=== PATIENT | male | born 1950 | race Two or more races ===

== ENCOUNTER 2024-08-04 09:33 | Inpatient (IN) | payer OTHER, MEDICAID ==
[~2024-08-04] VITALS: Ht 182.9 cm; Wt 120.2 kg
[2024-08-04] VITALS (8 sets, daily range): BP systolic 120–137; BP diastolic 80–89; PULSE 78–121; RESP 16–23; TEMP 97.1–98; O2SAT 96–99
[2024-08-04 10:22] LABS: Basophils # (auto) 0.1 10 ^3/uL (0-0.2); Basophils % (auto) 1.6 % (0.0-2.0); Eosinophils # (auto) 0.4 10 ^3/uL (0-0.8); Eosinophils % (auto) 4.9 % (0.0-7.0); Hematocrit 42.7 % (41.0-53.0); Hemoglobin 14.6 g/dL (13.5-17.5); Lymphocytes # (auto) 1.7 10 ^3/uL (0.4-5.4); Lymphocytes % (auto) 20.9 % (10.0-50.0); Mean Corpuscular Hgb Conc. 34.1 g/dL (32.0-36.0); Mean Corpuscular Volume 90.8 fL (80.0-100.0); Monocytes # (auto) 0.8 10 ^3/uL (0-1.3); Monocytes % (auto) 9.5 % (0.0-12.0); Neutrophils # (auto) 5.1 10 ^3/uL (1.6-8.6); Neutrophils % (auto) 63.1 % (37.0-80.0); Platelet Count (auto) 207 10^3/uL (140-450); Red Cell Distribution Width 14.7 % (11.8-14.3); White Blood Cell 8.1 10^3/uL (4.4-10.8)
--- NOTE | 2024-08-04 10:27 | ED.PDOC ---
HPI Comments 73-year-old male with a history of AFib, CHF, COPD on home O2 brought in by EMS from home complaining of chest pain. Patient states he woke up around 3:00 a.m. today with a rapid heart rate and knew he was in AFib. About an hour and a half prior to arrival in the ED, he developed achy retrosternal chest pain, associated with shortness of breath despite oxygen. He also notes worsening bilateral lower extremity swelling and pain. He denies fever, cough or other symptoms. Chief Complaint: Chest Pain Time Seen by MD: 10:00 Primary Care Provider: IVORY Allergies: Coded Allergies: Fentanyl (Verified Allergy, Severe, 08/04/24) Tetracycline (Verified Allergy, Severe, 08/04/24) Patient states anaphalatic shock reaction from tetracycline and was hospitalized for 2 weeks. Povidone Iodine (Verified Allergy, Intermediate, RASH, 08/04/24) Home Meds Reported Medications Morphine Sulfate (Morphine Sulfate Er) 60 Mg Tab, 1 TAB PO Q4HPRN, #60 TAB 08/04/24 Atorvastatin Calcium (ATORVASTATIN CALCIUM) 40 Mg Tab, 1 TAB PO DAILY, #30 TAB 5 Refills 08/04/24 Furosemide (Furosemide) 20 Mg Tab, 1 TAB PO DAILYP, #90 TAB 1 Refill 08/04/24 Gabapentin (Gabapentin) 600 Mg Tab, 1 TAB PO TID, #90 TAB 3 Refills 08/04/24 Sotalol Hcl (Sotalol Hcl) 80 Mg Tab, 1 TAB PO BID, #180 TAB 3 Refills 08/04/24 Apixaban Base (ELIQUIS) 5 Mg Tab, 5 MG PO BID, TAB 08/04/24 Amlodipine Besylate (NORVASC TABLET) 5 Mg Tb, 1 TAB PO DAILY, #30 TAB 5 Refills 08/04/24 Metoprolol Succinate (Metoprolol Succinate Er) 50 Mg Tab, 1 TAB PO DAILY, #30 TAB 5 Refills 08/04/24 Losartan Potassium (Losartan Potassium) 50 Mg Tab, 1 TAB PO DAILY, #30 TAB 5 Refills 08/04/24 Budesonide-Formoterol Fumarate (Budesonide/Formoterol Fum 160-4.5 Mcg/Act) 1 Aer Aer, 1 AER IN Q4HPRN, AER 08/04/24 Mode of Arrival: EMS Past Medical History PAST MEDICAL HISTORY: Asthma, CHF, COPD, High Lipids, HTN Past Medical History (Other): Neuropathy, history of leukemia in remission Surgical History: Appendectomy Surgical History (Other): Right chest port Family History Family History: Reviewed,noncontributory to illness Social History Smoker: Non-Smoker Alcohol: Denies ETOH Use Drugs: Denies Drug Use Lives In: Home Physical Exam General Appearance: No Apparent Distress HEENT: PERRL/EOMI, Pharynx Normal Neck: Full Range of Motion, Normal Inspection, Supple Respiratory: Decreased Breath Sounds, No Accessory Muscle Use, No Respiratory Distress Cardiovascular: Irregular, No JVD Breast Exam: Deferred Gastrointestinal: Non Tender, Soft Genitalia: Deferred Pelvic: Deferred Rectal: Deferred Extremities: Leg edema, Normal range of motion, Pedal edema, Tender Neurologic: Alert (Oriented x4), Normal Affect, Normal Mood, Other (No gross focal deficit) Cerebellar Function: NOT DONE Reflexes: NOT DONE Skin: Dry, Normal Color, Warm Lymphatic: NOT DONE EKG EKG : Comments AFib, rate 83, normal QRS interval, QTC 490, left axis deviation, possible old inferior or anteroseptal infarct, nonspecific T change. Was a procedure done? Was a procedure done?: No CP Differential Dx Differential Diagnosis: A-fib, Angina, [place], Pulmonary Embolus Differential Diagnosis: CHF Differential Diagnosis: Chest Wall Pain, Esophageal reflux/spasm, Gastritis, Pericarditis, Pneumonia X-Ray, Labs, Meds, VS Vital Signs Date Time Temp Pulse Resp B/P (MAP) Pulse Ox O2 Delivery O2 Flow Rate FiO2 08/04/24 14:45 84 19 126/88 (101) 100 08/04/24 13:34 18 97 Nasal Cannula* 3 32 08/04/24 11:46 95 137/89 (105) 100 08/04/24 11:46 137/89 08/04/24 10:39 154/96 08/04/24 10:38 154/96 08/04/24 09:55 78 16 99 Nasal Cannula* 3 32 08/04/24 09:55 97.1 78 16 154/96 (115) 99 97.1 08/04/24 09:35 83 08/04/24 09:33 98.0 85 12 143/98 (113) 98 Lab Test 08/04/24 13:40 08/04/24 13:35 08/04/24 13:05 08/04/24 10:43 Range/Units Influenza Type A Antigen Negative Negative Influenza Type B Antigen Negative Negative SARS-CoV-2 Antigen (Rapid) Negative NEGATIVE Lactic Acid Level 1.3 0.4-2.0 mmol/L Troponin I High Sensitivity 11 11 </=54 ng/L Test 08/04/24 09:51 Range/Units White Blood Count 8.1 4.4-10.8 10^3/uL Red Blood Count 4.70 4.5-5.90 10^6/uL Hemoglobin 14.6 13.5-17.5 g/dL Hematocrit 42.7 41.0-53.0 % Mean Corpuscular Volume 90.8 80.0-100.0 fL Mean Corpuscular Hemoglobin 31.0 28.0-32.0 pg Mean Corpuscular Hemoglobin Concent 34.1 32.0-36.0 g/dL Red Cell Distribution Width 14.7 H 11.8-14.3 % Platelet Count 207 140-450 10^3/uL Mean Platelet Volume 8.1 6.9-10.8 fL Neutrophils (%) (Auto) 63.1 37.0-80.0 % Lymphocytes (%) (Auto) 20.9 10.0-50.0 % Monocytes (%) (Auto) 9.5 0.0-12.0 % Eosinophils (%) (Auto) 4.9 0.0-7.0 % Basophils (%) (Auto) 1.6 0.0-2.0 % Neutrophils # (Auto) 5.1 1.6-8.6 10 ^3/uL Lymphocytes # (Auto) 1.7 0.4-5.4 10 ^3/uL Monocytes # (Auto) 0.8 0-1.3 10 ^3/uL Eosinophils # (Auto) 0.4 0-0.8 10 ^3/uL Basophils # (Auto) 0.1 0-0.2 10 ^3/uL Nucleated Red Blood Cells 0.0 % Sodium Level 138 136-145 mmol/L Potassium Level 4.2 3.5-5.1 mmol/L Chloride Level 107 98-107 mmol/L Carbon Dioxide Level 24 20-31 mmol/L Anion Gap 7 5-15 Blood Urea Nitrogen 13 9-23 mg/dL Creatinine 0.93 0.700-1.30 mg/dL Glomerular Filtration Rate Calc 87 >90 mL/min BUN/Creatinine Ratio 14.0 10.0-20.0 Serum Glucose 102 74-106 mg/dL Calcium Level 10.0 8.7-10.4 mg/dL Total Bilirubin 0.6 0.2-1.0 mg/dL Aspartate Amino Transferase (AST) 19 13-40 U/L Alanine Aminotransferase (ALT) 32 7-40 U/L Alkaline Phosphatase 90 46-116 U/L Troponin I High Sensitivity 11 </=54 ng/L B-Type Natriuretic Peptide 234.03 0-100 pg/mL Total Protein 6.9 5.7-8.2 g/dL Albumin 4.6 3.2-4.8 g/dL Current Medications Medications (Trade) Dose Ordered Sig/Aixa Route Start Time Stop Time Status Last Admin Furosemide (Lasix Injection) 40 mg ONCE ONCE IV 08/04/24 10:30 08/04/24 10:31 DC 08/04/24 10:38 Nitroglycerin (Nitro-Bid) 1 pkg ONCE ONCE TD 08/04/24 10:30 08/04/24 10:31 DC 08/04/24 10:39 Acetaminophen/ Hydrocodone Bitart ([place] 5/325MG Tab) 1 tab ONCE ONCE PO 08/04/24 10:30 08/04/24 10:31 DC 08/04/24 10:39 Methylprednisolone Sodium Succinate (Solu Medrol) 125 mg ONCE ONCE IV 08/04/24 13:15 08/04/24 14:25 DC 08/04/24 15:00 Ceftriaxone Sodium 50 ml @ 100 mls/hr ONCE ONCE IV 08/04/24 13:15 08/04/24 14:25 DC 08/04/24 15:00 Azithromycin 250 ml @ 125 mls/hr ONCE ONCE IV 08/04/24 13:15 08/04/24 15:14 DC 08/04/24 16:44 Chest XR: FINDINGS: Lines and Tubes: Right chest port in satisfactory position. Lungs: Diffuse increased interstitial prominence. Pleura: No effusion. No pneumothorax. Cardiomediastinal contours: Cardiomegaly Bones: Unremarkable IMPRESSION: Pulmonary vascular congestion versus multifocal infection. X-Ray, Labs, Meds, VS Comment 73-year-old male with a history of AFib, COPD, CHF complaining of a recurrence of his AFib, associated with chest pain, shortness a breath and worsening lower extremity edema. Vitals remarkable for BP 154/96 EKG AFib, rate 83, nonspecific T changes Chest x-ray IMPRESSION: Pulmonary vascular congestion versus multifocal infection. Labs remarkable for BNP 234.03, no other abnormalities of acute significance. Two serial troponins negative. Aspirin 325 mg p.o. was given by EMS Patient treated with the following in the ED: Nitro-Bid 1/2 inch to chest wall , Lasix 40 mg IV, [place] 5/325 mg p.o., Solu- Medrol 125 mg IV, Xopenex 1.25 mg/Atrovent 0.5 mg nebulized, Rocephin 1 g IV, Zithromax 500 mg IV On re-evaluation, patient states his symptoms have improved. No chest pain. Shortness breath has improved. Plan is to admit the patient for diuresis, serial troponins and Cardiology evaluation. Images Reviewed?: Images reviewed and evaluated by me Time of 1ST Reevaluation: 10:26 Reevaluation 1ST: Unchanged Patient Education/Counseling: Diagnosis, Treatment Family Education/Counseling: No Family Present Additional Information The following tests were ordered, and results were reviewed by me: CXR, EKG, Troponin, CBC, CMP, BNP I reviewed and agreed with the following test results read by other providers: CXR I discussed treatment and results with medical personnel. Departure 1 Departure Time of Disposition: 13:08 Impression: Primary Impression: Afib Qualified Codes: I48.91 - Unspecified atrial fibrillation Additional Impressions: Acute exacerbation of chronic heart failure COPD exacerbation Acute chest pain Disposition: ADMITTED INPATIENT Admit to: Tele Condition: Guarded Critical Care Note Critical Care Time?: No Stability Stability form required: No Heart Score Heart Score: Heart Score Response (Comments) Value History Moderate Suspicious 1 EKG Repolarization Disturb 1 Age >65 2 Risk Factors >3 or Hx ASHD 2 Troponin Normal limit 0 Total 6 I personally scribed for MILLER LEWIS MD ([email or web address]) on 08/04/24 at 12:56. Electronically submitted by Randal Andrade ([email or web address]). MILLER LEWIS MD Aug 04, 2024 10:27
[2024-08-04 10:36] LABS: Alanine Aminotransferase 32 U/L (7-40); Albumin 4.6 g/dL (3.2-4.8); Alkaline Phosphatase 90 U/L (46-116); Anion Gap 7 (5-15); Aspartate Aminotransferase 19 U/L (13-40); Bilirubin, Total 0.6 mg/dL (0.2-1.0); Blood Urea Nitrogen 13 mg/dL (9-23); Carbon Dioxide 24 mmol/L (20-31); Glucose 102 mg/dL (74-106); Potassium 4.2 mmol/L (3.5-5.1); Sodium 138 mmol/L (136-145); Total Protein 6.9 g/dL (5.7-8.2)
[2024-08-04 10:37] LABS: Chloride 107 mmol/L (98-107)
[2024-08-04] MEDS: FUROSEMIDE 40 MG/4 ML VIAL IV ONE (10:38)
[2024-08-04] MEDS: HYDROcodone-ACET 5/325MG TAB PO ONE (10:39)
[2024-08-04] MEDS: NITROGLYCERIN 2% OINT 1GM PKG TD ONE (10:39)
--- NOTE | 2024-08-04 12:03 | DVH ---
CHEST RADIOGRAPH Indication: cp sob Technique: Single frontal view of the chest was obtained COMPARISON: None FINDINGS: Lines and Tubes: Right chest port in satisfactory position. Lungs: Diffuse increased interstitial prominence. Pleura: No effusion. No pneumothorax. Cardiomediastinal contours: Cardiomegaly Bones: Unremarkable IMPRESSION: Pulmonary vascular congestion versus multifocal infection.
[2024-08-04] MEDS: IPRATROPIUM BROM 0.5 MG/2.5ML INH SOL NEB ONE (13:15)
[2024-08-04] MEDS: LEVALBUTEROL HCL 1.25 MG/3 ML NEB ONE (13:33)
[2024-08-04] MEDS: IPRATROPIUM BROM 0.5 MG/2.5ML INH SOL ONE (13:34)
[2024-08-04 14:39] LABS: COVID19 ANTIGEN SOFIA FIA NEGATIVE (NEGATIVE); Rapid Influenza A Negative (Negative); Rapid Influenza B Negative (Negative)
[2024-08-04] MEDS: cefTRIAXone 1GM/50ML D5W 50 ML IV ONE (15:00)
[2024-08-04] MEDS: methylPREDNISolone SOD SUCC 125 MG/2 ML VL IV ONE (15:00)
--- NOTE | 2024-08-04 15:44 | DVHHP2 ---
History of Present Illness Reason for Visit: Acute chest pain History of Present Illness The patient is a 73-year-old male with multiple past medical history including leukemia, CHF, COPD, and hypertension who presented to [facility] ED with complaint of acute chest pain. Patient reports having palpitation, associat ed shortness of breath despite oxygen, chest pain rating 7/10 numeric scale, getting worse that prompted this visit. Patient was seen and evaluated in the ED, laboratory data shows WBC 8.1, platelets 207, sodium 138, potassium 4.2, BUN 13, creatinine 0.93, GFR 87, glucose 102, troponin 11, BNP 234.03, blood pressure 137/89, heart rate 95, temperature 97.1 F, O2 saturation 97% oxygen. Chest x-ray revealing pulmonary vascular congestion versus multifocal infection. Patient was started on IV antibiotic regimen azithromycin, given IV Lasix, please see medication orders section in the computer. On my assessment, patient denied chest pain at this moment, no headache, no dizziness, no palpitation, no diaphoresis, no nausea, no vomiting, no fever, no chills. Patient was admitted for further evaluation and medical management. Past Medical History Asthma, CHF, COPD, High Lipids, HTN, AFib Neuropathy, history of leukemia in remission Past Surgical History Appendectomy, Right chest port Family History Reviewed, noncontributory to the management of this case. Past Social History The patient lives at home, denies smoking, alcohol or illicit drugs abuse. Review of Systems Constitutional: Yes: Weakness; No: Fever, Chills, Sweats, Malaise, Other Eyes: No: Pain, Vision change, Conjunctivae inflammation, Eyelid inflammation, Other, Redness ENT: No: Ear pain, Ear discharge, Nose pain, Nose discharge, Nose congestion, Mouth pain, Mouth swelling, Throat pain, Throat swelling, Other Respiratory: Shortness of breath; No: Cough, Dry, SOB with excertion, Wheezing, Hemoptysis, Pleuritic Pain, Sputum, Wheezing, Other Cardiovascular: Chest Pain, Other (Atrial fibrillation); No: Palpitations, Orthopnea, Paroxysmal Noc. Dyspnea, Edema, Lt Headedness Gastrointestinal: No: Nausea, Vomiting, Abdominal Pain, Diarrhea, Constipation, Melena, Hematochezia, Other Genitourinary: No Dysuria, No Frequency, No Incontinence, No Hematuria, No Retention, No Other Musculoskeletal: No: other, neck pain, shoulder pain, arm pain, back pain, hand pain, leg pain, foot pain Skin: No: Rash, Lesions, Jaundice, Bruising, Other Neurological: No: Weakness, Numbness, Incoordination, Change in speech, Confusion, Seizures, Other Allergies: Coded Allergies: Fentanyl (Verified Allergy, Severe, 08/04/24) Exam Vital Signs Vital Signs Date Time Temp Pulse Resp B/P (MAP) Pulse Ox O2 Delivery O2 Flow Rate FiO2 08/04/24 13:34 18 97 Nasal Cannula* 3 32 08/04/24 11:46 95 137/89 (105) 08/04/24 09:55 97.1 97.1 General Appearance: Alert, Oriented X3, Cooperative, No acute distress HEENT: Atraumatic, PERRLA, EOMI, Mucous membr. moist/pink Respiratory: Normal air movement, Other (Congestion) Cardiovascular: Regular rate, Normal S1, Normal S2, No murmurs Abdominal: Normal bowel sounds, Soft, No tenderness, No hepatospenomegaly, No masses Extremities: No clubbing, No cyanosis, No edema, Normal pulses, No tenderness/swelling Skin: No rashes, No breakdown, No significant lesion Neuro: Normal speech, Normal tone, Sensation intact, Cranial nerves 3-12 NL, Reflexes 2+, Other (Generalized weakness) Psych/Mental Status: Mental status NL, Mood NL Labs/Xrays Labs Test 08/04/24 13:40 08/04/24 13:35 08/04/24 13:05 08/04/24 09:51 Range/Units Influenza Type A Antigen Negative Negative Influenza Type B Antigen Negative Negative SARS-CoV-2 Antigen (Rapid) Negative NEGATIVE Lactic Acid Level 1.3 0.4-2.0 mmol/L Troponin I High Sensitivity 11 </=54 ng/L White Blood Count 8.1 4.4-10.8 10^3/uL Red Blood Count 4.70 4.5-5.90 10^6/uL Hemoglobin 14.6 13.5-17.5 g/dL Hematocrit 42.7 41.0-53.0 % Mean Corpuscular Volume 90.8 80.0-100.0 fL Mean Corpuscular Hemoglobin 31.0 28.0-32.0 pg Mean Corpuscular Hemoglobin Concent 34.1 32.0-36.0 g/dL Red Cell Distribution Width 14.7 H 11.8-14.3 % Platelet Count 207 140-450 10^3/uL Mean Platelet Volume 8.1 6.9-10.8 fL Neutrophils (%) (Auto) 63.1 37.0-80.0 % Lymphocytes (%) (Auto) 20.9 10.0-50.0 % Monocytes (%) (Auto) 9.5 0.0-12.0 % Eosinophils (%) (Auto) 4.9 0.0-7.0 % Basophils (%) (Auto) 1.6 0.0-2.0 % Neutrophils # (Auto) 5.1 1.6-8.6 10 ^3/uL Lymphocytes # (Auto) 1.7 0.4-5.4 10 ^3/uL Monocytes # (Auto) 0.8 0-1.3 10 ^3/uL Eosinophils # (Auto) 0.4 0-0.8 10 ^3/uL Basophils # (Auto) 0.1 0-0.2 10 ^3/uL Nucleated Red Blood Cells 0.0 % Sodium Level 138 136-145 mmol/L Potassium Level 4.2 3.5-5.1 mmol/L Chloride Level 107 98-107 mmol/L Carbon Dioxide Level 24 20-31 mmol/L Anion Gap 7 5-15 Blood Urea Nitrogen 13 9-23 mg/dL Creatinine 0.93 0.700-1.30 mg/dL Glomerular Filtration Rate Calc 87 >90 mL/min BUN/Creatinine Ratio 14.0 10.0-20.0 Serum Glucose 102 74-106 mg/dL Calcium Level 10.0 8.7-10.4 mg/dL Total Bilirubin 0.6 0.2-1.0 mg/dL Aspartate Amino Transferase (AST) 19 13-40 U/L Alanine Aminotransferase (ALT) 32 7-40 U/L Alkaline Phosphatase 90 46-116 U/L B-Type Natriuretic Peptide 234.03 0-100 pg/mL Total Protein 6.9 5.7-8.2 g/dL Albumin 4.6 3.2-4.8 g/dL PATIENT: ANA LAURA BELLE ACCT: [id number] UNIT: [id number] : 1950 LOC: ER ROOM / BED: / AGE / SEX: 73 / M ADM STATUS: REG ER SERVICE 1048 ORDERING PHYSICIAN: MILLER LEWIS MD PROCEDURE(s): CXR1 - CHEST XRAY 1 VIEW REASON: cp sob ORDER NUMBER(s): [id number], ACCESSION NUMBER(s): [id number] CHEST RADIOGRAPH Indication: cp sob Technique: Single frontal view of the chest was obtained COMPARISON: None FINDINGS: Lines and Tubes: Right chest port in satisfactory position. Lungs: Diffuse increased interstitial prominence. Pleura: No effusion. No pneumothorax. Cardiomediastinal contours: Cardiomegaly Bones: Unremarkable IMPRESSION: Pulmonary vascular congestion versus multifocal infection. Assessment/Plan Assessment/Plan Atrial fibrillation Acute chest pain Unspecified atrial fibrillation Acute exacerbation of chronic heart failure COPD with acute exacerbation Pneumonia, unspecified organisms Generalized weakness Plan 1. Admit to telemetry unit 2. Breathing treatment 3. Pain control management 4. IV antibiotic management 5. Management of fluids and electrolytes 6. Consultation for Cardiology 7. Diagnostic test chest x-ray 8. DVT prophylaxis-on Eliquis 9. Repeat labs CBC, CMP in a.m. 10. Home medication reviewed and reconciled 11. Continue with current medical management 12. Treatment plan discussed with patient and RN. Patient verbalized understanding. Plan discussed with: Patient, Other (RN) My Orders Orders - CLEMENTE REESE DNP Procedure Category Date Status Time Azithromycin 500mg/ PHA 08/05/24 Verified 250ml (Zithromax 50 10:00 Ceftriaxone Ivpb PHA 08/05/24 Verified Rocephin 09:00 Furosemide Injection PHA 08/05/24 Verified (Lasix Injection) 10:00 Problem List: (1) Atrial fibrillation (2) Acute chest pain (3) COPD with acute exacerbation (4) Acute exacerbation of chronic heart failure (5) Unspecified atrial fibrillation (6) Pneumonia, unspecified organism (7) Generalized weakness Date of Service: Aug 04, 2024 Billing Provider: CLEMENTE REESE DNP Common Visit Codes: [id number] INP/OBS CARE (HIGH) CLEMENTE REESE DNP Aug 04, 2024 15:44
[2024-08-04] MEDS ORDERED: ACETAMINOPHEN 325 MG TAB PO PRN (15:45)
[2024-08-04] MEDS ORDERED: ONDANSETRON HCL 4 MG/2 ML VIAL IV PRN (15:45)
[2024-08-04] MEDS ORDERED: hydrALAZINE HCL 20 MG/ML VL IV PRN (15:45)
[2024-08-04] MEDS: AZITHROMYCIN 500MG/ 250ML 250 ML IV ONE (16:44)
[2024-08-04] MEDS: MORPHINE SULFATE INJ 2 MG/ml SYRG IV PRN ×2 (16:53→20:15)
[2024-08-04] MEDS ORDERED: BUDE1AER4 IN (17:38)
[2024-08-04] MEDS ORDERED: METO-289 PO (17:43)
[2024-08-04] MEDS ORDERED: AML5T PO (17:43)
[2024-08-04] MEDS ORDERED: MORP1TAB14 PO (17:43)
[2024-08-04] MEDS ORDERED: APIX5TAB PO (17:43)
[2024-08-04] MEDS ORDERED: GABA-339 PO (17:43)
[2024-08-04] MEDS ORDERED: FURO20TA3 PO (17:43)
[2024-08-04] MEDS ORDERED: LOSA-534 PO (17:43)
[2024-08-04] MEDS ORDERED: ATOR40TA52 PO (17:43)
[2024-08-04] MEDS ORDERED: SOTA80TA PO (17:43)
[2024-08-04] MEDS ORDERED: LEVALBUTEROL HCL 1.25 MG/3 ML NEB NEB SCH (18:00)
[2024-08-04] MEDS: LEVALBUTEROL HCL 1.25 MG/3 ML NEB NEB SCH (19:00)
[2024-08-04] MEDS: NITROGLYCERIN 0.4 MG SL TAB SL PRN (20:44)
[2024-08-04] MEDS: CARVEDILOL 3.125 MG TAB PO SCH (22:12)
[2024-08-04] MEDS: APIXABAN 5 MG TAB PO SCH (22:12)
[2024-08-04] MEDS: ATORVASTATIN 20 MG TAB PO SCH (22:12)
[2024-08-04] MEDS: FAMOTIDINE (10MG/ML) 2ML VL IV SCH (22:13)
[2024-08-04] MEDS: methylPREDNISolone SOD SUCC 40 MG/ML VL IV SCH (22:13)
[2024-08-04] MEDS: SODIUM CHLOR 0.9% PF (SALINE LOCK) 10ML VIAL/SYR IV SCH (22:13)
[2024-08-05] VITALS (16 sets, daily range): BP systolic 108–132; BP diastolic 80–88; PULSE 83–164; RESP 16–23; TEMP 97.5–98.5; O2SAT 95–99
[2024-08-05 07:20] LABS: Basophils # (auto) 0 10 ^3/uL (0-0.2); Basophils % (auto) 0.1 % (0.0-2.0); Eosinophils # (auto) 0 10 ^3/uL (0-0.8); Eosinophils % (auto) 0.1 % (0.0-7.0); Hematocrit 43.5 % (41.0-53.0); Hemoglobin 14.4 g/dL (13.5-17.5); Lymphocytes % (auto) 5.8 % (10.0-50.0); Mean Corpuscular Hemoglobin 30.3 pg (28.0-32.0); Mean Corpuscular Hgb Conc. 33.2 g/dL (32.0-36.0); Mean Corpuscular Volume 91.2 fL (80.0-100.0); Monocytes # (auto) 0.3 10 ^3/uL (0-1.3); Monocytes % (auto) 1.6 % (0.0-12.0); Neutrophils # (auto) 15.1 10 ^3/uL (1.6-8.6); Neutrophils % (auto) 92.4 % (37.0-80.0); Platelet Count (auto) 197 10^3/uL (140-450); Red Blood Cells 4.77 10^6/uL (4.5-5.90); Red Cell Distribution Width 15.2 % (11.8-14.3); White Blood Cell 16.3 10^3/uL (4.4-10.8)
[2024-08-05 07:39] LABS: Alanine Aminotransferase 30 U/L (7-40); Albumin 4.5 g/dL (3.2-4.8); Alkaline Phosphatase 86 U/L (46-116); Anion Gap 9 (5-15); BUN/Creatinine Ratio 21.3 (10.0-20.0); Bilirubin, Total 0.6 mg/dL (0.2-1.0); Blood Urea Nitrogen 19 mg/dL (9-23); Calcium 9.9 mg/dL (8.7-10.4); Carbon Dioxide 22 mmol/L (20-31); Chloride 105 mmol/L (98-107); Potassium 4.6 mmol/L (3.5-5.1)
[2024-08-05 07:42] LABS: Aspartate Aminotransferase 11 U/L (13-40); Glucose 192 mg/dL (74-106); Sodium 136 mmol/L (136-145)
[2024-08-05] MEDS: cefTRIAXone 1GM/50ML D5W 50 ML IV SCH (09:08)
[2024-08-05] MEDS: FUROSEMIDE 40 MG/4 ML VIAL IV SCH (09:09)
[2024-08-05] MEDS: amLODIPine BESYLATE 5 MG TAB PO SCH (09:10)
[2024-08-05] MEDS: AZITHROMYCIN 500MG/ 250ML 250 ML IV SCH (11:11)
--- NOTE | 2024-08-05 18:24 | DVHPN2 ---
Subjective BETTER Reviewed: Care Plan, H&P, Labs, Medications, Previous Orders, Radiology Changes from previous H/P or p: No Changes Objective Vitals Vital Signs Date Time Temp Pulse Resp B/P (MAP) Pulse Ox O2 Delivery O2 Flow Rate FiO2 08/05/24 17:00 97.7 101 18 132/80 (97) 98 97.7 08/05/24 11:55 Nasal Cannula 4.0 08/05/24 11:55 36 Intake/Output Intake and Output 08/05/24 07:00 Intake Total 665 ml Output Total 450 ml Balance 215 ml Intake Oral 665 ml Output Urine Total 450 ml # Voids 1 General Appearance: Alert, Oriented X3, Cooperative, No acute distress, Other (M. OBESE) HEENT: Atraumatic Lungs: Clear to auscultation Cardiovascular: Regular rate Abdomen: Soft, No tenderness Extremities: Other (TRACE BLE EDEMA) Medications Current Medications Medications Dose Ordered Sig/Aixa Route Start Time Stop Time Status Last Admin Dose Admin Azithromycin 250 ml @ 125 mls/hr DAILY IV 08/05/24 10:00 08/05/24 11:11 125 MLS/HR Ceftriaxone Sodium 50 ml @ 100 mls/hr DAILY@09 IV 08/05/24 09:00 08/05/24 09:08 100 MLS/HR Furosemide 40 mg DAILY IV 08/05/24 10:00 08/05/24 09:09 40 MG Carvedilol 3.125 mg Q12HR PO 08/04/24 22:00 08/05/24 09:10 3.125 MG Atorvastatin Calcium 20 mg HS PO 08/04/24 22:00 08/04/24 22:12 20 MG Amlodipine Besylate 5 mg DAILY PO 08/05/24 10:00 08/05/24 09:10 5 MG Hydralazine HCl 10 mg Q6HP PRN IV 08/04/24 15:45 Levalbuterol HCl 0.625 mg Q6HR NEB 08/04/24 18:00 08/05/24 11:55 0.625 MG Ipratropium Roy 0.5 mg Q4HPRN PRN NEB 08/04/24 15:45 Methylprednisolone Sodium Succinate 40 mg Q8HR IV 08/04/24 22:00 08/05/24 16:01 40 MG Famotidine 20 mg Q12HR IV 08/04/24 22:00 08/05/24 09:08 20 MG Sodium Chloride 10 ml Q8HR IV 08/04/24 22:00 08/05/24 16:05 10 ML Acetaminophen/ Hydrocodone Bitart 1 tab Q4HP PRN PO 08/04/24 15:45 Ondansetron HCl 4 mg Q4HP PRN IV 08/04/24 15:45 Docusate Sodium 100 mg BIDPRN PRN PO 08/04/24 15:45 Acetaminophen 650 mg Q6HP PRN PO 08/04/24 15:45 Morphine Sulfate 2 mg Q4HPRN PRN IV 08/04/24 15:45 08/05/24 03:20 2 MG Nitroglycerin 0.4 mg Q5MINP PRN SL 08/04/24 15:45 08/04/24 20:44 0.4 MG Morphine Sulfate 2 mg Q30M PRN IV 08/04/24 15:45 08/04/24 16:53 2 MG Apixaban 5 mg BID PO 08/04/24 22:00 08/05/24 09:10 5 MG Laboratory Results Laboratory Tests 08/05/24 06:48 Chemistry Test 08/05/24 06:48 Albumin 4.5 g/dL (3.2-4.8) Calcium Level 9.9 mg/dL (8.7-10.4) Total Protein 7.0 g/dL (5.7-8.2) LFT Test 08/05/24 06:48 Alanine Aminotransferase (ALT) 30 U/L (7-40) Alkaline Phosphatase 86 U/L (46-116) Aspartate Amino Transferase (AST) 11 U/L (13-40) L Total Bilirubin 0.6 mg/dL (0.2-1.0) Microbiology Microbiology Date/Time Source Procedure Growth Status 08/04/24 13:43 Blood Blood Culture - Preliminary NO GROWTH AFTER 24 HOURS OF INCUBATION. Resulted Assessment/Plan Assessment/Plan CHEST PAIN PALPITATION A FIB CHF COPD HTN ?PNA WITH LEUKOCYTOSIS/SEPSIS LEUKEMIA IN REMISSION SINCE 2017 CONTINUE CURRENT POC. repeat cbc and CXR Plan discussed with: Patient Date of Service: Aug 05, 2024 Billing Provider: FEROZ JOEL MD Common Visit Codes: [id number] INP/OBS CARE(HIGH) FEROZ JOEL MD Aug 05, 2024 18:24
[2024-08-06] VITALS (18 sets, daily range): BP systolic 109–142; BP diastolic 60–88; PULSE 98–120; RESP 17–20; TEMP 97.6–98.6; O2SAT 97–100
--- NOTE | 2024-08-06 05:55 | DVH ---
CHEST RADIOGRAPH Indication: FU Technique: Single frontal view of the chest was obtained COMPARISON: XY CHEST XRAY 1 VIEW on DOS: 08/04/24 FINDINGS: Lines and Tubes: Right chest port in satisfactory position. Lungs: Congestion, slightly improved. Pleura: No effusion. No pneumothorax. Cardiomediastinal contours: Cardiomegaly Bones: Unremarkable IMPRESSION: Congestion, slightly improved.
[2024-08-06 07:11] LABS: Hematocrit 41.1 % (41.0-53.0); Hemoglobin 13.8 g/dL (13.5-17.5); Mean Corpuscular Hemoglobin 30.7 pg (28.0-32.0); Mean Corpuscular Hgb Conc. 33.7 g/dL (32.0-36.0); Mean Corpuscular Volume 91.2 fL (80.0-100.0); Platelet Count (auto) 209 10^3/uL (140-450); Red Cell Distribution Width 14.7 % (11.8-14.3); White Blood Cell 21.9 10^3/uL (4.4-10.8)
[2024-08-06 07:24] LABS: Band Neutrophils % (manual) 0; Basophils % (manual) 0 (0.0-2.0); Blast Cells 0; Eosinophils % (manual) 0 (0-7); Metamyelocytes % 0; Myelocytes % 0; Promyelocytes % 0; Reactive Lymphocytes 0
[2024-08-06 07:48] LABS: Urine Bacteria None Seen /hpf (None Seen)
--- NOTE | 2024-08-06 07:50 | DVHSR ---
APPROVED REPORT EXAM: Two-dimensional and M-mode echocardiogram with Doppler and color Doppler. Blood Pressure: 119/83 mmHg INDICATION Heart Failure RISK FACTORS Height: 6', Weight: 242 DIMENSIONS LVDd5.2 (3.8-5.7cm)LA (2D)4.0 (1.9-4.0cm)Aortic Root (2.0-3.7cm) LVDs3.4 (2.5-4.0cm)LA (MM) (1.9-4.0cm)Aortic Cusp Exc (1.5-2.0cm) EF (%) 64.0 (55-70%)Rt. Atrium4.5 (1.9-4.0cm)Asc. Aorta3.9 cm IVSd1.0 (0.7-1.1cm)RV (D) (1.8-2.4cm) Mitral Valve MitralMitral Stenosis E wave0.85m/sMV Mean GR.mmHg E/A ratio0.02D MVAcm2 Aortic Valve Aortic ValveAortic Stenosis V11.02m/Radha Mean GR.6mmHg V21.54m/Radha Peak GR.9mmHg LVOT Diameter2.2 (1.8-2.4cm)Doppler AVA2.52cm2 LEFT VENTRICLE Normal left ventricular size. Wall thickness is normal. Ejection fraction is normal and is estimate d at 60%. There is no gross wall motion abnormalities but endocardial definition is suboptimal. Aracelis stolic function is indeterminate. RIGHT VENTRICLE Right ventricle is likely mildly dilated in size. Right ventricular systolic function appears to be preserved. ATRIA Moderate biatrial enlargement. MITRAL VALVE There is moderate mitral annular calcification. No significant regurgitation. No significant stenos is. PULMONIC VALVE Not well visualized. TRICUSPID VALVE Not well visualized. AORTIC VALVE Not well visualized. Leaflets appear to be mildly calcified. No evidence of hemodynamically signifi cant stenosis. No regurgitation. GREAT VESSELS Proximal ascending aorta is mildly dilated in size and measures 3.9 cm. PERICARDIAL EFFUSION No pericardial effusion. Other Information Quality : Technically LimitedRhythm : Technically limited study due to body habitus. Conclusion The study is technically limited. Normal left ventricular size and systolic function. Right ventricle is mildly dilated in size with preserved systolic function. Calcified aortic valve with no significant stenosis. No pericardial effusion. PA systolic pressure is not adequately estimated.
[2024-08-06 08:03] LABS: Urine Blood Negative /uL (Negative); Urine Clarity Clear (Clear); Urine Color Light-Yellow (Yellow); Urine Mucus FEW (None Seen); Urine Protein, UAD Negative (Negative); Urine Specific Gravity 1.026 (1.001-1.035); Urine Squamous Epithelial Cell None Seen /hpf (<5); Urine Urobilinogen Normal (Negative); Urine WBC <1 /hpf (0 - 3); Urine pH 5.5 (5.0-9.0)
[2024-08-06 09:36] LABS: Lymphocytes % (manual) 7 (10.0-50.0); Monocytes % (manual) 5 (0-12); Platelet Estimate Adequate
--- NOTE | 2024-08-06 10:05 | ECG ---
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
--- NOTE | 2024-08-06 13:38 | ECG ---
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
--- NOTE | 2024-08-06 14:27 | DVHPN2 ---
Subjective BETTER Reviewed: Care Plan, H&P, Labs, Medications, Previous Orders, Radiology Changes from previous H/P or p: No Changes Objective Vitals Vital Signs Date Time Temp Pulse Resp B/P (MAP) Pulse Ox O2 Delivery O2 Flow Rate FiO2 08/06/24 12:52 98.0 120 19 118/78 (91) 99 98.0 08/06/24 11:52 Nasal Cannula* 4 36 Intake/Output Intake and Output 08/06/24 07:00 Intake Total 2440 ml Output Total 650 ml Balance 1790 ml Intake Oral 2140 ml IV Total 300 ml Output Urine Total 650 ml # Voids 6 # Bowel Movements 1 General Appearance: Alert, Oriented X3, Cooperative, No acute distress, Other (M. OBESE) HEENT: Atraumatic Lungs: Clear to auscultation Cardiovascular: Regular rate Abdomen: Soft, No tenderness Extremities: Other (TRACE BLE EDEMA) Medications Current Medications Medications Dose Ordered Sig/Aixa Route Start Time Stop Time Status Last Admin Dose Admin Azithromycin 250 ml @ 125 mls/hr DAILY IV 08/05/24 10:00 08/06/24 09:16 125 MLS/HR Ceftriaxone Sodium 50 ml @ 100 mls/hr DAILY@09 IV 08/05/24 09:00 08/06/24 09:15 100 MLS/HR Furosemide 40 mg DAILY IV 08/05/24 10:00 08/06/24 09:15 40 MG Atorvastatin Calcium 20 mg HS PO 08/04/24 22:00 08/05/24 22:04 20 MG Amlodipine Besylate 5 mg DAILY PO 08/05/24 10:00 08/06/24 09:13 5 MG Hydralazine HCl 10 mg Q6HP PRN IV 08/04/24 15:45 Levalbuterol HCl 0.625 mg Q6HR NEB 08/04/24 18:00 08/06/24 11:52 0.625 MG Ipratropium [employer] 0.5 mg Q4HPRN PRN NEB 08/04/24 15:45 Famotidine 20 mg Q12HR IV 08/04/24 22:00 08/06/24 09:14 20 MG Sodium Chloride 10 ml Q8HR IV 08/04/24 22:00 08/06/24 14:19 10 ML Acetaminophen/ Hydrocodone Bitart 1 tab Q4HP PRN PO 08/04/24 15:45 Ondansetron HCl 4 mg Q4HP PRN IV 08/04/24 15:45 Docusate Sodium 100 mg BIDPRN PRN PO 08/04/24 15:45 Acetaminophen 650 mg Q6HP PRN PO 08/04/24 15:45 Morphine Sulfate 2 mg Q4HPRN PRN IV 08/04/24 15:45 08/05/24 20:44 2 MG Nitroglycerin 0.4 mg Q5MINP PRN SL 08/04/24 15:45 08/04/24 20:44 0.4 MG Morphine Sulfate 2 mg Q30M PRN IV 08/04/24 15:45 08/04/24 16:53 2 MG Apixaban 5 mg BID PO 08/04/24 22:00 08/06/24 09:13 5 MG Methylprednisolone Sodium Succinate 40 mg Q12HR IV 08/06/24 22:00 UNV Metoprolol Succinate 50 mg DAILY PO 08/07/24 10:00 UNV Laboratory Results Laboratory Tests 08/05/24 06:48 08/06/24 06:00 Coagulation Test 08/06/24 13:23 D-Dimer, Quantitative < 0.19 mg/L FEU (0.0-0.49) Cardiac Markers Test 08/06/24 06:00 B-Type Natriuretic Peptide 122.23 pg/mL (0-100) Urinalysis Test 08/06/24 07:00 Urine Color Light-yellow (Yellow) Urine Clarity Clear (Clear) Urine pH 5.5 (5.0-9.0) Urine Specific [place] 1.026 (1.001-1.035) Urine Protein Negative (Negative) Urine Ketones Negative (Negative) Urine Blood Negative /uL (Negative) Urine Nitrite Negative (Negative) Urine Bilirubin Negative (Negative) Urine Urobilinogen Normal mg/dL (Negative) Urine Leukocyte Esterase Negative /uL (Negative) Urine RBC None seen /hpf (0 - 3) Urine WBC <1 /hpf (0 - 3) Urine Squamous Epithelial Cells None seen /hpf (<5) Urine Bacteria None seen /hpf (None Seen) Urine Mucus Few (None Seen) Urine Glucose Normal mg/dL (Normal) Microbiology Microbiology Date/Time Source Procedure Growth Status 08/04/24 13:43 Blood Blood Culture - Preliminary NO GROWTH AFTER 48 HOURS OF INCUBATION. Resulted Assessment/Plan Assessment/Plan CHEST PAIN PALPITATION A FIB with RVR CHF COPD HTN ?PNA WITH LEUKOCYTOSIS/SEPSIS LEUKEMIA IN REMISSION SINCE 2016 Plan: Reduce Solu-Medrol to 40 mg twice a day. Then we will decrease further. It could be causing the leukocytosis. Resume home medication of metoprolol XL 50 mg daily. Stop carvedilol. The tachycardia could be from lower beta-reinaldo dose of the carvedilol compared to the 50 mg of metoprolol. We will obtain chest CT to further delineate the anatomy and for possible pneumonia. D-dimer is negative Further plan as per orders Plan discussed with: Patient My Orders Orders - FEROZ JOEL MD Procedure Category Date Status Time Urine Bacterial SOFI 08/05/24 In Process Culture 18:24 Chest Portable XY 08/06/24 Resulted 06:00 Electrocardigram EKG 08/06/24 Resulted 10:01 Methylprednisolone PHA 08/06/24 Logged Sod Succ (Solu Medrol 22:[address] 08/06/24 Logged 14:23 Metoprolol Xl PHA 08/06/24 Transmitted Succinate (Toprol Xl) 14:30 Metoprolol Xl PHA 08/07/24 Transmitted Succinate (Toprol Xl) 10:00 Date of Service: Aug 06, 2024 Billing Provider: FEROZ JOEL MD Common Visit Codes: [id number] INP/OBS CARE(HIGH) FEROZ JOEL MD Aug 06, 2024 14:27
--- NOTE | 2024-08-06 15:20 | DVH ---
EXAM: CT CHEST WITHOUT CONTRAST History: pneumonia Comparison Study: None available TECHNIQUE: Multidetector CT of the chest was performed. Imaging was performed without IV contrast. Ax ial, coronal, and sagittal multiplanar reformats were obtained from the axial data set by the technol oggregory. Radiation Dose : CTDI vol 26.1 mGy, DLP 910.6 mGy*cm. Findings: Lungs: Intralobular septal thickening. No consolidations. Pleura: Unremarkable Heart/Great vessels: The visualized heart is unremarkable. No cardiomegaly. Trace pericardial effusio n. Moderate coronary atherosclerosis. Mediastinum: Nonenlarged mediastinal and hilar nodes. Soft tissues/Bones: Mild multilevel degenerative changes of the thoracic spine. Bilateral renal atrophy. The remaining partially visualized upper abdomen is within normal limits. Impression: 1. No acute cardiopulmonary disease. 2. Intralobular septal thickening, nonspecific. 3. Nonenlarged mediastinal and hilar nodes. 4. Trace pericardial effusion.
[2024-08-06] MEDS: METOPROLOL SUCCINATE XL 50 MG TAB PO ONE (16:28)
[2024-08-06] MEDS: HYDROcodone-ACET 5/325MG TAB PO PRN (16:28)
[2024-08-06] MEDS: methylPREDNISolone SOD SUCC 40 MG/ML VL IV SCH (22:27)
[2024-08-07] VITALS (20 sets, daily range): BP systolic 123–139; BP diastolic 72–89; PULSE 85–128; RESP 16–20; TEMP 97.1–98.7; O2SAT 96–100
[2024-08-07 08:18] LABS: Basophils # (auto) 0 10 ^3/uL (0-0.2); Eosinophils # (auto) 0 10 ^3/uL (0-0.8); Hematocrit 40.6 % (41.0-53.0); Hemoglobin 13.9 g/dL (13.5-17.5); Lymphocytes # (auto) 0.8 10 ^3/uL (0.4-5.4); Lymphocytes % (auto) 4.4 % (10.0-50.0); Mean Corpuscular Hemoglobin 31.3 pg (28.0-32.0); Mean Corpuscular Hgb Conc. 34.3 g/dL (32.0-36.0); Mean Corpuscular Volume 91.3 fL (80.0-100.0); Monocytes # (auto) 0.6 10 ^3/uL (0-1.3); Monocytes % (auto) 3.3 % (0.0-12.0); Neutrophils # (auto) 17.2 10 ^3/uL (1.6-8.6); Neutrophils % (auto) 92.3 % (37.0-80.0); Platelet Count (auto) 190 10^3/uL (140-450); Red Blood Cells 4.45 10^6/uL (4.5-5.90); Red Cell Distribution Width 14.8 % (11.8-14.3); White Blood Cell 18.6 10^3/uL (4.4-10.8)
[2024-08-07] MEDS: METOPROLOL SUCCINATE XL 50 MG TAB PO SCH (10:18)
[2024-08-07] MEDS: LEVALBUTEROL HCL 1.25 MG/3 ML NEB NEB ONE (11:50)
--- NOTE | 2024-08-07 18:08 | DVHPN2 ---
Subjective Overall much BETTER today Reviewed: Care Plan, H&P, Labs, Medications, Previous Orders, Radiology Changes from previous H/P or p: No Changes Objective Vitals Vital Signs Date Time Temp Pulse Resp B/P (MAP) Pulse Ox O2 Delivery O2 Flow Rate FiO2 08/07/24 16:51 98.0 98 16 139/89 (106) 98 98.0 08/07/24 11:55 3.0 32 08/07/24 11:51 Nasal Cannula Intake/Output Intake and Output 08/07/24 07:00 Intake Total 1900 ml Output Total 1951 ml Balance -51 ml Intake Oral 1600 ml IV Total 300 ml Output Urine Total 1950 ml Stool Total 1 ml # Voids 5 General Appearance: Alert, Oriented X3, Cooperative, No acute distress, Other (M. OBESE) HEENT: Atraumatic Lungs: Clear to auscultation Cardiovascular: Regular rate Abdomen: Soft, No tenderness Extremities: Other (TRACE BLE EDEMA) Medications Current Medications Medications Dose Ordered Sig/Aixa Route Start Time Stop Time Status Last Admin Dose Admin Azithromycin 250 ml @ 125 mls/hr DAILY IV 08/05/24 10:00 08/07/24 11:24 125 MLS/HR Ceftriaxone Sodium 50 ml @ 100 mls/hr DAILY@09 IV 08/05/24 09:00 08/07/24 10:19 100 MLS/HR Furosemide 40 mg DAILY IV 08/05/24 10:00 08/07/24 10:19 40 MG Atorvastatin Calcium 20 mg HS PO 08/04/24 22:00 08/06/24 22:27 20 MG Amlodipine Besylate 5 mg DAILY PO 08/05/24 10:00 08/07/24 10:18 5 MG Hydralazine HCl 10 mg Q6HP PRN IV 08/04/24 15:45 Levalbuterol HCl 0.625 mg Q6HR NEB 08/04/24 18:00 08/07/24 11:50 0.625 MG Ipratropium [place] 0.5 mg Q4HPRN PRN NEB 08/04/24 15:45 Famotidine 20 mg Q12HR IV 08/04/24 22:00 08/07/24 11:25 20 MG Sodium Chloride 10 ml Q8HR IV 08/04/24 22:00 08/07/24 13:31 10 ML Acetaminophen/ Hydrocodone Bitart 1 tab Q4HP PRN PO 08/04/24 15:45 08/06/24 23:50 1 TAB Ondansetron HCl 4 mg Q4HP PRN IV 08/04/24 15:45 Docusate Sodium 100 mg BIDPRN PRN PO 08/04/24 15:45 Acetaminophen 650 mg Q6HP PRN PO 08/04/24 15:45 Morphine Sulfate 2 mg Q4HPRN PRN IV 08/04/24 15:45 08/07/24 03:38 2 MG Nitroglycerin 0.4 mg Q5MINP PRN SL 08/04/24 15:45 08/04/24 20:44 0.4 MG Morphine Sulfate 2 mg Q30M PRN IV 08/04/24 15:45 08/04/24 16:53 2 MG Apixaban 5 mg BID PO 08/04/24 22:00 08/07/24 10:18 5 MG Methylprednisolone Sodium Succinate 40 mg Q12HR IV 08/06/24 22:00 08/07/24 10:17 40 MG Metoprolol Succinate 50 mg DAILY PO 08/07/24 10:00 08/07/24 10:18 50 MG Laboratory Results Laboratory Tests 08/05/24 06:48 08/07/24 07:19 Urinalysis Test 08/06/24 07:00 Urine Color Light-yellow (Yellow) Urine Clarity Clear (Clear) Urine pH 5.5 (5.0-9.0) Urine Specific [place] 1.026 (1.001-1.035) Urine Protein Negative (Negative) Urine Ketones Negative (Negative) Urine Blood Negative /uL (Negative) Urine Nitrite Negative (Negative) Urine Bilirubin Negative (Negative) Urine Urobilinogen Normal mg/dL (Negative) Urine Leukocyte Esterase Negative /uL (Negative) Urine RBC None seen /hpf (0 - 3) Urine WBC <1 /hpf (0 - 3) Urine Squamous Epithelial Cells None seen /hpf (<5) Urine Bacteria None seen /hpf (None Seen) Urine Mucus Few (None Seen) Urine Glucose Normal mg/dL (Normal) Microbiology Microbiology Date/Time Source Procedure Growth Status 08/06/24 07:00 Voided Urine Urine Culture - Preliminary Resulted 08/04/24 13:43 Blood Blood Culture - Preliminary NO GROWTH AFTER 72 HOURS OF INCUBATION. Resulted Assessment/Plan Assessment/Plan CHEST PAIN PALPITATION A FIB with RVR CHF COPD HTN ?PNA WITH LEUKOCYTOSIS/SEPSIS/possible pneumonitis LEUKEMIA IN REMISSION SINCE 2017 Plan: Reduce Solu-Medrol to 40 mg daily. Repeat CBC tomorrow. Possible home tomorrow if stable Echo showed no pericardial effusion. CT scan showed no consolidation pneumonia. It showed intra lobular septal thickening/nonspecific and enlarged mediastinal and hilar nodes Plan discussed with: Patient Date of Service: Aug 07, 2024 Billing Provider: FEROZ JEOL MD Common Visit Codes: [id number] INP/OBS CARE(HIGH) FEROZ JOEL MD Aug 07, 2024 18:08
[2024-08-08] VITALS (14 sets, daily range): BP systolic 103–124; BP diastolic 66–79; PULSE 66–115; RESP 16–20; TEMP 97.5–98.7; O2SAT 96–100
--- NOTE | 2024-08-08 16:05 | DVHPN2 ---
Subjective Had chest pain last night in the mid left sternal area. this is the 1st episode after admission. Reviewed: Care Plan, H&P, Labs, Medications, Previous Orders, Radiology Changes from previous H/P or p: No Changes Objective Vitals Vital Signs Date Time Temp Pulse Resp B/P (MAP) Pulse Ox O2 Delivery O2 Flow Rate FiO2 08/08/24 13:32 115 18 100 08/08/24 13:32 Nasal Cannula* 3 32 08/08/24 13:00 97.8 103/73 (83) 97.8 Intake/Output Intake and Output 08/08/24 07:00 Intake Total 2490 ml Output Total 2800 ml Balance -310 ml Intake Oral 2250 ml IV Total 240 ml Output Urine Total 2800 ml # Bowel Movements 2 General Appearance: Alert, Oriented X3, Cooperative, No acute distress, Other (M. OBESE) HEENT: Atraumatic Lungs: Clear to auscultation Cardiovascular: Regular rate Abdomen: Soft, No tenderness Extremities: Other (TRACE BLE EDEMA) Medications Current Medications Medications Dose Ordered Sig/Aixa Route Start Time Stop Time Status Last Admin Dose Admin Azithromycin 250 ml @ 125 mls/hr DAILY IV 08/05/24 10:00 08/07/24 11:24 125 MLS/HR Ceftriaxone Sodium 50 ml @ 100 mls/hr DAILY@09 IV 08/05/24 09:00 08/08/24 10:06 100 MLS/HR Furosemide 40 mg DAILY IV 08/05/24 10:00 08/08/24 10:08 40 MG Atorvastatin Calcium 20 mg HS PO 08/04/24 22:00 08/07/24 22:07 20 MG Amlodipine Besylate 5 mg DAILY PO 08/05/24 10:00 08/08/24 10:11 5 MG Hydralazine HCl 10 mg Q6HP PRN IV 08/04/24 15:45 Levalbuterol HCl 0.625 mg Q6HR NEB 08/04/24 18:00 08/08/24 13:31 0.625 MG Ipratropium [place] 0.5 mg Q4HPRN PRN NEB 08/04/24 15:45 Famotidine 20 mg Q12HR IV 08/04/24 22:00 08/08/24 10:07 20 MG Sodium Chloride 10 ml Q8HR IV 08/04/24 22:00 08/08/24 05:20 10 ML Acetaminophen/ Hydrocodone Bitart 1 tab Q4HP PRN PO 08/04/24 15:45 08/08/24 10:10 1 TAB Ondansetron HCl 4 mg Q4HP PRN IV 08/04/24 15:45 Docusate Sodium 100 mg BIDPRN PRN PO 08/04/24 15:45 Acetaminophen 650 mg Q6HP PRN PO 08/04/24 15:45 Morphine Sulfate 2 mg Q4HPRN PRN IV 08/04/24 15:45 08/08/24 12:24 2 MG Nitroglycerin 0.4 mg Q5MINP PRN SL 08/04/24 15:45 08/04/24 20:44 0.4 MG Morphine Sulfate 2 mg Q30M PRN IV 08/04/24 15:45 08/04/24 16:53 2 MG Apixaban 5 mg BID PO 08/04/24 22:00 08/08/24 10:10 5 MG Methylprednisolone Sodium Succinate 40 mg Q12HR IV 08/06/24 22:00 08/08/24 10:07 40 MG Metoprolol Succinate 50 mg DAILY PO 08/07/24 10:00 08/08/24 10:10 50 MG Laboratory Results Laboratory Tests 08/05/24 06:48 08/07/24 07:19 Urinalysis Test 08/06/24 07:00 Urine Color Light-yellow (Yellow) Urine Clarity Clear (Clear) Urine pH 5.5 (5.0-9.0) Urine Specific [place] 1.026 (1.001-1.035) Urine Protein Negative (Negative) Urine Ketones Negative (Negative) Urine Blood Negative /uL (Negative) Urine Nitrite Negative (Negative) Urine Bilirubin Negative (Negative) Urine Urobilinogen Normal mg/dL (Negative) Urine Leukocyte Esterase Negative /uL (Negative) Urine RBC None seen /hpf (0 - 3) Urine WBC <1 /hpf (0 - 3) Urine Squamous Epithelial Cells None seen /hpf (<5) Urine Bacteria None seen /hpf (None Seen) Urine Mucus Few (None Seen) Urine Glucose Normal mg/dL (Normal) Microbiology Microbiology Date/Time Source Procedure Growth Status 08/06/24 07:00 Voided Urine Urine Culture - Final Complete 08/04/24 13:43 Blood Blood Culture - Preliminary NO GROWTH AFTER 72 HOURS OF INCUBATION. Resulted Assessment/Plan Assessment/Plan CHEST PAIN PALPITATION A FIB with RVR CHF COPD HTN ?PNA WITH LEUKOCYTOSIS/SEPSIS/possible pneumonitis LEUKEMIA IN REMISSION SINCE 2017 Plan: Cardiology consultation again. Further plan per Plan discussed with: Patient Date of Service: Aug 08, 2024 Billing Provider: FEROZ JOEL MD Common Visit Codes: [id number] INP/OBS CARE(HIGH) FEROZ JOEL MD Aug 08, 2024 16:05
--- NOTE | 2024-08-08 20:15 | DVHINCON2 ---
Date Seen: Aug 08, 2024 Referring Physician MD Coby Reason for Consultation Chest pain History of Present Illness This is a 73-year-old man who presented to the emergency room via EMS with a chief complaint of chest pain at 0300 the day of admission. Per his chest pain as retrosternal, non provoked, nonradiating, pressure-like, intermittent, and associated with cardiac palpitations, shortness of breath, and bilateral lower extremity edema. Upon arrival to the emergency room he underwent a 12 lead electrocardiogram revealing an atrial fibrillation rhythm without evident ST segment changes at 83 bpm. Serial troponin levels are negative. He has a significant history for cardiovascular disease nevertheless has not seen a primary towerman within the past three years. Significant medical history includes unspecified atrial fibrillation on Eliquis and sotalol therapy, coronary artery disease status post PTCA including one CLAUDIO on 2020 and on aspirin therapy, congestive heart failure, hypertension, dyslipidemia, COPD on home O2, peripheral neuropathy, history of APL leukemia in remission since 2016, and obesity. Past Medical History Past medical history reviewed. No other significant than mentioned above. Past Surgical History PTCA including one CLAUDIO, 2020 Appendectomy Family History: Throat cancer Family History Family history reviewed. Social History Denies the use of illicit drugs, alcohol, or tobacco use. Allergies: Coded Allergies: Fentanyl (Verified Allergy, Severe, 08/04/24) Tetracycline (Verified Allergy, Severe, 08/04/24) Patient states anaphalatic shock reaction from tetracycline and was hospitalized for 2 weeks. Povidone Iodine (Verified Allergy, Intermediate, RASH, 08/04/24) Home Meds Reported Medications Morphine Sulfate (Morphine Sulfate Er) 60 Mg Tab, 1 TAB PO Q4HPRN, #60 TAB 08/04/24 Atorvastatin Calcium (ATORVASTATIN CALCIUM) 40 Mg Tab, 1 TAB PO DAILY, #30 TAB 5 Refills 08/04/24 Furosemide (Furosemide) 20 Mg Tab, 1 TAB PO DAILYP, #90 TAB 1 Refill 08/04/24 Gabapentin (Gabapentin) 600 Mg Tab, 1 TAB PO TID, #90 TAB 3 Refills 08/04/24 Sotalol Hcl (Sotalol Hcl) 80 Mg Tab, 1 TAB PO BID, #180 TAB 3 Refills 08/04/24 Apixaban Base (ELIQUIS) 5 Mg Tab, 5 MG PO BID, TAB 08/04/24 Amlodipine Besylate (NORVASC TABLET) 5 Mg Tb, 1 TAB PO DAILY, #30 TAB 5 Refills 08/04/24 Metoprolol Succinate (Metoprolol Succinate Er) 50 Mg Tab, 1 TAB PO DAILY, #30 TAB 5 Refills 08/04/24 Losartan Potassium (Losartan Potassium) 50 Mg Tab, 1 TAB PO DAILY, #30 TAB 5 Refills 08/04/24 Budesonide-Formoterol Fumarate (Budesonide/Formoterol Fum 160-4.5 Mcg/Act) 1 Aer Aer, 1 AER IN Q4HPRN, AER 08/04/24 Home Meds Home medications reviewed. Review of Systems Constitutional: No symptom reported Ears, Nose, & Throat: No symptom reported Eyes: No symptom reported Neurological: No symptoms reported Pulmonary/Respiratory: SOB Cardiovascular: Chest pain, palpitations Gastrointestinal: No symptom reported Genitourinary: No symptom reported Musculoskeletal: No symptom reported Skin: No symptom reported Psychiatric: No symptom reported Endocrine: No symptom reported Hemotologic/Lymphatic: No symptom reported Vital Signs Vital Signs Date Time Temp Pulse Resp B/P (MAP) Pulse Ox O2 Delivery O2 Flow Rate FiO2 08/08/24 18:03 78 17 112/68 08/08/24 17:00 98.0 98 98.0 08/08/24 13:32 Nasal Cannula* 3 32 Physical Exam General Appearance: Cooperative. Well developed. Obese. In no acute distress Head Exam: Normal inspection Neck Exam: Normal inspection. Non-tender. Normal alignment Pulmonary/Respiratory: Chest non-tender. Crackles to bilateral basal breath sounds Cardiovascular/Chest: Irregularly irregular rate and rhythm. AFib controlled rate. No murmurs. No JVD. Peripheral Pulses: 2+ Radial (R). 2+ Radial (L). 2+ Pedal (R). 2+ Pedal (L) Abdominal Exam: Normal bowel sounds. Soft. Nontender. No hepatospenomegaly. No masses Ankle Exam: Negative ankle edema Lower extremities: Negative lower extremity edema Neuro/Mental Status: A&O x4. Coherent Thoughts/Psych: Normal thought pattern. Appropriate mood and affect. Good judgement and insight Appearance: In no acute distress Skin Exam: Hyperpigmentation to bilateral lower extremities Labs/Diagnostic Data Labs Test 08/08/24 18:05 08/07/24 07:19 08/06/24 13:23 08/06/24 07:00 Range/Units Troponin I High Sensitivity 9 </=54 ng/L White Blood Count 18.6 H 4.4-10.8 10^3/uL Red Blood Count 4.45 L 4.5-5.90 10^6/uL Hemoglobin 13.9 13.5-17.5 g/dL Hematocrit 40.6 L 41.0-53.0 % Mean Corpuscular Volume 91.3 80.0-100.0 fL Mean Corpuscular Hemoglobin 31.3 28.0-32.0 pg Mean Corpuscular Hemoglobin Concent 34.3 32.0-36.0 g/dL Red Cell Distribution Width 14.8 H 11.8-14.3 % Platelet Count 190 140-450 10^3/uL Mean Platelet Volume 8.3 6.9-10.8 fL Neutrophils (%) (Auto) 92.3 H 37.0-80.0 % Lymphocytes (%) (Auto) 4.4 L 10.0-50.0 % Monocytes (%) (Auto) 3.3 0.0-12.0 % Eosinophils (%) (Auto) 0.0 0.0-7.0 % Basophils (%) (Auto) 0.0 0.0-2.0 % Neutrophils # (Auto) 17.2 H 1.6-8.6 10 ^3/uL Lymphocytes # (Auto) 0.8 0.4-5.4 10 ^3/uL Monocytes # (Auto) 0.6 0-1.3 10 ^3/uL Eosinophils # (Auto) 0 0-0.8 10 ^3/uL Basophils # (Auto) 0 0-0.2 10 ^3/uL Nucleated Red Blood Cells 0.0 % D-Dimer, Quantitative < 0.19 0.0-0.49 mg/L FEU Urine Color Light-yellow Yellow Urine Clarity Clear Clear Urine pH 5.5 5.0-9.0 Urine Specific [place] 1.026 1.001-1.035 Urine Protein Negative Negative Urine Ketones Negative Negative Urine Blood Negative Negative /uL Urine Nitrite Negative Negative Urine Bilirubin Negative Negative Urine Urobilinogen Normal Negative mg/dL Urine Leukocyte Esterase Negative Negative /uL Urine RBC None seen 0 - 3 /hpf Urine WBC <1 0 - 3 /hpf Urine Squamous Epithelial Cells None seen <5 /hpf Urine Bacteria None seen None Seen /hpf Urine Mucus Few None Seen Urine Glucose Normal Normal mg/dL Test 08/06/24 06:00 08/05/24 06:48 08/04/24 13:40 08/04/24 13:35 Range/Units Differential Total Cells Counted 100.0 100 Neutrophils % (Manual) 88 H 37.0-80.0 Band Neutrophils % (Manual) 0 Lymphocytes % (Manual) 7 L 10.0-50.0 Monocytes % (Manual) 5 0-12 Eosinophils % (Manual) 0 0-7 Basophils % (Manual) 0 0.0-2.0 Metamyelocytes % (manual) 0 Myelocytes % (Manual) 0 Promyelocytes % (Manual) 0 Blast Cells % (Manual) 0 Reactive Lymphocytes 0 Platelet Estimate Adequate B-Type Natriuretic Peptide 122.23 0-100 pg/mL Sodium Level 136 136-145 mmol/L Potassium Level 4.6 3.5-5.1 mmol/L Chloride Level 105 98-107 mmol/L Carbon Dioxide Level 22 20-31 mmol/L Anion Gap 9 5-15 Blood Urea Nitrogen 19 9-23 mg/dL Creatinine 0.89 0.700-1.30 mg/dL Glomerular Filtration Rate Calc 90 >90 mL/min BUN/Creatinine Ratio 21.3 H 10.0-20.0 Serum Glucose 192 H 74-106 mg/dL Calcium Level 9.9 8.7-10.4 mg/dL Total Bilirubin 0.6 0.2-1.0 mg/dL Aspartate Amino Transferase (AST) 11 L 13-40 U/L Alanine Aminotransferase (ALT) 30 7-40 U/L Alkaline Phosphatase 86 46-116 U/L Total Protein 7.0 5.7-8.2 g/dL Albumin 4.5 3.2-4.8 g/dL Influenza Type A Antigen Negative Negative Influenza Type B Antigen Negative Negative SARS-CoV-2 Antigen (Rapid) Negative NEGATIVE Lactic Acid Level 1.3 0.4-2.0 mmol/L Microbiology Date/Time Source Procedure Growth Status 08/06/24 07:00 Voided Urine Urine Culture - Final Complete 08/04/24 13:43 Blood Blood Culture - Preliminary NO GROWTH AFTER 72 HOURS OF INCUBATION. Resulted Assessment Acute on chronic decompensated HFpEF, NYHA Class III Coronary artery disease status post PTCA including one CLAUDIO Likely permanent atrial fibrillation, on Eliquis/sotalol therapy Rule out progressive coronary artery disease Hypertension Obesity Plan/Recommendation We will continue the following plan/recommendations (Dr. Whitley): * Transthoracic echocardiogram revealed EF 60% * Right ventricle is mildly dilated in size with preserved systolic function. Calcified aortic valve with no significant stenosis * Cardiolite stress test rule out coronary ischemia * Rate control, continue beta-reinaldo * NOAC therapy, hold Eliquis. Transition to Lovenox * [id number] Score 4. HAS-BLED Score 2. * Initiate single-antiplatelet therapy and lipid lowering agent * Monitor ECG changes and notify * Chest pain protocol Thank you for allowing us to participate in this patient's care. Please call if you have any questions or concerns. This medical document was created using an electronic medical record system with voice recognition software and computerized dictation system. Although this document has been carefully reviewed, there might still be some phonetic and typographical errors. Occasional wrong-word or ``sound-alike substitutions may have occurred due to the inherent limitations of voice recognition software. These areas are purely typographical due to imperfections of the software prog uri and do not reflect any compromise in the patient's medical care. Please read the chart carefully and recognize, using context, where these substitutions have occurred. Plan discussed with: Patient, Other Date of Service: Aug 08, 2024 Billing Provider: BETTE WHITLEY MD Cardiology Common Codes: [id number] INP/OBS CARE (High) ALLYMIGUELDEMARCUS [employer] Aug 08, 2024 20:15
[2024-08-08] MEDS: IPRATROPIUM BROM 0.5 MG/2.5ML INH SOL NEB PRN (20:52)
[2024-08-08] MEDS: ATORVASTATIN 20 MG TAB PO SCH (21:46)
[2024-08-09] VITALS (14 sets, daily range): BP systolic 129–141; BP diastolic 75–86; PULSE 93–119; RESP 16–20; TEMP 97.7–98.2; O2SAT 96–100
[2024-08-09 06:52] LABS: LDL Cholesterol 77 mg/dL (< 100); Triglycerides 84 mg/dL (< 150)
[2024-08-09 06:53] LABS: Cholesterol 149 mg/dL (< 200)
[2024-08-09 06:54] LABS: HDL Cholesterol 56 mg/dL (40-59)
[2024-08-09] MEDS: REGADENOSON 0.4 MG/5 ML SYRG IV ONE ×2 (11:56→12:04)
[2024-08-09 13:14] LABS: Anion Gap 9 (5-15); Carbon Dioxide 28 mmol/L (20-31); Chloride 101 mmol/L (98-107); Sodium 138 mmol/L (136-145)
[2024-08-09 13:15] LABS: Calcium 9.2 mg/dL (8.7-10.4)
[2024-08-09 13:20] LABS: BUN/Creatinine Ratio 28.9 (10.0-20.0); Magnesium 2.5 mg/dL (1.6-2.6)
[2024-08-09 13:22] LABS: Blood Urea Nitrogen 26 mg/dL (9-23); Glucose 141 mg/dL (74-106)
--- NOTE | 2024-08-09 14:02 | DVHPN2 ---
Subjective Very emotional to know that stress test was positive and that he will undergo cardiac catheterization on Sunday August 11, 2024 Reviewed: Care Plan, H&P, Labs, Medications, Previous Orders, Radiology, Other (Consultation) Changes from previous H/P or p: Changes Objective Vitals Vital Signs Date Time Temp Pulse Resp B/P (MAP) Pulse Ox O2 Delivery O2 Flow Rate FiO2 08/09/24 10:00 98 Nasal Cannula* 3 32 08/09/24 09:36 139/85 08/09/24 08:34 97.9 104 18 97.9 Intake/Output Intake and Output 08/09/24 07:00 Intake Total 2575 ml Output Total 1950 ml Balance 625 ml Intake Oral 2525 ml IV Total 50 ml Output Urine Total 1950 ml # Bowel Movements 1 General Appearance: Alert, Oriented X3, Cooperative, No acute distress, Other (M. OBESE) HEENT: Atraumatic Lungs: Other (Decreased air entry bilaterally with scattered wet crackles) Cardiovascular: Normal S1, Normal S2, Other (Irregularly irregular) Abdomen: Soft, No tenderness Extremities: Other (Trace pitting edema) Neuro: Normal speech, Cranial nerves 3-12 NL Psych/Mental Status: Other (Very emotional) Medications Current Medications Medications Dose Ordered Sig/Aixa Route Start Time Stop Time Status Last Admin Dose Admin Azithromycin 250 ml @ 125 mls/hr DAILY IV 08/05/24 10:00 08/09/24 09:39 125 MLS/HR Ceftriaxone Sodium 50 ml @ 100 mls/hr DAILY@09 IV 08/05/24 09:00 08/08/24 10:06 100 MLS/HR Furosemide 40 mg DAILY IV 08/05/24 10:00 08/09/24 09:36 40 MG Hydralazine HCl 10 mg Q6HP PRN IV 08/04/24 15:45 Levalbuterol HCl 0.625 mg Q6HR NEB 08/04/24 18:00 08/09/24 06:16 0.625 MG Ipratropium [place] 0.5 mg Q4HPRN PRN NEB 08/04/24 15:45 08/08/24 20:52 0.5 MG Famotidine 20 mg Q12HR IV 08/04/24 22:00 08/09/24 09:36 20 MG Sodium Chloride 10 ml Q8HR IV 08/04/24 22:00 08/09/24 05:30 10 ML Acetaminophen/ Hydrocodone Bitart 1 tab Q4HP PRN PO 08/04/24 15:45 08/08/24 10:10 1 TAB Ondansetron HCl 4 mg Q4HP PRN IV 08/04/24 15:45 Docusate Sodium 100 mg BIDPRN PRN PO 08/04/24 15:45 Acetaminophen 650 mg Q6HP PRN PO 08/04/24 15:45 Morphine Sulfate 2 mg Q4HPRN PRN IV 08/04/24 15:45 08/09/24 05:29 2 MG Nitroglycerin 0.4 mg Q5MINP PRN SL 08/04/24 15:45 08/04/24 20:44 0.4 MG Morphine Sulfate 2 mg Q30M PRN IV 08/04/24 15:45 08/04/24 16:53 2 MG Methylprednisolone Sodium Succinate 40 mg Q12HR IV 08/06/24 22:00 08/09/24 09:35 40 MG Metoprolol Succinate 50 mg DAILY PO 08/07/24 10:00 08/08/24 10:10 50 MG Atorvastatin Calcium 40 mg HS PO 08/08/24 22:00 08/08/24 21:46 40 MG Aspirin 81 mg DAILY PO 08/09/24 10:00 Digoxin 0.125 mg DAILY PO 08/10/24 10:00 Laboratory Results Laboratory Tests 08/07/24 07:19 08/09/24 05:54 Chemistry Test 08/09/24 05:54 Calcium Level 9.2 mg/dL (8.7-10.4) Magnesium Level 2.5 mg/dL (1.6-2.6) Lipid panel Test 08/09/24 05:54 Cholesterol Level 149 mg/dL (< 200) HDL Cholesterol 56 mg/dL (40-59) Triglycerides Level 84 mg/dL (< 150) HgA1c, TSH Test 08/09/24 05:54 Hemoglobin A1c 6.0 % A1C (<5.7) H Thyroid Stimulating Hormone (TSH) 0.72 uIU/mL (0.55-4.78) Urinalysis Test 08/06/24 07:00 Urine Color Light-yellow (Yellow) Urine Clarity Clear (Clear) Urine pH 5.5 (5.0-9.0) Urine Specific [place] 1.026 (1.001-1.035) Urine Protein Negative (Negative) Urine Ketones Negative (Negative) Urine Blood Negative /uL (Negative) Urine Nitrite Negative (Negative) Urine Bilirubin Negative (Negative) Urine Urobilinogen Normal mg/dL (Negative) Urine Leukocyte Esterase Negative /uL (Negative) Urine RBC None seen /hpf (0 - 3) Urine WBC <1 /hpf (0 - 3) Urine Squamous Epithelial Cells None seen /hpf (<5) Urine Bacteria None seen /hpf (None Seen) Urine Mucus Few (None Seen) Urine Glucose Normal mg/dL (Normal) Microbiology Microbiology Date/Time Source Procedure Growth Status 08/06/24 07:00 Voided Urine Urine Culture - Final Complete 08/04/24 13:43 Blood Blood Culture - Final NO GROWTH AFTER 5 DAYS OF INCUBATION. Complete Labs and/or images reviewed: Labs reviewed by me, Image(s) reviewed by me Assessment/Plan Assessment/Plan Covering: #Chest discomfort/pain; positive stress test; to rule out ACS with cardiac catheterization planned for the August; continue aspirin and statin; cardiology is following; telemetry; continue monitoring #Acute hypoxic respiratory failure due to pulmonary congestion in the setting of acute on chronic decompensated HFpEF, and suspected community-acquired pneumonia; reviewed the available imaging studies including chest CT; continue oxygen therapy as indicated; continue monitoring Acute on chronic decompensated HFpEF; continue IV diuresis; continue monitoring #Sepsis with leukocytosis due to suspected community-acquired pneumonia; continue IV antibiotics; continue monitoring #Suspected JONAS; adjust setting of sepsis and decompensated heart failure; most likely vasomotor nephropathy; avoid nephrotoxic agents; continue monitoring #CAD status post PTCA including one CLAUDIO; management as above; continue monitoring #Atrial fibrillation, rate controlled; likely permanent; on anticoagulation with apixaban at home and on sotalol; to transition to enoxaparin before cardiac catheterization; on metoprolol succinate inpatient; telemetry; cardiology is following; continue monitoring #Pre-diabetes, newly diagnosed; hemoglobin A1c of 6%; counseled the patient on the importance of adopting healthy lifestyle with diet and exercise in order to lose weight; continue monitoring #Hypertensive heart disease with diastolic heart failure; continue antihypertensive medications as indicated; treatment of acute exacerbation of heart failure as above; cardiology is following; continue monitoring #Obesity with metabolic syndrome; counseled the patient on the importance of adopting healthy lifestyle with diet and exercise in order to lose weight; continue monitoring Goals of care discussed for 20 minutes; full code. Late Entry. This medical document was created using an electronic medical record system with computerized dictation system. Although this document has been carefully reviewed, there might still be some phonetic and typographical errors. These areas are purely typographical due to imperfections of the software programs, and do not reflect any compromise in the patient's medical care. Plan discussed with: Patient, Other (Nurse) Date of Service: Aug 09, 2024 Billing Provider: QUIRINO BAZZI MD Common Visit Codes: [id number] INP/OBS CARE(HIGH) Secondary Visit Codes: [id number] CARE PLAN 30 MINUTES (20 minutes) QUIRINO BAZZI MD Aug 09, 2024 14:02
[2024-08-09] MEDS: ASPirin 81 mg TAB PO SCH (14:15)
[2024-08-09] MEDS: DIGOXIN (250MCG/ML) 2 ML AMPULE IV ONE (14:23)
--- NOTE | 2024-08-09 14:36 | DVHSR ---
APPROVED REPORT Exam: Nuclear Stress Test BMI: 0 Medical History Looks like the aptus needs to be on on likely to be a Stress Test Details HR Max Heart Rate (APMHR): 147.625105 bpm Target HR (85% APMHR): 124.184007 bpm BP ECG Stress ECG Conclusion Review of the myocardial perfusion images demonstrated a small sized area of moderate intensity reduc ed radiotracer uptake in the LV apex. This appears to be predominantly reversible based on review of resting images. The distal anterior wall has also a mild intensity reduced radiotracer uptake durin g stress that is reversible during resting images. The inferolateral wall has a moderate size area o f mild intensity reduced radiotracer uptake during stress that is reversible during resting images. Left ventricular volumes are normal. Ejection fraction is normal and is estimated at 65%. There is no significant transient ischemic dilatation. No gated images are available for assessment of wall m otion, Impressions: 1. Abnormal myocardial perfusion scan with reversible defect in the LV apex and also inferolateral w all. 2. Normal left ventricular systolic function. NM EXAM: Myocardial Perfusion REST/STRESS Imaging Protocol: Rest Tc-99m/Stress Tc-99m 1 day Resting Data Rest SPECT myocardial perfusion imaging was performed in supine position 60 minutes following the int ravenous injection of 15 mCi of Tc-99m Sestamibi. Time of rest injection: 1030 Time of rest imagin Administration Route: IV Administration Site: Right Hand Pharmacologic Stress Pharmacologic stress test was performed by injecting Regadenoson 0.4 mg IV push followed by the intra venous injection of 34 mCi of Tc-99m Sestamibi. Time of stress injection: 1158 Time of stress imagin Administration Route: IV Administration Site: Right Hand Gated Stress SPECT was performed 60 minutes after stress injection. The images were gated to evaluate regional wall motion and calculate left ventricular ejection fracti on. Stress only was performed in the Supine position. Nuclear Conclusion ECG Findings: negative for ischemia Clinical Findings: negative for ischemia Nuclear Findings: positive for ischemia Exercise Capacity: not assessed Left Ventricular Function: normal Risk Study: moderate Review of the myocardial perfusion images demonstrated a small sized area of moderate intensity reduc ed radiotracer uptake in the LV apex. This appears to be predominantly reversible based on review of resting images. The distal anterior wall has also a mild intensity reduced radiotracer uptake durin g stress that is reversible during resting images. The inferolateral wall has a moderate size area o f mild intensity reduced radiotracer uptake during stress that is reversible during resting images. Left ventricular volumes are normal. Ejection fraction is normal and is estimated at 65%. There is no significant transient ischemic dilatation. No gated images are available for assessment of wall m otion, Impressions: 1. Abnormal myocardial perfusion scan with reversible defect in the LV apex and also inferolateral w all. 2. Normal left ventricular systolic function.
--- NOTE | 2024-08-09 15:32 | DVHPN2 ---
Consult Progress Note Date Seen: Aug 09, 2024 Subjective Review of Systems: CVS:Abnormal, RESPIRATORY:Abnormal, NEURO:Normal Other Systems: C/o chest pain and mild SOB. Notified of A-fib with RVR earlier Objective vital signs Vital Sign Date Time Temp Pulse Resp B/P (MAP) Pulse Ox O2 Delivery O2 Flow Rate FiO2 08/09/24 14:23 139 08/09/24 14:20 132/71 08/09/24 10:00 98 Nasal Cannula* 3 32 08/09/24 08:34 97.9 18 97.9 Total Intake and Output 08/08/24 08/08/24 08/09/24 15:00 23:00 07:00 Intake Total 290 ml 1760 ml 525 ml Output Total 900 ml 1050 ml Balance 290 ml 860 ml -525 ml medications Current Medications Medications Dose Ordered Sig/Aixa Route Start Time Stop Time Status Last Admin Dose Admin Azithromycin 250 ml @ 125 mls/hr DAILY IV 08/05/24 10:00 08/09/24 09:39 125 MLS/HR Ceftriaxone Sodium 50 ml @ 100 mls/hr DAILY@09 IV 08/05/24 09:00 08/08/24 10:06 100 MLS/HR Furosemide 40 mg DAILY IV 08/05/24 10:00 08/09/24 09:36 40 MG Hydralazine HCl 10 mg Q6HP PRN IV 08/04/24 15:45 Levalbuterol HCl 0.625 mg Q6HR NEB 08/04/24 18:00 08/09/24 06:16 0.625 MG Ipratropium [place] 0.5 mg Q4HPRN PRN NEB 08/04/24 15:45 08/08/24 20:52 0.5 MG Famotidine 20 mg Q12HR IV 08/04/24 22:00 08/09/24 09:36 20 MG Sodium Chloride 10 ml Q8HR IV 08/04/24 22:00 08/09/24 14:23 10 ML Acetaminophen/ Hydrocodone Bitart 1 tab Q4HP PRN PO 08/04/24 15:45 08/08/24 10:10 1 TAB Ondansetron HCl 4 mg Q4HP PRN IV 08/04/24 15:45 Docusate Sodium 100 mg BIDPRN PRN PO 08/04/24 15:45 Acetaminophen 650 mg Q6HP PRN PO 08/04/24 15:45 Morphine Sulfate 2 mg Q4HPRN PRN IV 08/04/24 15:45 08/09/24 05:29 2 MG Nitroglycerin 0.4 mg Q5MINP PRN SL 08/04/24 15:45 08/04/24 20:44 0.4 MG Morphine Sulfate 2 mg Q30M PRN IV 08/04/24 15:45 08/04/24 16:53 2 MG Methylprednisolone Sodium Succinate 40 mg Q12HR IV 08/06/24 22:00 08/09/24 09:35 40 MG Metoprolol Succinate 50 mg DAILY PO 08/07/24 10:00 08/09/24 14:20 50 MG Atorvastatin Calcium 40 mg HS PO 08/08/24 22:00 08/08/24 21:46 40 MG Aspirin 81 mg DAILY PO 08/09/24 10:00 08/09/24 14:15 81 MG Digoxin 0.125 mg DAILY PO 08/10/24 10:00 Examination: LUNGS:Abnormal (Diminished), CVS:Abnormal (A-fib with RVR), NEURO:Normal laboratory and microbiology Laboratory Tests 08/09/24 05:54 08/07/24 07:19 Test 08/09/24 05:54 Range/Units Serum Glucose 141 H 74-106 mg/dL Problem List/Assessment/Plan Problem List/Assessment/Plan Acute on chronic decompensated HFpEF, NYHA Class III Coronary artery disease status post PTCA including one CLAUDIO Likely permanent atrial fibrillation, on Eliquis/sotalol therapy Rule out progressive coronary artery disease Pre-diabetes, newly diagnosed Hypertension Obesity Plan/Recommendation (Dr. Mike) * Transthoracic echocardiogram revealed EF 60% * Right ventricle is mildly dilated in size with preserved systolic function. Calcified aortic valve with no significant stenosis * Abnormal cardiolite stress test with reversible defect int he LV apex and inferolateral wall * Rate control, continue beta-reinaldo and digoxin * NOAC therapy, hold Eliquis. Transition to Lovenox * [id number] Score 4. HAS-BLED Score 2. * Single-antiplatelet therapy and lipid lowering agent * Monitor ECG changes and notify * Chest pain protocol Scheduled for coronary angiogram with left cardiac catheterization on 08/11/2024. All risks and benefits of the procedure were discussed with the patient who agrees to proceed with intervention. All questions answered. Thank you for allowing us to participate in this patient's care. Please call if you have any questions or concerns. This medical document was created using an electronic medical record system with voice recognition software and computerized dictation system. Although this document has been carefully reviewed, there might still be some phonetic and typographical errors. Occasional wrong-word or ``sound-alike substitutions may have occurred due to the inherent limitations of voice recognition software. These areas are purely typographical due to imperfections of the software programs and do not reflect any compromise in the patient's medical care. Please read the chart carefully and recognize, using context, where these substitutions have occurred. Plan discussed with: Patient, Other Date of Service: Aug 09, 2024 Billing Provider: ELIUD MIKE MD Cardiology Common Codes: [id number] [facility]ED[facility]ARCUS [place] [facility] Aug 09, 2024 15:32
[2024-08-09] MEDS: DOCUSATE SOD 100 MG CAP PO PRN (20:32)
[2024-08-10] VITALS (20 sets, daily range): BP systolic 98–145; BP diastolic 68–94; PULSE 88–117; RESP 16–20; TEMP 97.6–99.1; O2SAT 94–100
[2024-08-10 09:13] LABS: Hematocrit 46.1 % (41.0-53.0); Hemoglobin 15.7 g/dL (13.5-17.5); Mean Corpuscular Hemoglobin 30.6 pg (28.0-32.0); Mean Corpuscular Hgb Conc. 34.1 g/dL (32.0-36.0); Mean Corpuscular Volume 89.8 fL (80.0-100.0); Platelet Count (auto) 210 10^3/uL (140-450); Red Blood Cells 5.14 10^6/uL (4.5-5.90); Red Cell Distribution Width 14.5 % (11.8-14.3); White Blood Cell 16.2 10^3/uL (4.4-10.8)
[2024-08-10 09:25] LABS: Basophils % (manual) 0 (0.0-2.0); Blast Cells 0; Eosinophils % (manual) 0 (0-7); Metamyelocytes % 0; Myelocytes % 0; Promyelocytes % 0; Reactive Lymphocytes 0
[2024-08-10 09:26] LABS: Anion Gap 8 (5-15); Carbon Dioxide 29 mmol/L (20-31); Potassium 4.9 mmol/L (3.5-5.1)
[2024-08-10 09:27] LABS: Calcium 9.5 mg/dL (8.7-10.4)
[2024-08-10 09:32] LABS: BUN/Creatinine Ratio 37.9 (10.0-20.0)
[2024-08-10 09:41] LABS: Blood Urea Nitrogen 33 mg/dL (9-23); Chloride 98 mmol/L (98-107); Glucose 113 mg/dL (74-106); Sodium 135 mmol/L (136-145)
[2024-08-10] MEDS: DIGOXIN 0.125 MG TAB PO SCH (10:02)
--- NOTE | 2024-08-10 10:40 | DVHPN2 ---
Consult Progress Note Date Seen: Aug 10, 2024 Subjective Review of Systems: CVS:Normal, RESPIRATORY:Abnormal, NEURO:Normal Other Systems: C/o mild SOB Objective vital signs Vital Sign Date Time Temp Pulse Resp B/P (MAP) Pulse Ox O2 Delivery O2 Flow Rate FiO2 08/10/24 10:02 109 08/10/24 10:02 18 98/77 08/10/24 09:00 97.9 98 97.9 08/10/24 06:20 Nasal Cannula* 3 32 Total Intake and Output 08/09/24 08/09/24 08/10/24 15:00 23:00 07:00 Intake Total 240 ml 1760 ml 600 ml Output Total 2100 ml 510 ml Balance 240 ml -340 ml 90 ml medications Current Medications Medications Dose Ordered Sig/Aixa Route Start Time Stop Time Status Last Admin Dose Admin Azithromycin 250 ml @ 125 mls/hr DAILY IV 08/05/24 10:00 08/09/24 09:39 125 MLS/HR Ceftriaxone Sodium 50 ml @ 100 mls/hr DAILY@09 IV 08/05/24 09:00 08/08/24 10:06 100 MLS/HR Furosemide 40 mg DAILY IV 08/05/24 10:00 08/10/24 08:56 40 MG Hydralazine HCl 10 mg Q6HP PRN IV 08/04/24 15:45 Levalbuterol HCl 0.625 mg Q6HR NEB 08/04/24 18:00 08/10/24 06:20 0.625 MG Ipratropium [place] 0.5 mg Q4HPRN PRN NEB 08/04/24 15:45 08/10/24 01:10 0.5 MG Famotidine 20 mg Q12HR IV 08/04/24 22:00 08/10/24 08:55 20 MG Sodium Chloride 10 ml Q8HR IV 08/04/24 22:00 08/10/24 05:51 10 ML Acetaminophen/ Hydrocodone Bitart 1 tab Q4HP PRN PO 08/04/24 15:45 08/08/24 10:10 1 TAB Ondansetron HCl 4 mg Q4HP PRN IV 08/04/24 15:45 Docusate Sodium 100 mg BIDPRN PRN PO 08/04/24 15:45 08/09/24 20:32 100 MG Acetaminophen 650 mg Q6HP PRN PO 08/04/24 15:45 Morphine Sulfate 2 mg Q4HPRN PRN IV 08/04/24 15:45 08/10/24 10:02 2 MG Nitroglycerin 0.4 mg Q5MINP PRN SL 08/04/24 15:45 08/04/24 20:44 0.4 MG Morphine Sulfate 2 mg Q30M PRN IV 08/04/24 15:45 08/04/24 16:53 2 MG Methylprednisolone Sodium Succinate 40 mg Q12HR IV 08/06/24 22:00 08/10/24 09:05 40 MG Metoprolol Succinate 50 mg DAILY PO 08/07/24 10:00 08/09/24 14:20 50 MG Atorvastatin Calcium 40 mg HS PO 08/08/24 22:00 08/09/24 20:32 40 MG Aspirin 81 mg DAILY PO 08/09/24 10:00 08/10/24 08:53 81 MG Digoxin 0.125 mg DAILY PO 08/10/24 10:00 08/10/24 10:02 0.125 MG Examination: LUNGS:Abnormal (Diminished. O2 via NC), CVS:Abnormal (A-fib with RVR 110s-120s bpm), SKIN:Abnormal (BLE hyperpigmentation), NEURO:Normal laboratory and microbiology Laboratory Tests 08/10/24 08:07 Test 08/10/24 08:07 Range/Units Serum Glucose 113 H 74-106 mg/dL Problem List/Assessment/Plan Problem List/Assessment/Plan Acute on chronic decompensated HFpEF, NYHA Class III Coronary artery disease status post PTCA including one CLAUDIO Likely permanent atrial fibrillation, on Eliquis/sotalol therapy Rule out progressive coronary artery disease Pre-diabetes, newly diagnosed Hypertension Obesity Plan/Recommendation (Dr. Garner) * Transthoracic echocardiogram revealed EF 60% * Right ventricle is mildly dilated in size with preserved systolic function. Calcified aortic valve with no significant stenosis * Abnormal cardiolite stress test with reversible defect in the LV apex and inferolateral wall * Rate control, continue beta-reinaldo and digoxin * NOAC therapy, hold Eliquis. Transition to Lovenox * [id number] Score 4. HAS-BLED Score 2. * Single-antiplatelet therapy and lipid lowering agent * Monitor ECG changes and notify * Chest pain protocol Scheduled for coronary angiogram with left cardiac catheterization on 08/11/2024. Thank you for allowing us to participate in this patient's care. Please call if you have any questions or concerns. This medical document was created using an electronic medical record system with voice recognition software and computerized dictation system. Although this document has been carefully reviewed, there might still be some phonetic and typographical errors. Occasional wrong-word or ``sound-alike substitutions may have occurred due to the inherent limitations of voice recognition software. These areas are purely typographical due to imperfections of the software programs and do not reflect any compromise in the patient's medical care. Please read the chart carefully and recognize, using context, where these substitutions have occurred. Plan discussed with: Patient, Other Date of Service: Aug 10, 2024 Billing Provider: DILLON GARNER Sr., MD Cardiology Common Codes: [id number] [facility] [place] [facility] Aug 10, 2024 10:40
--- NOTE | 2024-08-10 11:42 | DVHPN2 ---
Subjective Feeling relaxed this morning; did not share any complaints Reviewed: Care Plan, H&P, Labs, Medications, Previous Orders, Radiology, Other (Consultation) Changes from previous H/P or p: Changes Objective Vitals Vital Signs Date Time Temp Pulse Resp B/P (MAP) Pulse Ox O2 Delivery O2 Flow Rate FiO2 08/10/24 11:30 97 18 99 08/10/24 11:24 Nasal Cannula 3.0 08/10/24 11:24 32 08/10/24 10:02 98/77 08/10/24 09:00 97.9 97.9 Intake/Output Intake and Output 08/10/24 07:00 Intake Total 2600 ml Output Total 2610 ml Balance -10 ml Intake Oral 2600 ml Output Urine Total 2610 ml # Bowel Movements 1 General Appearance: Alert, Oriented X3, Cooperative, No acute distress, Other (M. OBESE) HEENT: Atraumatic Lungs: Other (Decreased air entry bilaterally with scattered wet crackles) Cardiovascular: Normal S1, Normal S2, Other (Irregularly irregular) Abdomen: Soft, No tenderness Extremities: Other (Trace pitting edema) Neuro: Normal speech, Cranial nerves 3-12 NL Psych/Mental Status: Other (Very emotional) Medications Current Medications Medications Dose Ordered Sig/Aixa Route Start Time Stop Time Status Last Admin Dose Admin Azithromycin 250 ml @ 125 mls/hr DAILY IV 08/05/24 10:00 08/09/24 09:39 125 MLS/HR Ceftriaxone Sodium 50 ml @ 100 mls/hr DAILY@09 IV 08/05/24 09:00 08/08/24 10:06 100 MLS/HR Furosemide 40 mg DAILY IV 08/05/24 10:00 08/10/24 08:56 40 MG Hydralazine HCl 10 mg Q6HP PRN IV 08/04/24 15:45 Levalbuterol HCl 0.625 mg Q6HR NEB 08/04/24 18:00 08/10/24 11:24 0.625 MG Ipratropium [place] 0.5 mg Q4HPRN PRN NEB 08/04/24 15:45 08/10/24 01:10 0.5 MG Famotidine 20 mg Q12HR IV 08/04/24 22:00 08/10/24 08:55 20 MG Sodium Chloride 10 ml Q8HR IV 08/04/24 22:00 08/10/24 05:51 10 ML Acetaminophen/ Hydrocodone Bitart 1 tab Q4HP PRN PO 08/04/24 15:45 08/08/24 10:10 1 TAB Ondansetron HCl 4 mg Q4HP PRN IV 08/04/24 15:45 Docusate Sodium 100 mg BIDPRN PRN PO 08/04/24 15:45 08/09/24 20:32 100 MG Acetaminophen 650 mg Q6HP PRN PO 08/04/24 15:45 Morphine Sulfate 2 mg Q4HPRN PRN IV 08/04/24 15:45 08/10/24 10:02 2 MG Nitroglycerin 0.4 mg Q5MINP PRN SL 08/04/24 15:45 08/04/24 20:44 0.4 MG Morphine Sulfate 2 mg Q30M PRN IV 08/04/24 15:45 08/04/24 16:53 2 MG Methylprednisolone Sodium Succinate 40 mg Q12HR IV 08/06/24 22:00 08/10/24 09:05 40 MG Metoprolol Succinate 50 mg DAILY PO 08/07/24 10:00 08/09/24 14:20 50 MG Atorvastatin Calcium 40 mg HS PO 08/08/24 22:00 08/09/24 20:32 40 MG Aspirin 81 mg DAILY PO 08/09/24 10:00 08/10/24 08:53 81 MG Digoxin 0.125 mg DAILY PO 08/10/24 10:00 08/10/24 10:02 0.125 MG Laboratory Results Laboratory Tests 08/10/24 08:07 Chemistry Test 08/10/24 08:07 Calcium Level 9.5 mg/dL (8.7-10.4) Urinalysis Test 08/06/24 07:00 Urine Color Light-yellow (Yellow) Urine Clarity Clear (Clear) Urine pH 5.5 (5.0-9.0) Urine Specific [place] 1.026 (1.001-1.035) Urine Protein Negative (Negative) Urine Ketones Negative (Negative) Urine Blood Negative /uL (Negative) Urine Nitrite Negative (Negative) Urine Bilirubin Negative (Negative) Urine Urobilinogen Normal mg/dL (Negative) Urine Leukocyte Esterase Negative /uL (Negative) Urine RBC None seen /hpf (0 - 3) Urine WBC <1 /hpf (0 - 3) Urine Squamous Epithelial Cells None seen /hpf (<5) Urine Bacteria None seen /hpf (None Seen) Urine Mucus Few (None Seen) Urine Glucose Normal mg/dL (Normal) Microbiology Microbiology Date/Time Source Procedure Growth Status 08/06/24 07:00 Voided Urine Urine Culture - Final Complete 08/04/24 13:43 Blood Blood Culture - Final NO GROWTH AFTER 5 DAYS OF INCUBATION. Complete Labs and/or images reviewed: Labs reviewed by me, Image(s) reviewed by me Assessment/Plan Assessment/Plan Covering: #Chest discomfort/pain; positive stress test; to rule out ACS with cardiac catheterization planned for tomorrow the August; continue aspirin and statin; cardiology is following; telemetry; continue monitoring #Acute hypoxic respiratory failure due to pulmonary congestion in the setting of acute on chronic decompensated HFpEF, and suspected community-acquired pneumonia; reviewed the available imaging studies including chest CT; continue oxygen therapy as indicated; continue monitoring Acute on chronic decompensated HFpEF; continue IV diuresis; continue monitoring #Sepsis with leukocytosis due to suspected community-acquired pneumonia; continue IV antibiotics; continue monitoring #Suspected JONAS; adjust setting of sepsis and decompensated heart failure; most likely vasomotor nephropathy; avoid nephrotoxic agents; continue monitoring #CAD status post PTCA including one CLAUDIO; management as above; continue monitoring #Atrial fibrillation, rate controlled; likely permanent; on anticoagulation with apixaban at home and on sotalol; to transition to enoxaparin before cardiac catheterization; on metoprolol succinate inpatient; telemetry; cardiology is following; continue monitoring #Pre-diabetes, newly diagnosed; hemoglobin A1c of 6%; counseled the patient on the importance of adopting healthy lifestyle with diet and exercise in order to lose weight; continue monitoring #Hypertensive heart disease with diastolic heart failure; continue antihypertensive medications as indicated; treatment of acute exacerbation of heart failure as above; cardiology is following; continue monitoring #Obesity with metabolic syndrome; counseled the patient on the importance of adopting healthy lifestyle with diet and exercise in order to lose weight; continue monitoring Late Entry. This medical document was created using an electronic medical record system with computerized dictation system. Although this document has been carefully reviewed, there might still be some phonetic and typographical errors. These areas are purely typographical due to imperfections of the software programs, and do not reflect any compromise in the patient's medical care. Plan discussed with: Patient, Other (Nurse) My Orders Orders - QUIRINO BAZZI MD Procedure Category Date Status Time Complete Blood Count LAB 08/10/24 In Process 04:00 Complete Blood Count LAB 08/11/24 Verified 04:00 Comprehensive LAB 08/11/24 Verified Metabolic Panel 04:00 Manual Differential LAB 08/10/24 In Process 08:07 Date of Service: Aug 10, 2024 Billing Provider: QUIRINO BAZZI MD Common Visit Codes: [id number] INP/OBS CARE(HIGH) QUIRINO BAZZI MD Aug 10, 2024 11:42
[2024-08-10 11:56] LABS: Band Neutrophils % (manual) 2; Lymphocytes % (manual) 11 (10.0-50.0); Monocytes % (manual) 8 (0-12); Platelet Estimate Adequate
[2024-08-11] VITALS (17 sets, daily range): BP systolic 121–151; BP diastolic 80–100; PULSE 74–124; RESP 18–20; TEMP 97.5–98.8; O2SAT 92–100
[2024-08-11 06:35] LABS: Hematocrit 47.6 % (41.0-53.0); Hemoglobin 16.1 g/dL (13.5-17.5); Mean Corpuscular Hemoglobin 30.7 pg (28.0-32.0); Mean Corpuscular Hgb Conc. 33.9 g/dL (32.0-36.0); Mean Corpuscular Volume 90.8 fL (80.0-100.0); Platelet Count (auto) 223 10^3/uL (140-450); Red Blood Cells 5.24 10^6/uL (4.5-5.90); Red Cell Distribution Width 14.8 % (11.8-14.3); White Blood Cell 17.6 10^3/uL (4.4-10.8)
[2024-08-11 06:57] LABS: INR 1.05 (0.9-1.15); Partial Thromboplastin Time 23.2 SEC (24.5-34.5); Prothrombin Time 11.1 sec (9.3-11.8)
[2024-08-11 06:58] LABS: Alanine Aminotransferase 67 U/L (7-40); Albumin 4.4 g/dL (3.2-4.8); Alkaline Phosphatase 75 U/L (46-116); Anion Gap 8 (5-15); Aspartate Aminotransferase 12 U/L (13-40); BUN/Creatinine Ratio 38.6 (10.0-20.0); Bilirubin, Total 0.8 mg/dL (0.2-1.0); Blood Urea Nitrogen 39 mg/dL (9-23); Calcium 8.9 mg/dL (8.7-10.4); Carbon Dioxide 28 mmol/L (20-31); Chloride 99 mmol/L (98-107); Glucose 131 mg/dL (74-106); Potassium 4.9 mmol/L (3.5-5.1); Sodium 135 mmol/L (136-145); Total Protein 6.6 g/dL (5.7-8.2)
[2024-08-11 07:07] LABS: Basophils % (manual) 0 (0.0-2.0); Blast Cells 0; Eosinophils % (manual) 0 (0-7); Myelocytes % 0; Promyelocytes % 0; Reactive Lymphocytes 0
[2024-08-11 08:33] LABS: Band Neutrophils % (manual) 1; Lymphocytes % (manual) 15 (10.0-50.0); Metamyelocytes % 1; Monocytes % (manual) 1 (0-12); Platelet Estimate Adequate
[2024-08-11] MEDS: HEPARIN SODIUM (PORCINE) 5000 UNITS/ML 1ML VIAL ONE (15:18)
[2024-08-11] MEDS: diphenhdrAMINE HCL 50 MG/1 ML VL ONE (15:18)
[2024-08-11] MEDS: VERAPAMIL 2.5MG/ML INJ 2ML VIAL IV ONE (15:19)
[2024-08-11] MEDS: MIDAZOLAM HCL 2MG/2ML 2ml VIAL (1mg/ml) ONE (15:19)
[2024-08-11] MEDS: LIDOCAINE 2%HCL (LOCAL ANESTH.) INJ 20ML MDV ONE (15:19)
[2024-08-11] MEDS: FAMOTIDINE (10MG/ML) 2ML VL IV ONE (15:19)
[2024-08-11] MEDS: ANGIOMAX 250 MG VIAL IV ONE (15:20)
[2024-08-11] MEDS: methylPREDNISolone SOD SUCC 125 MG/2 ML VL ONE (15:21)
--- NOTE | 2024-08-11 16:32 | DVHOP2 ---
Operative Report - 2 Report Details Date: 08/11/24 Preop Diagnosis: Patient presented with shortness of breath and was diagnosed with acute heart failure exacerbation. He had an abnormal nuclear stress test. He has history of coronary artery disease status post stenting. He also has history of permanent atrial fibrillation maintained on anticoagulation. Postop Diagnosis: 1. Normal left ventricular end-diastolic pressure. 2. Moderate disease in the mid LAD. 3. Patent stent in the mid nondominant RCA. Surgeon: Luis Mike MD Anesthesiologist: Patient was deemed an adequate candidate for conscious sedation. Versed1 mg was given. Patient was monitored [id number] continuously under myocardial during the procedure. Patient was also given 125 mg IV Solu-Medrol and 50 mg of Benadryl for history of dye allergy. Anesthesia: Local Consent: The patient was informed of the risks and benefits of the procedure. These include but are not limited to complications of anesthesia, postoperative infection, incomplete relief of symptoms, recurrence of symptoms, damage to bl ood vessels, nerves and tendons, deep venous thrombosis, pulmonary embolism and possible need for repeat surgery in the future. Name of Procedure Performed 1. Selective coronary angiography. 2. Left heart catheterization. 3. Moderated sedation. Procedure Details Procedure Details: The patient was brought to the lab coordinator in a stable condition. He was found to have normal pulses in the right radial artery. The right wrist area was sterilized and draped in a sterile fashion. The skin was anesthetized using 1% lidocaine. Access in the right radial artery was obtained using a Seldinger approach. An 11 cm sheath was placed in the right radial artery. The left heart catheterization, left coronary angiography, and right coronary angiography were performed using a5 Thai David catheter. At the completion of the procedure hemostasis in radial artery was obtained using a TR band. Findings: Hemodynamics: Aortic pressure was 90/60 mm Hg, LVEDP was 9 mm Hg. There is no significant gradient on LV to aorta pullback. Coronary angiography: The left main coronary artery is a normal caliber short bifurcating vessel. It is free of any significant disease. The left anterior descending artery is normal caliber vessel that extends to the apex. Mid vessel has 40% stenosis. The diagonal branches are with no significant disease. The left circumflex artery is a large-caliber dominant vessel. No significant disease. The obtuse marginal branch and left posterolateral branch are with no significant disease. Left posterior descending artery is with no significant stenosis. The right coronary artery is a small caliber and non-dominant vessel. No significant disease. There is a patent stent in the mid vessel. Impressions: 1. Normal left ventricular end-diastolic pressure. 2. Moderate disease in the mid LAD. 3. Patent stent in the mid nondominant RCA. Plan: 1. Medical therapy for coronary artery disease. 2. Risk factors modifications. Condition Stable Disposition Still a Patient LUIS MIKE MD Aug 11, 2024 16:32
--- NOTE | 2024-08-11 16:54 | DVHPN2 ---
Subjective continue to note palpitations. no CP at the [facility]. No other O/N events. Reviewed: Care Plan, H&P, Labs, Medications, Previous Orders, Radiology, Other (Consultation) Changes from previous H/P or p: No Changes Objective Vitals Vital Signs Date Time Temp Pulse Resp B/P (MAP) Pulse Ox O2 Delivery O2 Flow Rate FiO2 08/11/24 11:50 97.5 100 18 151/94 (113) 97 97.5 08/11/24 11:30 Nasal Cannula* 3 32 Intake/Output Intake and Output 08/11/24 07:00 Intake Total 3110 ml Output Total 650 ml Balance 2460 ml Intake Oral 3110 ml Output Urine Total 650 ml # Voids 3 # Bowel Movements 2 General Appearance: Alert, Oriented X3, Cooperative, No acute distress, Other (M. OBESE) HEENT: Atraumatic Lungs: Other (Decreased air entry bilaterally with scattered wet crackles) Cardiovascular: Normal S1, Normal S2, Other (Irregularly irregular) Abdomen: Soft, No tenderness Extremities: Other (Trace pitting edema) Neuro: Normal speech, Cranial nerves 3-12 NL Psych/Mental Status: Other (Very emotional) Medications Current Medications Medications Dose Ordered Sig/Aixa Route Start Time Stop Time Status Last Admin Dose Admin Azithromycin 250 ml @ 125 mls/hr DAILY IV 08/05/24 10:00 08/09/24 09:39 125 MLS/HR Ceftriaxone Sodium 50 ml @ 100 mls/hr DAILY@09 IV 08/05/24 09:00 08/11/24 11:09 100 MLS/HR Furosemide 40 mg DAILY IV 08/05/24 10:00 08/11/24 11:09 40 MG Hydralazine HCl 10 mg Q6HP PRN IV 08/04/24 15:45 Levalbuterol HCl 0.625 mg Q6HR NEB 08/04/24 18:00 08/11/24 11:30 0.625 MG Ipratropium [place] 0.5 mg Q4HPRN PRN NEB 08/04/24 15:45 08/10/24 22:45 0.5 MG Famotidine 20 mg Q12HR IV 08/04/24 22:00 08/11/24 11:36 20 MG Sodium Chloride 10 ml Q8HR IV 08/04/24 22:00 08/11/24 05:19 10 ML Acetaminophen/ Hydrocodone Bitart 1 tab Q4HP PRN PO 08/04/24 15:45 08/08/24 10:10 1 TAB Ondansetron HCl 4 mg Q4HP PRN IV 08/04/24 15:45 Docusate Sodium 100 mg BIDPRN PRN PO 08/04/24 15:45 08/09/24 20:32 100 MG Acetaminophen 650 mg Q6HP PRN PO 08/04/24 15:45 Morphine Sulfate 2 mg Q4HPRN PRN IV 08/04/24 15:45 08/11/24 11:38 2 MG Nitroglycerin 0.4 mg Q5MINP PRN SL 08/04/24 15:45 08/04/24 20:44 0.4 MG Morphine Sulfate 2 mg Q30M PRN IV 08/04/24 15:45 08/04/24 16:53 2 MG Methylprednisolone Sodium Succinate 40 mg Q12HR IV 08/06/24 22:00 08/11/24 11:08 40 MG Metoprolol Succinate 50 mg DAILY PO 08/07/24 10:00 08/11/24 11:08 50 MG Atorvastatin Calcium 40 mg HS PO 08/08/24 22:00 08/10/24 21:04 40 MG Aspirin 81 mg DAILY PO 08/09/24 10:00 08/10/24 08:53 81 MG Digoxin 0.125 mg DAILY PO 08/10/24 10:00 08/11/24 11:07 0.125 MG Laboratory Results Laboratory Tests 08/11/24 05:31 Chemistry Test 08/11/24 05:31 Albumin 4.4 g/dL (3.2-4.8) Calcium Level 8.9 mg/dL (8.7-10.4) Total Protein 6.6 g/dL (5.7-8.2) Coagulation Test 08/11/24 05:31 Prothrombin Time 11.1 sec (9.3-11.8) Prothrombin Time INR 1.05 (0.9-1.15) Activated Partial Thromboplast Time 23.2 SEC (24.5-34.5) L LFT Test 08/11/24 05:31 Alanine Aminotransferase (ALT) 67 U/L (7-40) H Alkaline Phosphatase 75 U/L (46-116) Aspartate Amino Transferase (AST) 12 U/L (13-40) L Total Bilirubin 0.8 mg/dL (0.2-1.0) Urinalysis Test 08/06/24 07:00 Urine Color Light-yellow (Yellow) Urine Clarity Clear (Clear) Urine pH 5.5 (5.0-9.0) Urine Specific [place] 1.026 (1.001-1.035) Urine Protein Negative (Negative) Urine Ketones Negative (Negative) Urine Blood Negative /uL (Negative) Urine Nitrite Negative (Negative) Urine Bilirubin Negative (Negative) Urine Urobilinogen Normal mg/dL (Negative) Urine Leukocyte Esterase Negative /uL (Negative) Urine RBC None seen /hpf (0 - 3) Urine WBC <1 /hpf (0 - 3) Urine Squamous Epithelial Cells None seen /hpf (<5) Urine Bacteria None seen /hpf (None Seen) Urine Mucus Few (None Seen) Urine Glucose Normal mg/dL (Normal) Microbiology Microbiology Date/Time Source Procedure Growth Status 08/06/24 07:00 Voided Urine Urine Culture - Final Complete 08/04/24 13:43 Blood Blood Culture - Final NO GROWTH AFTER 5 DAYS OF INCUBATION. Complete Assessment/Plan Assessment/Plan #Chest discomfort/pain; positive stress test; ; continue aspirin and statin; cardiology is following; telemetry; continue monitoring - plan for cath today. #Acute hypoxic respiratory failure due to pulmonary congestion in the setting of acute on chronic decompensated HFpEF, and suspected community-acquired pneumonia; reviewed the available imaging studies including chest CT; continue oxygen therapy as indicated; continue monitoring Acute on chronic decompensated HFpEF; continue IV diuresis; continue monitoring #Sepsis with leukocytosis due to suspected community-acquired pneumonia; continue monitoring. CT neg for PNA> - Improved. - stop Abx. #Suspected JONAS; adjust setting of sepsis and decompensated heart failure; most likely vasomotor nephropathy; avoid nephrotoxic agents; continue monitoring #CAD status post PTCA including one CLAUDIO; management as above; continue monitoring - Cath today. #Atrial fibrillation, rate controlled; likely permanent; on anticoagulation with apixaban at home and on sotalol; to transition to enoxaparin before cardiac catheterization; on metoprolol succinate inpatient; telemetry; cardiology is following; continue monitoring #Pre-diabetes, newly diagnosed; hemoglobin A1c of 6%; counseled the patient on the importance of adopting healthy lifestyle with diet and exercise in order to lose weight; continue monitoring #Hypertensive heart disease with diastolic heart failure; continue antihypertensive medications as indicated; treatment of acute exacerbation of heart failure as above; cardiology is following; continue monitoring #Obesity with metabolic syndrome; counseled the patient on the importance of adopting healthy lifestyle with diet and exercise in order to lose weight; continue monitoring Plan discussed with: Patient Date of Service: Aug 11, 2024 Billing Provider: HEIDE SÁNCHEZ MD Common Visit Codes: [id number] INP/OBS CARE(HIGH) HEIDE SÁNCHEZ MD Aug 11, 2024 16:54
--- NOTE | 2024-08-11 17:57 | DVHPN2 ---
Consult Progress Note Date Seen: Aug 11, 2024 Subjective Review of Systems: CVS:Normal, RESPIRATORY:Normal, NEURO:Normal Other Systems: Denies any cardiac symptoms. Right wrist area with vasc band is intact. S/p LHC Objective vital signs Vital Sign Date Time Temp Pulse Resp B/P (MAP) Pulse Ox O2 Delivery O2 Flow Rate FiO2 08/11/24 11:50 97.5 100 18 151/94 (113) 97 97.5 08/11/24 11:30 Nasal Cannula* 3 32 Total Intake and Output 08/10/24 08/10/24 08/11/24 15:00 23:00 07:00 Intake Total 600 ml 1260 ml 1250 ml Output Total 650 ml Balance 600 ml 1260 ml 600 ml medications Current Medications Medications Dose Ordered Sig/Aixa Route Start Time Stop Time Status Last Admin Dose Admin Azithromycin 250 ml @ 125 mls/hr DAILY IV 08/05/24 10:00 08/09/24 09:39 125 MLS/HR Ceftriaxone Sodium 50 ml @ 100 mls/hr DAILY@09 IV 08/05/24 09:00 08/11/24 11:09 100 MLS/HR Furosemide 40 mg DAILY IV 08/05/24 10:00 08/11/24 11:09 40 MG Hydralazine HCl 10 mg Q6HP PRN IV 08/04/24 15:45 Levalbuterol HCl 0.625 mg Q6HR NEB 08/04/24 18:00 08/11/24 11:30 0.625 MG Ipratropium [place] 0.5 mg Q4HPRN PRN NEB 08/04/24 15:45 08/10/24 22:45 0.5 MG Famotidine 20 mg Q12HR IV 08/04/24 22:00 08/11/24 11:36 20 MG Sodium Chloride 10 ml Q8HR IV 08/04/24 22:00 08/11/24 17:46 10 ML Acetaminophen/ Hydrocodone Bitart 1 tab Q4HP PRN PO 08/04/24 15:45 08/08/24 10:10 1 TAB Ondansetron HCl 4 mg Q4HP PRN IV 08/04/24 15:45 Docusate Sodium 100 mg BIDPRN PRN PO 08/04/24 15:45 08/09/24 20:32 100 MG Acetaminophen 650 mg Q6HP PRN PO 08/04/24 15:45 Morphine Sulfate 2 mg Q4HPRN PRN IV 08/04/24 15:45 08/11/24 11:38 2 MG Nitroglycerin 0.4 mg Q5MINP PRN SL 08/04/24 15:45 08/04/24 20:44 0.4 MG Morphine Sulfate 2 mg Q30M PRN IV 08/04/24 15:45 08/04/24 16:53 2 MG Methylprednisolone Sodium Succinate 40 mg Q12HR IV 08/06/24 22:00 08/11/24 11:08 40 MG Metoprolol Succinate 50 mg DAILY PO 08/07/24 10:00 08/11/24 11:08 50 MG Atorvastatin Calcium 40 mg HS PO 08/08/24 22:00 08/10/24 21:04 40 MG Aspirin 81 mg DAILY PO 08/09/24 10:00 08/10/24 08:53 81 MG Digoxin 0.125 mg DAILY PO 08/10/24 10:00 08/11/24 11:07 0.125 MG Examination: LUNGS:Normal, CVS:Normal (A-fib 90s bpm), NEURO:Normal laboratory and microbiology Laboratory Tests 08/11/24 05:31 Test 08/11/24 05:31 Range/Units Serum Glucose 131 H 74-106 mg/dL Problem List/Assessment/Plan Problem List/Assessment/Plan Acute on chronic decompensated HFpEF, NYHA Class III Coronary artery disease status post PTCA including one CLAUDIO Likely permanent atrial fibrillation, on Eliquis/sotalol therapy Rule out progressive coronary artery disease Pre-diabetes, newly diagnosed Hypertension Obesity Plan/Recommendation (Dr. Mike) * Transthoracic echocardiogram revealed EF 60% * Right ventricle is mildly dilated in size with preserved systolic function. Calcified aortic valve with no significant stenosis * Abnormal cardiolite stress test with reversible defect in the LV apex and inferolateral wall * Rate control, continue beta-reinaldo and digoxin * NOAC therapy, Eliquis BID * [id number] Score 4. HAS-BLED Score 2. * Single-antiplatelet therapy and lipid lowering agent * Risk factor modifications including Mediterranean diet and weight loss * Advise to follow-up with Cardiology within 3-4 weeks post-discharge The patient with an ischemic Cardiolite stress test is status post cardiac catheterization and coronary angiogram revealing a normal left ventricular end- diastolic pressure, moderate disease in the mid LAD, and a patent stent in the mid RCA. Recommendations are for medical therapy for coronary artery disease including single-antiplatelet therapy and lipid lowering agent as well as risk factor modifications. There is no further cardiac workup indicated at this time. Kindly call if in need to re-consult. Thank you for allowing us to participate in this patient's care. This medical document was created using an electronic medical record system with voice recognition software and computerized dictation system. Although this document has been carefully reviewed, there might still be some phonetic and typographical errors. Occasional wrong-word or ``sound-alike substitutions may have occurred due to the inherent limitations of voice recognition software. These areas are purely typographical due to imperfections of the software programs and do not reflect any compromise in the patient's medical care. Please read the chart carefully and recognize, using context, where these substitutions have occurred. Plan discussed with: Patient, Other Dietary Evaluation Review Comments: 1) Continue current plan of care Expected Outcomes/Goals: F/U in 3-5 days Date of Service: Aug 11, 2024 Billing Provider: ELIUD MIKE MD Cardiology Common Codes: [id number] INP/OBS CARE(Mod) DEM[employer] DISPATCHER Aug 11, 2024 17:57
[2024-08-12] VITALS (15 sets, daily range): BP systolic 115–155; BP diastolic 74–100; PULSE 91–112; RESP 16–20; TEMP 97.1–98.1; O2SAT 94–100
[2024-08-12 07:34] LABS: Alkaline Phosphatase 76 U/L (46-116); Anion Gap 8 (5-15); BUN/Creatinine Ratio 44.8 (10.0-20.0); Calcium 9.7 mg/dL (8.7-10.4); Carbon Dioxide 27 mmol/L (20-31); Chloride 100 mmol/L (98-107); Glucose 160 mg/dL (74-106); Potassium 5.1 mmol/L (3.5-5.1); Sodium 135 mmol/L (136-145)
[2024-08-12 07:35] LABS: Alanine Aminotransferase 60 U/L (7-40); Albumin 4.3 g/dL (3.2-4.8); Aspartate Aminotransferase 15 U/L (13-40); Bilirubin, Total 0.8 mg/dL (0.2-1.0); Blood Urea Nitrogen 47 mg/dL (9-23); Total Protein 6.7 g/dL (5.7-8.2)
[2024-08-12 12:30] LABS: Hematocrit 49.7 % (41.0-53.0); Hemoglobin 16.7 g/dL (13.5-17.5); Mean Corpuscular Hemoglobin 30.4 pg (28.0-32.0); Mean Corpuscular Hgb Conc. 33.5 g/dL (32.0-36.0); Mean Corpuscular Volume 90.8 fL (80.0-100.0); Platelet Count (auto) 222 10^3/uL (140-450); Red Blood Cells 5.47 10^6/uL (4.5-5.90); Red Cell Distribution Width 14.9 % (11.8-14.3); White Blood Cell 18.8 10^3/uL (4.4-10.8)
[2024-08-12 12:33] LABS: Basophils % (manual) 0 (0.0-2.0); Blast Cells 0; Eosinophils % (manual) 0 (0-7); Myelocytes % 0; Promyelocytes % 0; Reactive Lymphocytes 0
[2024-08-12 13:02] LABS: Anisocytosis Slight; Band Neutrophils % (manual) 2; Lymphocytes % (manual) 4 (10.0-50.0); Metamyelocytes % 1; Monocytes % (manual) 6 (0-12); Platelet Estimate Adequate
[2024-08-12 13:57] LABS: Albumin 4.7 g/dL (3.2-4.8); Alkaline Phosphatase 82 U/L (46-116); Anion Gap 11 (5-15); Aspartate Aminotransferase 27 U/L (13-40); BUN/Creatinine Ratio 64.2 (10.0-20.0); Bilirubin, Total 0.7 mg/dL (0.2-1.0); Calcium 9.8 mg/dL (8.7-10.4); Carbon Dioxide 24 mmol/L (20-31); Total Protein 7.2 g/dL (5.7-8.2)
[2024-08-12 14:12] LABS: Potassium 5.4 mmol/L (3.5-5.1); Sodium 133 mmol/L (136-145)
[2024-08-12 14:13] LABS: Alanine Aminotransferase 71 U/L (7-40); Blood Urea Nitrogen 61 mg/dL (9-23); Chloride 98 mmol/L (98-107); Glucose 116 mg/dL (74-106)
[2024-08-12] MEDS ORDERED: DOCU-265 PO (14:40)
[2024-08-12] MEDS ORDERED: DIGO1TAB48 PO (14:40)
[2024-08-12] MEDS ORDERED: ASPI-325 PO (14:40)
[2024-08-12] MEDS ORDERED: LISI-275 PO (14:48)
--- NOTE | 2024-08-12 14:48 | DVHDS2 ---
Discharge Summary Date of Admission Aug 04, 2024 at 15:35 Date of Discharge: Aug 12, 2024 Admitting Diagnosis Atrial fibrillation Acute chest pain Unspecified atrial fibrillation Acute exacerbation of chronic heart failure COPD with acute exacerbation Pneumonia, unspecified organisms Generalized weakness Labs/Diagnostic Data: Laboratory Results Test 08/12/24 12:43 08/12/24 05:58 08/11/24 05:31 08/09/24 05:54 Sodium Level 133 mmol/L (136-145) Potassium Level 5.4 mmol/L (3.5-5.1) Chloride Level 98 mmol/L (98-107) Carbon Dioxide Level 24 mmol/L (20-31) Anion Gap 11 (5-15) Blood Urea Nitrogen 61 mg/dL (9-23) Creatinine 0.95 mg/dL (0.700-1.30) Glomerular Filtration Rate Calc 85 mL/min (>90) BUN/Creatinine Ratio 64.2 (10.0-20.0) Serum Glucose 116 mg/dL (74-106) Calcium Level 9.8 mg/dL (8.7-10.4) Total Bilirubin 0.7 mg/dL (0.2-1.0) Aspartate Amino Transferase (AST) 27 U/L (13-40) Alanine Aminotransferase (ALT) 71 U/L (7-40) Alkaline Phosphatase 82 U/L (46-116) Total Protein 7.2 g/dL (5.7-8.2) Albumin 4.7 g/dL (3.2-4.8) White Blood Count 18.8 10^3/uL (4.4-10.8) Red Blood Count 5.47 10^6/uL (4.5-5.90) Hemoglobin 16.7 g/dL (13.5-17.5) Hematocrit 49.7 % (41.0-53.0) Mean Corpuscular Volume 90.8 fL (80.0-100.0) Mean Corpuscular Hemoglobin 30.4 pg (28.0-32.0) Mean Corpuscular Hemoglobin Concent 33.5 g/dL (32.0-36.0) Red Cell Distribution Width 14.9 % (11.8-14.3) Platelet Count 222 10^3/uL (140-450) Mean Platelet Volume 8.5 fL (6.9-10.8) Neutrophils (%) (Auto) % (37.0-80.0) Lymphocytes (%) (Auto) % (10.0-50.0) Monocytes (%) (Auto) % (0.0-12.0) Basophils (%) (Auto) % (0.0-2.0) Neutrophils # (Auto) 10 ^3/uL (1.6-8.6) Lymphocytes # (Auto) 10 ^3/uL (0.4-5.4) Monocytes # (Auto) 10 ^3/uL (0-1.3) Differential Total Cells Counted 100.0 (100) Neutrophils % (Manual) 87 (37.0-80.0) Band Neutrophils % (Manual) 2 Lymphocytes % (Manual) 4 (10.0-50.0) Monocytes % (Manual) 6 (0-12) Eosinophils % (Manual) 0 (0-7) Basophils % (Manual) 0 (0.0-2.0) Metamyelocytes % (manual) 1 Myelocytes % (Manual) 0 Promyelocytes % (Manual) 0 Blast Cells % (Manual) 0 Reactive Lymphocytes 0 Platelet Estimate Adequate Anisocytosis (manual) Slight Digoxin Level 0.24 ng/mL (0.8-2) Prothrombin Time 11.1 sec (9.3-11.8) Prothrombin Time INR 1.05 (0.9-1.15) Activated Partial Thromboplast Time 23.2 SEC (24.5-34.5) Hemoglobin A1c 6.0 % A1C (<5.7) Magnesium Level 2.5 mg/dL (1.6-2.6) Triglycerides Level 84 mg/dL (< 150) Cholesterol Level 149 mg/dL (< 200) LDL Cholesterol 77 mg/dL (< 100) HDL Cholesterol 56 mg/dL (40-59) Thyroid Stimulating Hormone (TSH) 0.72 uIU/mL (0.55-4.78) Test 08/08/24 18:05 08/07/24 07:19 08/06/24 13:23 08/06/24 07:00 Troponin I High Sensitivity 9 ng/L (</=54) Eosinophils (%) (Auto) 0.0 % (0.0-7.0) Eosinophils # (Auto) 0 10 ^3/uL (0-0.8) Basophils # (Auto) 0 10 ^3/uL (0-0.2) Nucleated Red Blood Cells 0.0 % D-Dimer, Quantitative < 0.19 mg/L FEU (0.0-0.49) Urine Color Light-yellow (Yellow) Urine Clarity Clear (Clear) Urine pH 5.5 (5.0-9.0) Urine Specific [place] 1.026 (1.001-1.035) Urine Protein Negative (Negative) Urine Ketones Negative (Negative) Urine Blood Negative /uL (Negative) Urine Nitrite Negative (Negative) Urine Bilirubin Negative (Negative) Urine Urobilinogen Normal mg/dL (Negative) Urine Leukocyte Esterase Negative /uL (Negative) Urine RBC None seen /hpf (0 - 3) Urine WBC <1 /hpf (0 - 3) Urine Squamous Epithelial Cells None seen /hpf (<5) Urine Bacteria None seen /hpf (None Seen) Urine Mucus Few (None Seen) Urine Glucose Normal mg/dL (Normal) Test 08/06/24 06:00 08/04/24 13:40 08/04/24 13:35 B-Type Natriuretic Peptide 122.23 pg/mL (0-100) Influenza Type A Antigen Negative (Negative) Influenza Type B Antigen Negative (Negative) SARS-CoV-2 Antigen (Rapid) Negative (NEGATIVE) Lactic Acid Level 1.3 mmol/L (0.4-2.0) Other Laboratory Tests 08/12/24 12:43 08/12/24 05:58 Brief Hx & Hospital Course: History on admission. The patient is a 73-year-old male with multiple past medical history including leukemia, CHF, COPD, and hypertension who presented to [facility] ED with complaint of acute chest pain. Patient reports having palpitation, associated shortness of breath despite oxygen, chest pain rating 7/10 numeric scale, getting worse that prompted this visit. Patient was seen and evaluated in the ED, laboratory data shows WBC 8.1, platelets 207, sodium 138, potassium 4.2, BUN 13, creatinine 0.93, GFR 87, glucose 102, troponin 11, BNP 234.03, blood pressure 137/89, heart rate 95, temperature 97.1 F, O2 saturation 97% oxygen. Chest x-ray revealing pulmonary vascular congestion versus multifocal infection. Patient was started on IV antibiotic regimen azithromycin, given IV Lasix. patient denied chest pain at this moment, no headache, no dizziness, no palpitation, no diaphoresis, no nausea, no vomiting, no fever, no chills. Patient was admitted for further evaluation and medical management. studies. CXR IMPRESSION: Pulmonary vascular congestion versus multifocal infection. CT Impression: 1. No acute cardiopulmonary disease. 2. Intralobular septal thickening, nonspecific. 3. Nonenlarged mediastinal and hilar nodes. 4. Trace pericardial effusion. Stress test Impressions: 1. Abnormal myocardial perfusion scan with reversible defect in the LV apex and also inferolateral wall. 2. Normal left ventricular systolic function. Cath- Impressions: 1. Normal left ventricular end-diastolic pressure. 2. Moderate disease in the mid LAD. 3. Patent stent in the mid nondominant RCA. Patinet did no have recurrent chest pain. Rate controlled in A fib. Medically optimized for CAD and discharged. Consults/Reason for consult cardiology Operations or Procedures angiography and stress test performed. Condition at Discharge: Good Final Diagnosis/Problems List Acute on chronic decompensated HFpEF, NYHA Class III Coronary artery disease Afib Discharge Disposition: Home SNF Discharge Will this Physician continue t: No Discharge Instruct/Medications Diet: Cardiac 2g Na,low cholest Activity: No Restrictions, As Tolerated Discharge Statement: "Patient was advised to return to the ER or call 911 if any headaches, dizziness, shortness of breath, chest pain, abdominal pain, bleeding, fevers, or worsening of medical condition. Patient was counseled about treatment plan, medications, possible side effects, patientverbalized understanding. All questions were answered to the best of my ability. This discharge took greater then 30 minutes in planning, reviewing documentation, counseling the patient, and discussing with other team members." ASSESSMENT ASSESSMENT Assessment Acute on chronic decompensated HFpEF, NYHA Class III Coronary artery disease Afib Pre-diabetes Hypertensive heart disease Obesity with metabolic syndrome Date of Service: Aug 12, 2024 Billing Provider: HEIDE SÁNCHEZ MD Common Visit Codes: 13452-VTH/OBS DISCH DAY >30min HEIDE SÁNCHEZ MD Aug 12, 2024 14:48
--- NOTE | 2024-08-16 16:58 | ECG ---
[facility] Test Date: 2024-08-15 Test Time: 15:45:33 Pat Name: ANA LAURA BELLE Department: Room: 0287T A Gender: M Patient Assistant: KARIE BATES : 1950 Requested By: FEROZ JOEL Order Number: [id number] Reading MD: Luis Wilkins Measurements Intervals [place] Rate: 112 P: 0 SD: 0 QRS: 4 QRSD: 83 T: -6 QT: 322 QTc: 440 Interpretive Statements Incomplete analysis due to missing data in precordial lead(s) Atrial fibrillation Probable anteroseptal infarct, old Borderline T abnormalities, inferior leads Missing lead(s): V3 Electronically Signed On 08-17-2024 12:15:21 PST by Luis Wilkins Please click the below link to view image of tracing.
== END 2024-08-12 19:50 | disposition home or self-care (01) | DRG 871 ==
LOC: EDBD 09:33 → ER 09:33 → TELE 15:35 → TELE-WESTW 18:14
PROVIDERS: ADMIT Family Medicine; ATTEND Family Medicine
PROC: 4A023N7 Measurement of Cardiac Sampling and Pressure, Left Heart, Percutaneous Approach (ICD-10-PCS; principal; 2024-08-11)
PROC: B211YZZ Fluoroscopy of Multiple Coronary Arteries using Other Contrast (ICD-10-PCS; 2024-08-11)
PROC: B215YZZ Fluoroscopy of Left Heart using Other Contrast (ICD-10-PCS; 2024-08-11)
DX: A41.50 Gram-negative sepsis, unspecified (principal); I50.33 Acute on chronic diastolic (congestive) heart failure; J96.01 Acute respiratory failure with hypoxia; J15.69 Pneumonia due to other Gram-negative bacteria; J15.9 Unspecified bacterial pneumonia; J44.0 Chronic obstructive pulmonary disease with (acute) lower respiratory infection; J44.1 Chronic obstructive pulmonary disease with (acute) exacerbation; C95.91 Leukemia, unspecified, in remission; I48.21 Permanent atrial fibrillation; Z20.822 Contact with and (suspected) exposure to COVID-19; I11.0 Hypertensive heart disease with heart failure; E66.9 Obesity, unspecified; E88.810 Metabolic syndrome; E78.5 Hyperlipidemia, unspecified; G62.9 Polyneuropathy, unspecified; I25.10 Atherosclerotic heart disease of native coronary artery without angina pectoris; Z99.81 Dependence on supplemental oxygen; Z88.8 Allergy status to other drugs, medicaments and biological substances; Z90.49 Acquired absence of other specified parts of digestive tract; Z98.61 Coronary angioplasty status; Z79.01 Long term (current) use of anticoagulants; Z80.8 Family history of malignant neoplasm of other organs or systems; Z68.32 Body mass index [BMI] 32.0-32.9, adult
CPT/HCPCS: 36415; 71045; 71250; 78452; 80048; 80053; 80061; 80162; 81001; 83036; 83605; 83735; 83880; 84443; 84484; 85007; 85025; 85027; 85379; 85610; 85730; 87040; 87086; 87426; 87804; 93005; 93017; 93306; 93458; 94640; 99152; G0378; J1642; J2250; J3490

== ENCOUNTER 2024-08-13 13:12 | Inpatient (IN) | payer OTHER, MEDICAID ==
[~2024-08-13] VITALS: Ht 182.9 cm; Wt 118.0 kg
[~2024-08-13 13:12] MED LIST: AML5T PO; APIX5TAB PO; ASPI-325 PO; ATOR40TA52 PO; BUDE1AER4 IN; DIGO1TAB48 PO; DOCU-265 PO; FURO20TA3 PO; GABA-339 PO; LISI-275 PO; LOSA-534 PO; METO-289 PO; MORP1TAB14 PO; SOTA80TA PO
--- NOTE | 2024-08-13 13:49 | ED.PDOC ---
History of Present Illness HPI Comments 73M BIBA w/ prior Hx of AFIB, HTN, High Lipids, Asthma, CHF, COPD, Right chest port which all may be associated to the c/c of CP. EMS report on the pt being here in the ER on 08/04/24 . he was also recently hospitalized for afib, cp, pneumonia. EMS state that the pt on scene had 10/10 CP on inspiration as well as the EKG on scene stating AFIB with hypotension. fluid bolus improved the bp. Pt reports on having pressure like CP which was associated w/ sweats and SOB. Pt notes that the pain down to an 8/10. PMHx of Leukemia. SHx of Appendectomy. Denies chills, fever, N/V/D, or other associated symptom's, modifiers, or recent injuries or sick contact at this time. Chief Complaint: Chest Pain Time Seen by MD: 13:15 Primary Care Provider: DODSON Reviewed Notes: Nurses Notes, Automatic Transmission Mechanic Notes, Medications, Allergies Allergies: Coded Allergies: Fentanyl (Verified Allergy, Severe, 08/04/24) Tetracycline (Verified Allergy, Severe, 08/04/24) Patient states anaphalatic shock reaction from tetracycline and was hospitalized for 2 weeks. Povidone Iodine (Verified Allergy, Intermediate, RASH, 08/04/24) Home Meds Active Scripts Lisinopril (Lisinopril) 5 Mg Tab, 5 MG PO DAILY for 30 Days, #30 TAB Prov:HEIDE SÁNCHEZ MD 08/12/24 Docusate Sodium (Docusate Sodium) 100 Mg Cap, 100 MG PO BIDPRN PRN for 30 Days, #30 CAP Prov:HEIDE SÁNCHEZ MD 08/12/24 Digoxin (Lanoxin) 125 Mcg Tab, 0.125 MG PO DAILY for 30 Days, #30 TAB Prov:HEIDE SÁNCHEZ MD 08/12/24 Aspirin (Aspirin Low Dose) 81 Mg Tab, 81 MG PO DAILY for 30 Days, #30 TAB Prov:HEIDE SÁNCHEZ MD 08/12/24 Reported Medications Morphine Sulfate (Morphine Sulfate Er) 60 Mg Tab, 1 TAB PO Q4HPRN, #60 TAB 08/04/24 Atorvastatin Calcium (ATORVASTATIN CALCIUM) 40 Mg Tab, 1 TAB PO DAILY, #30 TAB 5 Refills 08/04/24 Furosemide (Furosemide) 20 Mg Tab, 1 TAB PO DAILYP, #90 TAB 1 Refill 08/04/24 Gabapentin (Gabapentin) 600 Mg Tab, 1 TAB PO TID, #90 TAB 3 Refills 08/04/24 Sotalol Hcl (Sotalol Hcl) 80 Mg Tab, 1 TAB PO BID, #180 TAB 3 Refills 08/04/24 Apixaban Base (ELIQUIS) 5 Mg Tab, 5 MG PO BID, TAB 08/04/24 Amlodipine Besylate (NORVASC TABLET) 5 Mg Tb, 1 TAB PO DAILY, #30 TAB 5 Refills 08/04/24 Metoprolol Succinate (Metoprolol Succinate Er) 50 Mg Tab, 1 TAB PO DAILY, #30 TAB 5 Refills 08/04/24 Losartan Potassium (Losartan Potassium) 50 Mg Tab, 1 TAB PO DAILY, #30 TAB 5 Refills 08/04/24 Budesonide-Formoterol Fumarate (Budesonide/Formoterol Fum 160-4.5 Mcg/Act) 1 Aer Aer, 1 AER IN Q4HPRN, AER 08/04/24 Information Source: Patient, Emergency Med Personnel Mode of Arrival: EMS Severity: Moderate Timing: Minutes Duration: Since onset, Minutes Prehospital treatment: None Past Medical History PAST MEDICAL HISTORY: AFIB, Asthma, CHF, COPD, High Lipids, HTN Past Medical History (Other): Leukemia Surgical History: Appendectomy Surgical History (Other): Right chest port Family History Family History: Reviewed,noncontributory to illness Social History Smoker: Non-Smoker Alcohol: Denies ETOH Use Drugs: Denies Drug Use Lives In: Home Constitutional: reports: sweats; denies: chills, diaphoresis, fatigue, fever, malaise, weakness, others EENTM: denies: blurred vision, double vision, ear bleeding, ear discharge, ear drainage, ear pain, ear ringing, eye pain, eye redness, hearing loss, mouth pain, mouth swelling, nasal discharge, nose bleeding, nose congestion, nose pain, photophobia, tearing, throat pain, throat swelling, voice changes, others Respiratory: reports: shortness of breath; denies: cough, hemoptysis, orthopnea, SOB at rest, SOB with excertion, stridor, wheezing, others Cardiovascular: reports: chest pain; denies: dizzy spells, diaphoresis, Dyspnea on exertion, edema, irregular heart beat, left arm pain, lightheadedness, palpitations, PND, syncope, others Gastrointestinal: denies: abdomen distended, abdominal pain, blood streaked bowels, constipated, diarrhea, dysphagia, difficulty swallowing, hematemesis, melena, nausea, poor appetite, poor fluid intake, rectal bleeding, rectal pain, vomiting, others Genitourinary: denies: burning, dysuria, flank pain, frequency, hematuria, incontinence, penile discharge, penile sore, pain, testicle pain, testicle swelling, urgency, others Neurological: denies: dizziness, fainting, headache, left sided numbness, left sided weakness, numbness, paresthesia, pre-existing deficit, right sided numbness, right sided weakness, seizure, speech problems, tingling, tremors, weakness, others Musculoskeletal: denies: back pain, gout, joint pain, joint swelling, muscle pain, muscle stiffness, neck pain, others Integumetry: denies: bruises, change in color, change in hair/nails, dryness, laceration, lesions, lumps, rash, wounds, others Allergic/Immunocompromised: denies: Difficulty Healing, Frequent Infections, Hives, Itching, others Hematologic/Lymphatic: denies: anemia, blood clots, easy bleeding, easy bruising, swollen glands, others Endocrine: denies: excessive hunger, excessive sweating, excessive thirst, excessive urination, flushing, intolerance to cold, intolerance to heat, unexplained weight gain, unexplained weight loss, others Psychiatric: denies: anxiety, bipolar disorder, depression, hopeless, panic disorder, schizophrenia, sleepless, suicidal, others All Other Systems: Reviewed and Negative Physical Exam Exam Comments Chest is tender and irregular by being tachy General Appearance: No Apparent Distress, Normal HEENT: Normal ENT Inspection, Pharynx Normal, TMs Normal Neck: Full Range of Motion, Non-Tender, Normal, Normal Inspection Respiratory: Chest Non-Tender, Lungs Clear, No Accessory Muscle Use, No Respiratory Distress, Normal Breath Sounds Cardiovascular: No Edema, No JVD, No Murmur, No Gallop, Normal Peripheral Pulses, Regular Rate/Rhythm Breast Exam: Deferred Gastrointestinal: No Organomegaly, Non Tender, No Pulsatile Mass, Normal Bowel Sounds, Soft Genitalia: Deferred Pelvic: Deferred Rectal: Deferred Extremities: No calf tenderness, Normal capillary refill, Normal inspection, Normal range of motion, Non-tender, No pedal edema Musculoskeletal : Apperance: Normal Neurologic: Alert, bottle house pumper II-XII nml as Tested, No Motor Deficits, Normal Affect, Normal Mood, No Sensory Deficits Cerebellar Function: Normal Reflexes: Normal Skin: Dry, Normal Color, Warm Lymphatic: No Adenopathy Was a procedure done? Was a procedure done?: No Differential Dx Considerations may include: afib withrvr, ami, sepsis with shock, hypovolemia, electrolyte disorders, pe, pneumonia X-Ray, Labs, Meds, VS Vital Signs Date Time Temp Pulse Resp B/P (MAP) Pulse Ox O2 Delivery O2 Flow Rate FiO2 08/13/24 14:30 90 16 96/72 (80) 98 08/13/24 14:16 84 08/13/24 13:52 81 18 92 Room Air* 0 21 08/13/24 13:52 98.1 82 16 98/67 (77) 92 98.1 08/13/24 13:33 98.1 98 20 91/64 (73) 97 08/13/24 13:15 86 Lab Test 08/13/24 14:50 08/13/24 13:48 Range/Units Lactic Acid Level 1.8 0.4-2.0 mmol/L Troponin I High Sensitivity 27 26 </=54 ng/L White Blood Count 19.8 H 4.4-10.8 10^3/uL Red Blood Count 5.28 4.5-5.90 10^6/uL Hemoglobin 16.2 13.5-17.5 g/dL Hematocrit 47.9 41.0-53.0 % Mean Corpuscular Volume 90.8 80.0-100.0 fL Mean Corpuscular Hemoglobin 30.6 28.0-32.0 pg Mean Corpuscular Hemoglobin Concent 33.7 32.0-36.0 g/dL Red Cell Distribution Width 14.7 H 11.8-14.3 % Platelet Count 219 140-450 10^3/uL Mean Platelet Volume 8.1 6.9-10.8 fL Neutrophils (%) (Auto) 71.6 37.0-80.0 % Lymphocytes (%) (Auto) 10.1 10.0-50.0 % Monocytes (%) (Auto) 16.1 H 0.0-12.0 % Eosinophils (%) (Auto) 2.1 0.0-7.0 % Basophils (%) (Auto) 0.1 0.0-2.0 % Neutrophils # (Auto) 14.2 H 1.6-8.6 10 ^3/uL Lymphocytes # (Auto) 2.0 0.4-5.4 10 ^3/uL Monocytes # (Auto) 3.2 H 0-1.3 10 ^3/uL Eosinophils # (Auto) 0.4 0-0.8 10 ^3/uL Basophils # (Auto) 0 0-0.2 10 ^3/uL Nucleated Red Blood Cells 0.1 % Sodium Level 136 136-145 mmol/L Potassium Level 4.6 3.5-5.1 mmol/L Chloride Level 101 98-107 mmol/L Carbon Dioxide Level 29 20-31 mmol/L Anion Gap 6 5-15 Blood Urea Nitrogen 66 H 9-23 mg/dL Creatinine 1.17 0.700-1.30 mg/dL Glomerular Filtration Rate Calc 66 >90 mL/min BUN/Creatinine Ratio 56.4 H 10.0-20.0 Serum Glucose 67 L 74-106 mg/dL Calcium Level 9.1 8.7-10.4 mg/dL Current Medications Medications (Trade) Dose Ordered Sig/Aixa Route Start Time Stop Time Status Last Admin Sodium Chloride 2,350 ml @ 2,350 mls/hr ONCE ONCE IV 08/13/24 14:30 08/13/24 15:29 DC 08/13/24 14:30 Ceftriaxone Sodium 50 ml @ 100 mls/hr ONCE ONCE IV 08/13/24 14:30 08/13/24 14:59 DC 08/13/24 15:13 Time of 1ST Reevaluation: 13:45 Reevaluation 1ST: Unchanged Patient Education/Counseling: Diagnosis, Treatment, Prognosis Family Education/Counseling: No Family Present Additional Information - I reviewed the following notes from patient's past medical encounters:08/04/24. pt had an angiogram, ct chest at last admission - The following tests were ordered, and results were reviewed by me: Labs, X- Ray, EKG - Additional information was gathered from interviewing the following independent Historian: EMT - I reviewed and agreed with the following test results read by other provider: X-ray - I discussed treatments and results with medical personnel and: (consultants, family) pt mets SIRS criteria with hypotension, leukocytosis, tachycardia. he will be admitted for sepsis of unknown etiology. Departure 1 Departure Time of Disposition: 16:27 Impression: Primary Impression: SIRS (systemic inflammatory response syndrome) Additional Impressions: Atrial fibrillation Renal insufficiency Disposition: ADMITTED INPATIENT Admit to: [facility] Condition: Serious Critical Care Note Critical Care Time?: Yes (55 min-critical care time only) Critical care comment: due to concerns for patient's condition deteriorating, the care required my highest level of attention and readiness to intervene. i assessed the patient's condition, ordered the proper tests and treatments, reassessed for response and reviewed the results. i communicated with medical personnel and formulated a plan of care. total critical care time does not include any procedures Stability Stability form required: No Heart Score Heart Score: Heart Score Response (Comments) Value History Moderate Suspicious 1 EKG Repolarization Disturb 1 Age >65 2 Risk Factors >3 or Hx ASHD 2 Troponin Normal limit 0 Total 6 I personally scribed for MARITZA YO MD ([email or web address]) on 08/13/24 at 13:49. Electronically submitted by Julio Wolf ([email or web address]). MARITZA YO MD Aug 13, 2024 13:49
[2024-08-13 13:52] VITALS: PULSE 81; RESP 18; O2SAT 92
--- NOTE | 2024-08-13 13:55 | DVH ---
CHEST RADIOGRAPH Indication: cp Technique: Single frontal view of the chest was obtained Comparison: XY CHEST PORTABLE on DOS: 08/06/24, XY CHEST XRAY 1 VIEW on DOS: 08/04/24 FINDINGS: Lines and Tubes: Right chest port cather. Lungs: No focal consolidation. Pleura: No effusion. No pneumothorax. Cardiomediastinal contours: Cardiomegaly. Bones: No acute osseous abnormality. IMPRESSION: No acute cardiopulmonary disease.
[2024-08-13 14:05] LABS: Basophils # (auto) 0 10 ^3/uL (0-0.2); Basophils % (auto) 0.1 % (0.0-2.0); Eosinophils # (auto) 0.4 10 ^3/uL (0-0.8); Eosinophils % (auto) 2.1 % (0.0-7.0); Hematocrit 47.9 % (41.0-53.0); Hemoglobin 16.2 g/dL (13.5-17.5); Lymphocytes % (auto) 10.1 % (10.0-50.0); Mean Corpuscular Hemoglobin 30.6 pg (28.0-32.0); Mean Corpuscular Hgb Conc. 33.7 g/dL (32.0-36.0); Mean Corpuscular Volume 90.8 fL (80.0-100.0); Monocytes # (auto) 3.2 10 ^3/uL (0-1.3); Monocytes % (auto) 16.1 % (0.0-12.0); Neutrophils # (auto) 14.2 10 ^3/uL (1.6-8.6); Neutrophils % (auto) 71.6 % (37.0-80.0); Nucleated Red Blood Cells % 0.1 %; Platelet Count (auto) 219 10^3/uL (140-450); Red Blood Cells 5.28 10^6/uL (4.5-5.90); Red Cell Distribution Width 14.7 % (11.8-14.3); White Blood Cell 19.8 10^3/uL (4.4-10.8)
[2024-08-13 14:13] LABS: Chloride 101 mmol/L (98-107); Potassium 4.6 mmol/L (3.5-5.1); Sodium 136 mmol/L (136-145)
[2024-08-13 14:14] LABS: Anion Gap 6 (5-15); Carbon Dioxide 29 mmol/L (20-31)
[2024-08-13 14:15] LABS: Calcium 9.1 mg/dL (8.7-10.4)
[2024-08-13 14:20] LABS: BUN/Creatinine Ratio 56.4 (10.0-20.0)
[2024-08-13 14:21] LABS: Blood Urea Nitrogen 66 mg/dL (9-23); Glucose 67 mg/dL (74-106)
[2024-08-13] MEDS: SODIUM CHLORIDE 0.9% 2,350 ML IV ONE (14:30)
[2024-08-13] MEDS: cefTRIAXone 1GM/50ML D5W 50 ML IV ONE (15:13)
[2024-08-13 16:26] LABS: Urine Bacteria None Seen /hpf (None Seen)
[2024-08-13 16:42] LABS: Urine Blood Negative /uL (Negative); Urine Clarity Clear (Clear); Urine Color Yellow (Yellow); Urine Hyaline Cast FEW /lpf (0 - 2); Urine Mucus FEW (None Seen); Urine Protein, UAD TRACE (Negative); Urine Squamous Epithelial Cell FEW /hpf (<5); Urine Urobilinogen Normal (Negative); Urine WBC 2 /hpf (0 - 3)
[2024-08-13] MEDS: NITROGLYCERIN 2% OINT 1GM PKG TD ONE (18:38)
--- NOTE | 2024-08-13 18:49 | ECG ---
[facility] Test Date: 2024-08-13 Test Time: 13:15:26 Pat Name: ANA LAURA BELLE Department: er Room: 0295T Gender: M Net Repairer: jennifer : [id number] Requested By: MARITZA YO Order Number: [id number] Reading MD: Ellis Garner Measurements Intervals [place] Rate: 86 P: 0 LA: 0 QRS: 32 QRSD: 81 T: 18 QT: 379 QTc: 454 Interpretive Statements Atrial fibrillation Low voltage, precordial leads Electronically Signed On 08-22-2024 14:13:54 PST by Ellis Garner Please click the below link to view image of tracing.
[2024-08-13 19:35] VITALS: PULSE 86; RESP 19; O2SAT 99
[2024-08-13] MEDS: MORPHINE SULFATE INJ 2 MG/ml SYRG IV ONE (21:50)
--- NOTE | 2024-08-13 21:50 | DVHHPRES ---
History of Present Illness Resident Creating Document: MARINO GODRFEY RESIDENT History of Present Illness This is a 73-year-old male with past medical history of hypertension, hyperlipidemia, leukemia, atrial fibrillation, CAD with PTCA X1 stent, COPD with home oxygen 2.5-3 L, neuropathy, chronic back pain presented to the ED via EMS with a chief complaint of chest pain and shortness of breath since 3:00 p.m. prior to this admission. According to the EMS the patient was hypotensive and EKG demonstrated AFib on the scene and fluid bolus was given that improved the blood pressure. He was discharged from [facility] on 08/12/2024 and was treated for possible community-acquired pneumonia and had extensive cardiology workup . He underwent Cardiolite scan 01/25 revealed abdominal myocardial perfusion scan with reversible defect in the LV apex and also inferolateral wall. Coronary angiography on 08/11/2023 demonstrated normal left ventricular end-diastolic pressure, moderate disease in the mid LAD and patent stent in the mid non dominant RCA. Cardiology recommended medical management for coronary artery disease and risk factor modification. The patient states that chest pain is feel like heaviness in the chest, continuous, 7/10 radiate to the left arm and also on the right side of the chest and associated with shortness of breath and occasional cough. Initial EKG revealed atrial fibrillation with controlled rate, troponins are unremarkable. Echo on 08/28 demonstrated EF 60%. Past Medical History Hypertension, hyperlipidemia, leukemia, atrial fibrillation, CAD with PTCA X1 stent, COPD with home oxygen 2.5-3 L, neuropathy, chronic back pain Past Surgical History Appendectomy, back surgery Family History None Past Social History Lives with family Nonsmoker, occasional drinker and never tried any drugs. Review of Systems Constitutional: No: Fever, Chills, Sweats, Weakness, Malaise, Other Eyes: No: Pain, Vision change, Conjunctivae inflammation, Eyelid inflammation, Other, Redness ENT: No: Ear pain, Ear discharge, Nose pain, Nose discharge, Nose congestion, Mouth pain, Mouth swelling, Throat pain, Throat swelling, Other Respiratory: Shortness of breath; No: Cough, Dry, SOB with excertion, Wheezing, Hemoptysis, Pleuritic Pain, Sputum, Wheezing, Other Cardiovascular: Chest Pain, Palpitations; No: Orthopnea, Paroxysmal Noc. Dyspnea, Edema, Lt Headedness, Other Gastrointestinal: No: Nausea, Vomiting, Abdominal Pain, Diarrhea, Constipation, Melena, Hematochezia, Other Genitourinary: No Dysuria, No Frequency, No Incontinence, No Hematuria, No Retention, No Other Musculoskeletal: No: other, neck pain, shoulder pain, arm pain, back pain, hand pain, leg pain, foot pain Skin: No: Rash, Lesions, Jaundice, Bruising, Other Neurological: No: Weakness, Numbness, Incoordination, Change in speech, Confusion, Seizures, Other Allergies: Coded Allergies: Fentanyl (Verified Allergy, Severe, 08/04/24) Tetracycline (Verified Allergy, Severe, 08/04/24) Patient states anaphalatic shock reaction from tetracycline and was hospitalized for 2 weeks. Povidone Iodine (Verified Allergy, Intermediate, RASH, 08/04/24) Exam Vital Signs Vital Signs Date Time Temp Pulse Resp B/P (MAP) Pulse Ox O2 Delivery O2 Flow Rate FiO2 08/13/24 21:50 96 16 110/73 08/13/24 19:35 99 Nasal Cannula* 2 28 08/13/24 19:00 97.6 97.6 Exam Physical examination: General Appearance: Alert, Oriented X3, Cooperative, mild distress HEENT: Atraumatic, PERRLA, EOMI, Mucous membrane moist/pink Respiratory: Clear to auscultation, Normal air movement Cardiovascular: Irregular rate, Normal S1, Normal S2, No murmurs, no chest wall tenderness Abdominal: Normal bowel sounds, Soft, No tenderness, No hepatospenomegaly, No masses Extremities: No clubbing, No cyanosis, No edema, Normal pulses, No tenderness/swelling Skin: No rashes, No breakdown, No significant lesion Neuro: Normal speech, Strength at 5/5 X4 ext, Normal tone, Sensation intact, grossly intact cranial nerves. Psych/Mental Status: Mental status NL, Mood NL Labs/Xrays Labs Test 08/13/24 16:41 08/13/24 16:00 08/13/24 14:50 08/13/24 13:48 Range/Units Troponin I High Sensitivity 24 </=54 ng/L Urine Color Yellow Yellow Urine Clarity Clear Clear Urine pH 6.0 5.0-9.0 Urine Specific [place] 1.030 1.001-1.035 Urine Protein Trace H Negative Urine Ketones Negative Negative Urine Blood Negative Negative /uL Urine Nitrite Negative Negative Urine Bilirubin Negative Negative Urine Urobilinogen Normal Negative mg/dL Urine Leukocyte Esterase Negative Negative /uL Urine RBC 1 0 - 3 /hpf Urine WBC 2 0 - 3 /hpf Urine Squamous Epithelial Cells Few <5 /hpf Urine Bacteria None seen None Seen /hpf Urine Hyaline Casts Few 0 - 2 /lpf Urine Mucus Few None Seen Urine Glucose Normal Normal mg/dL Lactic Acid Level 1.8 0.4-2.0 mmol/L White Blood Count 19.8 H 4.4-10.8 10^3/uL Red Blood Count 5.28 4.5-5.90 10^6/uL Hemoglobin 16.2 13.5-17.5 g/dL Hematocrit 47.9 41.0-53.0 % Mean Corpuscular Volume 90.8 80.0-100.0 fL Mean Corpuscular Hemoglobin 30.6 28.0-32.0 pg Mean Corpuscular Hemoglobin Concent 33.7 32.0-36.0 g/dL Red Cell Distribution Width 14.7 H 11.8-14.3 % Platelet Count 219 140-450 10^3/uL Mean Platelet Volume 8.1 6.9-10.8 fL Neutrophils (%) (Auto) 71.6 37.0-80.0 % Lymphocytes (%) (Auto) 10.1 10.0-50.0 % Monocytes (%) (Auto) 16.1 H 0.0-12.0 % Eosinophils (%) (Auto) 2.1 0.0-7.0 % Basophils (%) (Auto) 0.1 0.0-2.0 % Neutrophils # (Auto) 14.2 H 1.6-8.6 10 ^3/uL Lymphocytes # (Auto) 2.0 0.4-5.4 10 ^3/uL Monocytes # (Auto) 3.2 H 0-1.3 10 ^3/uL Eosinophils # (Auto) 0.4 0-0.8 10 ^3/uL Basophils # (Auto) 0 0-0.2 10 ^3/uL Nucleated Red Blood Cells 0.1 % Sodium Level 136 136-145 mmol/L Potassium Level 4.6 3.5-5.1 mmol/L Chloride Level 101 98-107 mmol/L Carbon Dioxide Level 29 20-31 mmol/L Anion Gap 6 5-15 Blood Urea Nitrogen 66 H 9-23 mg/dL Creatinine 1.17 0.700-1.30 mg/dL Glomerular Filtration Rate Calc 66 >90 mL/min BUN/Creatinine Ratio 56.4 H 10.0-20.0 Serum Glucose 67 L 74-106 mg/dL Calcium Level 9.1 8.7-10.4 mg/dL Assessment/Plan Assessment/Plan Assessment and plan: # Chest pain rule out ACS - Initial EKG revealed irregular rhythm with controlled rate. - Troponin are unremarkable - Chest xray revealed normal study - Cardiolite test on 08/09/24 revealed abnormal myocardial perfusion scan with reversible defect in the LV apex and also inferolateral wall - Coronary angiogram on 08/11/24 demonstrated moderate disease in the mid LAD, patent stent in the mid non dominant RCA and normal left ventricular end- diastolic function - Echo on 08/28 showed EF 60% - Cardiology evaluated the patient and recommended medical treatment for coronary artery disease and risk factor modification - Aspirin 81 mg daily and atorvastatin 40 mg at HS. # Chronic atrial fibrillation with secondary hypercoagulable state [id number] score 4 - Continue digoxin 0.125 mg p.o. daily Eliquis 5 mg p.o. b.i.d. # Ruled out Pneumonia - Leukocytosis likely due to steroid induced - Chest xray revealed normal study - Recent chest CT on 08/28 showed no acute cardiopulmonary disease. - Covid and Flu negative. # History of chronic pain - Gabapentin 600 mg p.o t.i.d # Chronic COPD - Duoneb with albuterol and ipratropium q.6 p.r.n. # DVT prophylaxis - patient is on Eliquis Goal of care discussed with the patient for more than 20 minutes full code Plan discussed with Dr. Latham Plan discussed with: Patient, Other Date of Service: Aug 13, 2024 Billing Provider: ANGELI LATHAM MD Common Visit Codes: [id number] INP/OBS CARE (HIGH) Secondary Visit Codes: [id number] CARE PLAN 30 MINUTES MARINO GODFREY RESIDENT Aug 13, 2024 21:50 ANGELI LATHAM MD Aug 16, 2024 11:46
[2024-08-13] MEDS: MORPHINE SULFATE INJ 2 MG/ml SYRG IV PRN (23:11)
[2024-08-13 23:39] LABS: COVID19 ANTIGEN SOFIA FIA NEGATIVE (NEGATIVE); Rapid Influenza A Negative (Negative); Rapid Influenza B Negative (Negative)
[2024-08-14] VITALS (15 sets, daily range): BP systolic 98–122; BP diastolic 72–85; PULSE 84–134; RESP 17–20; TEMP 97.3–98.5; O2SAT 95–100
[2024-08-14] MEDS ORDERED: IPRATROPIUM BROM 0.5 MG/2.5ML INH SOL NEB PRN (03:45)
[2024-08-14] MEDS ORDERED: ALBUTEROL SULF 2.5 MG/0.5ML(0.5%) NEB SOLN NEB PRN (03:45)
--- NOTE | 2024-08-14 05:30 | ECG ---
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
[2024-08-14] MEDS: GABAPENTIN 300 MG CAP PO SCH (06:43)
[2024-08-14] MEDS: DIGOXIN 0.125 MG TAB PO SCH (09:35)
[2024-08-14] MEDS: APIXABAN 5 MG TAB PO SCH (09:35)
[2024-08-14] MEDS: ASPirin-EC 81 mg tab PO SCH (09:35)
[2024-08-14] MEDS: DOCUSATE SOD 100 MG CAP PO PRN (14:16)
--- NOTE | 2024-08-14 16:32 | DVHPN2 ---
Progress Note - Dictate Date Seen: Aug 14, 2024 Medical Necessity Reason Pt with a Central, PICC or Fol: No Subjective Patient is seen and evaluated by me along with the nurse at bedside today. Patient's chart is reviewed. He was discharged home on 08/12/2024 after diagnosing with the AFib RVR. Readmitted with heart rate in the one teens. Currently rate controlled. Denies any complaints. Nasal MRSA screen positive. vital signs Vital Sign Date Time Temp Pulse Resp B/P (MAP) Pulse Ox O2 Delivery O2 Flow Rate FiO2 08/14/24 13:00 97.3 89 19 111/78 (89) 99 97.3 08/14/24 10:02 Nasal Cannula* 3 32 Total Intake and Output 08/13/24 08/13/24 08/14/24 15:00 23:00 07:00 Intake Total 400 ml Output Total 575 ml Balance -175 ml medications Current Medications Medications Dose Ordered Sig/Aixa Route Start Time Stop Time Status Last Admin Dose Admin Nitroglycerin 0.4 mg Q5MINP PRN SL 08/13/24 22:00 Apixaban 5 mg BID PO 08/14/24 10:00 08/14/24 09:35 5 MG Aspirin 81 mg DAILY PO 08/14/24 10:00 08/14/24 09:35 81 MG Digoxin 0.125 mg DAILY PO 08/14/24 10:00 08/14/24 09:35 0.125 MG Docusate Sodium 100 mg BIDPRN PRN PO 08/13/24 22:15 08/14/24 14:16 100 MG Atorvastatin Calcium 40 mg HS PO 08/14/24 22:00 Gabapentin 600 mg TID PO 08/14/24 06:00 08/14/24 14:11 600 MG Albuterol 2.5 mg Q6HPRN PRN NEB 08/14/24 03:45 Ipratropium [place] 0.5 mg Q6HPRN PRN NEB 08/14/24 03:45 Mupirocin 1 applic BID EACHNOSTRI 08/14/24 22:00 08/19/24 21:59 objective Alert awake oriented x3. Comfortable in bed without any distress. HEENT neck supple no JVD. Pupils equal round react to light. Heart regular rate and rhythm S1-S2. Lungs fair air movement without audible rales or wheezing. Abdomen is soft nontender positive bowel sounds obese. Extremities no edema positive pulses. laboratory and microbiology Laboratory Tests 08/13/24 13:48 Test 08/13/24 13:48 Range/Units Serum Glucose 67 L 74-106 mg/dL Assessment/Plan He is clinically stable. Unclear what cardiac med occasions he went home on. I will start him on low-dose beta reinaldo and amiodarone for heart rate control. Continue aspirin and Eliquis. His previous chart and medical records have been reviewed. If he remains stable consider discharge home tomorrow. We will start him on Bactroban for MRSA nares. Discussed with the patient along with the nurse at bedside regarding his care plan. Problems(with codes): (1) Afib (2) Generalized weakness (3) COPD with acute exacerbation Plan discussed with: Patient, Other OSWALD CHAPMAN MD Aug 14, 2024 16:32
--- NOTE | 2024-08-14 16:38 | CODING ---
Date of Service: Aug 14, 2024 Billing Provider: OSWALD CHAPMAN MD Common Visit Codes: [id number] INP/OBS CARE(MOD) OSWALD CHAPMAN MD Aug 14, 2024 16:38
--- NOTE | 2024-08-14 17:21 | DVHINCON2 ---
Date of service: Aug 14, 2024 Referring Physician Le Jackson MD Reason for Consultation Pneumonia, acute hypoxic respiratory failure History of Present Illness A 73-year-old man with past medical history of hypertension, hyperlipidemia, leukemia, atrial fibrillation, CAD with PTCA X1 stent, COPD with home oxygen 2.5-3 L, neuropathy, and chronic back pain who presents to the ED today via EMS with c/o chest pain and shortness of breath since 3:00 p.m. prior to this admission. Per EMS, pt was hypotensive and EKG demonstrated AFib on the scene; fluid bolus was given that improved the blood pressure. Note, he was discharged from [facility] on 08/12/2024 and was treated for possible community-acquired pneumonia and had extensive cardiology workup . Cardiolite scan on 08/09/23 revealed abdominal myocardial perfusion scan with reversible defect in the LV apex and also inferolateral wall. Coronary angiography on 08/11/2023 demonstrated normal left ventricular end-diastolic pressure, moderate disease in the mid LAD and patent stent in the mid non dominant RCA. Cardiology recommended medical management for coronary artery disease and risk factor modification. He describes the chest pain as heaviness in the chest, continuous, 7/10, radiating to the left arm and also on the right side of the chest; a/w shortness of breath and occasional cough. Initial EKG revealed atrial fibrillation with controlled rate, troponins are unremarkable. Echo on 08/28 demonstrated EF 60%. Patient was admitted for further care and pulmonary consultation is requested for evaluation and management of acute hypoxic respiratory failure and pneumonia. Review of Systems: 14-point review of systems negative unless otherwise noted above. Past Medical History: Hypertension, hyperlipidemia, leukemia, atrial fibrillation, CAD with PTCA X1 stent, COPD with home oxygen 2.5-3 L, neuropathy, chronic back pain Past Surgical History: Appendectomy, back surgery Medications: Reviewed. Allergies: Fentanyl Tetracycline Reports anaphylactic shock reaction from tetracycline - hospitalized for 2 weeks. Povidone Iodine. Family History: Heart disease, throat cancer. Social History: Nonsmoker. Occasional alcohol use. No illicit drug use. Family History: FH: heart disease G8 MOTHER, Throat cancer G8 MOTHER, G8 BROTHER Allergies: Coded Allergies: Fentanyl (Verified Allergy, Severe, 08/04/24) Tetracycline (Verified Allergy, Severe, 08/04/24) Patient states anaphalatic shock reaction from tetracycline and was hospitalized for 2 weeks. Povidone Iodine (Verified Allergy, Intermediate, RASH, 08/04/24) Home Meds Active Scripts Lisinopril (Lisinopril) 5 Mg Tab, 5 MG PO DAILY for 30 Days, #30 TAB Prov:HEIDE SÁNCHEZ MD 08/12/24 Docusate Sodium (Docusate Sodium) 100 Mg Cap, 100 MG PO BIDPRN PRN for 30 Days, #30 CAP Prov:HEIDE SÁNCHEZ MD 08/12/24 Digoxin (Lanoxin) 125 Mcg Tab, 0.125 MG PO DAILY for 30 Days, #30 TAB Prov:HEIDE SÁNCHEZ MD 08/12/24 Aspirin (Aspirin Low Dose) 81 Mg Tab, 81 MG PO DAILY for 30 Days, #30 TAB Prov:HEIDE SÁNCHEZ MD 08/12/24 Reported Medications Morphine Sulfate (Morphine Sulfate Er) 60 Mg Tab, 1 TAB PO Q4HPRN, #60 TAB 08/04/24 Atorvastatin Calcium (ATORVASTATIN CALCIUM) 40 Mg Tab, 1 TAB PO DAILY, #30 TAB 5 Refills 08/04/24 Furosemide (Furosemide) 20 Mg Tab, 1 TAB PO DAILYP, #90 TAB 1 Refill 08/04/24 Gabapentin (Gabapentin) 600 Mg Tab, 1 TAB PO TID, #90 TAB 3 Refills 08/04/24 Sotalol Hcl (Sotalol Hcl) 80 Mg Tab, 1 TAB PO BID, #180 TAB 3 Refills 08/04/24 Apixaban Base (ELIQUIS) 5 Mg Tab, 5 MG PO BID, TAB 08/04/24 Amlodipine Besylate (NORVASC TABLET) 5 Mg Tb, 1 TAB PO DAILY, #30 TAB 5 Refills 08/04/24 Metoprolol Succinate (Metoprolol Succinate Er) 50 Mg Tab, 1 TAB PO DAILY, #30 TAB 5 Refills 08/04/24 Losartan Potassium (Losartan Potassium) 50 Mg Tab, 1 TAB PO DAILY, #30 TAB 5 Refills 08/04/24 Budesonide-Formoterol Fumarate (Budesonide/Formoterol Fum 160-4.5 Mcg/Act) 1 Aer Aer, 1 AER IN Q4HPRN, AER 08/04/24 Current Medications Current Medications Medications (Trade) Dose Ordered Sig/Aixa Route PRN Reason Start Time Stop Time Status Last Admin Nitroglycerin (Ntrostat Sublingual) 0.4 mg Q5MINP PRN SL FOR CHEST PAIN 08/13/24 22:00 Morphine Sulfate 2 mg Q30M PRN IV FOR CHEST PAIN 08/13/24 22:00 08/14/24 00:09 DC 08/13/24 23:11 Apixaban (Eliquis) 5 mg BID PO 08/14/24 10:00 08/14/24 09:35 Aspirin (Ecotrin Enteric Coated Tablet) 81 mg DAILY PO 08/14/24 10:00 08/14/24 09:35 Digoxin (Lanoxin Tablet) 0.125 mg DAILY PO 08/14/24 10:00 08/14/24 16:30 DC 08/14/24 09:35 Docusate Sodium (Colace Capsule) 100 mg BIDPRN PRN PO FOR CONSTIPATION 08/13/24 22:15 08/14/24 14:16 Atorvastatin Calcium (Lipitor) 40 mg HS PO 08/14/24 22:00 Gabapentin (Neurontin Capsule) 600 mg TID PO 08/14/24 06:00 08/14/24 14:11 Albuterol (Ventolin Medneb) 2.5 mg Q6HPRN PRN NEB SHORTNESS OF BREATH 08/14/24 03:45 Ipratropium [place] (Atrovent Medneb) 0.5 mg Q6HPRN PRN NEB SHORTNESS OF BREATH 08/14/24 03:45 Mupirocin (Bactroban 2% Ointment) 1 applic BID EACHNOSTRI 08/14/24 22:00 08/19/24 21:59 Metoprolol Tartrate (Lopressor Tablet) 12.5 mg BID PO 08/14/24 22:00 Amiodarone HCl (Cordarone Tablet) 200 mg DAILY PO 08/15/24 10:00 Vital Signs Vital Signs Date Time Temp Pulse Resp B/P (MAP) Pulse Ox O2 Delivery O2 Flow Rate FiO2 08/14/24 13:00 97.3 89 19 111/78 (89) 99 97.3 08/14/24 10:02 Nasal Cannula* 3 32 Physical Exam Gen.: Patient lying in bed in no apparent distress. On supplemental oxygen. Head: Normocephalic, atraumatic. Eyes: EOMI/PERRLA. Ears: Normal hearing. Normal anatomy. Neck/trachea: Trachea midline, supple. Nose: Normal external anatomy. Mouth: Moist mucous membranes. Chest: Decreased air entry bilaterally. No wheezing or rhonchi. Cardiovascular: Positive S1, positive S2. Regular rate and rhythm. Abdomen: Positive bowel sounds in all 4 quadrants. Soft, non-tender, non-d istended. : Deferred. Rectal: Deferred. Skin: Warm, dry. Intact. Extremities: 2+ radial pulses bilaterally. No lower extremity edema. Neuro: Awake, alert, oriented x3. No gross motor or sensory deficits. Cranial nerves II through XII intact. Gait not assessed. Labs/Diagnostic Data Labs Test 08/13/24 22:10 08/13/24 16:41 08/13/24 16:00 08/13/24 14:50 Range/Units Influenza Type A Antigen Negative Negative Influenza Type B Antigen Negative Negative SARS-CoV-2 Antigen (Rapid) Negative NEGATIVE Troponin I High Sensitivity 24 </=54 ng/L Urine Color Yellow Yellow Urine Clarity Clear Clear Urine pH 6.0 5.0-9.0 Urine Specific [place] 1.030 1.001-1.035 Urine Protein Trace H Negative Urine Ketones Negative Negative Urine Blood Negative Negative /uL Urine Nitrite Negative Negative Urine Bilirubin Negative Negative Urine Urobilinogen Normal Negative mg/dL Urine Leukocyte Esterase Negative Negative /uL Urine RBC 1 0 - 3 /hpf Urine WBC 2 0 - 3 /hpf Urine Squamous Epithelial Cells Few <5 /hpf Urine Bacteria None seen None Seen /hpf Urine Hyaline Casts Few 0 - 2 /lpf Urine Mucus Few None Seen Urine Glucose Normal Normal mg/dL Lactic Acid Level 1.8 0.4-2.0 mmol/L Test 08/13/24 13:48 Range/Units White Blood Count 19.8 H 4.4-10.8 10^3/uL Red Blood Count 5.28 4.5-5.90 10^6/uL Hemoglobin 16.2 13.5-17.5 g/dL Hematocrit 47.9 41.0-53.0 % Mean Corpuscular Volume 90.8 80.0-100.0 fL Mean Corpuscular Hemoglobin 30.6 28.0-32.0 pg Mean Corpuscular Hemoglobin Concent 33.7 32.0-36.0 g/dL Red Cell Distribution Width 14.7 H 11.8-14.3 % Platelet Count 219 140-450 10^3/uL Mean Platelet Volume 8.1 6.9-10.8 fL Neutrophils (%) (Auto) 71.6 37.0-80.0 % Lymphocytes (%) (Auto) 10.1 10.0-50.0 % Monocytes (%) (Auto) 16.1 H 0.0-12.0 % Eosinophils (%) (Auto) 2.1 0.0-7.0 % Basophils (%) (Auto) 0.1 0.0-2.0 % Neutrophils # (Auto) 14.2 H 1.6-8.6 10 ^3/uL Lymphocytes # (Auto) 2.0 0.4-5.4 10 ^3/uL Monocytes # (Auto) 3.2 H 0-1.3 10 ^3/uL Eosinophils # (Auto) 0.4 0-0.8 10 ^3/uL Basophils # (Auto) 0 0-0.2 10 ^3/uL Nucleated Red Blood Cells 0.1 % Sodium Level 136 136-145 mmol/L Potassium Level 4.6 3.5-5.1 mmol/L Chloride Level 101 98-107 mmol/L Carbon Dioxide Level 29 20-31 mmol/L Anion Gap 6 5-15 Blood Urea Nitrogen 66 H 9-23 mg/dL Creatinine 1.17 0.700-1.30 mg/dL Glomerular Filtration Rate Calc 66 >90 mL/min BUN/Creatinine Ratio 56.4 H 10.0-20.0 Serum Glucose 67 L 74-106 mg/dL Calcium Level 9.1 8.7-10.4 mg/dL B-Type Natriuretic Peptide 47.27 0-100 pg/mL Microbiology Date/Time Source Procedure Growth Status 08/14/24 01:57 Nose MRSA Screen - Final Methicillin Resistant S.aureus Complete 08/13/24 14:50 Blood Blood Culture - Preliminary NO GROWTH AFTER 24 HOURS OF INCUBATION. Resulted Assessment Impression: Acute hypoxic respiratory failure Dependence on supplemental oxygen Pneumonia, likely gram negative Chest pain, rule out ACS Atrial fibrillation, rate controlled MRSA nares Obesity Plan: Supplemental oxygen 3 LPM NC Titrate to keep O2 sats above 92%. Taper O2 as tolerated. Digoxin Lopressor Amiodarone PO Cardiology recs appreciated Continue bronchodilators. Monitor renal function. Monitor electrolytes. Supplement as necessary. Monitor ins and outs. Diet and lifestyle modifications for weight reduction Obesity - complicates all care DVT prophylaxis. Prognosis: Poor given patient's multiple co-morbidities. Rest of plan per hospitalist and other consultants. Thank you, Dr. Burciaga for allowing me to participate in this patient's care. Further recommendations will depend on the patient's clinical course. Please do not hesitate to contact me if you have any questions or concerns. This medical document was created using an electronic medical record system with [employer] dictation system. Although these documentations are being carefully reviewed, there may still be some phonetic and typographical changes. The errors are purely typographical, due to imperfection on the software program, and do not reflect any compromise in the patient's medical care. Plan discussed with: Patient, Other (KARIE Gomez/MD Jackson) LORA MATTHEWS MD Aug 14, 2024 17:21
[2024-08-14] MEDS: ATORVASTATIN 20 MG TAB PO SCH (20:50)
[2024-08-14] MEDS: METOPROLOL TARTRATE 25 MG TAB PO SCH (20:53)
[2024-08-14] MEDS: MUPIROCIN 2% OINT 15gm or 22gm FOR MRSA NARES EACHNOSTRI SCH (21:03)
[2024-08-15] VITALS (15 sets, daily range): BP systolic 114–131; BP diastolic 69–95; PULSE 84–103; RESP 17–20; TEMP 97.8–98.4; O2SAT 92–100
--- NOTE | 2024-08-15 01:59 | ECG ---
[facility] Test Date: 2024-08-13 Test Time: 14:16:49 Pat Name: ANA LAURA BELLE Department: ER Room: On license of [facility]5T B Gender: M Rn Complex Care: JULIEN : 1950 Requested By: MARITZA YO Order Number: [id number] Reading MD: Ellis Garner Measurements Intervals [place] Rate: 84 P: 0 IN: 0 QRS: 14 QRSD: 68 T: 13 QT: 435 QTc: 515 Interpretive Statements Atrial fibrillation Anterior infarct, old Prolonged QT interval Electronically Signed On 08-22-2024 14:14:16 PST by Ellis Garner Please click the below link to view image of tracing.
[2024-08-15] MEDS: HYDROcodone-ACET 5/325MG TAB PO ONE (07:30)
[2024-08-15] MEDS: AMIODARONE HCL 200 MG TAB PO SCH (09:18)
[2024-08-15 12:57] LABS: Amphetamine Screen, Urine Neg (NEGATIVE); Barbiturate Scree,Urine Neg (NEGATIVE); Benzodiazephine Screen, Urine Neg (NEGATIVE); Cannabinoid Screen, Urine Neg (NEGATIVE); Cocaine Screen, Urine Neg (NEGATIVE); Opiate Scree,Urine Neg (NEGATIVE); Phencyclidine Screen, Urine Neg (NEGATIVE)
--- NOTE | 2024-08-15 15:09 | DVHINCON2 ---
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 Patient states he was on the phone with [facility] and started feeling palpitations with some chest tightness while on the phone and [employer] marketing sales representative stated he needed to go to the hospital and called EMS. Patient states that pressure intermittent, retrosternal, nonra diating, worsened with taking deep breath, not associated with high heart rate. Patient was recently discharged from hospital for where he underwent cardiac workup with Lexiscan followed by coronary angiogram noting patent RCA stent , moderate non obstructive CAD with LAD lesion 40%. Upon evaluation in the ER troponins trending negative. EKG showing atrial fibrillation controlled rate no acute ischemic changes. CXR negative. Past Medical History Leukemia s/p chemo and radiation therapy 7 years ago Atrial fibrillation on Eliquis CAD s/p CLAUDIO stent to RCA HLD COPD on home O2 Past Surgical History PTCA stent to RCA Coronary angiogram showing patent stent and moderate CAD 40% to LAD 08/2024 Family History: FH: heart disease G8 MOTHER, Throat cancer G8 MOTHER, G8 BROTHER Social History Denies alcohol, tobacco, or illicit drug use Allergies: Coded Allergies: Fentanyl (Verified Allergy, Severe, 08/04/24) Tetracycline (Verified Allergy, Severe, 08/04/24) Patient states anaphalatic shock reaction from tetracycline and was hospitalized for 2 weeks. Povidone Iodine (Verified Allergy, Intermediate, RASH, 08/04/24) Home Meds Active Scripts Lisinopril (Lisinopril) 5 Mg Tab, 5 MG PO DAILY for 30 Days, #30 TAB Prov:HEIDE SÁNCHEZ MD 08/12/24 Docusate Sodium (Docusate Sodium) 100 Mg Cap, 100 MG PO BIDPRN PRN for 30 Days, #30 CAP Prov:HEIDE SÁNCHEZ MD 08/12/24 Digoxin (Lanoxin) 125 Mcg Tab, 0.125 MG PO DAILY for 30 Days, #30 TAB Prov:HEIDE SÁNCHEZ MD 08/12/24 Aspirin (Aspirin Low Dose) 81 Mg Tab, 81 MG PO DAILY for 30 Days, #30 TAB Prov:HEIDE SÁNCHEZ MD 08/12/24 Reported Medications Morphine Sulfate (Morphine Sulfate Er) 60 Mg Tab, 1 TAB PO Q4HPRN, #60 TAB 08/04/24 Atorvastatin Calcium (ATORVASTATIN CALCIUM) 40 Mg Tab, 1 TAB PO DAILY, #30 TAB 5 Refills 08/04/24 Furosemide (Furosemide) 20 Mg Tab, 1 TAB PO DAILYP, #90 TAB 1 Refill 08/04/24 Gabapentin (Gabapentin) 600 Mg Tab, 1 TAB PO TID, #90 TAB 3 Refills 08/04/24 Sotalol Hcl (Sotalol Hcl) 80 Mg Tab, 1 TAB PO BID, #180 TAB 3 Refills 08/04/24 Apixaban Base (ELIQUIS) 5 Mg Tab, 5 MG PO BID, TAB 08/04/24 Amlodipine Besylate (NORVASC TABLET) 5 Mg Tb, 1 TAB PO DAILY, #30 TAB 5 Refills 08/04/24 Metoprolol Succinate (Metoprolol Succinate Er) 50 Mg Tab, 1 TAB PO DAILY, #30 TAB 5 Refills 08/04/24 Losartan Potassium (Losartan Potassium) 50 Mg Tab, 1 TAB PO DAILY, #30 TAB 5 Refills 08/04/24 Budesonide-Formoterol Fumarate (Budesonide/Formoterol Fum 160-4.5 Mcg/Act) 1 Aer Aer, 1 AER IN Q4HPRN, AER 08/04/24 Current Medications Current Medications Medications (Trade) Dose Ordered Sig/Aixa Route PRN Reason Start Time Stop Time Status Last Admin Atorvastatin Calcium (Lipitor) 40 mg HS PO 08/14/24 22:00 08/14/24 20:50 Mupirocin (Bactroban 2% Ointment) 1 applic BID EACHNOSTRI 08/14/24 22:00 08/19/24 21:59 08/15/24 09:19 Metoprolol Tartrate (Lopressor Tablet) 12.5 mg BID PO 08/14/24 22:00 08/15/24 09:19 Amiodarone HCl (Cordarone Tablet) 200 mg DAILY PO 08/15/24 10:00 08/15/24 09:18 Review of Systems Constitutional: No: Fever, Chills, Sweats, Weakness, Malaise, Other Eyes: No: Pain, Vision change, Conjunctivae inflammation, Eyelid inflammation, Other, Redness ENT: No: Ear pain, Ear discharge, Nose pain, Nose discharge, Nose congestion, Mouth pain, Mouth swelling, Throat pain, Throat swelling, Other Respiratory: No: Cough, Dry, Shortness of breath, , Wheezing, Hemoptysis, Pleuritic Pain, Sputum, Wheezing, Other positive: SOB with exertion Cardiovascular: ; No: , Orthopnea, Paroxysmal Noc. Dyspnea, Edema, Lt Headedness, Other positive: Chest Pain Palpitations Gastrointestinal: No: Nausea, Vomiting, Abdominal Pain, Diarrhea, Constipation, Melena, Hematochezia, Other Genitourinary: No Dysuria, No Frequency, No Incontinence, No Hematuria, No Retention, No Other Musculoskeletal: neck pain; No: other, shoulder pain, arm pain, back pain, hand pain, leg pain, foot pain Skin: No: Rash, Lesions, Jaundice, Bruising, Other Neurological: Other (Dizziness, headache.); No: Weakness, Numbness, Incoordination, Change in speech, Confusion, Seizures Vital Signs Vital Signs Date Time Temp Pulse Resp B/P (MAP) Pulse Ox O2 Delivery O2 Flow Rate FiO2 08/15/24 12:30 97.8 85 20 116/69 (85) 99 97.8 08/15/24 10:15 Nasal Cannula* 3 32 Physical Exam General appearance: Patient is well-developed, well-nourished, in mild acute distress. HEENT: Exam shows: Normocephalic, atraumatic, PERRLA, EOMI Neck: Supple, no bruits Chest: Equal chest excursion bilaterally. Breath sounds diminished. Heart: Rhythm: Irregular rate; no murmur or gallop Abdomen: Exam shows: Soft, nontender, nondistended Musculoskeletal: No clubbing, no cyanosis, no lower extremity edema Dermatology: Skin warm, moist. Neurological: Exam shows: Alert and oriented x4, normal speech Available prior records, labs, EKG, rhythm strips reviewed and interpreted Labs/Diagnostic Data Labs Test 08/15/24 12:14 08/13/24 22:10 08/13/24 16:41 08/13/24 16:00 Range/Units Urine Opiates Screen Neg NEGATIVE Urine Fentanyl Screen Neg NEGATIVE Urine Barbiturates Screen Neg NEGATIVE Urine Phencyclidine Screen Neg NEGATIVE Urine Amphetamines Screen Neg NEGATIVE Urine Benzodiazepines Screen Neg NEGATIVE Urine Cocaine Screen Neg NEGATIVE Urine Cannabinoids Screen Neg NEGATIVE Influenza Type A Antigen Negative Negative Influenza Type B Antigen Negative Negative SARS-CoV-2 Antigen (Rapid) Negative NEGATIVE Troponin I High Sensitivity 24 </=54 ng/L Urine Color Yellow Yellow Urine Clarity Clear Clear Urine pH 6.0 5.0-9.0 Urine Specific [place] 1.030 1.001-1.035 Urine Protein Trace H Negative Urine Ketones Negative Negative Urine Blood Negative Negative /uL Urine Nitrite Negative Negative Urine Bilirubin Negative Negative Urine Urobilinogen Normal Negative mg/dL Urine Leukocyte Esterase Negative Negative /uL Urine RBC 1 0 - 3 /hpf Urine WBC 2 0 - 3 /hpf Urine Squamous Epithelial Cells Few <5 /hpf Urine Bacteria None seen None Seen /hpf Urine Hyaline Casts Few 0 - 2 /lpf Urine Mucus Few None Seen Urine Glucose Normal Normal mg/dL Test 08/13/24 14:50 08/13/24 13:48 Range/Units Lactic Acid Level 1.8 0.4-2.0 mmol/L White Blood Count 19.8 H 4.4-10.8 10^3/uL Red Blood Count 5.28 4.5-5.90 10^6/uL Hemoglobin 16.2 13.5-17.5 g/dL Hematocrit 47.9 41.0-53.0 % Mean Corpuscular Volume 90.8 80.0-100.0 fL Mean Corpuscular Hemoglobin 30.6 28.0-32.0 pg Mean Corpuscular Hemoglobin Concent 33.7 32.0-36.0 g/dL Red Cell Distribution Width 14.7 H 11.8-14.3 % Platelet Count 219 140-450 10^3/uL Mean Platelet Volume 8.1 6.9-10.8 fL Neutrophils (%) (Auto) 71.6 37.0-80.0 % Lymphocytes (%) (Auto) 10.1 10.0-50.0 % Monocytes (%) (Auto) 16.1 H 0.0-12.0 % Eosinophils (%) (Auto) 2.1 0.0-7.0 % Basophils (%) (Auto) 0.1 0.0-2.0 % Neutrophils # (Auto) 14.2 H 1.6-8.6 10 ^3/uL Lymphocytes # (Auto) 2.0 0.4-5.4 10 ^3/uL Monocytes # (Auto) 3.2 H 0-1.3 10 ^3/uL Eosinophils # (Auto) 0.4 0-0.8 10 ^3/uL Basophils # (Auto) 0 0-0.2 10 ^3/uL Nucleated Red Blood Cells 0.1 % Sodium Level 136 136-145 mmol/L Potassium Level 4.6 3.5-5.1 mmol/L Chloride Level 101 98-107 mmol/L Carbon Dioxide Level 29 20-31 mmol/L Anion Gap 6 5-15 Blood Urea Nitrogen 66 H 9-23 mg/dL Creatinine 1.17 0.700-1.30 mg/dL Glomerular Filtration Rate Calc 66 >90 mL/min BUN/Creatinine Ratio 56.4 H 10.0-20.0 Serum Glucose 67 L 74-106 mg/dL Calcium Level 9.1 8.7-10.4 mg/dL B-Type Natriuretic Peptide 47.27 0-100 pg/mL Microbiology Date/Time Source Procedure Growth Status 08/14/24 01:57 Nose MRSA Screen - Final Methicillin Resistant S.aureus Complete 08/13/24 14:50 Blood Blood Culture - Preliminary NO GROWTH AFTER 24 HOURS OF INCUBATION. Resulted Assessment Chest pain Chronic Atrial fibrillation with episode of RVR CAD s/p stent to RCA, 40% lad lesion HLD COPD Plan/Recommendation * Recent cardiac workup with Anita and coronary angiogram noting patent RCA stent and moderate nonobstructive CAD to LAD. Continue medical management. * Rate control, unable to titrate metoprolol due to marginal BP. We will add amiodarone 200 mg daily. Patient needing outpatient monitoring of thyroid function and chest x-ray as well as follow up with fuel cell assembler. * Continue on Eliquis for stroke prophylaxis. Recommend adding aspirin 81 mg daily. Continue on statin. * Recent echo with preserved LV and RV function, calcified aortic valve with no significant stenosis. Case Discussed with Dr Chávez. Continuing with rate control, amiodarone added. Titrate metoprolol as BP allows. No further cardiac workup needed at this time in setting of recent coronary angiogram. Thank you for allowing us to participate in this patient's care. Patient is stable from Cardiology standpoint for discharge as long as heart rate controlled. Outpatient follow up with Cardiology for continued monitoring. Critical care, time spent: 40 minutes This medical document was created using an electronic medical record system with voice recognition software and computerized dictation system. Although this document has been carefully reviewed, there might still be some phonetic and typographical errors. Occasional wrong-word or ``sound-alike substitutions may have occurred due to the inherent limitations of voice recognition software. These areas are purely typographical due to imperfections of the software programs and do not reflect any compromise in the patient's medical care. Please read the chart carefully and recognize, using context, where these substitutions have occurred. Thank you for allowing me to participate in the management of this patient. The treatment plan was discussed with and agreed upon by patient/family including requesting consultants and ordering of imaging/procedures. Plan discussed with: Patient NYHA Physical activity limitations: NA Date of Service: Aug 15, 2024 Billing Provider: ALFREDO GOLDMAN Cardiology Common Codes: [id number] INP/OBS CARE (High), [id number] CARE 30-74 MIN ALFREDO GOLDMAN Aug 15, 2024 15:09
[2024-08-15] MEDS: NITROGLYCERIN 0.4 MG SL TAB SL PRN (15:50)
[2024-08-15] MEDS: IPRATROPIUM BROM 0.5 MG/2.5ML INH SOL NEB SCH (19:16)
[2024-08-15] MEDS: LEVALBUTEROL HCL 1.25 MG/3 ML NEB NEB SCH (19:16)
[2024-08-15] MEDS: methylPREDNISolone SOD SUCC 40 MG/ML VL IV SCH (20:22)
[2024-08-15] MEDS: RANOLAZINE ER 500 MG TAB PO SCH (21:30)
[2024-08-15] MEDS: BUDESONIDE (INHALATION) 0.5 MG/2 ML NEB NEB SCH (21:37)
--- NOTE | 2024-08-15 21:58 | DVHPN2 ---
Progress Note - Dictate Date Seen: Aug 15, 2024 Medical Necessity Reason Pt with a Central, PICC or Fol: No Subjective Patient seen and examined at bedside. Remains on supplemental oxygen Overnight events reviewed. vital signs Vital Sign Date Time Temp Pulse Resp B/P (MAP) Pulse Ox O2 Delivery O2 Flow Rate FiO2 08/15/24 21:45 91 18 100 08/15/24 21:37 Nasal Cannula* 4 36 08/15/24 21:32 115/78 08/15/24 21:00 98.1 98.1 Total Intake and Output 08/14/24 08/14/24 08/15/24 15:00 23:00 07:00 Intake Total 960 ml 400 ml Output Total 1000 ml Balance -40 ml 400 ml medications Current Medications Medications Dose Ordered Sig/Aixa Route Start Time Stop Time Status Last Admin Dose Admin Nitroglycerin 0.4 mg Q5MINP PRN SL 08/13/24 22:00 08/15/24 15:50 0.4 MG Apixaban 5 mg BID PO 08/14/24 10:00 08/15/24 21:31 5 MG Aspirin 81 mg DAILY PO 08/14/24 10:00 08/15/24 09:19 81 MG Docusate Sodium 100 mg BIDPRN PRN PO 08/13/24 22:15 08/14/24 14:16 100 MG Atorvastatin Calcium 40 mg HS PO 08/14/24 22:00 08/15/24 21:31 40 MG Gabapentin 600 mg TID PO 08/14/24 06:00 08/15/24 21:31 600 MG Albuterol 2.5 mg Q6HPRN PRN NEB 08/14/24 03:45 Cancel Ipratropium [place] 0.5 mg Q6HPRN PRN NEB 08/14/24 03:45 Cancel Mupirocin 1 applic BID EACHNOSTRI 08/14/24 22:00 08/19/24 21:59 08/15/24 09:19 1 APPLIC Metoprolol Tartrate 12.5 mg BID PO 08/14/24 22:00 08/15/24 21:32 12.5 MG Amiodarone HCl 200 mg DAILY PO 08/15/24 10:00 08/15/24 09:18 200 MG Ranolazine 500 mg BID PO 08/15/24 22:00 08/15/24 21:30 500 MG Levalbuterol HCl 0.625 mg Q6HR NEB 08/15/24 18:00 08/15/24 19:16 0.625 MG Ipratropium [place] 0.5 mg Q4HWA [facility] 08/15/24 18:00 08/15/24 21:37 0.5 MG Budesonide 0.5 mg BID NEB 08/15/24 22:00 08/15/24 21:37 0.5 MG Methylprednisolone Sodium Succinate 20 mg Q6HR IV 08/15/24 18:00 08/15/24 20:22 20 MG objective Gen.: Patient lying in bed in no apparent distress. On supplemental oxygen. Head: Normocephalic, atraumatic. Eyes: EOMI/PERRLA. Ears: Normal hearing. Normal anatomy. Neck/trachea: Trachea midline, supple. Nose: Normal external anatomy. Mouth: Moist mucous membranes. Chest: Decreased air entry bilaterally. No wheezing or rhonchi. Cardiovascular: Positive S1, positive S2. Regular rate and rhythm. Abdomen: Positive bowel sounds in all 4 quadrants. Soft, non-tender, non- distended. : Deferred. Rectal: Deferred. Skin: Warm, dry. Intact. Extremities: 2+ radial pulses bilaterally. No lower extremity edema. Neuro: Awake, alert, oriented x3. No gross motor or sensory deficits. Cranial nerves II through XII intact. Gait not assessed. laboratory and microbiology Laboratory Tests 08/13/24 13:48 Test 08/13/24 13:48 Range/Units Serum Glucose 67 L 74-106 mg/dL Assessment/Plan Impression: Acute hypoxic respiratory failure Dependence on supplemental oxygen Pneumonia, likely gram negative Chest pain, rule out ACS Atrial fibrillation, rate controlled MRSA nares Obesity Events: Remains on supplemental oxygen, 4 LPM NC Taper O2 as tolerated Continue bronchodilators Incentive spirometry No wheezing. Eliquis Amiodarone PO Chest pain Cardiology recommendations appreciated Plan for SNF placement Recommend outpatient PFTs to assess lung function. Labs and imaging reviewed. Rest of plan as noted below. Plan: Supplemental oxygen Titrate to keep O2 sats above 92%. Digoxin Lopressor Amiodarone PO Cardiology recs appreciated Continue bronchodilators. Monitor renal function. Monitor electrolytes. Supplement as necessary. Monitor ins and outs. Diet and lifestyle modifications for weight reduction Obesity - complicates all care DVT prophylaxis. Prognosis: Poor given patient's multiple co-morbidities. Rest of plan per hospitalist and other consultants. Thank you, Dr. Jackson, for allowing me to participate in this patient's care. Further recommendations will depend on the patient's clinical course. Please do not hesitate to contact me if you have any questions or concerns. This medical document was created using an electronic medical record system with [employer] dictation system. Although these documentations are being carefully reviewed, there may still be some phonetic and typographical changes. The errors are purely typographical, due to imperfection on the software program, and do not reflect any compromise in the patient's medical care. Plan discussed with: Patient, Other (KARIE Weston) LORA MATTHEWS MD Aug 15, 2024 21:58
--- NOTE | 2024-08-15 22:51 | DVHINCON2 ---
Date Seen: Aug 15, 2024 Referring Physician James Reason for Consultation Chest Pain, Atrial Fibrillation History of Present Illness This is a 73-year-old male with a PMH of HTN, HLD, leukemia s/p chemo and radiation 70 years ago in remission, CAD with PTCA x1 stent 5-6 years ago, COPD from chemoradiation on 2-1/2-3 L home O2, paroxysmal atrial fibrillation on Eliquis presents to the ED with chest pain. Patient states he was on the phone with [facility] and started feeling palpitations with some chest tightness while on the phone and [employer] customer contact representative stated he needed to go to the hospital and called EMS. Patient states that pressure intermittent, retrosternal, nonrad iating, worsened with taking deep breath, not associated with high heart rate. Patient was recently discharged from hospital for where he underwent cardiac workup with Lexiscan followed by coronary angiogram noting patent RCA stent , moderate non obstructive CAD with LAD lesion 40%. Upon evaluation in the ED troponins trending negative. WBC 19.8. EKG showing atrial fibrillation controlled rate no acute ischemic changes. CXR negative. Patient was admitted to the hospital. I am asked to consult on this patient. Family History: FH: heart disease G8 MOTHER, Throat cancer G8 MOTHER, G8 BROTHER Allergies: Coded Allergies: Fentanyl (Verified Allergy, Severe, 08/04/24) Tetracycline (Verified Allergy, Severe, 08/04/24) Patient states anaphalatic shock reaction from tetracycline and was hospitalized for 2 weeks. Povidone Iodine (Verified Allergy, Intermediate, RASH, 08/04/24) Home Meds Active Scripts Lisinopril (Lisinopril) 5 Mg Tab, 5 MG PO DAILY for 30 Days, #30 TAB Prov:HEDIE SÁNCHEZ MD 08/12/24 Docusate Sodium (Docusate Sodium) 100 Mg Cap, 100 MG PO BIDPRN PRN for 30 Days, #30 CAP Prov:HEIDE SÁNCHEZ MD 08/12/24 Digoxin (Lanoxin) 125 Mcg Tab, 0.125 MG PO DAILY for 30 Days, #30 TAB Prov:HEIDE SÁNCHEZ MD 08/12/24 Aspirin (Aspirin Low Dose) 81 Mg Tab, 81 MG PO DAILY for 30 Days, #30 TAB Prov:HEIDE SÁNCHEZ MD 08/12/24 Reported Medications Morphine Sulfate (Morphine Sulfate Er) 60 Mg Tab, 1 TAB PO Q4HPRN, #60 TAB 08/04/24 Atorvastatin Calcium (ATORVASTATIN CALCIUM) 40 Mg Tab, 1 TAB PO DAILY, #30 TAB 5 Refills 08/04/24 Furosemide (Furosemide) 20 Mg Tab, 1 TAB PO DAILYP, #90 TAB 1 Refill 08/04/24 Gabapentin (Gabapentin) 600 Mg Tab, 1 TAB PO TID, #90 TAB 3 Refills 08/04/24 Sotalol Hcl (Sotalol Hcl) 80 Mg Tab, 1 TAB PO BID, #180 TAB 3 Refills 08/04/24 Apixaban Base (ELIQUIS) 5 Mg Tab, 5 MG PO BID, TAB 08/04/24 Amlodipine Besylate (NORVASC TABLET) 5 Mg Tb, 1 TAB PO DAILY, #30 TAB 5 Refills 08/04/24 Metoprolol Succinate (Metoprolol Succinate Er) 50 Mg Tab, 1 TAB PO DAILY, #30 TAB 5 Refills 08/04/24 Losartan Potassium (Losartan Potassium) 50 Mg Tab, 1 TAB PO DAILY, #30 TAB 5 Refills 08/04/24 Budesonide-Formoterol Fumarate (Budesonide/Formoterol Fum 160-4.5 Mcg/Act) 1 Aer Aer, 1 AER IN Q4HPRN, AER 08/04/24 Current Medications Current Medications Medications (Trade) Dose Ordered Sig/Aixa Route PRN Reason Start Time Stop Time Status Last Admin Atorvastatin Calcium (Lipitor) 40 mg HS PO 08/14/24 22:00 08/14/24 20:50 Mupirocin (Bactroban 2% Ointment) 1 applic BID EACHNOSTRI 08/14/24 22:00 08/19/24 21:59 08/15/24 09:19 Metoprolol Tartrate (Lopressor Tablet) 12.5 mg BID PO 08/14/24 22:00 08/15/24 09:19 Amiodarone HCl (Cordarone Tablet) 200 mg DAILY PO 08/15/24 10:00 08/15/24 09:18 Ranolazine (Ranexa ER) 500 mg BID PO 08/15/24 22:00 UNV Levalbuterol HCl (Xopenex Medneb) 0.625 mg Q6HR NEB 08/15/24 18:00 UNV Ipratropium [place] (Atrovent Medneb) 0.5 mg Q4HWA NEB 08/15/24 18:00 UNV Budesonide (Pulmicort) 0.5 mg BID NEB 08/15/24 22:00 UNV Methylprednisolone Sodium Succinate (Solu Medrol) 20 mg Q6HR IV 08/15/24 18:00 UNV Review of Systems Constitutional: No: Fever, Chills, Sweats, Weakness, Malaise, Other Eyes: No: Pain, Vision change, Conjunctivae inflammation, Eyelid inflammation, Other, Redness ENT: No: Ear pain, Ear discharge, Nose pain, Nose discharge, Nose congestion, Mouth pain, Mouth swelling, Throat pain, Throat swelling, Other Respiratory: No: Cough, Dry, Shortness of breath, , Wheezing, Hemoptysis, Pleuritic Pain, Sputum, Wheezing, Other positive: SOB with exertion Cardiovascular: ; No: , Orthopnea, Paroxysmal Noc. Dyspnea, Edema, Lt Headedness, Other positive: Chest Pain Palpitations Gastrointestinal: No: Nausea, Vomiting, Abdominal Pain, Diarrhea, Constipation, Melena, Hematochezia, Other Genitourinary: No Dysuria, No Frequency, No Incontinence, No Hematuria, No Retention, No Other Musculoskeletal: neck pain; No: other, shoulder pain, arm pain, back pain, hand pain, leg pain, foot pain Skin: No: Rash, Lesions, Jaundice, Bruising, Other Neurological: Other (Dizziness, headache.); No: Weakness, Numbness, Incoordination, Change in speech, Confusion, Seizures Vital Signs Vital Signs Date Time Temp Pulse Resp B/P (MAP) Pulse Ox O2 Delivery O2 Flow Rate FiO2 08/15/24 16:50 107/72 08/15/24 16:30 98.0 89 20 92 98.0 08/15/24 10:15 Nasal Cannula* 3 32 Physical Exam GENERAL: Awake, alert, oriented. LUNGS: Clear. CARDIOVASCULAR: Heart sounds are good. ABDOMEN: Soft. Labs/Diagnostic Data Labs Test 08/15/24 12:14 08/13/24 22:10 08/13/24 16:41 08/13/24 16:00 Range/Units Urine Opiates Screen Neg NEGATIVE Urine Fentanyl Screen Neg NEGATIVE Urine Barbiturates Screen Neg NEGATIVE Urine Phencyclidine Screen Neg NEGATIVE Urine Amphetamines Screen Neg NEGATIVE Urine Benzodiazepines Screen Neg NEGATIVE Urine Cocaine Screen Neg NEGATIVE Urine Cannabinoids Screen Neg NEGATIVE Influenza Type A Antigen Negative Negative Influenza Type B Antigen Negative Negative SARS-CoV-2 Antigen (Rapid) Negative NEGATIVE Troponin I High Sensitivity 24 </=54 ng/L Urine Color Yellow Yellow Urine Clarity Clear Clear Urine pH 6.0 5.0-9.0 Urine Specific [place] 1.030 1.001-1.035 Urine Protein Trace H Negative Urine Ketones Negative Negative Urine Blood Negative Negative /uL Urine Nitrite Negative Negative Urine Bilirubin Negative Negative Urine Urobilinogen Normal Negative mg/dL Urine Leukocyte Esterase Negative Negative /uL Urine RBC 1 0 - 3 /hpf Urine WBC 2 0 - 3 /hpf Urine Squamous Epithelial Cells Few <5 /hpf Urine Bacteria None seen None Seen /hpf Urine Hyaline Casts Few 0 - 2 /lpf Urine Mucus Few None Seen Urine Glucose Normal Normal mg/dL Test 08/13/24 14:50 08/13/24 13:48 Range/Units Lactic Acid Level 1.8 0.4-2.0 mmol/L White Blood Count 19.8 H 4.4-10.8 10^3/uL Red Blood Count 5.28 4.5-5.90 10^6/uL Hemoglobin 16.2 13.5-17.5 g/dL Hematocrit 47.9 41.0-53.0 % Mean Corpuscular Volume 90.8 80.0-100.0 fL Mean Corpuscular Hemoglobin 30.6 28.0-32.0 pg Mean Corpuscular Hemoglobin Concent 33.7 32.0-36.0 g/dL Red Cell Distribution Width 14.7 H 11.8-14.3 % Platelet Count 219 140-450 10^3/uL Mean Platelet Volume 8.1 6.9-10.8 fL Neutrophils (%) (Auto) 71.6 37.0-80.0 % Lymphocytes (%) (Auto) 10.1 10.0-50.0 % Monocytes (%) (Auto) 16.1 H 0.0-12.0 % Eosinophils (%) (Auto) 2.1 0.0-7.0 % Basophils (%) (Auto) 0.1 0.0-2.0 % Neutrophils # (Auto) 14.2 H 1.6-8.6 10 ^3/uL Lymphocytes # (Auto) 2.0 0.4-5.4 10 ^3/uL Monocytes # (Auto) 3.2 H 0-1.3 10 ^3/uL Eosinophils # (Auto) 0.4 0-0.8 10 ^3/uL Basophils # (Auto) 0 0-0.2 10 ^3/uL Nucleated Red Blood Cells 0.1 % Sodium Level 136 136-145 mmol/L Potassium Level 4.6 3.5-5.1 mmol/L Chloride Level 101 98-107 mmol/L Carbon Dioxide Level 29 20-31 mmol/L Anion Gap 6 5-15 Blood Urea Nitrogen 66 H 9-23 mg/dL Creatinine 1.17 0.700-1.30 mg/dL Glomerular Filtration Rate Calc 66 >90 mL/min BUN/Creatinine Ratio 56.4 H 10.0-20.0 Serum Glucose 67 L 74-106 mg/dL Calcium Level 9.1 8.7-10.4 mg/dL B-Type Natriuretic Peptide 47.27 0-100 pg/mL Microbiology Date/Time Source Procedure Growth Status 08/14/24 01:57 Nose MRSA Screen - Final Methicillin Resistant S.aureus Complete 08/13/24 14:50 Blood Blood Culture - Preliminary NO GROWTH AFTER 48 HOURS OF INCUBATION. Resulted Assessment Chest pain. Chronic Atrial fibrillation with episode of RVR. CAD s/p stent to RCA, 40% lad lesion. HLD. COPD. Plan/Recommendation I agree with your ongoing assessment and care of plan. Patient has been seen by aTriq Hernandez NP on my behalf, him and I discussed the plan with the patient. Recent cardiac workup with Anita and coronary angiogram noting patent RCA stent and moderate nonobstructive CAD to LAD. Continuing with rate control, amiodarone added. Titrate metoprolol as BP allows. 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 Continue on Eliquis for stroke prophylaxis. Recommend adding aspirin 81 mg daily. Recent echo with preserved LV and RV function, calcified aortic valve with no significant stenosis. Additional plan as per the hospital course. Plan discussed with: Patient NYHA Physical activity limitations: NA Date of Service: Aug 15, 2024 Billing Provider: JAVON GONCALVES MD Cardiology Common Codes: [id number] INP/OBS CARE (High), [id number] CARE 30-74 MIN JAVON GONCALVES MD Aug 15, 2024 18:37
[2024-08-16] VITALS (16 sets, daily range): BP systolic 120–142; BP diastolic 67–80; PULSE 82–113; RESP 16–20; TEMP 97–98.1; O2SAT 95–100
[2024-08-16] MEDS: IPRATROPIUM BROM 0.5 MG/2.5ML INH SOL NEB SCH (07:20)
[2024-08-16] MEDS: methylPREDNISolone SOD SUCC 40 MG/ML VL IV SCH (07:51)
[2024-08-16 17:43] LABS: Base Excess -2.5 mmol/L (-2.0-3.0)
--- NOTE | 2024-08-16 21:29 | DVHPN2 ---
Progress Note - Dictate Date Seen: Aug 16, 2024 Medical Necessity Reason Pt with a Central, PICC or Fol: No Subjective Patient feels better today. Waiting for social Service to see if i.e. health plan reviewed approved residential facility given patient went home and came back within 24-48 hours. vital signs Vital Sign Date Time Temp Pulse Resp B/P (MAP) Pulse Ox O2 Delivery O2 Flow Rate FiO2 08/16/24 18:16 95 18 100 08/16/24 18:06 Nasal Cannula 3.0 08/16/24 18:06 32 08/16/24 16:00 97.6 134/80 (98) 97.6 Total Intake and Output 08/15/24 08/15/24 08/16/24 15:00 23:00 07:00 Intake Total 560 ml 900 ml Output Total 400 ml Balance 160 ml 900 ml medications Current Medications Medications Dose Ordered Sig/Aixa Route Start Time Stop Time Status Last Admin Dose Admin Nitroglycerin 0.4 mg Q5MINP PRN SL 08/13/24 22:00 08/15/24 15:50 0.4 MG Apixaban 5 mg BID PO 08/14/24 10:00 08/16/24 09:18 5 MG Aspirin 81 mg DAILY PO 08/14/24 10:00 08/16/24 09:18 81 MG Docusate Sodium 100 mg BIDPRN PRN PO 08/13/24 22:15 08/16/24 16:02 100 MG Atorvastatin Calcium 40 mg HS PO 08/14/24 22:00 08/15/24 21:31 40 MG Gabapentin 600 mg TID PO 08/14/24 06:00 08/16/24 13:29 600 MG Albuterol 2.5 mg Q6HPRN PRN NEB 08/14/24 03:45 Cancel Ipratropium [place] 0.5 mg Q6HPRN PRN NEB 08/14/24 03:45 Cancel Mupirocin 1 applic BID EACHNOSTRI 08/14/24 22:00 08/19/24 21:59 08/16/24 10:00 1 APPLIC Metoprolol Tartrate 12.5 mg BID PO 08/14/24 22:00 08/16/24 09:18 12.5 MG Amiodarone HCl 200 mg DAILY PO 08/15/24 10:00 08/16/24 09:19 200 MG Ranolazine 500 mg BID PO 08/15/24 22:00 08/16/24 09:19 500 MG Levalbuterol HCl 0.625 mg Q6HR NEB 08/15/24 18:00 08/16/24 18:06 0.625 MG Budesonide 0.5 mg BID NEB 08/15/24 22:00 08/16/24 18:06 0.5 MG Ipratropium [place] 0.5 mg Q6HR NEB 08/16/24 06:00 08/16/24 18:06 0.5 MG Methylprednisolone Sodium Succinate 20 mg Q6H IV 08/16/24 08:00 08/16/24 13:29 20 MG objective Alert awake oriented x3. Comfortable in bed without any distress. HEENT neck supple no JVD. Pupils equal round react to light. Heart regular rate and rhythm S1-S2. Lungs fair air movement without audible rales or wheezing. Abdomen is soft nontender positive bowel sounds obese. Extremities no edema positive pulses. laboratory and microbiology Laboratory Tests 08/13/24 13:48 Test 08/13/24 13:48 Range/Units Serum Glucose 67 L 74-106 mg/dL Assessment/Plan He is clinically stable. We will continue amiodarone and beta reinaldo for heart rate control. Continue anticoagulation for stroke prevention. Continue breathing treatments for his COPD and home oxygen 2-3 L. continue physical therapy. Otherwise further clinical management per clinical course. Discussed with the patient regarding care plan. If [facility] health plan approves residential facility he will be transferred for therapies otherwise we will plan for discharge to home with home health. Problems(with codes): (1) Atrial fibrillation (2) Generalized weakness (3) COPD with acute exacerbation (4) Acute chest pain Plan discussed with: Other Date of Service: Aug 16, 2024 Billing Provider: OSWALD CHAPMAN MD Common Visit Codes: [id number] INP/OBS CARE(MOD) OSWALD CHAPMAN MD Aug 16, 2024 21:29
--- NOTE | 2024-08-16 23:25 | DVHPN2 ---
Progress Note - Dictate Date Seen: Aug 16, 2024 Medical Necessity Reason Pt with a Central, PICC or Fol: No Subjective Patient was seen and evaluated in follow up. No overnight events. Patient is on 3 LPM NC. Patient currently rate controlled. MRSA returned positive, started on Bactroban. Patient is being arranged for SNF placement. Telemetry reviewed. vital signs Vital Sign Date Time Temp Pulse Resp B/P (MAP) Pulse Ox O2 Delivery O2 Flow Rate FiO2 08/16/24 22:26 90 142/70 08/16/24 21:00 98.0 18 98 98.0 08/16/24 18:06 Nasal Cannula 3.0 08/16/24 18:06 32 Total Intake and Output 08/15/24 08/15/24 08/16/24 15:00 23:00 07:00 Intake Total 560 ml 900 ml Output Total 400 ml Balance 160 ml 900 ml medications Current Medications Medications Dose Ordered Sig/Aixa Route Start Time Stop Time Status Last Admin Dose Admin Nitroglycerin 0.4 mg Q5MINP PRN SL 08/13/24 22:00 08/15/24 15:50 0.4 MG Apixaban 5 mg BID PO 08/14/24 10:00 08/16/24 22:16 5 MG Aspirin 81 mg DAILY PO 08/14/24 10:00 08/16/24 09:18 81 MG Docusate Sodium 100 mg BIDPRN PRN PO 08/13/24 22:15 08/16/24 16:02 100 MG Atorvastatin Calcium 40 mg HS PO 08/14/24 22:00 08/16/24 22:16 40 MG Gabapentin 600 mg TID PO 08/14/24 06:00 08/16/24 22:17 600 MG Albuterol 2.5 mg Q6HPRN PRN NEB 08/14/24 03:45 Cancel Ipratropium [place] 0.5 mg Q6HPRN PRN NEB 08/14/24 03:45 Cancel Mupirocin 1 applic BID EACHNOSTRI 08/14/24 22:00 08/19/24 21:59 08/16/24 22:23 1 APPLIC Metoprolol Tartrate 12.5 mg BID PO 08/14/24 22:00 08/16/24 22:26 12.5 MG Amiodarone HCl 200 mg DAILY PO 08/15/24 10:00 08/16/24 09:19 200 MG Ranolazine 500 mg BID PO 08/15/24 22:00 08/16/24 22:16 500 MG Levalbuterol HCl 0.625 mg Q6HR NEB 08/15/24 18:00 08/16/24 18:06 0.625 MG Budesonide 0.5 mg BID NEB 08/15/24 22:00 08/16/24 18:06 0.5 MG Ipratropium [place] 0.5 mg Q6HR NEB 08/16/24 06:00 08/16/24 18:06 0.5 MG Methylprednisolone Sodium Succinate 20 mg Q6H IV 08/16/24 08:00 08/16/24 22:21 20 MG objective GENERAL: Awake, alert, oriented. LUNGS: Clear. CARDIOVASCULAR: Heart sounds are good. ABDOMEN: Soft. laboratory and microbiology Laboratory Tests 08/13/24 13:48 Test 08/13/24 13:48 Range/Units Serum Glucose 67 L 74-106 mg/dL Problem List Chest pain. Chronic Atrial fibrillation with episode of RVR. CAD s/p stent to RCA, 40% lad lesion. HLD. COPD. Assessment/Plan Continued all current supportive medical care. Amiodarone. Eliquis. Aspirin, Lipitor, Metoprolol. Nitro SL. Additional plan as per the hospital course. Plan discussed with: Patient JAVON GONCALVES MD Aug 16, 2024 23:25
--- NOTE | 2024-08-16 23:27 | DVHPN2 ---
Progress Note - Dictate Date Seen: Aug 16, 2024 Medical Necessity Reason Pt with a Central, PICC or Fol: No Subjective Patient seen and examined at bedside. Remains on supplemental oxygen Overnight events reviewed. vital signs Vital Sign Date Time Temp Pulse Resp B/P (MAP) Pulse Ox O2 Delivery O2 Flow Rate FiO2 08/16/24 22:26 90 142/70 08/16/24 21:00 98.0 18 98 98.0 08/16/24 18:06 Nasal Cannula 3.0 08/16/24 18:06 32 Total Intake and Output 08/15/24 08/15/24 08/16/24 15:00 23:00 07:00 Intake Total 560 ml 900 ml Output Total 400 ml Balance 160 ml 900 ml medications Current Medications Medications Dose Ordered Sig/Aixa Route Start Time Stop Time Status Last Admin Dose Admin Nitroglycerin 0.4 mg Q5MINP PRN SL 08/13/24 22:00 08/15/24 15:50 0.4 MG Apixaban 5 mg BID PO 08/14/24 10:00 08/16/24 22:16 5 MG Aspirin 81 mg DAILY PO 08/14/24 10:00 08/16/24 09:18 81 MG Docusate Sodium 100 mg BIDPRN PRN PO 08/13/24 22:15 08/16/24 16:02 100 MG Atorvastatin Calcium 40 mg HS PO 08/14/24 22:00 08/16/24 22:16 40 MG Gabapentin 600 mg TID PO 08/14/24 06:00 08/16/24 22:17 600 MG Albuterol 2.5 mg Q6HPRN PRN NEB 08/14/24 03:45 Cancel Ipratropium [place] 0.5 mg Q6HPRN PRN NEB 08/14/24 03:45 Cancel Mupirocin 1 applic BID EACHNOSTRI 08/14/24 22:00 08/19/24 21:59 08/16/24 22:23 1 APPLIC Metoprolol Tartrate 12.5 mg BID PO 08/14/24 22:00 08/16/24 22:26 12.5 MG Amiodarone HCl 200 mg DAILY PO 08/15/24 10:00 08/16/24 09:19 200 MG Ranolazine 500 mg BID PO 08/15/24 22:00 08/16/24 22:16 500 MG Levalbuterol HCl 0.625 mg Q6HR NEB 08/15/24 18:00 08/16/24 18:06 0.625 MG Budesonide 0.5 mg BID NEB 08/15/24 22:00 08/16/24 18:06 0.5 MG Ipratropium [place] 0.5 mg Q6HR NEB 08/16/24 06:00 08/16/24 18:06 0.5 MG Methylprednisolone Sodium Succinate 20 mg Q6H IV 08/16/24 08:00 08/16/24 22:21 20 MG objective Gen.: Patient lying in bed in no apparent distress. On supplemental oxygen. Head: Normocephalic, atraumatic. Eyes: EOMI/PERRLA. Ears: Normal hearing. Normal anatomy. Neck/trachea: Trachea midline, supple. Nose: Normal external anatomy. Mouth: Moist mucous membranes. Chest: Decreased air entry bilaterally. No wheezing or rhonchi. Cardiovascular: Positive S1, positive S2. Regular rate and rhythm. Abdomen: Positive bowel sounds in all 4 quadrants. Soft, non-tender, non- distended. : Deferred. Rectal: Deferred. Skin: Warm, dry. Intact. Extremities: 2+ radial pulses bilaterally. No lower extremity edema. Neuro: Awake, alert, oriented x3. No gross motor or sensory deficits. Cranial nerves II through XII intact. Gait not assessed. laboratory and microbiology Laboratory Tests 08/13/24 13:48 Test 08/13/24 13:48 Range/Units Serum Glucose 67 L 74-106 mg/dL Assessment/Plan Impression: Acute hypoxic respiratory failure Dependence on supplemental oxygen Pneumonia, likely gram negative Chest pain, rule out ACS Atrial fibrillation, rate controlled MRSA nares Obesity Events: Remains on supplemental oxygen, 3 LPM NC Taper O2 as tolerated Improving O2 requirements Continue bronchodilators/Pulmicort IV steroids - transition to PO prednisone as tolerated Incentive spirometry Eliquis Amiodarone PO Plan for SNF placement Recommend outpatient PFTs to assess lung function. Labs and imaging reviewed. Rest of plan as noted below. Plan: Supplemental oxygen Titrate to keep O2 sats above 92%. Amiodarone PO Cardiology recs appreciated Continue bronchodilators. Monitor renal function. Monitor electrolytes. Supplement as necessary. Monitor ins and outs. Diet and lifestyle modifications for weight reduction Obesity - complicates all care DVT prophylaxis. Prognosis: Poor given patient's multiple co-morbidities. Rest of plan per hospitalist and other consultants. Thank you, Dr. Jackson, for allowing me to participate in this patient's care. Further recommendations will depend on the patient's clinical course. Please do not hesitate to contact me if you have any questions or concerns. This medical document was created using an electronic medical record system with [employer] dictation system. Although these documentations are being carefully reviewed, there may still be some phonetic and typographical changes. The errors are purely typographical, due to imperfection on the software program, and do not reflect any compromise in the patient's medical care. Plan discussed with: Patient, Other (KARIE Zaragoza) LORA MATTHEWS MD Aug 16, 2024 23:27
[2024-08-17] VITALS (12 sets, daily range): BP systolic 110–155; BP diastolic 75–88; PULSE 82–118; RESP 16–22; TEMP 97–98.3; O2SAT 95–99
[2024-08-17] MEDS: MORPHINE SULFATE INJ 2 MG/ml SYRG IV ONE (04:56)
[2024-08-17] MEDS ORDERED: MORPHINE SULFATE INJ 2 MG/ml SYRG IV PRN (06:45)
--- NOTE | 2024-08-17 09:35 | ECG ---
[facility] Test Date: 2024-08-17 Test Time: 04:15:58 Pat Name: ANA LAURA BELLE Department: Room: 0295T B Gender: M Preservationist: noel : 1950 Requested By: ALFREDO GOLDMAN Order Number: [id number] Reading MD: Luis Wilkins Measurements Intervals [place] Rate: 93 P: 0 ME: 0 QRS: -3 QRSD: 88 T: -16 QT: 342 QTc: 426 Interpretive Statements Atrial fibrillation Inferior infarct, old Anterior infarct, old Baseline wander in lead(s) V3 Electronically Signed On 08-17-2024 12:19:38 PST by Luis Wilkins Please click the below link to view image of tracing.
--- NOTE | 2024-08-17 15:59 | ECG ---
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
--- NOTE | 2024-08-17 16:00 | ECG ---
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
[2024-08-17] MEDS: AMIODARONE HCL 200 MG TAB PO SCH (16:40)
[2024-08-17] MEDS ORDERED: AMIO200T33 PO (17:07)
[2024-08-17] MEDS ORDERED: MUPI2OIN2 EACHNOSTRI (17:07)
[2024-08-17] MEDS ORDERED: PRED20TA2 PO (17:07)
[2024-08-17] MEDS ORDERED: METO-289 PO (17:07)
[2024-08-17] MEDS ORDERED: RANO500T3 PO (17:07)
[2024-08-17] MEDS ORDERED: BUDE0.5S NEB (17:07)
[2024-08-17] MEDS ORDERED: IPRA0.00 IN (17:07)
[2024-08-17] MEDS ORDERED: CEFD300C2 PO (17:07)
--- NOTE | 2024-08-17 17:12 | DVHDS2 ---
Discharge Summary Date of Admission Aug 13, 2024 at 21:48 Date of Discharge: Aug 17, 2024 Labs/Diagnostic Data: Laboratory Results Test 08/16/24 16:33 08/15/24 12:14 08/13/24 22:10 08/13/24 16:41 Blood Gas Specimen Type Arterial Blood Gas Sample Site Right radial Blood Gas Patient Temperature 37.0 Arterial Blood Date Drawn [id number] Arterial Blood pH 7.427 (7.350-7.450) Arterial Blood Partial Pressure CO2 32.3 mmHg (35.0-48.0) Arterial Blood Partial Pressure O2 53.1 mmHg (83.0-108.0) Arterial Blood HCO3 20.8 mmol/L (21.0-28.0) Arterial Blood Oxygen Saturation 87.6 % (94.0-98.0) Arterial Blood Base Excess -2.5 mmol/L (-2.0-3.0) Arterial Blood Oxyhemoglobin 86.9 % (94.0-98.0) Arterial Blood Carboxyhemoglobin 0.3 % (0.5-1.5) Arterial Blood Methemoglobin 0.5 % (0.0-1.5) Len Test Yes Blood Gas Total Hemoglobin 15.20 g/dL (13.5-17.5) Blood Gas Modality Room air FiO2 % 21.0 Blood Gas Critical Value Read Back Yes Blood Gas Notified Whom Dr. debbie duval Blood Gas Notified Time [id number] Blood Gas Notified By Urine Opiates Screen Neg (NEGATIVE) Urine Fentanyl Screen Neg (NEGATIVE) Urine Barbiturates Screen Neg (NEGATIVE) Urine Phencyclidine Screen Neg (NEGATIVE) Urine Amphetamines Screen Neg (NEGATIVE) Urine Benzodiazepines Screen Neg (NEGATIVE) Urine Cocaine Screen Neg (NEGATIVE) Urine Cannabinoids Screen Neg (NEGATIVE) Influenza Type A Antigen Negative (Negative) Influenza Type B Antigen Negative (Negative) SARS-CoV-2 Antigen (Rapid) Negative (NEGATIVE) Troponin I High Sensitivity 24 ng/L (</=54) Test 08/13/24 16:00 08/13/24 14:50 08/13/24 13:48 Urine Color Yellow (Yellow) Urine Clarity Clear (Clear) Urine pH 6.0 (5.0-9.0) Urine Specific [place] 1.030 (1.001-1.035) Urine Protein Trace (Negative) Urine Ketones Negative (Negative) Urine Blood Negative /uL (Negative) Urine Nitrite Negative (Negative) Urine Bilirubin Negative (Negative) Urine Urobilinogen Normal mg/dL (Negative) Urine Leukocyte Esterase Negative /uL (Negative) Urine RBC 1 /hpf (0 - 3) Urine WBC 2 /hpf (0 - 3) Urine Squamous Epithelial Cells Few /hpf (<5) Urine Bacteria None seen /hpf (None Seen) Urine Hyaline Casts Few /lpf (0 - 2) Urine Mucus Few (None Seen) Urine Glucose Normal mg/dL (Normal) Lactic Acid Level 1.8 mmol/L (0.4-2.0) White Blood Count 19.8 10^3/uL (4.4-10.8) Red Blood Count 5.28 10^6/uL (4.5-5.90) Hemoglobin 16.2 g/dL (13.5-17.5) Hematocrit 47.9 % (41.0-53.0) Mean Corpuscular Volume 90.8 fL (80.0-100.0) Mean Corpuscular Hemoglobin 30.6 pg (28.0-32.0) Mean Corpuscular Hemoglobin Concent 33.7 g/dL (32.0-36.0) Red Cell Distribution Width 14.7 % (11.8-14.3) Platelet Count 219 10^3/uL (140-450) Mean Platelet Volume 8.1 fL (6.9-10.8) Neutrophils (%) (Auto) 71.6 % (37.0-80.0) Lymphocytes (%) (Auto) 10.1 % (10.0-50.0) Monocytes (%) (Auto) 16.1 % (0.0-12.0) Eosinophils (%) (Auto) 2.1 % (0.0-7.0) Basophils (%) (Auto) 0.1 % (0.0-2.0) Neutrophils # (Auto) 14.2 10 ^3/uL (1.6-8.6) Lymphocytes # (Auto) 2.0 10 ^3/uL (0.4-5.4) Monocytes # (Auto) 3.2 10 ^3/uL (0-1.3) Eosinophils # (Auto) 0.4 10 ^3/uL (0-0.8) Basophils # (Auto) 0 10 ^3/uL (0-0.2) Nucleated Red Blood Cells 0.1 % Sodium Level 136 mmol/L (136-145) Potassium Level 4.6 mmol/L (3.5-5.1) Chloride Level 101 mmol/L (98-107) Carbon Dioxide Level 29 mmol/L (20-31) Anion Gap 6 (5-15) Blood Urea Nitrogen 66 mg/dL (9-23) Creatinine 1.17 mg/dL (0.700-1.30) Glomerular Filtration Rate Calc 66 mL/min (>90) BUN/Creatinine Ratio 56.4 (10.0-20.0) Serum Glucose 67 mg/dL (74-106) Calcium Level 9.1 mg/dL (8.7-10.4) B-Type Natriuretic Peptide 47.27 pg/mL (0-100) Other Laboratory Tests 08/13/24 13:48 Brief Hx & Hospital Course: This is a 73-year-old male with past medical history of hypertension, hyperlipidemia, leukemia, atrial fibrillation, CAD with PTCA X1 stent, COPD with home oxygen 2.5-3 L, neuropathy, chronic back pain presented to the ED via EMS with a chief complaint of chest pain and shortness of breath since 3:00 p.m. prior to this admission. According to the EMS the patient was hypotensive and EKG demonstrated AFib on the scene and fluid bolus was given that improved the blood pressure. He was discharged from [facility] on 08/12/2024 and was treated for possible community-acquired pneumonia and had extensive cardiology workup . He underwent Cardiolite scan 01/25 revealed abdominal myocardial perfusion scan with reversible defect in the LV apex and also inferolateral wall. Coronary angiography on 08/11/2023 demonstrated normal left ventricular end-diastolic pressure, moderate disease in the mid LAD and patent stent in the mid non dominant RCA. Cardiology recommended medical management for coronary artery disease and risk factor modification. The patient states that chest pain is feel like heaviness in the chest, continuous, 7/10 radiate to the left arm and also on the right side of the chest and associated with shortness of breath and occasional cough. Initial EKG revealed atrial fibrillation with controlled rate, troponins are unremarkable. Echo on 08/28 demonstrated EF 60%. He was readmitted for his atrial fibrillation and shortness for breath/chest pain symptoms. Patient had a recent thorough cardiac workup last hospitalization. Patient is started on amiodarone for atrial fibrillation and continued on beta reinaldo. He is continued on anticoagulation for stroke prevention. He was treated slurred his COPD exacerbation with the medications. 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 Overall patient is clinically stabilized and feeling better. Home oxygen is being arranged for COPD. Patient is advised to continue the medications and insulin as prescribed and have a close follow up with the PCP and stand in as appropriate. Patient verbalized understanding of his hospital diagnosis, treatment he received, discharge medications, discharge instructions and agree with the follow up plan of care. Condition at Discharge: Stable Final Diagnosis/Problems List COPD exacerbation, coronary artery disease, chronic oxygen dependency, atrial fibrillation rate controlled Discharge Disposition: Home with Health Services Discharge Instruct/Medications Diet: Consistent carbohydrate, Cardiac 2g Na,low cholest Activity: No Restrictions, As Tolerated Follow Up/Referral: Primary care physician and stand in after two weeks for your heart rate problem and breathing problem Medications: Continue to take the medications as prescribed and per discharge med reconciliation list. Please stop the medications as instructed on discharge med list. New Medications: Amiodarone Hcl (Amiodarone Hcl) 200 Mg Tab 1 TAB PO BID, #90 TAB 1 Refill Budesonide (Inhalation) (Budesonide) 0.5 Mg/2 Ml Kim 0.5 MG NEB BID, #120 ML Cefdinir (Cefdinir) 300 Mg Cap 1 CAP PO BID, #10 CAP Ipratropium-Albuterol (Ipratropium [place]/Albut) 1 Nicolle Nicolle 1 NICOLLE IN TID, #90 ML Prednisone (Prednisone) 20 Mg Tab 20 MG PO BID, #10 MG Ranolazine (Ranolazine ER) 500 Mg Tab 500 MG PO BID, #60 TAB Mupirocin (Pseudomonas Fluores (Mupirocin) 2 % Oin 1 APPLIC EACHNOSTRI BID, #1 OIN Continued Medications: Apixaban Base (Eliquis) 5 Mg Tab 5 MG PO BID, TAB Aspirin (Aspirin Low Dose) 81 Mg Tab 81 MG PO DAILY for 30 Days, #30 TAB Atorvastatin Calcium (Atorvastatin Calcium) 40 Mg Tab 1 TAB PO DAILY, #30 TAB 5 Refills Budesonide-Formoterol Fumarate (Budesonide/Formoterol Fum 160-4.5 Mcg/Act) 1 Aer Aer 1 AER IN Q4HPRN, AER Docusate Sodium (Docusate Sodium) 100 Mg Cap 100 MG PO BIDPRN PRN for 30 Days, #30 CAP Furosemide (Furosemide) 20 Mg Tab 1 TAB PO DAILYP, #90 TAB 1 Refill Gabapentin (Gabapentin) 600 Mg Tab 1 TAB PO TID, #90 TAB 3 Refills Metoprolol Succinate (Metoprolol Succinate Er) 50 Mg Tab 1 TAB PO DAILY, #30 TAB 5 Refills (This prescription has been renewed) Morphine Sulfate (Morphine Sulfate Er) 60 Mg Tab 1 TAB PO Q4HPRN, #60 TAB Discontinued Medications: Amlodipine Besylate (Norvasc Tablet) 5 Mg Tb 1 TAB PO DAILY, #30 TAB 5 Refills Digoxin (Lanoxin) 125 Mcg Tab 0.125 MG PO DAILY for 30 Days, #30 TAB Lisinopril (Lisinopril) 5 Mg Tab 5 MG PO DAILY for 30 Days, #30 TAB Losartan Potassium (Losartan Potassium) 50 Mg Tab 1 TAB PO DAILY, #30 TAB 5 Refills Sotalol Hcl (Sotalol Hcl) 80 Mg Tab 1 TAB PO BID, #180 TAB 3 Refills Discharge Statement: "Patient was advised to return to the ER or call 911 if any headaches, dizziness, shortness of breath, chest pain, abdominal pain, bleeding, fevers, or worsening of medical condition. Patient was counseled about treatment plan, medications, possible side effects, patientverbalized understanding. All questions were answered to the best of my ability. This discharge took greater then 30 minutes in planning, reviewing documentation, counseling the patient, and discussing with other team members." ASSESSMENT ASSESSMENT Assessment COPD exacerbation, coronary artery disease, chronic oxygen dependency, atrial fibrillation rate controlled Date of Service: Aug 17, 2024 Billing Provider: OSWALD DUVAL MD Common Visit Codes: [id number] DISCH DAY <30MIN OSWALD DUVAL MD Aug 17, 2024 17:12
--- NOTE | 2024-08-17 22:09 | DVHPN2 ---
Progress Note - Dictate Date Seen: Aug 17, 2024 Medical Necessity Reason Pt with a Central, PICC or Fol: No Subjective Patient was seen and evaluated in follow up. Patient has no new complaints at this time. Patient denies any cardiac symptoms. Patient is cardiac stable for discharge. Telemetry reviewed. vital signs Vital Sign Date Time Temp Pulse Resp B/P (MAP) Pulse Ox O2 Delivery O2 Flow Rate FiO2 08/17/24 17:00 97.0 107 22 155/88 (110) 99 97.0 08/17/24 11:37 Nasal Cannula* 2 28 Total Intake and Output 08/16/24 08/16/24 08/17/24 15:00 23:00 07:00 Intake Total 800 ml 800 ml Output Total 3000 ml 1400 ml Balance -2200 ml -600 ml medications Current Medications Medications Dose Ordered Sig/Aixa Route Start Time Stop Time Status Last Admin Dose Admin Albuterol 2.5 mg Q6HPRN PRN NEB 08/14/24 03:45 Cancel Ipratropium [place] 0.5 mg Q6HPRN PRN NEB 08/14/24 03:45 Cancel objective GENERAL: Awake, alert, oriented. LUNGS: Clear. CARDIOVASCULAR: Heart sounds are good. ABDOMEN: Soft. laboratory and microbiology Laboratory Tests 08/13/24 13:48 Test 08/13/24 13:48 Range/Units Serum Glucose 67 L 74-106 mg/dL Problem List Chest pain. Chronic Atrial fibrillation with episode of RVR. CAD s/p stent to RCA, 40% lad lesion. HLD. COPD. Assessment/Plan Continued all current supportive medical care. Amiodarone. Eliquis. Aspirin, Lipitor, Metoprolol. Nitro SL. Additional plan as per the hospital course. Dietary Evaluation Review Comments: Continue current plan of care Expected Outcomes/Goals: F/U in 3-5 days Plan discussed with: Patient JAVON GONCALVES MD Aug 17, 2024 22:09
--- NOTE | 2024-08-17 22:48 | DVHPN2 ---
Progress Note - Dictate Date Seen: Aug 17, 2024 Medical Necessity Reason Pt with a Central, PICC or Fol: No Subjective Patient seen and examined at bedside. Remains on supplemental oxygen Overnight events reviewed. vital signs Vital Sign Date Time Temp Pulse Resp B/P (MAP) Pulse Ox O2 Delivery O2 Flow Rate FiO2 08/17/24 17:00 97.0 107 22 155/88 (110) 99 97.0 08/17/24 11:37 Nasal Cannula* 2 28 Total Intake and Output 08/16/24 08/16/24 08/17/24 15:00 23:00 07:00 Intake Total 800 ml 800 ml Output Total 3000 ml 1400 ml Balance -2200 ml -600 ml medications Current Medications Medications Dose Ordered Sig/Aixa Route Start Time Stop Time Status Last Admin Dose Admin Albuterol 2.5 mg Q6HPRN PRN NEB 08/14/24 03:45 Cancel Ipratropium [place] 0.5 mg Q6HPRN PRN NEB 08/14/24 03:45 Cancel objective Gen.: Patient lying in bed in no apparent distress. On supplemental oxygen. Head: Normocephalic, atraumatic. Eyes: EOMI/PERRLA. Ears: Normal hearing. Normal anatomy. Neck/trachea: Trachea midline, supple. Nose: Normal external anatomy. Mouth: Moist mucous membranes. Chest: Decreased air entry bilaterally. No wheezing or rhonchi. Cardiovascular: Positive S1, positive S2. Regular rate and rhythm. Abdomen: Positive bowel sounds in all 4 quadrants. Soft, non-tender, non- distended. : Deferred. Rectal: Deferred. Skin: Warm, dry. Intact. Extremities: 2+ radial pulses bilaterally. No lower extremity edema. Neuro: Awake, alert, oriented x3. No gross motor or sensory deficits. Cranial nerves II through XII intact. Gait not assessed. laboratory and microbiology Laboratory Tests 08/13/24 13:48 Test 08/13/24 13:48 Range/Units Serum Glucose 67 L 74-106 mg/dL Assessment/Plan Impression: Acute hypoxic respiratory failure Dependence on supplemental oxygen Pneumonia, likely gram negative Chest pain, rule out ACS Atrial fibrillation, rate controlled MRSA nares Obesity Events: Remains on supplemental oxygen, 3 LPM NC Taper O2 as tolerated Improving O2 requirements Patient c/o chest pain this AM. Continue bronchodilators/Pulmicort IV steroids - transition to PO prednisone as tolerated Incentive spirometry Tachycardia - follow up Cardiology recs Barbara Amiodarone PO Arranged for home O2. Disposition per hospitalist. Recommend outpatient PFTs to assess lung function. Labs and imaging reviewed. Rest of plan as noted below. Plan: Supplemental oxygen Titrate to keep O2 sats above 92%. Amiodarone PO Cardiology recs appreciated Continue bronchodilators. Monitor renal function. Monitor electrolytes. Supplement as necessary. Monitor ins and outs. Diet and lifestyle modifications for weight reduction Obesity - complicates all care DVT prophylaxis. Prognosis: Poor given patient's multiple co-morbidities. Rest of plan per hospitalist and other consultants. Thank you, Dr. Jackson, for allowing me to participate in this patient's care. Further recommendations will depend on the patient's clinical course. Please do not hesitate to contact me if you have any questions or concerns. This medical document was created using an electronic medical record system with Your[employer]MD dictation system. Although these documentations are being carefully reviewed, there may still be some phonetic and typographical changes. The errors are purely typographical, due to imperfection on the software program, and do not reflect any compromise in the patient's medical care. Dietary Evaluation Review Comments: Continue current plan of care Expected Outcomes/Goals: F/U in 3-5 days Plan discussed with: Patient, Other (KARIE Zaragoza) LORA MATTHEWS MD Aug 17, 2024 22:48
== END 2024-08-17 20:06 | disposition home health service (06) | DRG 189 ==
LOC: ER 13:12 → EDBD 13:12 → TELE 21:48 → TELE-WESTW 08-14 01:30
PROVIDERS: ATTEND Hospitalist
DX: J96.01 Acute respiratory failure with hypoxia (principal); J44.1 Chronic obstructive pulmonary disease with (acute) exacerbation; I48.20 Chronic atrial fibrillation, unspecified; D68.69 Other thrombophilia; E66.9 Obesity, unspecified; E78.5 Hyperlipidemia, unspecified; G62.9 Polyneuropathy, unspecified; I25.10 Atherosclerotic heart disease of native coronary artery without angina pectoris; N28.9 Disorder of kidney and ureter, unspecified; G89.29 Other chronic pain; Z20.822 Contact with and (suspected) exposure to COVID-19; I50.9 Heart failure, unspecified; I11.0 Hypertensive heart disease with heart failure; Z80.8 Family history of malignant neoplasm of other organs or systems; Z79.01 Long term (current) use of anticoagulants; Z79.899 Other long term (current) drug therapy; Z95.5 Presence of coronary angioplasty implant and graft; Z99.81 Dependence on supplemental oxygen; Z92.3 Personal history of irradiation; Z85.6 Personal history of leukemia; Z92.21 Personal history of antineoplastic chemotherapy; Z68.34 Body mass index [BMI] 34.0-34.9, adult
CPT/HCPCS: 36415; 36600; 71045; 80048; 80307; 81001; 82805; 83605; 83880; 84484; 85025; 87040; 87081; 87426; 87804; 93005; 94640; 97163; 99291; G0378

== ENCOUNTER 2024-10-06 18:53 | Inpatient (IN) | payer OTHER, MEDICAID ==
[~2024-10-06] VITALS: Ht 175.3 cm; Wt 89.0 kg
[~2024-10-06 18:53] MED LIST changes: +AMIO200T33 PO; -AML5T PO; +BUDE0.5S NEB; +CEFD300C2 PO; -DIGO1TAB48 PO; +IPRA0.00 IN; -LISI-275 PO; -LOSA-534 PO; +MUPI2OIN2 EACHNOSTRI; +PRED20TA2 PO; +RANO500T3 PO; -SOTA80TA PO
--- NOTE | 2024-10-06 19:11 | ED.PDOC ---
History of Present Illness HPI Comments 74-year-old male was brought in by ambulance for complaint nonradiating, sternal chest pain and nausea, today. Per EMS report, patient endorses and sudden unprovoked onset of symptoms 30 minutes prior to arrival, this evening. Patient has a reported history of AFib on Eliquis, CHF, COPD on 5 liters/minute home O2, hyperlipidemia, hypertension, and medication compliancy. He was stated to have initially been found a blood pressure of 176/111 and the pain rating of 9/10 on scene and was given nitroglycerin, aspirin, and Zofran EN route, with noted improvement. Upon arrival to ED, patient has reported blood pressure of 138/80 and a pain rating of 4/10. Having any shortness of breath, vomiting, cough, congestion, fever, chills, or other associated symptoms or modifiers us at this time. Chief Complaint: Chest Pain Time Seen by MD: 18:55 Primary Care Provider: DODSON Reviewed Notes: Nurses Notes, Organizational Psychologist Notes, Medications, Allergies Allergies: Coded Allergies: Fentanyl (Verified Allergy, Severe, 08/04/24) Tetracycline (Verified Allergy, Severe, 08/04/24) Patient states anaphalatic shock reaction from tetracycline and was hospitalized for 2 weeks. Povidone Iodine (Verified Allergy, Intermediate, RASH, 08/04/24) Home Meds Active Scripts Budesonide (Inhalation) (Budesonide) 0.5 Mg/2 Ml Kim, 0.5 MG NEB BID, #120 ML Prov:OSWALD CHAPMAN MD 08/17/24 Cefdinir (Cefdinir) 300 Mg Cap, 1 CAP PO BID, #10 CAP Prov:OSWALD CHAPMAN MD 08/17/24 Prednisone (Prednisone) 20 Mg Tab, 20 MG PO BID, #10 MG Prov:OSWALD CHAPMAN MD 08/17/24 Ranolazine (Ranolazine ER) 500 Mg Tab, 500 MG PO BID, #60 TAB Prov:OSWALD CHAPMAN MD 08/17/24 Mupirocin (Pseudomonas Fluores (Mupirocin) 2 % Oin, 1 APPLIC EACHNOSTRI BID, #1 OIN Prov:OSWALD CHAPMAN MD 08/17/24 Ipratropium-Albuterol (Ipratropium [place]/Albut) 1 Nicolle Nicolle, 1 NICOLLE IN TID, #90 ML Prov:OSWALD CHAPMAN MD 08/17/24 Amiodarone Hcl (Amiodarone Hcl) 200 Mg Tab, 1 TAB PO BID, #90 TAB 1 Refill Prov:OSWALD CHAPMAN MD 08/17/24 Metoprolol Succinate (Metoprolol Succinate Er) 50 Mg Tab, 1 TAB PO DAILY, #30 TAB 5 Refills Prov:OSWALD CHAPMAN MD 08/17/24 Docusate Sodium (Docusate Sodium) 100 Mg Cap, 100 MG PO BIDPRN PRN for 30 Days, #30 CAP Prov:HEIDE SÁNCHEZ MD 08/12/24 Aspirin (Aspirin Low Dose) 81 Mg Tab, 81 MG PO DAILY for 30 Days, #30 TAB Prov:HEIDE SÁNCHEZ MD 08/12/24 Reported Medications Morphine Sulfate (Morphine Sulfate Er) 60 Mg Tab, 1 TAB PO Q4HPRN, #60 TAB 08/04/24 Atorvastatin Calcium (ATORVASTATIN CALCIUM) 40 Mg Tab, 1 TAB PO DAILY, #30 TAB 5 Refills 08/04/24 Furosemide (Furosemide) 20 Mg Tab, 1 TAB PO DAILYP, #90 TAB 1 Refill 08/04/24 Gabapentin (Gabapentin) 600 Mg Tab, 1 TAB PO TID, #90 TAB 3 Refills 08/04/24 Apixaban Base (ELIQUIS) 5 Mg Tab, 5 MG PO BID, TAB 08/04/24 Budesonide-Formoterol Fumarate (Budesonide/Formoterol Fum 160-4.5 Mcg/Act) 1 Aer Aer, 1 AER IN Q4HPRN, AER 08/04/24 Information Source: Patient, Emergency Med Personnel Mode of Arrival: EMS Severity: Moderate Timing: Hours Duration: Since onset 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, 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 Past Medical History PAST MEDICAL HISTORY: AFIB (On Eliquis), Asthma, CHF, COPD (With 5 liter/minute home O2 use), High Lipids, HTN Surgical History: Appendectomy Surgical History (Other): Port-A-Cath Family History Family History: Reviewed,noncontributory to illness Social History Smoker: Non-Smoker Alcohol: Denies ETOH Use Drugs: Denies Drug Use Lives In: Home All Other Systems: Reviewed and Negative (Comprehensive systems review obtained and negative except for what is stated in the HPI.) Physical Exam General Appearance: No Apparent Distress, Obese HEENT: Normal ENT Inspection, Pharynx Normal, TMs Normal Neck: Full Range of Motion, Non-Tender, Normal, Normal Inspection Respiratory: Chest Non-Tender, Lungs Clear, No Accessory Muscle Use, No Respiratory Distress, Normal Breath Sounds Cardiovascular: No Edema, No JVD, No Murmur, No Gallop, Normal Peripheral Pulses, Regular Rate/Rhythm Breast Exam: Deferred Gastrointestinal: No Organomegaly, Non Tender, No Pulsatile Mass, Normal Bowel Sounds, Soft Genitalia: Deferred Pelvic: Deferred Rectal: Deferred Extremities: No calf tenderness, Normal capillary refill, Normal inspection, Normal range of motion, Non-tender, No pedal edema Musculoskeletal : Apperance: Normal Neurologic: Alert, soil and plant scientist II-XII nml as Tested, No Motor Deficits, Normal Affect, Normal Mood, No Sensory Deficits Cerebellar Function: Normal Reflexes: Normal Skin: Dry, Normal Color, Warm Lymphatic: No Adenopathy Was a procedure done? Was a procedure done?: No EKG EKG : Pulse Rate (adult): 97 [place]: Normal Cardiac Rhythm: Afib, PVC's Block: None Hypertrophy: None ST: Normal Differential Dx Considerations may include: Mi, ACS, PE, URI, syndrome, costochondritis, pericarditis, among others X-Ray, Labs, Meds, VS Vital Signs Date Time Temp Pulse Resp B/P (MAP) Pulse Ox O2 Delivery O2 Flow Rate FiO2 10/06/24 22:30 98.3 93 18 131/91 (104) 97 98.3 10/06/24 19:52 85 10/06/24 19:11 97 10/06/24 18:56 98.0 96 18 138/81 (100) 99 10/06/24 18:54 97 Lab Test 10/06/24 22:20 10/06/24 21:58 10/06/24 19:57 10/06/24 19:00 Range/Units Urine Color Pending Urine Clarity Pending Urine pH Pending Urine Specific [place] Pending Urine Protein Pending Urine Ketones Pending Urine Blood Pending Urine Nitrite Pending Urine Bilirubin Pending Urine Urobilinogen Pending Urine Leukocyte Esterase Pending Urine RBC Pending Urine Microscopic WBC Pending Urine Squamous Epithelial Cells Pending Urine Bacteria Pending Urine Glucose Pending Troponin I High Sensitivity 15 16 17 </=54 ng/L White Blood Count 7.3 4.4-10.8 10^3/uL Red Blood Count 3.82 L 4.5-5.90 10^6/uL Hemoglobin 12.1 L 13.5-17.5 g/dL Hematocrit 35.7 L 41.0-53.0 % Mean Corpuscular Volume 93.5 80.0-100.0 fL Mean Corpuscular Hemoglobin 31.8 28.0-32.0 pg Mean Corpuscular Hemoglobin Concent 34.0 32.0-36.0 g/dL Red Cell Distribution Width 16.7 H 11.8-14.3 % Platelet Count 165 140-450 10^3/uL Mean Platelet Volume 7.9 6.9-10.8 fL Neutrophils (%) (Auto) 68.5 37.0-80.0 % Lymphocytes (%) (Auto) 14.7 10.0-50.0 % Monocytes (%) (Auto) 8.5 0.0-12.0 % Eosinophils (%) (Auto) 5.6 0.0-7.0 % Basophils (%) (Auto) 2.7 H 0.0-2.0 % Neutrophils # (Auto) 5.0 1.6-8.6 10 ^3/uL Lymphocytes # (Auto) 1.1 0.4-5.4 10 ^3/uL Monocytes # (Auto) 0.6 0-1.3 10 ^3/uL Eosinophils # (Auto) 0.4 0-0.8 10 ^3/uL Basophils # (Auto) 0.2 0-0.2 10 ^3/uL Nucleated Red Blood Cells 0.1 % Sodium Level 143 136-145 mmol/L Potassium Level 4.3 3.5-5.1 mmol/L Chloride Level 109 H 98-107 mmol/L Carbon Dioxide Level 29 20-31 mmol/L Anion Gap 5 5-15 Blood Urea Nitrogen 14 9-23 mg/dL Creatinine 0.85 0.700-1.30 mg/dL Glomerular Filtration Rate Calc 91 >90 mL/min BUN/Creatinine Ratio 16.5 10.0-20.0 Serum Glucose 114 H 74-106 mg/dL Calcium Level 9.4 8.7-10.4 mg/dL B-Type Natriuretic Peptide 315.14 0-100 pg/mL [facility] [id number] [place] [address] Ph: [phone] DIAGNOSTIC IMAGING Diagnostic Imaging Report : [id number] Signed PATIENT: AYAN BELLE ACCT: [id number] UNIT: [id number] : 1950 LOC: ER ROOM / BED: / AGE / SEX: 74 / M ADM STATUS: REG ER SERVICE 54 ORDERING PHYSICIAN: ALEJANDRO RICHMODN MD PROCEDURE(s): CXRP - CHEST PORTABLE REASON: chest pain ORDER NUMBER(s): [id number], ACCESSION NUMBER(s): [id number] CHEST RADIOGRAPH Indication: chest pain Technique: Single frontal view of the chest was obtained Comparison: XY CHEST PORTABLE on DOS: 08/13/24, XY CHEST PORTABLE on DOS: 08/06/24, XY CHEST XRAY 1 VIEW on DOS: 08/04/24 FINDINGS: Lines and Tubes: MediPort place from the right internal jugular vein with the tip in the superior vena cava above the right atrium. Lungs: Mildly prominent pulmonary vascularity this may be positional or due to congestive failure Pleura: No effusion. No pneumothorax. Cardiomediastinal contours: Cardiomegaly Bones: No acute osseous abnormality. IMPRESSION: 1. Cardiomegaly possible congestive failure 2. Port-A-Cath in place from the right internal jugular vein with the tip in the superior vena cava above the right atrium. ATED BY: JIGNA BROWN Jr., DO DICTATED DATE/TIME: 10/06/241932 SIGNED BY: JIGNA BROWN Jr., DO SIGNED DATE/TIME: 10/06/241932 CC: Time of 1ST Reevaluation: 19:25 Reevaluation 1ST: Unchanged Patient Education/Counseling: Diagnosis, Treatment Family Education/Counseling: No Family Present Additional Information Previous visit documents reviewed: 08/13/2024, 08/04/2024 The following tests were ordered, and results were reviewed by me: UA, CXR, CBC, BMP, BNP, EKG, troponin Additional Information was gathered from interviewing the following independent historians: EMS I reviewed and agreed with the following test results read by other providers: CXR I discussed treatment and results with medical personnel and: patient Departure 1 Departure Time of Disposition: 22:43 (Patient presented with chest pain that was concerning for possible STEMI, ACS, PE, Pneumonia, Muscle Strain, COPD, Dissection. Data: 1. I ordered and reviewed the result of at least 3 labs including a CBC, BMP, and Troponin. 2. I independently interpreted the following tests: EKG which shows sinus arrhythmia and Chest X-ray which shows car diomegaly.Risk:This patient has a high risk of morbidity due to further diagnostic testing or treatment and may suffer from an acute cardiac or respiratory disorder. Workup reveals concern for ACS and patient should be admitted for further workup and possible expert consultation. ) Impression: Primary Impression: Acute chest pain Additional Impression: Shortness of breath Disposition: ADMITTED INPATIENT Admit to: Med Surg Condition: Serious Critical Care Note Critical Care Time?: Yes Critical care comment: Acute chest pain Authorized and Performed by: Alejandro Richmond MD Total critical care time: Approximately 39 minutes Due to a high probability of clinically significant, life threatening deterioration, the patient required my highest level of preparedness to intervene emergently and I personally spent this critical care time directly and personally managing the patient. This critical care time included obtaining a history; examining the patient; pulse oximetry; ordering and review of studies; arranging urgent treatment with development of a management plan; evaluation of patient's response to treatment; frequent reassessment; and, discussions with other providers. This critical care time was performed to assess and manage the high probability of imminent, life-threatening deterioration that could result in multi-organ failure. It was exclusive of separately billable procedures and treating other patients and teaching time. Please see my other sections and the rest of the note for further information on patient assessment and treatment. Stability Stability form required: No Heart Score Heart Score: Heart Score Response (Comments) Value History Moderate Suspicious 1 EKG Repolarization Disturb 1 Age >65 2 Risk Factors >3 or Hx ASHD 2 Troponin Normal limit 0 Total 6 I personally scribed for ALEJANDRO RICHMOND MD ([email or web address]) on 10/06/24 at 19:11. Electronically submitted by Ayan Kahn ([email or web address]). I personally scribed for ALEJANDRO RICHMOND MD ([email or web address]) on 10/06/24 at 20:17. Electronically submitted by Ayan Kahn ([email or web address]). ALEJANDRO RICHMOND MD Oct 06, 2024 19:11
[2024-10-06 19:23] LABS: Basophils # (auto) 0.2 10 ^3/uL (0-0.2); Basophils % (auto) 2.7 % (0.0-2.0); Eosinophils # (auto) 0.4 10 ^3/uL (0-0.8); Eosinophils % (auto) 5.6 % (0.0-7.0); Hematocrit 35.7 % (41.0-53.0); Hemoglobin 12.1 g/dL (13.5-17.5); Lymphocytes # (auto) 1.1 10 ^3/uL (0.4-5.4); Lymphocytes % (auto) 14.7 % (10.0-50.0); Mean Corpuscular Hemoglobin 31.8 pg (28.0-32.0); Mean Corpuscular Volume 93.5 fL (80.0-100.0); Monocytes # (auto) 0.6 10 ^3/uL (0-1.3); Monocytes % (auto) 8.5 % (0.0-12.0); Neutrophils % (auto) 68.5 % (37.0-80.0); Nucleated Red Blood Cells % 0.1 %; Platelet Count (auto) 165 10^3/uL (140-450); Red Blood Cells 3.82 10^6/uL (4.5-5.90); Red Cell Distribution Width 16.7 % (11.8-14.3); White Blood Cell 7.3 10^3/uL (4.4-10.8)
[2024-10-06 19:31] LABS: Potassium 4.3 mmol/L (3.5-5.1); Sodium 143 mmol/L (136-145)
[2024-10-06 19:32] LABS: Anion Gap 5 (5-15); Carbon Dioxide 29 mmol/L (20-31)
[2024-10-06 19:33] LABS: Calcium 9.4 mg/dL (8.7-10.4)
--- NOTE | 2024-10-06 19:35 | DVH ---
CHEST RADIOGRAPH Indication: chest pain Technique: Single frontal view of the chest was obtained Comparison: XY CHEST PORTABLE on DOS: 08/13/24, XY CHEST PORTABLE on DOS: 08/06/24, XY CHEST XRAY 1 VIEW on DOS: 08/04/24 FINDINGS: Lines and Tubes: MediPort place from the right internal jugular vein with the tip in the superior ve na cava above the right atrium. Lungs: Mildly prominent pulmonary vascularity this may be positional or due to congestive failure Pleura: No effusion. No pneumothorax. Cardiomediastinal contours: Cardiomegaly Bones: No acute osseous abnormality. IMPRESSION: 1. Cardiomegaly possible congestive failure 2. Port-A-Cath in place from the right internal jugular vein with the tip in the superior vena cava a chad the right atrium.
[2024-10-06 19:38] LABS: BUN/Creatinine Ratio 16.5 (10.0-20.0); Blood Urea Nitrogen 14 mg/dL (9-23)
[2024-10-06 19:39] LABS: Chloride 109 mmol/L (98-107); Glucose 114 mg/dL (74-106)
[2024-10-06 22:27] LABS: Urine Bacteria None Seen /hpf (None Seen)
[2024-10-06 22:47] LABS: Urine Blood Negative /uL (Negative); Urine Clarity Clear (Clear); Urine Color Yellow (Yellow); Urine Mucus FEW (None Seen); Urine Protein, UAD 1+ (Negative); Urine Specific Gravity 1.031 (1.001-1.035); Urine Squamous Epithelial Cell FEW /hpf (<5); Urine Urobilinogen Normal (Negative); Urine WBC < 1 /HPF (0-3)
[2024-10-06] MEDS: AMIODARONE HCL 200 MG TAB PO SCH (23:42)
[2024-10-06] MEDS: MORPHINE SULFATE INJ 2 MG/ml SYRG IV PRN (23:42)
[2024-10-06 23:57] LABS: Alanine Aminotransferase 29 U/L (7-40); Alkaline Phosphatase 58 U/L (46-116); Anion Gap 10 (5-15); Aspartate Aminotransferase 18 U/L (13-40); BUN/Creatinine Ratio 13.9 (10.0-20.0); Bilirubin, Total 0.8 mg/dL (0.2-1.0); Blood Urea Nitrogen 11 mg/dL (9-23); Calcium 9.6 mg/dL (8.7-10.4); Carbon Dioxide 24 mmol/L (20-31); Glucose 100 mg/dL (74-106); Potassium 3.9 mmol/L (3.5-5.1); Sodium 142 mmol/L (136-145); Total Protein 6.9 g/dL (5.7-8.2)
[2024-10-07] VITALS (7 sets, daily range): BP systolic 160–163; BP diastolic 99–102; PULSE 83–115; RESP 18–22; TEMP 98.6–98.9; O2SAT 94–100
[2024-10-07 00:02] LABS: Albumin 4.8 g/dL (3.2-4.8); Chloride 108 mmol/L (98-107)
[2024-10-07 00:04] LABS: Base Excess 2.8 mmol/L (-2.0-3.0)
--- NOTE | 2024-10-07 00:28 | DVH ---
Bilateral lower extremity venous duplex Clinical History: rule out dvt Comparison: None Technique: Duplex Doppler evaluation of the deep venous systems of both lower extremities from the common femora l veins to the popliteal veins including color Doppler and spectral/pulsed waveform analysis was perf ormed. Findings: RIGHT SIDE: The common femoral vein demonstrates appropriate compressibility and waveform variability. There is compressibility/patency of the great saphenous vein at the proximal thigh. The femoral vein demonstrates appropriate compressibility and waveform variability. The deep femoral vein demonstrates appropriate compressibility and waveform variability. The popliteal vein demonstrates appropriate compressibility and waveform variability. There is normal compressibility at the tibioperoneal trunk. LEFT SIDE: The common femoral vein demonstrates appropriate compressibility and waveform variability. There is compressibility/patency of the great saphenous vein at the proximal thigh. The femoral vein demonstrates appropriate compressibility and waveform variability. The deep femoral vein demonstrates appropriate compressibility and waveform variability. The popliteal vein demonstrates appropriate compressibility and waveform variability. There is normal compressibility at the tibioperoneal trunk. Impression: No evidence of right or left femoropopliteal venous thrombosis.
[2024-10-07 00:33] LABS: Amphetamine Screen, Urine Neg (NEGATIVE); Barbiturate Scree,Urine Neg (NEGATIVE); Benzodiazephine Screen, Urine Neg (NEGATIVE); Cannabinoid Screen, Urine Neg (NEGATIVE); Cocaine Screen, Urine Neg (NEGATIVE); Opiate Scree,Urine Neg (NEGATIVE); Phencyclidine Screen, Urine Neg (NEGATIVE)
[2024-10-07] MEDS: ENOXAPARIN SOD 100 MG/1 ML SYRINGE SC SCH (00:36)
[2024-10-07] MEDS: FUROSEMIDE 20 MG/2 ML VIAL IV SCH ×2 (00:36→20:29)
[2024-10-07] MEDS: METOPROLOL SUCCINATE XL 50 MG TAB PO SCH (00:37)
--- NOTE | 2024-10-07 03:30 | ECG ---
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
--- NOTE | 2024-10-07 03:31 | ECG ---
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
[2024-10-07] MEDS: NITROGLYCERIN 0.4 MG SL TAB SL PRN (03:57)
[2024-10-07 04:39] LABS: Erythrocyte Sedimentation Rate 13 mm/hr (0-20)
[2024-10-07] MEDS ORDERED: IPRATROPIUM BROM 0.5 MG/2.5ML INH SOL NEB PRN (05:00)
[2024-10-07] MEDS ORDERED: ALBUTEROL SULF 2.5 MG/0.5ML(0.5%) NEB SOLN NEB PRN (05:00)
--- NOTE | 2024-10-07 05:11 | DVHHPRES ---
History of Present Illness Resident Creating Document: YAA SAAB RESIDENT Reason for Visit: chest pain History of Present Illness 74-year-old male with a significant past medical history of permanent atrial fibrillation (on Eliquis), coronary artery disease with a right coronary artery stent (confirmed on coronary angiography in August 2024), moderate disease in the mid-left artery, normal ejection fraction (64% on echocardiogram this year), COPD (on home oxygen 3L), and a history of leukemia (AML) in remission since 2015 (declined port removal), presented with acute onset of substernal chest pain and elevated blood pressure (176/100 mmHg) approximately 30 minutes before arrival. On EMS arrival, he was hypertensive and reported persistent chest discomfort. Initial workup in the ED showed normal CBC and CMP, with an elevated CRP and required 5LT of O2. ABG was unremarkable. Chest X-ray showed cardiomegaly and pulmonary congestion. EKG afib without RVR. Ddimer negative and leg doppler negative for DVT Given his history of COPD and possible exacerbation, antibiotics were initiated, also BNP was elevated, so furosemide was started. BPs has being normal so, no BPs at this time Past Medical History Atrial fibrillation (on Eliquis) Coronary artery disease with RCA stent (moderate mid-left artery disease) Chronic obstructive pulmonary disease (on 3L home oxygen) Hypertension Hyperlipidemia Congestive heart failure Leukemia (in remission, last chemotherapy 2015, declined port removal) Past Surgical History Coronary stent placement Appendectomy Port-a-cath (still in place) Social History Smoker: No Alcohol: Denies use Drugs: Denies use Lives at home Review of Systems Review of Systems Constitutional: No fever, chills Cardiovascular: Chest pain, no palpitations Pulmonary: No new cough, no wheezing, mild dyspnea GI: No nausea, vomiting Neurologic: No focal deficits Allergies: Coded Allergies: Fentanyl (Verified Allergy, Severe, 08/04/24) Tetracycline (Verified Allergy, Severe, 08/04/24) Patient states anaphalatic shock reaction from tetracycline and was hospitalized for 2 weeks. Povidone Iodine (Verified Allergy, Intermediate, RASH, 08/04/24) Medications Current Medications Medications Dose Ordered Sig/Aixa Route Start Time Stop Time Status Last Admin Dose Admin Nitroglycerin 0.4 mg Q5MINP PRN SL 10/06/24 23:30 10/07/24 03:57 0.4 MG Morphine Sulfate 2 mg Q30M PRN IV 3/5/25 23:30 10/07/24 04:50 2 MG Enoxaparin Sodium 90 mg Q12HR SC 10/06/24 23:30 10/07/24 00:36 90 MG Amiodarone HCl 200 mg Q12HR PO 10/06/24 23:30 10/06/24 23:42 200 MG Furosemide 20 mg DAILY IV 10/06/24 23:30 10/07/24 00:36 20 MG Metoprolol Succinate 25 mg DAILY PO 10/06/24 23:45 10/07/24 00:37 25 MG Exam Vital Signs Vital Signs Date Time Temp Pulse Resp B/P (MAP) Pulse Ox O2 Delivery O2 Flow Rate FiO2 10/07/24 04:50 85 18 108/72 10/07/24 04:00 97.9 95 97.9 10/07/24 00:30 Nasal Cannula* 4 36 Exam Physical Examination: General: Uncomfortable, prefers lying down due to pain Cardiovascular: arrhythmic no murmurs or edema Respiratory: Bilateral crackles Gastrointestinal: No distension, mild tenderness, no guarding Neurological: Alert and oriented, no focal deficits Labs/Xrays Labs Test 10/06/24 23:23 10/06/24 22:20 10/06/24 21:58 10/06/24 19:00 Range/Units Blood Gas Specimen Type Arterial Blood Gas Sample Site Right brachial Blood Gas Patient Temperature 37.0 Arterial Blood Date Drawn [id number] Arterial Blood pH 7.401 7.350-7.450 Arterial Blood Partial Pressure CO2 46.4 35.0-48.0 mmHg Arterial Blood Partial Pressure O2 82.4 L 83.0-108.0 mmHg Arterial Blood HCO3 28.2 H 21.0-28.0 mmol/L Arterial Blood Oxygen Saturation 95.5 94.0-98.0 % Arterial Blood Base Excess 2.8 -2.0-3.0 mmol/L Arterial Blood Oxyhemoglobin 94.3 94.0-98.0 % Arterial Blood Carboxyhemoglobin 1.0 0.5-1.5 % Arterial Blood Methemoglobin 0.3 0.0-1.5 % Len Test N/a Blood Gas Total Hemoglobin 12.90 L 13.5-17.5 g/dL Blood Gas Liter Flow 4.00 Blood Gas Modality Nasal cannula FiO2 % 36.0 Urine Color Yellow Yellow Urine Clarity Clear Clear Urine pH 6.0 5.0-9.0 Urine Specific [place] 1.031 1.001-1.035 Urine Protein 1+ H Negative Urine Ketones Negative Negative Urine Blood Negative Negative /uL Urine Nitrite Negative Negative Urine Bilirubin Negative Negative Urine Urobilinogen Normal Negative mg/dL Urine Leukocyte Esterase Negative Negative /uL Urine RBC None seen 0 - 3 /hpf Urine Microscopic WBC < 1 0-3 /HPF Urine Squamous Epithelial Cells Few <5 /hpf Urine Bacteria None seen None Seen /hpf Urine Mucus Few None Seen Urine Glucose Normal Normal mg/dL Urine Opiates Screen Neg NEGATIVE Urine Fentanyl Screen Neg NEGATIVE Urine Barbiturates Screen Neg NEGATIVE Urine Phencyclidine Screen Neg NEGATIVE Urine Amphetamines Screen Neg NEGATIVE Urine Benzodiazepines Screen Neg NEGATIVE Urine Cocaine Screen Neg NEGATIVE Urine Cannabinoids Screen Neg NEGATIVE D-Dimer, Quantitative < 0.19 0.0-0.49 mg/L FEU Sodium Level 142 136-145 mmol/L Potassium Level 3.9 3.5-5.1 mmol/L Chloride Level 108 H 98-107 mmol/L Carbon Dioxide Level 24 20-31 mmol/L Anion Gap 10 5-15 Blood Urea Nitrogen 11 9-23 mg/dL Creatinine 0.79 0.700-1.30 mg/dL Glomerular Filtration Rate Calc 93 >90 mL/min BUN/Creatinine Ratio 13.9 10.0-20.0 Serum Glucose 100 74-106 mg/dL Calcium Level 9.6 8.7-10.4 mg/dL Total Bilirubin 0.8 0.2-1.0 mg/dL Aspartate Amino Transferase (AST) 18 13-40 U/L Alanine Aminotransferase (ALT) 29 7-40 U/L Alkaline Phosphatase 58 46-116 U/L Troponin I High Sensitivity 15 </=54 ng/L C-Reactive Protein High Sensitivity 2.37 H <1.0 mg/dL Total Protein 6.9 5.7-8.2 g/dL Albumin 4.8 3.2-4.8 g/dL White Blood Count 7.3 4.4-10.8 10^3/uL Red Blood Count 3.82 L 4.5-5.90 10^6/uL Hemoglobin 12.1 L 13.5-17.5 g/dL Hematocrit 35.7 L 41.0-53.0 % Mean Corpuscular Volume 93.5 80.0-100.0 fL Mean Corpuscular Hemoglobin 31.8 28.0-32.0 pg Mean Corpuscular Hemoglobin Concent 34.0 32.0-36.0 g/dL Red Cell Distribution Width 16.7 H 11.8-14.3 % Platelet Count 165 140-450 10^3/uL Mean Platelet Volume 7.9 6.9-10.8 fL Neutrophils (%) (Auto) 68.5 37.0-80.0 % Lymphocytes (%) (Auto) 14.7 10.0-50.0 % Monocytes (%) (Auto) 8.5 0.0-12.0 % Eosinophils (%) (Auto) 5.6 0.0-7.0 % Basophils (%) (Auto) 2.7 H 0.0-2.0 % Neutrophils # (Auto) 5.0 1.6-8.6 10 ^3/uL Lymphocytes # (Auto) 1.1 0.4-5.4 10 ^3/uL Monocytes # (Auto) 0.6 0-1.3 10 ^3/uL Eosinophils # (Auto) 0.4 0-0.8 10 ^3/uL Basophils # (Auto) 0.2 0-0.2 10 ^3/uL Nucleated Red Blood Cells 0.1 % Erythrocyte Sedimentation Rate 13 0-20 mm/hr B-Type Natriuretic Peptide 315.14 0-100 pg/mL Assessment/Plan Assessment/Plan 74M with history of CAD, AFib, CHF, COPD, and leukemia remission presenting with acute chest pain and hypertension. Given normal troponins, negative d dimer, ECG with afib w/o RVR , CXR with pulmonary congestion, CRP elevated and increased O2 requirements #Acute on chronic HFpEF #COPD exacerbation #Hypertensive urgency resolved #Permanent afib w/o RVR #Chest pain #Rule out ACS #Rule out PE #H/o CAD sp stent #H/o leukemia AML Admit Telemetry Pain management Furosemide IV Amiodarone PO Metoprolol PO Enoxaparin 90 mg BID Prednisone 40 mg PO Azithromycin PO Breathing treatments PRN Case discussed with Dr Latham Plan discussed with: Patient, Other (rn) My Orders Orders - YAA SAAB RESIDENT Procedure Category Date Status Time Nitroglycerin PHA 10/06/24 In Process Sublingual (Ntrostat 23:30 Morphine Sulfate PHA 10/06/24 In Process Injection 23:30 Oxygen By Nasal RT 10/06/24 Transmitted Cannula 23:23 Stat Ekg For Chest RUBY 10/06/24 In Process Pain 23:23 Notify Md Of Changes RUBY 10/06/24 In Process From Base 23:23 Order Tracer For RUBY 10/06/24 In Process 24 Hours 23:23 Emergency Dysrhythmia RUBY 10/06/24 In Process Protocol 23:23 Rhythm Strips Once RUBY 10/06/24 In Process Every Shift 23:23 Enoxaparin Sodium PHA 10/06/24 In Process (Lovenox) 23:30 Amiodarone Tablet PHA 10/06/24 In Process (Cordarone Tablet) 23:30 Furosemide Injection PHA 10/06/24 In Process (Lasix Injection) 23:30 Abg W/ Co-Ox RT 10/06/24 Logged 23:24 Bilat Lower Dvt US 10/06/24 Resulted 23:27 Metoprolol Xl PHA 10/06/24 In Process Succinate (Toprol Xl) 23:45 Cardiac DIET 10/07/24 Transmitted Diet-2gna,Lofat,Lochol Breakfast Admit ADMIT 10/07/24 Transmitted 00:58 Complete Blood Count LAB 10/07/24 Logged 04:00 Comprehensive LAB 10/07/24 Logged Metabolic Panel 04:00 Date of Service: Oct 07, 2024 Billing Provider: ANGELI LATHAM MD Common Visit Codes: [id number] INP/OBS CARE (HIGH) Secondary Visit Codes: 67808-OCYYLDAL CARE PLAN 30 MINUTES YAA SAAB RESIDENT Oct 07, 2024 05:11 ANGELI LATHAM MD Oct 07, 2024 17:54
[2024-10-07 06:51] LABS: Basophils # (auto) 0.1 10 ^3/uL (0-0.2); Eosinophils # (auto) 0.5 10 ^3/uL (0-0.8); Eosinophils % (auto) 7.4 % (0.0-7.0); Hematocrit 34.5 % (41.0-53.0); Hemoglobin 11.9 g/dL (13.5-17.5); Lymphocytes # (auto) 1.4 10 ^3/uL (0.4-5.4); Lymphocytes % (auto) 20.8 % (10.0-50.0); Mean Corpuscular Hemoglobin 32.3 pg (28.0-32.0); Mean Corpuscular Hgb Conc. 34.6 g/dL (32.0-36.0); Mean Corpuscular Volume 93.4 fL (80.0-100.0); Monocytes # (auto) 0.6 10 ^3/uL (0-1.3); Monocytes % (auto) 8.5 % (0.0-12.0); Neutrophils # (auto) 4.1 10 ^3/uL (1.6-8.6); Neutrophils % (auto) 61.3 % (37.0-80.0); Nucleated Red Blood Cells % 0.1 %; Platelet Count (auto) 160 10^3/uL (140-450); Red Blood Cells 3.69 10^6/uL (4.5-5.90); Red Cell Distribution Width 16.9 % (11.8-14.3); White Blood Cell 6.7 10^3/uL (4.4-10.8)
[2024-10-07 06:58] LABS: Alanine Aminotransferase 24 U/L (7-40); Alkaline Phosphatase 51 U/L (46-116); Anion Gap 7 (5-15); BUN/Creatinine Ratio 15.7 (10.0-20.0); Blood Urea Nitrogen 14 mg/dL (9-23); Calcium 9.5 mg/dL (8.7-10.4); Carbon Dioxide 31 mmol/L (20-31); Chloride 104 mmol/L (98-107); Glucose 81 mg/dL (74-106); Sodium 142 mmol/L (136-145); Total Protein 6.3 g/dL (5.7-8.2)
[2024-10-07 06:59] LABS: Albumin 4.4 g/dL (3.2-4.8); Aspartate Aminotransferase 14 U/L (13-40); Bilirubin, Total 0.6 mg/dL (0.2-1.0)
[2024-10-07 07:01] LABS: Potassium 3.4 mmol/L (3.5-5.1)
--- NOTE | 2024-10-07 09:49 | ECG ---
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
[2024-10-07] MEDS ORDERED: AZITHROMYCIN 250 MG TAB PO SCH (10:00)
--- NOTE | 2024-10-07 10:14 | DVHPNRES ---
Progress Note Date Seen: Oct 07, 2024 Resident Creating Document: QUIQUE BUCIO RESIDENT Medical Necessity Reason Pt with a Central, PICC or Fol: No Subjective Review of Systems Patient is 74 years old male with past medical history of permanent atrial fibrillation (on Eliquis), coronary artery disease with a right coronary artery stent (confirmed on coronary angiography in August 2024), moderate disease in the mid-left artery, normal ejection fraction (64% on echocardiogram this year), COPD (on home oxygen 3L), and a history of leukemia (AML) in remission since 2015 (declined port removal), neuropathy came with a complaint of chest pain that started yesterday in the morning, central in nature, pressure-like, 9/10, radiating to the left arm and left elbow. Patient reported chest pain was associated with the shortness of breaths. Also endorsed bilateral leg swelling for last couple of weeks. Patient also reported elevated blood pressure 176/100. Patient denied any fever, palpitation, acute joint pain or swelling, dysarthria or change in vision. Initial lab workup revealed mild hypokalemia with potassium 3.4, BNP 315. EKG-atrial fibrillation, no acute ST or T-wave changes.. Cardiomegaly possible congestive failure, 2. Port-A-Cath in place from the right internal jugular vein with the tip in the superior vena cava above the right atrium. Doppler study of lower extremity negative for DVT. PMH-permanent atrial fibrillation (on Eliquis), coronary artery disease with a right coronary artery stent (confirmed on coronary angiography in August 2024), moderate disease in the mid-left artery, normal ejection fraction (64% on echocardiogram this year), COPD (on home oxygen 3L), and a history of leukemia (AML) in remission since 2016 (declined port removal), neuropathy PSH- appendectomy, PTCA,Port-a-cath (still in place) Allergy- fentanyl, probably nitrite, tetracycline Personal History/ Social History- lives at home, denies smoking/alcoholism/drug abuse Patient was seen today at the bedside. Gastrointestinal- denies any rectal bleeding, nausea or vomiting Musculoskeletal-denies acute joint swelling or tenderness or redness Neurological- denies acute dysarthria, dysphagia, change in vision Psychiatry- denies depression or SI or HI Skin- denies acute rash or purpura Patient was seen today for clinical evaluation. Labs and chart reviewed. Patient reported feeling better today. Patient on NC O2 3 liter/minute. Pending echo 2D report. Patient noted to have bilateral lung crackles on auscultation, bilateral leg edema 2+. Objective vital signs Vital Sign Date Time Temp Pulse Resp B/P (MAP) Pulse Ox O2 Delivery O2 Flow Rate FiO2 10/07/24 08:00 98.1 89 22 144/89 (107) 94 98.1 10/07/24 08:00 Nasal Cannula* 4 36 Total Intake and Output 10/06/24 10/06/24 10/07/24 15:00 23:00 07:00 Output Total 550 ml Balance -550 ml medications Current Medications Medications Dose Ordered Sig/Aixa Route Start Time Stop Time Status Last Admin Dose Admin Nitroglycerin 0.4 mg Q5MINP PRN SL 10/06/24 23:30 10/07/24 03:57 0.4 MG Morphine Sulfate 2 mg Q30M PRN IV 10/06/24 23:30 10/07/24 04:50 2 MG Enoxaparin Sodium 90 mg Q12HR SC 10/06/24 23:30 10/07/24 00:36 90 MG Amiodarone HCl 200 mg Q12HR PO 10/06/24 23:30 10/06/24 23:42 200 MG Furosemide 20 mg DAILY IV 10/06/24 23:30 10/07/24 00:36 20 MG Metoprolol Succinate 25 mg DAILY PO 10/06/24 23:45 10/07/24 00:37 25 MG Prednisone 40 mg DAILY PO 10/07/24 10:00 Azithromycin 500 mg DAILY PO 10/07/24 10:00 UNV Albuterol 2.5 mg Q8HPRN PRN NEB 10/07/24 05:00 Ipratropium [place] 0.5 mg Q8HPRN PRN NEB 10/07/24 05:00 Examination General examination- awake, alert, oriented, conversant HEENT- PEERLA, no acute nasal discharge Cardiovascular- S1-S2 audible, rate and rhythm regular, no murmur Respiratory-bilateral lung crackles++ Gastrointestinal-nontender, bowel sound+. Nondistended Musculoskeletal-no acute joint swelling or tenderness or redness# Lower extremity- bilateral leg edema++ Neurological- cranial nerves intact, no acute dysarthria or dysphagia Psychiatry- denies depression or SI or HI Skin- no acute rash or purpura laboratory and microbiology Laboratory Tests 10/07/24 05:00 Test 10/07/24 05:00 Range/Units Serum Glucose 81 74-106 mg/dL Problem List/Assessment/Plan Problem List/Assessment/Plan Acute chest pain, rule out acute coronary syndrome Acute on chronic hypoxic respiratory failure likely due to acute on chronic HFpEF acute on chronic HFpEF Bilateral leg edema likely due to heart failure Atrial fibrillation, rate well controlled CAD, status post PTCA COPD, no acute exacerbation History of AML, in remission since 2016 Neuropathy Obesity EKG atrial fibrillation BNP 315 Pending echo 2D Plan Continue Lasix 20 mg IV daily ASA 81 mg qd Atorvasattin 40 mg qhs Continue Lovenox 90 mg subcutaneously q.12 hours Metoprolol 25 mg p.o. daily Amiodarone 200 mg p.o. q.12 hours Continue nebulization as prescribed Continue other medication as prescribed Goals of care/advance care planning; FULL CODE; discussed with the patient >15 minutes PUD prophylaxis: Pantoprazole DVT prophylaxis: Lovenox Plan discussed with Dr. Cleaning , nursing staff, patient Total time spent on patient evaluation, chart review, assessment and plan, discussion discussion >35 minutes Plan discussed with: Patient Plan discussed with: Patient, Other (RN) Date of Service: Oct 07, 2024 Billing Provider: DAMARIS CROUCH MD Common Visit Codes: [id number] INP/OBS CARE(HIGH) QUIQUE BUCIO RESIDENT Oct 07, 2024 10:14 DAMARIS CROUCH MD Oct 11, 2024 01:45
--- NOTE | 2024-10-07 10:24 | ECG ---
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
[2024-10-07] MEDS: predniSONE 20 MG TAB PO SCH (10:44)
[2024-10-07] MEDS ORDERED: MORPHINE SULFATE INJ 2 MG/ml SYRG IV PRN (12:45)
[2024-10-07] MEDS: PANTOPRAZOLE 40 MG/10 ML VIAL INJ IV ONE (13:00)
[2024-10-07] MEDS: DOCUSATE SOD 100 MG CAP PO PRN (17:04)
[2024-10-07] MEDS: LABETALOL HCL 20 MG/4 ML VL IV ONE (20:41)
[2024-10-07] MEDS: ATORVASTATIN 20 MG TAB PO SCH (21:58)
[2024-10-08] VITALS (7 sets, daily range): BP systolic 135–145; BP diastolic 74–96; PULSE 87–97; RESP 18–20; TEMP 97.8–97.9; O2SAT 97–100
[2024-10-08 07:21] LABS: Basophils # (auto) 0.1 10 ^3/uL (0-0.2); Basophils % (auto) 1.1 % (0.0-2.0); Eosinophils # (auto) 0.3 10 ^3/uL (0-0.8); Hematocrit 36.1 % (41.0-53.0); Hemoglobin 12.6 g/dL (13.5-17.5); Lymphocytes # (auto) 1.5 10 ^3/uL (0.4-5.4); Lymphocytes % (auto) 18.2 % (10.0-50.0); Mean Corpuscular Hgb Conc. 34.8 g/dL (32.0-36.0); Monocytes # (auto) 0.6 10 ^3/uL (0-1.3); Monocytes % (auto) 7.6 % (0.0-12.0); Neutrophils # (auto) 5.6 10 ^3/uL (1.6-8.6); Neutrophils % (auto) 69.1 % (37.0-80.0); Nucleated Red Blood Cells % 0.1 %; Platelet Count (auto) 179 10^3/uL (140-450); Red Blood Cells 3.92 10^6/uL (4.5-5.90); Red Cell Distribution Width 16.4 % (11.8-14.3); White Blood Cell 8.1 10^3/uL (4.4-10.8)
[2024-10-08 07:44] LABS: Anion Gap 6 (5-15); Carbon Dioxide 31 mmol/L (20-31); Chloride 105 mmol/L (98-107); Potassium 3.5 mmol/L (3.5-5.1); Sodium 142 mmol/L (136-145)
[2024-10-08 07:45] LABS: Calcium 9.7 mg/dL (8.7-10.4)
[2024-10-08 07:50] LABS: BUN/Creatinine Ratio 20.4 (10.0-20.0); Blood Urea Nitrogen 19 mg/dL (9-23); Magnesium 1.9 mg/dL (1.6-2.6)
[2024-10-08 07:54] LABS: Glucose 109 mg/dL (74-106)
[2024-10-08] MEDS: ASPirin-EC 81 mg tab PO SCH (10:06)
[2024-10-08] MEDS: PANTOPRAZOLE 40 MG/10 ML VIAL INJ IV SCH (10:07)
--- NOTE | 2024-10-08 16:21 | DVHDSRES ---
Discharge Summary Date of Admission Resident Creating Document: QUIQUE BUCIO RESIDENT Oct 07, 2024 at 00:58 Date of Discharge: Oct 08, 2024 Admitting Diagnosis Acute hypoxic respiratory failure likely due to acute on chronic heart failure Suspected AFib with RVR Labs/Diagnostic Data: Laboratory Results Test 10/08/24 06:52 10/07/24 05:00 10/06/24 23:23 10/06/24 22:20 White Blood Count 8.1 10^3/uL (4.4-10.8) Red Blood Count 3.92 10^6/uL (4.5-5.90) Hemoglobin 12.6 g/dL (13.5-17.5) Hematocrit 36.1 % (41.0-53.0) Mean Corpuscular Volume 92.0 fL (80.0-100.0) Mean Corpuscular Hemoglobin 32.0 pg (28.0-32.0) Mean Corpuscular Hemoglobin Concent 34.8 g/dL (32.0-36.0) Red Cell Distribution Width 16.4 % (11.8-14.3) Platelet Count 179 10^3/uL (140-450) Mean Platelet Volume 7.6 fL (6.9-10.8) Neutrophils (%) (Auto) 69.1 % (37.0-80.0) Lymphocytes (%) (Auto) 18.2 % (10.0-50.0) Monocytes (%) (Auto) 7.6 % (0.0-12.0) Eosinophils (%) (Auto) 4.0 % (0.0-7.0) Basophils (%) (Auto) 1.1 % (0.0-2.0) Neutrophils # (Auto) 5.6 10 ^3/uL (1.6-8.6) Lymphocytes # (Auto) 1.5 10 ^3/uL (0.4-5.4) Monocytes # (Auto) 0.6 10 ^3/uL (0-1.3) Eosinophils # (Auto) 0.3 10 ^3/uL (0-0.8) Basophils # (Auto) 0.1 10 ^3/uL (0-0.2) Nucleated Red Blood Cells 0.1 % Sodium Level 142 mmol/L (136-145) Potassium Level 3.5 mmol/L (3.5-5.1) Chloride Level 105 mmol/L (98-107) Carbon Dioxide Level 31 mmol/L (20-31) Anion Gap 6 (5-15) Blood Urea Nitrogen 19 mg/dL (9-23) Creatinine 0.93 mg/dL (0.700-1.30) Glomerular Filtration Rate Calc 86 mL/min (>90) BUN/Creatinine Ratio 20.4 (10.0-20.0) Serum Glucose 109 mg/dL (74-106) Calcium Level 9.7 mg/dL (8.7-10.4) Magnesium Level 1.9 mg/dL (1.6-2.6) Total Bilirubin 0.6 mg/dL (0.2-1.0) Aspartate Amino Transferase (AST) 14 U/L (13-40) Alanine Aminotransferase (ALT) 24 U/L (7-40) Alkaline Phosphatase 51 U/L (46-116) Total Protein 6.3 g/dL (5.7-8.2) Albumin 4.4 g/dL (3.2-4.8) Blood Gas Specimen Type Arterial Blood Gas Sample Site Right brachial Blood Gas Patient Temperature 37.0 Arterial Blood Date Drawn [id number] Arterial Blood pH 7.401 (7.350-7.450) Arterial Blood Partial Pressure CO2 46.4 mmHg (35.0-48.0) Arterial Blood Partial Pressure O2 82.4 mmHg (83.0-108.0) Arterial Blood HCO3 28.2 mmol/L (21.0-28.0) Arterial Blood Oxygen Saturation 95.5 % (94.0-98.0) Arterial Blood Base Excess 2.8 mmol/L (-2.0-3.0) Arterial Blood Oxyhemoglobin 94.3 % (94.0-98.0) Arterial Blood Carboxyhemoglobin 1.0 % (0.5-1.5) Arterial Blood Methemoglobin 0.3 % (0.0-1.5) Len Test N/a Blood Gas Total Hemoglobin 12.90 g/dL (13.5-17.5) Blood Gas Liter Flow 4.00 Blood Gas Modality Nasal cannula FiO2 % 36.0 Urine Color Yellow (Yellow) Urine Clarity Clear (Clear) Urine pH 6.0 (5.0-9.0) Urine Specific [place] 1.031 (1.001-1.035) Urine Protein 1+ (Negative) Urine Ketones Negative (Negative) Urine Blood Negative /uL (Negative) Urine Nitrite Negative (Negative) Urine Bilirubin Negative (Negative) Urine Urobilinogen Normal mg/dL (Negative) Urine Leukocyte Esterase Negative /uL (Negative) Urine RBC None seen /hpf (0 - 3) Urine Microscopic WBC < 1 /HPF (0-3) Urine Squamous Epithelial Cells Few /hpf (<5) Urine Bacteria None seen /hpf (None Seen) Urine Mucus Few (None Seen) Urine Glucose Normal mg/dL (Normal) Urine Opiates Screen Neg (NEGATIVE) Urine Fentanyl Screen Neg (NEGATIVE) Urine Barbiturates Screen Neg (NEGATIVE) Urine Phencyclidine Screen Neg (NEGATIVE) Urine Amphetamines Screen Neg (NEGATIVE) Urine Benzodiazepines Screen Neg (NEGATIVE) Urine Cocaine Screen Neg (NEGATIVE) Urine Cannabinoids Screen Neg (NEGATIVE) Test 10/06/24 21:58 10/06/24 19:00 D-Dimer, Quantitative < 0.19 mg/L FEU (0.0-0.49) Troponin I High Sensitivity 15 ng/L (</=54) C-Reactive Protein High Sensitivity 2.37 mg/dL (<1.0) Erythrocyte Sedimentation Rate 13 mm/hr (0-20) B-Type Natriuretic Peptide 315.14 pg/mL (0-100) Other Laboratory Tests 10/08/24 06:52 Brief Hx & Hospital Course: HPI-Patient is 74 years old male with past medical history of permanent atrial fibrillation (on Eliquis), coronary artery disease with a right coronary artery stent (confirmed on coronary angiography in August 2024), moderate disease in the mid-left artery, normal ejection fraction (64% on echocardiogram this year), COPD (on home oxygen 3L), and a history of leukemia (AML) in remission since 2015 (declined port removal), neuropathy came with a complaint of chest pain that started yesterday in the morning, central in nature, pressure-like, 9/10, radiating to the left arm and left elbow. Patient reported chest pain was associated with the shortness of breaths. Also endorsed bilateral leg swelling for last couple of weeks. Patient also reported elevated blood pressure 176/100. Patient denied any fever, palpitation, acute joint pain or swelling, dysarthria or change in vision. Initial lab workup revealed mild hypokalemia with potassium 3.4, BNP 315. EKG-atrial fibrillation, no acute ST or T-wave changes.. Cardiomegaly possible congestive failure, 2. Port-A-Cath in place from the right internal jugular vein with the tip in the superior vena cava above the right atrium. Doppler study of lower extremity negative for DVT. Diagnosis Acute on chronic hypoxic respiratory failure likely due to acute on chronic HFpEF Acute chest pain cardiac arrhythmia/ likely musculoskeletal ruled out acute coronary syndrome acute on chronic HFpEF Bilateral leg edema likely due to heart failure Atrial fibrillation, rate well controlled CAD, status post PTCA COPD, no acute exacerbation History of AML, in remission since 2015 Neuropathy Obesity Discharge plan Please resume home medications Please follow up with the primary care physician in 1 week Please follow up with the traveling secretary in 1-2 weeks Avoid dehydration Condition at Discharge: Stable Final Diagnosis/Problems List Acute on chronic hypoxic respiratory failure likely due to acute on chronic HFpEF Acute chest pain cardiac arrhythmia/ likely musculoskeletal ruled out acute coronary syndrome acute on chronic HFpEF Bilateral leg edema likely due to heart failure Atrial fibrillation, rate well controlled CAD, status post PTCA COPD, no acute exacerbation History of AML, in remission since 2015 Neuropathy Obesity Discharge Disposition: Home Discharge Instruct/Medications Diet: Cardiac 2g Na,low cholest Activity: Light activity Follow Up/Referral: Please follow up with the primary care physician in 1 week Please follow up with the traveling secretary in 1-2 weeks Please be compliant with medication Medications: Please resume home medication Discharge Statement: "Patient was advised to return to the ER or call 911 if any headaches, dizziness, shortness of breath, chest pain, abdominal pain, bleeding, fevers, or worsening of medical condition. Patient was counseled about treatment plan, medications, possible side effects, patientverbalized understanding. All questions were answered to the best of my ability. This discharge took greater then 30 minutes in planning, reviewing documentation, counseling the patient, and discussing with other team members." ASSESSMENT ASSESSMENT Assessment Acute chest pain, rule out acute coronary syndrome Acute on chronic hypoxic respiratory failure likely due to acute on chronic HFpEF acute on chronic HFpEF Bilateral leg edema likely due to heart failure Atrial fibrillation, rate well controlled CAD, status post PTCA COPD, no acute exacerbation History of AML, in remission since 2015 Neuropathy Obesity Date of Service: Oct 08, 2024 Billing Provider: DAMARIS CROUCH MD Common Visit Codes: 09543-ZCA/OBS DISCH DAY >30min QUIQUE BUCIO Oct 08, 2024 16:21 DAMARIS CROUCH MD Oct 11, 2024 02:33
== END 2024-10-08 18:24 | disposition home or self-care (01) | DRG 291 ==
LOC: EDSEX 18:53 → EDBD 18:53 → ER 18:53 → OVERFLOW 10-07 00:58 → TELE-CENTR 10-07 18:13 → TELE-WESTW 10-07 18:29
PROVIDERS: ADMIT Student in an Organized Health Care Education/Training Program; ATTEND Student in an Organized Health Care Education/Training Program
DX: I11.0 Hypertensive heart disease with heart failure (principal); I50.33 Acute on chronic diastolic (congestive) heart failure; J96.21 Acute and chronic respiratory failure with hypoxia; I48.21 Permanent atrial fibrillation; I16.0 Hypertensive urgency; I25.10 Atherosclerotic heart disease of native coronary artery without angina pectoris; E66.9 Obesity, unspecified; E78.5 Hyperlipidemia, unspecified; G62.9 Polyneuropathy, unspecified; J44.89 Other specified chronic obstructive pulmonary disease; I49.9 Cardiac arrhythmia, unspecified; Z88.6 Allergy status to analgesic agent; Z98.61 Coronary angioplasty status; Z68.29 Body mass index [BMI] 29.0-29.9, adult; Z88.1 Allergy status to other antibiotic agents; Z88.8 Allergy status to other drugs, medicaments and biological substances; Z79.01 Long term (current) use of anticoagulants; Z79.2 Long term (current) use of antibiotics; Z79.82 Long term (current) use of aspirin; Z85.6 Personal history of leukemia; Z79.899 Other long term (current) drug therapy; J44.9 Chronic obstructive pulmonary disease, unspecified
CPT/HCPCS: 36415; 36600; 71045; 80048; 80053; 80307; 81001; 82805; 83735; 83880; 84484; 85025; 85379; 85652; 86141; 93005; 93970; 99291; G0378; J2470

== ENCOUNTER 2024-10-29 12:29 | Inpatient (IN) | payer OTHER, MEDICAID, MEDICARE ==
[~2024-10-29] VITALS: Ht 177.8 cm; Wt 125.2 kg
[~2024-10-29 12:29] MED LIST changes: +AMLO1TAB22 PO; +DIGO0.12 PO; +LOSA-534 PO
--- NOTE | 2024-10-29 12:48 | ED.PDOC ---
HPI Comments 74-year-old male brought in by EMS presents with a chief complaint of chest heaviness. Patient was recently in the ER and was sent to a SNF where he developed A-Fib and was transferred to [facility] where he was inpatient for 5 days. Patient was given 325 of ASA by EMS, no NTG. Patient is on Eliquis for his A-Fib. Patients BP was low upon arrival at 100/69. Patient is also on supplemental oxygen. Patient took his medications this morning. PMHx: COPD, A-Fib, HTN, HLD, CHF, Asthma PSHx: Appendectomy HPI: Poor Historian. REVIEW OF SYSTEMS: CONSTITUTIONAL: Denies acute: fever, diaphoresis, chills, HEAD: Denies acute: headache, photophobia Eyes: Denies acute: Double vision, vision loss, eye pain, eye discharge. EARS: Denies acute: tinnitus, hearing loss, ear discharge, ear pain, THROAT: Denies acute: sore throat, swelling, difficulty swallowing , pain with swallowing, change in voice. NECK: Denies acute: neck pain, neck swelling, stiff neck. HEART: Denies acute : palpitations, LUNGS: Denies acute: SOB, wheezing, cough, hemoptysis ABDOMEN: Denies acute: abdominal pain, Nausea, Vomiting, diarrhea, melena , hematemesis, hematochezia SKIN: Denies acute: rash, redness, lesions, itchiness. EXTREMITIES: Denies acute: calf pain, numbness, tingling, weakness, denies pain in extremity. Denies acute: Low back pain. Neuro: Denies acute: focal neurological deficit, motor or sensory focal neurological deficit, tremors, seizure like activity, confusion, dizziness, change in mental status, loss of bowel or bladder function, cauda equina like symptoms. : Denies acute: dysuria, hematuria, flank pain, increase in urinary frequency. PSYCH: Denies acute: hallucination, suicidal ideation, homicidal ideation. FEMALE: Denies acute: abnormal vaginal bleeding, foul odor, unusual discharge. PHYSICAL EXAM: General: [id number] acute distress, awake and alert. Head: normocephalic, atraumatic. Neck: supple, trachea is midline, no swelling. Throat: Normal phonation. Eyes:, no erythema, no purulent discharge, no proptosis, no icterus. Heart: regular rate, history of atrial fibrillation, no significant murmur appreciated. Lungs: no apparent respiratory distress, Able to speak in full sentences. No wheezing, no rhonchi, no crackles. No stridors Clear to auscultation bilaterally. Abdomen: non tender to palpation, non distended, soft, no guarding, no rebound, + bowel sounds. Neuro: Awake, Alert, oriented to name, self, situation, follows commands GCS=15. Speech is normal. Skin: no petechia, no purpura, no cyanosis, slightly-pale, not jaundice. Lower extremities: --trace bilateral- Pitting edema no deformity, no focal swelling, no calf TTP. Makes eye contact. moves all four extremities. Face: no apparent facial droop. ED COURSE: Chief Complaint: Chest Pain Time Seen by MD: 12:36 Primary Care Provider: IVORY Reviewed Notes: Nurses Notes, Medications, Allergies Allergies: Coded Allergies: Fentanyl (Verified Allergy, Severe, 08/04/24) Tetracycline (Verified Allergy, Severe, 08/04/24) Patient states anaphalatic shock reaction from tetracycline and was hospitalized for 2 weeks. Povidone Iodine (Verified Allergy, Intermediate, RASH, 08/04/24) Home Meds Active Scripts Budesonide (Inhalation) (Budesonide) 0.5 Mg/2 Ml Kim, 0.5 MG NEB BID, #120 ML Prov:OSWALD CHAPMAN MD 08/17/24 Cefdinir (Cefdinir) 300 Mg Cap, 1 CAP PO BID, #10 CAP Prov:OSWALD CHAPMAN MD 08/17/24 Prednisone (Prednisone) 20 Mg Tab, 20 MG PO BID, #10 MG Prov:OSWALD CHAPMAN MD 08/17/24 Ranolazine (Ranolazine ER) 500 Mg Tab, 500 MG PO BID, #60 TAB Prov:OSWALD CHAPMAN MD 08/17/24 Mupirocin (Pseudomonas Fluores (Mupirocin) 2 % Oin, 1 APPLIC EACHNOSTRI BID, #1 OIN Prov:OSWALD CHAPMAN MD 08/17/24 Ipratropium-Albuterol (Ipratropium Varna/Albut) 1 Nicolle Nicolle, 1 NICOLLE IN TID, #90 ML Prov:OSWALD CHAPMAN MD 08/17/24 Amiodarone Hcl (Amiodarone Hcl) 200 Mg Tab, 1 TAB PO BID, #90 TAB 1 Refill Prov:OSWALD CHAPMAN MD 08/17/24 Metoprolol Succinate (Metoprolol Succinate Er) 50 Mg Tab, 1 TAB PO DAILY, #30 TAB 5 Refills Prov:OSWALD CHAPMAN MD 08/17/24 Docusate Sodium (Docusate Sodium) 100 Mg Cap, 100 MG PO BIDPRN PRN for 30 Days, #30 CAP Prov:HEIDE SÁNCHEZ MD 08/12/24 Aspirin (Aspirin Low Dose) 81 Mg Tab, 81 MG PO DAILY for 30 Days, #30 TAB Prov:HEIDE SÁNCHEZ MD 08/12/24 Reported Medications Digoxin (Digoxin) 125 Mcg Tab, 1 TAB PO DAILY for 30 Days, #30 10/18/24 Losartan Potassium (Losartan Potassium) 50 Mg Tab, 1 TAB PO DAILY for 90 Days, #90 10/18/24 Amlodipine Besylate (Amlodipine Besylate) 5 Mg Tab, 1 TAB PO DAILY for 90 Days, #90 10/18/24 Morphine Sulfate (Morphine Sulfate Er) 60 Mg Tab, 1 TAB PO Q4HPRN, #60 TAB 08/04/24 Atorvastatin Calcium (ATORVASTATIN CALCIUM) 40 Mg Tab, 1 TAB PO DAILY, #30 TAB 5 Refills 08/04/24 Furosemide (Furosemide) 20 Mg Tab, 1 TAB PO DAILYP, #90 TAB 1 Refill 08/04/24 Gabapentin (Gabapentin) 600 Mg Tab, 1 TAB PO TID, #90 TAB 3 Refills 08/04/24 Apixaban Base (ELIQUIS) 5 Mg Tab, 5 MG PO BID, TAB 08/04/24 Budesonide-Formoterol Fumarate (Budesonide/Formoterol Fum 160-4.5 Mcg/Act) 1 Aer Aer, 1 AER IN Q4HPRN, AER 08/04/24 Information Source: Patient, Emergency Med Personnel Mode of Arrival: EMS Severity: Moderate Past Medical History PAST MEDICAL HISTORY: AFIB, Asthma, CHF, COPD, High Lipids, HTN Surgical History: Appendectomy Family History Family History: Reviewed,noncontributory to illness Social History Smoker: Non-Smoker Alcohol: Denies ETOH Use Drugs: Denies Drug Use Lives In: Home Was a procedure done? Was a procedure done?: No CP Differential Dx Differential Diagnosis: N/A Differential Diagnosis: Other (Ddx include but not limitied to gastritis, musculoskeletal pain, radiculopathy, atypical chest pain, dissection, aneurysm, ACS, unstable angina, hiatal hernia, GERD, anxiety, costochondritis, PE, pneumothroax, neoplasm, cardiac ischemia, drug abuse, anemia.) X-Ray, Labs, Meds, VS Vital Signs Date Time Temp Pulse Resp B/P (MAP) Pulse Ox O2 Delivery O2 Flow Rate FiO2 10/29/24 14:00 89 12 109/67 (81) 98 10/29/24 13:26 82 10/29/24 13:05 89 10/29/24 13:00 97.7 89 12 86/52 (63) 98 97.7 10/29/24 12:34 98.9 101 22 100/69 (79) 96 98.9 10/29/24 12:29 95 Lab Test 10/29/24 15:13 10/29/24 14:33 10/29/24 13:04 Range/Units Lactic Acid Level 1.0 2.5 *H 0.4-2.0 mmol/L Troponin I High Sensitivity 9 9 </=54 ng/L White Blood Count 10.0 4.4-10.8 10^3/uL Red Blood Count 4.27 L 4.5-5.90 10^6/uL Hemoglobin 13.2 L 13.5-17.5 g/dL Hematocrit 39.6 L 41.0-53.0 % Mean Corpuscular Volume 92.8 80.0-100.0 fL Mean Corpuscular Hemoglobin 31.0 28.0-32.0 pg Mean Corpuscular Hemoglobin Concent 33.4 32.0-36.0 g/dL Red Cell Distribution Width 16.1 H 11.8-14.3 % Platelet Count 220 140-450 10^3/uL Mean Platelet Volume 7.9 6.9-10.8 fL Neutrophils (%) (Auto) 78.6 37.0-80.0 % Lymphocytes (%) (Auto) 11.3 10.0-50.0 % Monocytes (%) (Auto) 8.3 0.0-12.0 % Eosinophils (%) (Auto) 1.0 0.0-7.0 % Basophils (%) (Auto) 0.8 0.0-2.0 % Neutrophils # (Auto) 7.9 1.6-8.6 10 ^3/uL Lymphocytes # (Auto) 1.1 0.4-5.4 10 ^3/uL Monocytes # (Auto) 0.8 0-1.3 10 ^3/uL Eosinophils # (Auto) 0.1 0-0.8 10 ^3/uL Basophils # (Auto) 0.1 0-0.2 10 ^3/uL Nucleated Red Blood Cells 0.1 % Sodium Level 141 136-145 mmol/L Potassium Level 4.0 3.5-5.1 mmol/L Chloride Level 106 98-107 mmol/L Carbon Dioxide Level 27 20-31 mmol/L Anion Gap 8 5-15 Blood Urea Nitrogen 17 9-23 mg/dL Creatinine 1.18 0.700-1.30 mg/dL Glomerular Filtration Rate Calc 65 >90 mL/min BUN/Creatinine Ratio 14.4 10.0-20.0 Serum Glucose 115 H 74-106 mg/dL Calcium Level 9.1 8.7-10.4 mg/dL Magnesium Level 2.1 1.6-2.6 mg/dL Total Bilirubin 0.6 0.2-1.0 mg/dL Aspartate Amino Transferase (AST) 102 H 13-40 U/L Alanine Aminotransferase (ALT) 108 H 7-40 U/L Alkaline Phosphatase 57 46-116 U/L B-Type Natriuretic Peptide 111.90 0-100 pg/mL Total Protein 6.2 5.7-8.2 g/dL Albumin 4.4 3.2-4.8 g/dL Current Medications Medications (Trade) Dose Ordered Sig/Aixa Route Start Time Stop Time Status Last Admin Sodium Chloride 500 ml @ 500 mls/hr Q1H ONCE IV 10/29/24 13:30 10/29/24 14:29 DC 10/29/24 13:30 PATIENT: ANA LAURA BELLE MACCT: [id number]: [id number] : 1950 LOC: ER ROOM / BED: / AGE / SEX: 74 / M ADM STATUS: REG ER SERVICE 1241 ORDERING PHYSICIAN: ANGELO TOUSSAINT DO PROCEDURE(s): CXRP - CHEST PORTABLE REASON: cp ORDER NUMBER(s): [id number], ACCESSION NUMBER(s): [id number] CHEST RADIOGRAPH Indication: cp Technique: Single frontal view of the chest was obtained Comparison: XY CHEST PORTABLE on DOS: 10/15/24, XY CHEST PORTABLE on DOS: 10/06/24, XY CHEST PORTABLE on DOS: 08/13/24 FINDINGS: Lines and Tubes: MediPort in place in the from the right internal jugular vein with the in the distal superior vena cava. Lungs: No focal consolidation. Pleura: No effusion. No pneumothorax. Cardiomediastinal contours: Unremarkable Bones: No acute osseous abnormality. IMPRESSION: 1. No acute cardiopulmonary disease. 2. Port-A-Cath from right internal jugular vein in good position with the catheter tip at the cavoatrial junction. HS:Y ATED BY: JIGNA BROWN Jr., DO DICTATED DATE/TIME: 10/29/241326 SIGNED BY: JIGNA BROWN Jr., SIGNED DATE/TIME: 10/29/241326 Time of 1ST Reevaluation: 13:06 Reevaluation 1ST: Unchanged Patient Education/Counseling: Diagnosis, Treatment Family Education/Counseling: No Family Present Comments Patient presented with the above HPI.--chest pain----workup was initiated. patient was found with the above mentioned diagnosis. the following medications were ordered: please refer to order lists of meds and tests obtained by myself Dr. Toussaint. Patient ED course and VS have been stabilized. Patient has been reassessed in the ED and remained in a stable condition. Pertinent incidental findings were discussed with the patient and/or family. Patient/family voices understanding and is agreeable with plan. Patient has been observed in the ED adequate length of time to insure improvement/stability. Escalation of care considered: Consideration of escalation to observation or admission Patient was ADMITTED to the medicine team for further evaluation and treatment of their presentation. All the reports of any imaging studies that were ordered by myself were reviewed by myself. Departure 1 Departure Time of Disposition: 14:00 Impression: Primary Impression: Chest pain Qualified Codes: R07.9 - Chest pain, unspecified Additional Impressions: Thyroid disease Unspecified atrial fibrillation Qualified Codes: I48.91 - Unspecified atrial fibrillation Disposition: ADMITTED INPATIENT Admit to: Tele Condition: Guarded Discharged With: Self Critical Care Note Critical Care Time?: No Heart Score Heart Score: Heart Score Response (Comments) Value History Moderate Suspicious 1 EKG Normal 0 Age >65 2 Risk Factors >3 or Hx ASHD 2 Troponin Normal limit 0 Total 5 I personally scribed for ANGELO TOUSSAINT DO ([email or web address]) on 10/29/24 at 12:48. Electronically submitted by Akira Draper ([email or web address]). I personally scribed for ANGELO TOUSSAINT DO ([email or web address]) on 10/29/24 at 14:23. Electronically submitted by Akira Draper ([email or web address]). ANGELO TOUSSAINT DO Oct 29, 2024 12:48
--- NOTE | 2024-10-29 13:29 | DVH ---
CHEST RADIOGRAPH Indication: cp Technique: Single frontal view of the chest was obtained Comparison: XY CHEST PORTABLE on DOS: 10/15/24, XY CHEST PORTABLE on DOS: 10/06/24, XY CHEST PORTABLE on DOS: 08/13/24 FINDINGS: Lines and Tubes: MediPort in place in the from the right internal jugular vein with the in the distal superior vena cava. Lungs: No focal consolidation. Pleura: No effusion. No pneumothorax. Cardiomediastinal contours: Unremarkable Bones: No acute osseous abnormality. IMPRESSION: 1. No acute cardiopulmonary disease. 2. Port-A-Cath from right internal jugular vein in good position with the catheter tip at the cavoat rial junction. HS:Y
[2024-10-29 13:30] LABS: Basophils # (auto) 0.1 10 ^3/uL (0-0.2); Basophils % (auto) 0.8 % (0.0-2.0); Eosinophils # (auto) 0.1 10 ^3/uL (0-0.8); Hematocrit 39.6 % (41.0-53.0); Hemoglobin 13.2 g/dL (13.5-17.5); Lymphocytes # (auto) 1.1 10 ^3/uL (0.4-5.4); Lymphocytes % (auto) 11.3 % (10.0-50.0); Mean Corpuscular Hgb Conc. 33.4 g/dL (32.0-36.0); Mean Corpuscular Volume 92.8 fL (80.0-100.0); Monocytes # (auto) 0.8 10 ^3/uL (0-1.3); Monocytes % (auto) 8.3 % (0.0-12.0); Neutrophils # (auto) 7.9 10 ^3/uL (1.6-8.6); Neutrophils % (auto) 78.6 % (37.0-80.0); Nucleated Red Blood Cells % 0.1 %; Platelet Count (auto) 220 10^3/uL (140-450); Red Blood Cells 4.27 10^6/uL (4.5-5.90); Red Cell Distribution Width 16.1 % (11.8-14.3)
[2024-10-29] MEDS: SODIUM CHLORIDE 0.9% 500 ML IV ONE (13:30)
[2024-10-29 13:41] LABS: Albumin 4.4 g/dL (3.2-4.8); Alkaline Phosphatase 57 U/L (46-116); Anion Gap 8 (5-15); BUN/Creatinine Ratio 14.4 (10.0-20.0); Blood Urea Nitrogen 17 mg/dL (9-23); Calcium 9.1 mg/dL (8.7-10.4); Carbon Dioxide 27 mmol/L (20-31); Chloride 106 mmol/L (98-107); Magnesium 2.1 mg/dL (1.6-2.6); Sodium 141 mmol/L (136-145); Total Protein 6.2 g/dL (5.7-8.2)
[2024-10-29 13:42] LABS: Alanine Aminotransferase 108 U/L (7-40); Aspartate Aminotransferase 102 U/L (13-40); Bilirubin, Total 0.6 mg/dL (0.2-1.0); Glucose 115 mg/dL (74-106)
[2024-10-29 13:44] LABS: Lactic Acid w/Reflex 2.5 mmol/L (0.4-2.0)
[2024-10-29 15:46] VITALS: PULSE 81; RESP 16; O2SAT 97
--- NOTE | 2024-10-29 15:49 | DVHHPRES ---
History of Present Illness Resident Creating Document: MARINO GODFREY RESIDENT History of Present Illness This is a 74-year-old male with past medical history of HTN, hyperlipidemia, Leukaemia, COPD on home O2 2L, Afib on eloquis, CAD with s/p PTCA, CHF brought in by EMS presented with a chief complaint of chest heaviness and lightheadedness. Patient was recently in the ER and was sent to a SNF where he developed A-Fib and was transferred to [facility] where he was inpatient for 5 days. Patient was given 325 of ASA by EMS, no NTG. Patients BP was low upon arrival at 100/69. He denied shortness of breath, nausea, vomiting, blurred vision, or any change in bowel and bladder habit. Cardiovascular: AFIB, CAD, CHF, HTN, hyperipidemia Past Medical History HTN, Hyperlipidemia, CAD with s/p PTCA, Afib on eloquis, CHF, COPD on home O2 2L, Leukemia Past Surgical History: Appendectomy Past Surgical History Appendectomy Family History: None Past Social History Nonsmoker, nonalcoholic and never tried any drugs Lives alone with friends Review of Systems Constitutional: No: Fever, Chills, Sweats, Weakness, Malaise, Other Eyes: No: Pain, Vision change, Conjunctivae inflammation, Eyelid inflammation, Other, Redness ENT: No: Ear pain, Ear discharge, Nose pain, Nose discharge, Nose congestion, Mouth pain, Mouth swelling, Throat pain, Throat swelling, Other Respiratory: No: Cough, Dry, Shortness of breath, SOB with excertion, Wheezing, Hemoptysis, Pleuritic Pain, Sputum, Wheezing, Other Cardiovascular: Chest Pain, Lt Headedness; No: Palpitations, Orthopnea, Paroxysmal Noc. Dyspnea, Edema, Other Gastrointestinal: No: Nausea, Vomiting, Abdominal Pain, Diarrhea, Constipation, Melena, Hematochezia, Other Genitourinary: No Dysuria, No Frequency, No Incontinence, No Hematuria, No Retention, No Other Musculoskeletal: No: other, neck pain, shoulder pain, arm pain, back pain, hand pain, leg pain, foot pain Skin: No: Rash, Lesions, Jaundice, Bruising, Other Neurological: No: Weakness, Numbness, Incoordination, Change in speech, Confusion, Seizures, Other Allergies: Coded Allergies: Fentanyl (Verified Allergy, Severe, 08/04/24) Tetracycline (Verified Allergy, Severe, 08/04/24) Patient states anaphalatic shock reaction from tetracycline and was hospitalized for 2 weeks. Povidone Iodine (Verified Allergy, Intermediate, RASH, 08/04/24) Medications Current Medications Medications Dose Ordered Sig/Aixa Route Start Time Stop Time Status Last Admin Dose Admin Nitroglycerin 0.4 mg Q5MINP PRN SL 10/29/24 15:45 UNV Morphine Sulfate 2 mg Q30M PRN IV 10/29/24 15:45 UNV Amiodarone HCl 200 mg BID PO 10/29/24 22:00 UNV Amlodipine Besylate 5 mg DAILY PO 10/30/24 10:00 UNV Apixaban 5 mg BID PO 10/29/24 22:00 UNV Aspirin 81 mg DAILY PO 10/30/24 10:00 UNV Digoxin 0.125 mg DAILY PO 10/30/24 10:00 UNV Docusate Sodium 100 mg BIDPRN PRN PO 10/29/24 15:45 UNV Furosemide 20 mg DAILYP PO 10/30/24 10:00 UNV Losartan Potassium 50 mg DAILY PO 10/30/24 10:00 UNV Metoprolol Succinate 50 mg DAILY PO 10/30/24 10:00 UNV Ranolazine 500 mg BID PO 10/29/24 22:00 UNV Patient Own Medication 1 tab DAILY PO 10/30/24 10:00 UNV Patient Own Medication 1 tab TID PO 10/29/24 22:00 UNV Exam Vital Signs Vital Signs Date Time Temp Pulse Resp B/P (MAP) Pulse Ox O2 Delivery O2 Flow Rate FiO2 10/29/24 14:00 89 12 109/67 (81) 98 10/29/24 13:00 97.7 97.7 Exam Physical examination: General Appearance: Alert, Oriented X3, Cooperative, No acute distress HEENT: Atraumatic, PERRLA, EOMI, Mucous membrane moist/pink Respiratory: Clear to auscultation, Normal air movement Cardiovascular: Regular rate, Normal S1, Normal S2, No murmurs, no chest wall tenderness Abdominal: Normal bowel sounds, Soft, No tenderness, No hepatospenomegaly, No masses Extremities: No clubbing, No cyanosis, No edema, Normal pulses, No tenderness/swelling Skin: No rashes, No breakdown, No significant lesion Neuro: Normal speech, Strength at 5/5 X4 ext, Normal tone, Sensation intact, grossly intact cranial nerves Psych/Mental Status: Mental status NL, Mood NL Labs/Xrays Labs Test 10/29/24 15:13 10/29/24 14:33 10/29/24 13:04 Range/Units Troponin I High Sensitivity 9 </=54 ng/L White Blood Count 10.0 4.4-10.8 10^3/uL Red Blood Count 4.27 L 4.5-5.90 10^6/uL Hemoglobin 13.2 L 13.5-17.5 g/dL Hematocrit 39.6 L 41.0-53.0 % Mean Corpuscular Volume 92.8 80.0-100.0 fL Mean Corpuscular Hemoglobin 31.0 28.0-32.0 pg Mean Corpuscular Hemoglobin Concent 33.4 32.0-36.0 g/dL Red Cell Distribution Width 16.1 H 11.8-14.3 % Platelet Count 220 140-450 10^3/uL Mean Platelet Volume 7.9 6.9-10.8 fL Neutrophils (%) (Auto) 78.6 37.0-80.0 % Lymphocytes (%) (Auto) 11.3 10.0-50.0 % Monocytes (%) (Auto) 8.3 0.0-12.0 % Eosinophils (%) (Auto) 1.0 0.0-7.0 % Basophils (%) (Auto) 0.8 0.0-2.0 % Neutrophils # (Auto) 7.9 1.6-8.6 10 ^3/uL Lymphocytes # (Auto) 1.1 0.4-5.4 10 ^3/uL Monocytes # (Auto) 0.8 0-1.3 10 ^3/uL Eosinophils # (Auto) 0.1 0-0.8 10 ^3/uL Basophils # (Auto) 0.1 0-0.2 10 ^3/uL Nucleated Red Blood Cells 0.1 % Sodium Level 141 136-145 mmol/L Potassium Level 4.0 3.5-5.1 mmol/L Chloride Level 106 98-107 mmol/L Carbon Dioxide Level 27 20-31 mmol/L Anion Gap 8 5-15 Blood Urea Nitrogen 17 9-23 mg/dL Creatinine 1.18 0.700-1.30 mg/dL Glomerular Filtration Rate Calc 65 >90 mL/min BUN/Creatinine Ratio 14.4 10.0-20.0 Serum Glucose 115 H 74-106 mg/dL Calcium Level 9.1 8.7-10.4 mg/dL Magnesium Level 2.1 1.6-2.6 mg/dL Total Bilirubin 0.6 0.2-1.0 mg/dL Aspartate Amino Transferase (AST) 102 H 13-40 U/L Alanine Aminotransferase (ALT) 108 H 7-40 U/L Alkaline Phosphatase 57 46-116 U/L B-Type Natriuretic Peptide 111.90 0-100 pg/mL Total Protein 6.2 5.7-8.2 g/dL Albumin 4.4 3.2-4.8 g/dL Assessment/Plan Assessment/Plan Assessment and plan: # Acute chest pain rule out ACS # H/O of CAD , s/p PTCAX1 stent # Hypertensive heart disease with possible chronic diastolic heart failure # Acute hypotension # chronic hypoxic respiratory respiratory failure due to COPD - EKG showed Afib with controlled rate - Troponin trends are unremarkable - CxR revealed no acute abnormality and Port-A-Cath from right internal jugular vein in good position with the catheter tip at the cavoatrial junction. - Echo on 08/18 demonstrated EF 20% - Patient was given aspirin 325 mg once - Aspirin 81 mg daily and atorvastatin 40 mg at HS - Given IV bolus followed by IV N/S @ 75 ml/hr - Hold antihypertensives due to low BP # Permanent atrial fibrillation and secondary hypercoagulable state [id number] score 4 - Continue amiodarone 200 mg bid and eloquis 5 mg bid # PUD prophylaxis - Pepcid 20 mg po daily # DVT prophylaxis - Patient is on eloquis Goal of care discussed with the patient for more than 20 minutes full code Plan discussed with Dr. Latham Plan discussed with: Patient, Other My Orders Orders - MARINO GODFREY RESIDENT Procedure Category Date Status Time Admit ADMIT 10/29/24 Transmitted 15:41 Nitroglycerin PHA 10/29/24 Logged Sublingual (Ntrostat 15:45 Morphine Sulfate PHA 10/29/24 Logged Injection 15:45 Oxygen By Nasal RT 10/29/24 Transmitted Cannula 15:41 Stat Ekg For Chest RUBY 10/29/24 In Process Pain 15:41 Notify Md Of Changes RUBY 10/29/24 In Process From Base 15:41 French Teacher For [facility] 10/29/24 In Process 24 Hours 15:41 Emergency Dysrhythmia [facility] 10/29/24 In Process Protocol 15:41 Rhythm Strips Once [facility] 10/29/24 In Process Every Shift 15:41 Amiodarone Tablet [facility] 10/29/24 Logged (Cordarone Tablet) 22:00 Amlodipine Tablet [facility] 10/30/24 Logged (Norvasc Tablet) 10:00 Apixaban (Eliquis) [facility] 10/29/24 Logged 22:00 Aspirin Enteric [facility] 10/30/24 Logged Coated Tablet 10:00 Digoxin Tablet [facility] 10/30/24 Logged (Lanoxin Tablet) 10:00 Docusate Sodium [facility] 10/29/24 Logged Capsule (Colace 15:45 Furosemide Tablet [facility] 10/30/24 Logged (Lasix Tablet) 10:00 Losartan Tablet [facility] 10/30/24 Logged (Cozaar Tablet) 10:00 Metoprolol Xl [facility] 10/30/24 Logged Succinate (Toprol Xl) 10:00 Ranolazine (Ranexa Er) [facility] 10/29/24 Logged 22:00 (Nf) Atorvastatin [facility] 10/30/24 Logged Calcium 10:00 (Nf) Gabapentin [facility] 10/29/24 Logged 22:00 Date of Service: Oct 29, 2024 Billing Provider: ANGELI LATHAM MD Common Visit Codes: 31161-[id number] INP/OBS CARE (HIGH) Secondary Visit Codes: 70693-[id number] CARE PLAN 30 MINUTES EPIFANIOMARINO RESIDENT Oct 29, 2024 15:49 ANGELI LATHAM MD Oct 31, 2024 08:58
[2024-10-29] MEDS: SODIUM CHLORIDE 0.9% 1,000 ML IV ONE (16:13)
[2024-10-29] MEDS: GABAPENTIN 300 MG CAP PO SCH (16:53)
[2024-10-29] MEDS: NITROGLYCERIN 0.4 MG SL TAB SL PRN (17:19)
--- NOTE | 2024-10-29 17:25 | ECG ---
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
--- NOTE | 2024-10-29 19:35 | ECG ---
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
[2024-10-29 21:04] VITALS: BP 125/84; PULSE 85; RESP 18; TEMP 98.1; O2SAT 98
[2024-10-29 22:29] VITALS: PULSE 78
[2024-10-29] MEDS: ATORVASTATIN 20 MG TAB PO SCH (23:24)
[2024-10-29] MEDS: RANOLAZINE ER 500 MG TAB PO SCH (23:24)
[2024-10-29] MEDS: AMIODARONE HCL 200 MG TAB PO SCH (23:25)
[2024-10-29] MEDS: APIXABAN 5 MG TAB PO SCH (23:25)
[2024-10-30] VITALS (8 sets, daily range): BP systolic 108–145; BP diastolic 68–88; PULSE 67–81; RESP 16–19; TEMP 96.7–97.9; O2SAT 98–100
[2024-10-30] MEDS: DOCUSATE SOD 100 MG CAP PO PRN (05:31)
[2024-10-30 07:50] LABS: Basophils # (auto) 0.1 10 ^3/uL (0-0.2); Basophils % (auto) 1.9 % (0.0-2.0); Eosinophils # (auto) 0.1 10 ^3/uL (0-0.8); Hemoglobin 12.1 g/dL (13.5-17.5); Lymphocytes # (auto) 1.2 10 ^3/uL (0.4-5.4); Lymphocytes % (auto) 18.2 % (10.0-50.0); Mean Corpuscular Hemoglobin 32.1 pg (28.0-32.0); Mean Corpuscular Hgb Conc. 34.6 g/dL (32.0-36.0); Mean Corpuscular Volume 92.8 fL (80.0-100.0); Monocytes # (auto) 0.8 10 ^3/uL (0-1.3); Monocytes % (auto) 11.1 % (0.0-12.0); Neutrophils # (auto) 4.6 10 ^3/uL (1.6-8.6); Neutrophils % (auto) 66.8 % (37.0-80.0); Platelet Count (auto) 187 10^3/uL (140-450); Red Blood Cells 3.78 10^6/uL (4.5-5.90); Red Cell Distribution Width 15.7 % (11.8-14.3); White Blood Cell 6.8 10^3/uL (4.4-10.8)
[2024-10-30 08:17] LABS: Anion Gap 8 (5-15); Calcium 9.2 mg/dL (8.7-10.4); Carbon Dioxide 26 mmol/L (20-31); Chloride 104 mmol/L (98-107); Potassium 4.1 mmol/L (3.5-5.1); Sodium 138 mmol/L (136-145)
[2024-10-30 08:23] LABS: BUN/Creatinine Ratio 18.2 (10.0-20.0); Blood Urea Nitrogen 16 mg/dL (9-23); Glucose 89 mg/dL (74-106)
[2024-10-30] MEDS: MORPHINE SULFATE INJ 2 MG/ml SYRG IV PRN (08:42)
[2024-10-30] MEDS: LOSARTAN POTASSIUM 50 MG TAB PO SCH (08:48)
[2024-10-30] MEDS: FAMOTIDINE 20 MG TAB PO SCH (08:48)
[2024-10-30] MEDS: amLODIPine BESYLATE 5 MG TAB PO SCH (08:49)
[2024-10-30] MEDS: FUROSEMIDE 20 MG TAB PO SCH (08:49)
[2024-10-30] MEDS: METOPROLOL SUCCINATE XL 50 MG TAB PO SCH (08:49)
[2024-10-30] MEDS: DIGOXIN 0.125 MG TAB PO SCH (08:50)
[2024-10-30] MEDS: ASPirin-EC 81 mg tab PO SCH (08:55)
[2024-10-30 14:19] LABS: Urine Bacteria FEW /hpf (None Seen); Urine Blood Negative /uL (Negative); Urine Clarity Clear (Clear); Urine Color Yellow (Yellow); Urine Hyaline Cast FEW /lpf (0 - 2); Urine Mucus FEW (None Seen); Urine Protein, UAD TRACE (Negative); Urine Specific Gravity 1.028 (1.001-1.035); Urine Squamous Epithelial Cell None Seen /hpf (<5); Urine Urobilinogen 4 mg/dL (Negative); Urine WBC 2 /HPF (0-3)
[2024-10-30 14:27] LABS: Amphetamine Screen, Urine Neg (NEGATIVE); Barbiturate Scree,Urine Neg (NEGATIVE); Benzodiazephine Screen, Urine Neg (NEGATIVE); Cocaine Screen, Urine Neg (NEGATIVE); Opiate Scree,Urine Pos (NEGATIVE)
[2024-10-30 14:30] LABS: Cannabinoid Screen, Urine Neg (NEGATIVE); Phencyclidine Screen, Urine Neg (NEGATIVE)
--- NOTE | 2024-10-30 18:06 | DVHPN2 ---
Subjective 10/30-patient continues to have chest pain midsternal heaviness like. Patient has history of GERD and declines being similar to GERD. There is mild chest tenderness could be possible costochondritis or musculoskeletal. We will try nighttime baclofen and ibuprofen. Continue q.4 H neuro checks by RN. Symptoms could resemble TIA. Otherwise heart rate controlled for recent admissions for AFib. Continue other home medications. Recent echo normal. Troponin negative EKG negative. Continue telemetry Reviewed: H&P Changes from previous H/P or p: No Changes General: Per HPI Eyes: No Pain, No Vision change, No Conjunctivae inflammation, No Eyelid inflammation, No Other, No Redness ENT: No Ear pain, No Ear discharge, No Nose pain, No Nose discharge, No Nose congestion, No Mouth pain, No Mouth swelling, No Throat pain, No Throat swelling, No Other Cardiovascular: Chest Pain; No Palpitations, No Orthopnea, No Paroxysmal Noc. Dyspnea, No Edema; Lt Headedness; No Other Respiratory: No Cough, No Dry, No Shortness of breath, No SOB with excertion, No Wheezing, No Hemoptysis, No Pleuritic Pain, No Sputum, No Other Gastrointestinal: No Nausea, No Vomiting, No Abdominal Pain, No Diarrhea, No Constipation, No Melena, No Hematochezia, No Other Genitourinary: No Dysuria, No Frequency, No Incontinence, No Hematuria, No Retention, No Other Musculoskeletal: No other, No neck pain, No shoulder pain, No arm pain, No back pain, No hand pain, No leg pain, No foot pain Skin: No Rash, No Lesions, No Jaundice, No Bruising, No Other Objective Vitals Vital Signs Date Time Temp Pulse Resp B/P (MAP) Pulse Ox O2 Delivery O2 Flow Rate FiO2 10/30/24 17:00 97.9 69 16 120/78 (92) 98 97.9 10/30/24 08:30 Nasal Cannula* 2 28 Intake/Output Intake and Output 10/30/24 07:00 Intake Total 250 ml Output Total 400 ml Balance -150 ml Intake Oral 250 ml Output Urine Total 400 ml Exam General Appearance: Alert, Oriented X3, Cooperative, No acute distress HEENT: Atraumatic, PERRLA, EOMI, Mucous membrane moist/pink Respiratory: Clear to auscultation, Normal air movement Cardiovascular: Regular rate, Normal S1, Normal S2, No murmurs, no chest wall tenderness Abdominal: Normal bowel sounds, Soft, No tenderness, No hepatospenomegaly, No masses Extremities: No clubbing, No cyanosis, No edema, Normal pulses, No tenderness/swelling Skin: No rashes, No breakdown, No significant lesion Neuro: Normal speech, Strength at 5/5 X4 ext, Normal tone, Sensation intact, grossly intact cranial nerves Psych/Mental Status: Mental status NL, Mood NL Medications Current Medications Medications Dose Ordered Sig/Aixa Route Start Time Stop Time Status Last Admin Dose Admin Nitroglycerin 0.4 mg Q5MINP PRN SL 10/29/24 15:45 10/29/24 17:19 0.4 MG Morphine Sulfate 2 mg Q30M PRN IV 10/29/24 15:45 10/30/24 13:36 2 MG Amiodarone HCl 200 mg BID PO 10/29/24 22:00 10/30/24 08:48 200 MG Amlodipine Besylate 5 mg DAILY PO 10/30/24 10:00 10/30/24 08:49 5 MG Apixaban 5 mg BID PO 10/29/24 22:00 10/30/24 10:01 5 MG Aspirin 81 mg DAILY PO 10/30/24 10:00 10/30/24 08:55 81 MG Digoxin 0.125 mg DAILY PO 10/30/24 10:00 10/30/24 08:50 0.125 MG Docusate Sodium 100 mg BIDPRN PRN PO 10/29/24 15:45 10/30/24 05:31 100 MG Furosemide 20 mg DAILYP PO 10/30/24 10:00 10/30/24 08:49 20 MG Losartan Potassium 50 mg DAILY PO 10/30/24 10:00 10/30/24 08:48 50 MG Metoprolol Succinate 50 mg DAILY PO 10/30/24 10:00 Hold 10/30/24 08:49 50 MG Ranolazine 500 mg BID PO 10/29/24 22:00 10/30/24 08:56 500 MG Atorvastatin Calcium 40 mg HS PO 10/29/24 22:00 10/29/24 23:24 40 MG Gabapentin 300 mg TID PO 10/29/24 16:16 10/30/24 13:16 300 MG Famotidine 20 mg DAILY PO 10/30/24 10:00 10/30/24 08:48 20 MG Baclofen 10 mg HS PO 10/30/24 22:00 Ibuprofen 600 mg HS PO 10/30/24 22:00 Acetaminophen/ Hydrocodone Bitart 1 tab Q4HPRN PRN PO 10/30/24 16:30 Laboratory Results Laboratory Tests 10/30/24 06:32 Chemistry Test 10/30/24 06:32 Calcium Level 9.2 mg/dL (8.7-10.4) Urinalysis Test 10/30/24 14:02 Urine Color Yellow (Yellow) Urine Clarity Clear (Clear) Urine pH 6.0 (5.0-9.0) Urine Specific [place] 1.028 (1.001-1.035) Urine Protein Trace (Negative) H Urine Ketones Negative (Negative) Urine Blood Negative /uL (Negative) Urine Nitrite Negative (Negative) Urine Bilirubin Negative (Negative) Urine Urobilinogen 4 mg/dL (Negative) H Urine Leukocyte Esterase Negative /uL (Negative) Urine RBC 1 /hpf (0 - 3) Urine Microscopic WBC 2 /HPF (0-3) Urine Squamous Epithelial Cells None seen /hpf (<5) Urine Calcium Oxalate Crystals Few (None Seen) Urine Bacteria Few /hpf (None Seen) H Urine Hyaline Casts Few /lpf (0 - 2) Urine Mucus Few (None Seen) Urine Glucose Normal mg/dL (Normal) Labs and/or images reviewed: Labs reviewed by me, Image(s) reviewed by me Assessment/Plan Assessment/Plan 10/30-patient continues to have chest pain midsternal heaviness like. Patient has history of GERD and declines being similar to GERD. There is mild chest tenderness could be possible costochondritis or musculoskeletal. We will try nighttime baclofen and ibuprofen. Continue q.4 H neuro checks by RN. Symptoms could resemble TIA. Otherwise heart rate controlled for recent admissions for AFib. Continue other home medications. Recent echo normal. Troponin negative EKG negative. Continue telemetry # Acute chest pain rule out ACS # H/O of CAD , s/p PTCAX1 stent # Hypertensive heart disease with possible chronic diastolic heart failure # Acute hypotension # chronic hypoxic respiratory respiratory failure due to COPD - EKG showed Afib with controlled rate - Troponin trends are unremarkable - CxR revealed no acute abnormality and Port-A-Cath from right internal jugular vein in good position with the catheter tip at the cavoatrial junction. - Echo on 08/18 demonstrated EF 20% - Patient was given aspirin 325 mg once - Aspirin 81 mg daily and atorvastatin 40 mg at HS - Given IV bolus followed by IV N/S @ 75 ml/hr - Hold antihypertensives due to low BP # Permanent atrial fibrillation and secondary hypercoagulable state [id number] score 4 - Continue amiodarone 200 mg bid and eloquis 5 mg bid # PUD prophylaxis - Pepcid 20 mg po daily # DVT prophylaxis - Patient is on eloquis Plan discussed with: Patient My Orders Orders - DAMARIS CROUCH MD Procedure Category Date Status Time Baclofen Tablet PHA 10/30/24 In Process (Liorisal Tablet) 22:00 Ibuprofen Tablet PHA 10/30/24 In Process (Motrin Tablet) 22:00 Hydrocodone-Acet PHA 10/30/24 In Process 5/325mg Tab ([place] 16:30 Date of Service: Oct 30, 2024 Billing Provider: DAMARIS CROUCH MD Common Visit Codes: [id number] INP/OBS CARE(HIGH) DAMARIS CROUCH MD Oct 30, 2024 18:06
[2024-10-30] MEDS: HYDROcodone-ACET 5/325MG TAB PO PRN (18:46)
[2024-10-30] MEDS: BACLOFEN 10 MG TAB PO SCH (21:32)
[2024-10-30] MEDS: IBUPROFEN 600 MG TAB PO SCH (21:33)
[2024-10-31] VITALS (11 sets, daily range): BP systolic 94–121; BP diastolic 58–83; PULSE 68–89; RESP 18–20; TEMP 97.7–98.2; O2SAT 97–99
[2024-10-31 07:54] LABS: Anion Gap 5 (5-15); Carbon Dioxide 30 mmol/L (20-31); Chloride 103 mmol/L (98-107); Potassium 4.4 mmol/L (3.5-5.1); Sodium 138 mmol/L (136-145)
[2024-10-31 07:55] LABS: Calcium 9.2 mg/dL (8.7-10.4)
[2024-10-31 08:00] LABS: BUN/Creatinine Ratio 20.7 (10.0-20.0); Blood Urea Nitrogen 18 mg/dL (9-23); Glucose 88 mg/dL (74-106)
--- NOTE | 2024-10-31 11:05 | DVHPNRES ---
Progress Note Date Seen: Oct 31, 2024 Resident Creating Document: MARINO GODFREY RESIDENT Medical Necessity Reason Pt with a Central, PICC or Fol: No Subjective Review of Systems Patient was seen and examined on the bedside. Oriented x3. Complaints of chest pain and dizziness. Orthostatic vital was negative and ordered EKG to rule out cardiac ischemia Objective vital signs Vital Sign Date Time Temp Pulse Resp B/P (MAP) Pulse Ox O2 Delivery O2 Flow Rate FiO2 10/31/24 09:21 128/68 10/31/24 09:20 72 10/31/24 05:00 98.2 18 99 98.2 10/30/24 20:00 Nasal Cannula* 2 28 Total Intake and Output 10/30/24 10/30/24 10/31/24 15:00 23:00 07:00 Intake Total 250 ml 340 ml Output Total 420 ml 400 ml 450 ml Balance -420 ml -150 ml -110 ml medications Current Medications Medications Dose Ordered Sig/Aixa Route Start Time Stop Time Status Last Admin Dose Admin Nitroglycerin 0.4 mg Q5MINP PRN SL 10/29/24 15:45 10/29/24 17:19 0.4 MG Morphine Sulfate 2 mg Q30M PRN IV 10/29/24 15:45 10/30/24 13:36 2 MG Amiodarone HCl 200 mg BID PO 10/29/24 22:00 10/31/24 09:18 200 MG Amlodipine Besylate 5 mg DAILY PO 10/30/24 10:00 10/31/24 09:21 5 MG Apixaban 5 mg BID PO 10/29/24 22:00 10/31/24 09:21 5 MG Aspirin 81 mg DAILY PO 10/30/24 10:00 10/31/24 09:19 81 MG Digoxin 0.125 mg DAILY PO 10/30/24 10:00 10/31/24 09:20 0.125 MG Docusate Sodium 100 mg BIDPRN PRN PO 10/29/24 15:45 10/31/24 05:46 100 MG Furosemide 20 mg DAILYP PO 10/30/24 10:00 10/31/24 09:18 20 MG Losartan Potassium 50 mg DAILY PO 10/30/24 10:00 10/31/24 09:19 50 MG Metoprolol Succinate 50 mg DAILY PO 10/30/24 10:00 Hold 10/30/24 08:49 50 MG Ranolazine 500 mg BID PO 10/29/24 22:00 10/31/24 09:20 500 MG Atorvastatin Calcium 40 mg HS PO 10/29/24 22:00 10/30/24 21:31 40 MG Gabapentin 300 mg TID PO 10/29/24 16:16 10/31/24 05:46 300 MG Famotidine 20 mg DAILY PO 10/30/24 10:00 10/31/24 09:21 20 MG Baclofen 10 mg HS PO 10/30/24 22:00 10/30/24 21:32 10 MG Ibuprofen 600 mg HS PO 10/30/24 22:00 10/30/24 21:33 600 MG Acetaminophen/ Hydrocodone Bitart 1 tab Q4HPRN PRN PO 10/30/24 16:30 10/31/24 05:46 1 TAB Examination Physical examination: General Appearance: Alert, Oriented X3, Cooperative, No acute distress HEENT: Atraumatic, PERRLA, EOMI, Mucous membrane moist/pink Respiratory: Clear to auscultation, Normal air movement Cardiovascular: Regular rate, Normal S1, Normal S2, No murmurs, no chest wall tenderness Abdominal: Normal bowel sounds, Soft, No tenderness, No hepatospenomegaly, No masses Extremities: No clubbing, No cyanosis, No edema, Normal pulses, No tenderness/swelling Skin: No rashes, No breakdown, No significant lesion Neuro: Normal gait, Normal speech, Strength at 5/5 X4 ext, Normal tone, Sensation intact, grossly intact cranial nerves Psych/Mental Status: Mental status NL, Mood NL laboratory and microbiology Laboratory Tests 10/31/24 06:26 10/30/24 06:32 Test 10/31/24 06:26 Range/Units Serum Glucose 88 74-106 mg/dL Labs and/or images reviewed: Labs reviewed by me, Image(s) reviewed by me Problem List/Assessment/Plan Problem List/Assessment/Plan Assessment and plan: # Acute chest pain ruled out ACS # H/O of CAD , s/p PTCAX1 stent # Hypertensive heart disease with possible chronic diastolic heart failure # Acute hypotension # chronic hypoxic respiratory respiratory failure due to COPD - EKG showed Afib with controlled rate - Troponin trends are unremarkable - Orthostatic vital negative - CxR revealed no acute abnormality and Port-A-Cath from right internal jugular vein in good position with the catheter tip at the cavoatrial junction. - Echo on 08/18 demonstrated EF 60% - Patient was given aspirin 325 mg once - Aspirin 81 mg daily and atorvastatin 40 mg at HS - Given IV bolus followed by IV N/S @ 75 ml/hr - Hold antihypertensives due to low BP # Permanent atrial fibrillation and secondary hypercoagulable state [id number] score 4 - Continue amiodarone 200 mg bid and eloquis 5 mg bid # PUD prophylaxis - Pepcid 20 mg po daily # DVT prophylaxis - Patient is on eloquis Goal of care discussed with the patient for more than 20 minutes full code Plan discussed with Plan discussed with: Patient, Other My Orders My Orders Orders - MARINO GODFREY Procedure Category Date Status Time Mrsa Screen SOFI 10/30/24 In Process 13:24 Free T3 LAB 10/31/24 In Process 08:55 Free T4 (Free LAB 10/31/24 In Process Thyroxine) 08:55 Orthostatic Vital ORDERS 10/31/24 Transmitted Signs 11:00 Date of Service: Oct 31, 2024 Billing Provider: DAMARIS CROUCH MD Common Visit Codes: [id number] INP/OBS CARE(HIGH) MARINO GODFREY Oct 31, 2024 11:05 DAMARIS CROUCH MD Nov 03, 2024 23:56
[2024-10-31] MEDS: LACTULOSE 20Gm/30ML SOLN PO ONE (17:17)
[2024-10-31] MEDS: ONDANSETRON HCL 4 MG/2 ML VIAL IV PRN (21:35)
[2024-11-01] VITALS (9 sets, daily range): BP systolic 108–132; BP diastolic 58–78; PULSE 66–90; RESP 18–19; TEMP 97.4–98.2; O2SAT 97–99
--- NOTE | 2024-11-01 08:24 | ECG ---
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
[2024-11-01 10:37] LABS: Free T3 2.17 pg/mL (2.3-4.2)
[2024-11-01 10:38] LABS: Free T4 (Free Thyroxine) 1.25 ng/dL (0.89-1.76)
--- NOTE | 2024-11-01 11:01 | ECG ---
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
[2024-11-01] MEDS ORDERED: CYCL-837 PO (15:19)
--- NOTE | 2024-11-01 16:41 | DVHDSRES ---
Discharge Summary Date of Admission Resident Creating Document: MARINO GODFREY RESIDENT Oct 29, 2024 at 15:41 Date of Discharge: Nov 01, 2024 Admitting Diagnosis Acute chest pain rule out ACS Wounds: No wound was present. Labs/Diagnostic Data: Laboratory Results Test 10/31/24 06:26 10/30/24 14:02 10/30/24 06:32 10/29/24 17:36 Sodium Level 138 mmol/L (136-145) Potassium Level 4.4 mmol/L (3.5-5.1) Chloride Level 103 mmol/L (98-107) Carbon Dioxide Level 30 mmol/L (20-31) Anion Gap 5 (5-15) Blood Urea Nitrogen 18 mg/dL (9-23) Creatinine 0.87 mg/dL (0.700-1.30) Glomerular Filtration Rate Calc 91 mL/min (>90) BUN/Creatinine Ratio 20.7 (10.0-20.0) Serum Glucose 88 mg/dL (74-106) Calcium Level 9.2 mg/dL (8.7-10.4) Free Thyroxine (T4) Calculated 1.25 ng/dL (0.89-1.76) Free Triiodothyronine (T3) pg/mL 2.17 pg/mL (2.3-4.2) Urine Color Yellow (Yellow) Urine Clarity Clear (Clear) Urine pH 6.0 (5.0-9.0) Urine Specific [place] 1.028 (1.001-1.035) Urine Protein Trace (Negative) Urine Ketones Negative (Negative) Urine Blood Negative /uL (Negative) Urine Nitrite Negative (Negative) Urine Bilirubin Negative (Negative) Urine Urobilinogen 4 mg/dL (Negative) Urine Leukocyte Esterase Negative /uL (Negative) Urine RBC 1 /hpf (0 - 3) Urine Microscopic WBC 2 /HPF (0-3) Urine Squamous Epithelial Cells None seen /hpf (<5) Urine Calcium Oxalate Crystals Few (None Seen) Urine Bacteria Few /hpf (None Seen) Urine Hyaline Casts Few /lpf (0 - 2) Urine Mucus Few (None Seen) Urine Glucose Normal mg/dL (Normal) Urine Opiates Screen Pos (NEGATIVE) Urine Fentanyl Screen Neg (NEGATIVE) Urine Barbiturates Screen Neg (NEGATIVE) Urine Phencyclidine Screen Neg (NEGATIVE) Urine Amphetamines Screen Neg (NEGATIVE) Urine Benzodiazepines Screen Neg (NEGATIVE) Urine Cocaine Screen Neg (NEGATIVE) Urine Cannabinoids Screen Neg (NEGATIVE) White Blood Count 6.8 10^3/uL (4.4-10.8) Red Blood Count 3.78 10^6/uL (4.5-5.90) Hemoglobin 12.1 g/dL (13.5-17.5) Hematocrit 35.0 % (41.0-53.0) Mean Corpuscular Volume 92.8 fL (80.0-100.0) Mean Corpuscular Hemoglobin 32.1 pg (28.0-32.0) Mean Corpuscular Hemoglobin Concent 34.6 g/dL (32.0-36.0) Red Cell Distribution Width 15.7 % (11.8-14.3) Platelet Count 187 10^3/uL (140-450) Mean Platelet Volume 7.9 fL (6.9-10.8) Neutrophils (%) (Auto) 66.8 % (37.0-80.0) Lymphocytes (%) (Auto) 18.2 % (10.0-50.0) Monocytes (%) (Auto) 11.1 % (0.0-12.0) Eosinophils (%) (Auto) 2.0 % (0.0-7.0) Basophils (%) (Auto) 1.9 % (0.0-2.0) Neutrophils # (Auto) 4.6 10 ^3/uL (1.6-8.6) Lymphocytes # (Auto) 1.2 10 ^3/uL (0.4-5.4) Monocytes # (Auto) 0.8 10 ^3/uL (0-1.3) Eosinophils # (Auto) 0.1 10 ^3/uL (0-0.8) Basophils # (Auto) 0.1 10 ^3/uL (0-0.2) Nucleated Red Blood Cells 0.0 % Troponin I High Sensitivity 9 ng/L (</=54) Test 10/29/24 16:40 10/29/24 15:13 10/29/24 13:04 Thyroid Stimulating Hormone (TSH) 6.43 uIU/mL (0.55-4.78) Lactic Acid Level 1.0 mmol/L (0.4-2.0) Magnesium Level 2.1 mg/dL (1.6-2.6) Total Bilirubin 0.6 mg/dL (0.2-1.0) Aspartate Amino Transferase (AST) 102 U/L (13-40) Alanine Aminotransferase (ALT) 108 U/L (7-40) Alkaline Phosphatase 57 U/L (46-116) B-Type Natriuretic Peptide 111.90 pg/mL (0-100) Total Protein 6.2 g/dL (5.7-8.2) Albumin 4.4 g/dL (3.2-4.8) Other Laboratory Tests 10/31/24 06:26 10/30/24 06:32 Brief Hx & Hospital Course: This is a 74-year-old male with past medical history of HTN, hyperlipidemia, Leukaemia, COPD on home O2 2L, Afib on eloquis, CAD with s/p PTCA, CHF brought in by EMS presented with a chief complaint of chest heaviness and lightheadedness. Patient was recently in the ER and was sent to a SNF where he developed A-Fib and was transferred to [facility] where he was inpatient for 5 days. Patient was given 325 of ASA by EMS, no NTG. Patients BP was low upon arrival at 100/69. He denied shortness of breath, nausea, vomiting, blurred vision, or any change in bowel and bladder habit. Hospital course: EKG showed Afib with controlled rate, Troponin trends are unremarkable. CxR revealed no acute abnormality and Port-A-Cath from right internal jugular vein in good position with the catheter tip at the cavoatrial junction.Echo on 08/18 demonstrated EF 20%. Patient was treated with aspirin 325 mg once, IV bolus followed by IV N/S @ 75 ml/hr and hold antihypertensives due to low BP, and resumed home meds. For musculoskeletal pain the patient was treated with nighttime baclofen and ibuprofen 400 mg q.6 hours PRN. Patient is being discharged to home and advised to stop all antihypertensive and monitor the blood pressure regularly. Advised to follow up with DC clinic in 1 week and also advised to follow up with PCP to adjust the medications. Physical examination: General Appearance: Alert, Oriented X3, Cooperative, No acute distress HEENT: Atraumatic, PERRLA, EOMI, Mucous membrane moist/pink Respiratory: Clear to auscultation, Normal air movement Cardiovascular: Regular rate, Normal S1, Normal S2, No murmurs, no chest wall tenderness Abdominal: Normal bowel sounds, Soft, No tenderness, No hepatospenomegaly, No masses Extremities: No clubbing, No cyanosis, No edema, Normal pulses, No tenderness/swelling Skin: No rashes, No breakdown, No significant lesion Neuro: Normal gait, Normal speech, Strength at 5/5 X4 ext, Normal tone, Sensation intact, grossly intact cranial nerves Psych/Mental Status: Mental status NL, Mood NL Discharge plan: Disposition: Home Medications: Resumed home medications and hold antihypertensive due to low blood pressure. Follow up: DC clinic in 1 week PCP in 1 to 2 weeks and adjsust the antihypertensives according to the respose of the BP. Consults/Reason for consult No consultation was done. Operations or Procedures CHEST RADIOGRAPH Indication: cp Technique: Single frontal view of the chest was obtained Comparison: XY CHEST PORTABLE on DOS: 10/15/24, XY CHEST PORTABLE on DOS: 10/06/24, XY CHEST PORTABLE on DOS: 08/13/24 FINDINGS: Lines and Tubes: MediPort in place in the from the right internal jugular vein with the in the distal superior vena cava. Lungs: No focal consolidation. Pleura: No effusion. No pneumothorax. Cardiomediastinal contours: Unremarkable Bones: No acute osseous abnormality. IMPRESSION: 1. No acute cardiopulmonary disease. 2. Port-A-Cath from right internal jugular vein in good position with the catheter tip at the cavoatrial junction. Condition at Discharge: Guarded Final Diagnosis/Problems List # Acute chest pain ruled out ACS # Possible illness anxiiety disorder # H/O of CAD , s/p PTCAX1 stent # Hypertensive heart disease with possible chronic diastolic heart failure # Acute hypotension resolved # Chronic hypoxic respiratory respiratory failure due to COPD # Permanent atrial fibrillation and secondary hypercoagulable state Discharge Disposition: Home Discharge Instruct/Medications Diet: Cardiac 2g Na,low cholest Activity: No Restrictions, As Tolerated Follow Up/Referral: Follow up with DC clinic in 1 week. Follow up with Cardiology in 1 to 2 week. Medications: As per EMR Hold antihypertensives for now because of the low BP. Follow up with PCP to adjust medication according to response of the BP. Discharge Statement: "Patient was advised to return to the ER or call 911 if any headaches, dizziness, shortness of breath, chest pain, abdominal pain, bleeding, fevers, or worsening of medical condition. Patient was counseled about treatment plan, medications, possible side effects, patientverbalized understanding. All questions were answered to the best of my ability. This discharge took greater then 30 minutes in planning, reviewing documentation, counseling the patient, and discussing with other team members." ASSESSMENT ASSESSMENT Assessment # Acute chest pain ruled out ACS # H/O of CAD , s/p PTCAX1 stent # Hypertensive heart disease with possible chronic diastolic heart failure # Acute hypotension resolved # chronic hypoxic respiratory respiratory failure due to COPD # Permanent atrial fibrillation and secondary hypercoagulable state Date of Service: Nov 01, 2024 Billing Provider: DAMARIS CROUCH MD Common Visit Codes: [id number] DISCH DAY >30min MARINO GODFREY RESIDENT Nov 01, 2024 16:41 DAMARIS CROUCH MD Nov 07, 2024 22:56
[2024-11-01 20:51] LABS: Chloride 104 mmol/L (98-107); Potassium 4.4 mmol/L (3.5-5.1); Sodium 137 mmol/L (136-145)
[2024-11-01 20:52] LABS: Anion Gap 4 (5-15); Calcium 9.3 mg/dL (8.7-10.4); Carbon Dioxide 29 mmol/L (20-31)
[2024-11-01 20:57] LABS: BUN/Creatinine Ratio 12.7 (10.0-20.0); Blood Urea Nitrogen 13 mg/dL (9-23)
[2024-11-01 20:58] LABS: Magnesium 2.3 mg/dL (1.6-2.6)
[2024-11-01 21:12] LABS: Glucose 128 mg/dL (74-106)
[2024-11-02] VITALS (8 sets, daily range): BP systolic 114–147; BP diastolic 68–91; PULSE 73–92; RESP 18–19; TEMP 97.4–98.1; O2SAT 95–100
--- NOTE | 2024-11-02 07:10 | ECG ---
[facility] Test Date: 2024-10-29 Test Time: 15:43:12 Pat Name: ANA LAURA BELLE Department: ED Room: 0245T B Gender: M Nnp: HAILE : 1950 Requested By: DAMARIS PLATA Order Number: [id number] Reading MD: Ellis Garner Measurements Intervals [place] Rate: 78 P: 0 [place]: 0 QRS: 40 QRSD: 84 T: 6 QT: 399 QTc: 455 Interpretive Statements Atrial fibrillation Low voltage, precordial leads Electronically Signed On 11-03-2024 21:10:49 PDT by Ellis Garner Please click the below link to view image of tracing.
--- NOTE | 2024-11-02 07:48 | ECG ---
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
--- NOTE | 2024-11-02 16:32 | DVHPNRES ---
Progress Note Date Seen: Nov 02, 2024 Resident Creating Document: MARINO GODFREY RESIDENT Medical Necessity Reason Pt with a Central, PICC or Fol: No Subjective Review of Systems Patient was seen and examined on the bedside. He is alert oriented x3. Patient was started discharge yesterday but he is complaining of sudden sharp chest pain radiating to the left arm and jaw and D-dimer stat EKG revealed with controlled rate and troponin was unremarkable. Today morning he is complaining of heaviness in the chest and intermittent chest pain. Consulted GI and ordered barium swallow esophagus to rule out GI cause of the chest pain Objective vital signs Vital Sign Date Time Temp Pulse Resp B/P (MAP) Pulse Ox O2 Delivery O2 Flow Rate FiO2 11/02/24 12:56 97.4 78 18 115/68 (84) 96 97.4 11/01/24 20:00 Nasal Cannula* 2 28 Total Intake and Output 11/01/24 11/01/24 11/02/24 15:00 23:00 07:00 Intake Total 240 ml 300 ml 1100 ml Output Total 400 ml 800 ml Balance 240 ml -100 ml 300 ml medications Current Medications Medications Dose Ordered Sig/Aixa Route Start Time Stop Time Status Last Admin Dose Admin Nitroglycerin 0.4 mg Q5MINP PRN SL 10/29/24 15:45 11/02/24 10:22 0.4 MG Morphine Sulfate 2 mg Q30M PRN IV 10/29/24 15:45 11/01/24 17:24 2 MG Amiodarone HCl 200 mg BID PO 10/29/24 22:00 11/02/24 10:18 200 MG Apixaban 5 mg BID PO 10/29/24 22:00 11/02/24 10:16 5 MG Aspirin 81 mg DAILY PO 10/30/24 10:00 11/02/24 10:17 81 MG Digoxin 0.125 mg DAILY PO 10/30/24 10:00 11/02/24 10:18 0.125 MG Docusate Sodium 100 mg BIDPRN PRN PO 10/29/24 15:45 10/31/24 05:46 100 MG Furosemide 20 mg DAILYP PO 10/30/24 10:00 11/02/24 10:17 20 MG Metoprolol Succinate 50 mg DAILY PO 10/30/24 10:00 Hold 10/30/24 08:49 50 MG Ranolazine 500 mg BID PO 10/29/24 22:00 11/02/24 10:16 500 MG Atorvastatin Calcium 40 mg HS PO 10/29/24 22:00 11/01/24 21:26 40 MG Gabapentin 300 mg TID PO 10/29/24 16:16 11/02/24 14:17 300 MG Famotidine 20 mg DAILY PO 10/30/24 10:00 11/02/24 10:16 20 MG Baclofen 10 mg HS PO 10/30/24 22:00 11/01/24 21:26 10 MG Ibuprofen 600 mg HS PO 10/30/24 22:00 11/01/24 21:26 600 MG Acetaminophen/ Hydrocodone Bitart 1 tab Q4HPRN PRN PO 10/30/24 16:30 11/02/24 08:50 1 TAB Ondansetron HCl 4 mg Q6HPRN PRN IV 10/31/24 21:00 10/31/24 21:35 4 MG Examination Physical examination: General Appearance: Alert, Oriented X3, Cooperative, No acute distress HEENT: Atraumatic, PERRLA, EOMI, Mucous membrane moist/pink Respiratory: Clear to auscultation, Normal air movement Cardiovascular: Regular rate, Normal S1, Normal S2, No murmurs, no chest wall tenderness Abdominal: Normal bowel sounds, Soft, No tenderness, No hepatospenomegaly, No masses Extremities: No clubbing, No cyanosis, No edema, Normal pulses, No tenderness/swelling Skin: No rashes, No breakdown, No significant lesion Neuro: Normal speech, Strength at 5/5 X4 ext, Normal tone, Sensation intact, Cranial nerves 3-12 NL, Reflexes 2+ Psych/Mental Status: Mental status NL, Mood NL laboratory and microbiology Laboratory Tests 11/01/24 19:22 10/30/24 06:32 Test 11/01/24 19:22 Range/Units Serum Glucose 128 H 74-106 mg/dL Microbiology Date/Time Source Procedure Growth Status 10/30/24 13:30 Nose MRSA Screen - Final Complete Labs and/or images reviewed: Labs reviewed by me, Image(s) reviewed by me Problem List/Assessment/Plan Problem List/Assessment/Plan Assessment and plan: # Recurrent chest pain rule out GI pathology - Ordered Gastrografin ( barium swallow) of the esophagus - Consulted GI # Acute chest pain ruled out ACS # H/O of CAD , s/p PTCAX1 stent # Hypertensive heart disease with possible chronic diastolic heart failure # Acute hypotension # chronic hypoxic respiratory respiratory failure due to COPD - EKG showed Afib with controlled rate - Troponin trends are unremarkable - Orthostatic vital negative - CxR revealed no acute abnormality and Port-A-Cath from right internal jugular vein in good position with the catheter tip at the cavoatrial junction. - Echo on 08/18 demonstrated EF 60% - Patient was given aspirin 325 mg once - Aspirin 81 mg daily and atorvastatin 40 mg at HS - Given IV bolus followed by IV N/S @ 75 ml/hr - Hold antihypertensives due to low BP # Permanent atrial fibrillation and secondary hypercoagulable state [id number] score 4 - Continue amiodarone 200 mg bid and eloquis 5 mg bid # PUD prophylaxis - Pepcid 20 mg po daily # DVT prophylaxis - Patient is on eloquis Goal of care discussed with the patient for more than 20 minutes full code Plan discussed with Plan discussed with: Patient, Other My Orders My Orders Orders - MARINO GODFREY RESIDENT Procedure Category Date Status Time * Gi [employer] Partner CONS 11/02/24 Transmitted 10:50 Esophagus Barium XY 11/02/24 Logged Swallow 10:50 Dietary Evaluation Review Comments: 1. Continue Cardiac diet as tolerated 2. Encourage oral intake >75% of meals 3. Monitor wt trends to trend possible gains/losses Expected Outcomes/Goals: Maintain adequate nutritional intakes. Date of Service: Nov 02, 2024 Billing Provider: DAMARIS CROUCH MD Common Visit Codes: [id number] INP/OBS CARE(HIGH) MARINO GODFREY Nov 02, 2024 16:32 DAMARIS CROUCH MD Nov 04, 2024 00:13
--- NOTE | 2024-11-02 21:45 | DVHINCON2 ---
Date of service: Nov 02, 2024 Referring Physician Licha GODFREY Reason for Consultation Atypical CP History of Present Illness This is a 74-year-old male with past medical history of HTN, hyperlipidemia, Leukaemia, COPD on home O2 2L, Afib on eloquis, CAD with s/p PTCA, CHF brought in by EMS presented with a chief complaint of chest heaviness and lightheadedness. Patient was recently in the ER and was sent to a SNF where he developed A-Fib and was transferred to [facility] where he was inpatient for 5 days. Patient was given 325 of ASA by EMS, no NTG. Patients BP was low upon arrival at 100/69. He denied shortness of breath, nausea, vomiting, blurred vision, or any change in bowel and bladder habit. Patient has been complaining of some atypical chest pain but his cardiac workup is negative. I was asked to evaluate him for possible atypical chest pain Past Medical History Cardiovascular: AFIB, CAD, CHF, HTN, hyperipidemia Past Medical History HTN, Hyperlipidemia, CAD with s/p PTCA, Afib on eloquis, CHF, COPD on home O2 2L, Leukemia Past Surgical History Past Surgical History: Appendectomy;PTCA Family History: FH: heart disease G8 MOTHER, Throat cancer G8 MOTHER, G8 BROTHER Allergies: Coded Allergies: Fentanyl (Verified Allergy, Severe, 08/04/24) Tetracycline (Verified Allergy, Severe, 08/04/24) Patient states anaphalatic shock reaction from tetracycline and was hospitalized for 2 weeks. Povidone Iodine (Verified Allergy, Intermediate, RASH, 08/04/24) Home Meds Active Scripts Cyclobenzaprine Hcl (Cyclobenzaprine Hcl) 5 Mg Tab, 1 TAB PO QPM for 7 Days, #7 TAB Prov:MARINO GODFREY RESIDENT 11/01/24 Budesonide (Inhalation) (Budesonide) 0.5 Mg/2 Ml Kim, 0.5 MG NEB BID, #120 ML Prov:OSWALD CHAPMAN MD 08/17/24 Cefdinir (Cefdinir) 300 Mg Cap, 1 CAP PO BID, #10 CAP Prov:OSWALD CHAPMAN MD 08/17/24 Prednisone (Prednisone) 20 Mg Tab, 20 MG PO BID, #10 MG Prov:OSWALD CHAPMAN MD 08/17/24 Ranolazine (Ranolazine ER) 500 Mg Tab, 500 MG PO BID, #60 TAB Prov:OSWALD CHAPMAN MD 08/17/24 Mupirocin (Pseudomonas Fluores (Mupirocin) 2 % Oin, 1 APPLIC EACHNOSTRI BID, #1 OIN Prov:OSWALD CHAPMAN MD 08/17/24 Ipratropium-Albuterol (Ipratropium [place]/Albut) 1 Barbara Barbara, 1 BARBARA IN TID, #90 ML Prov:OSWALD CHAPMAN MD 08/17/24 Amiodarone Hcl (Amiodarone Hcl) 200 Mg Tab, 1 TAB PO BID, #90 TAB 1 Refill Prov:OSWALD CHAPMAN MD 08/17/24 Metoprolol Succinate (Metoprolol Succinate Er) 50 Mg Tab, 1 TAB PO DAILY, #30 TAB 5 Refills Prov:OSWALD CHAPMAN MD 08/17/24 Docusate Sodium (Docusate Sodium) 100 Mg Cap, 100 MG PO BIDPRN PRN for 30 Days, #30 CAP Prov:HEIDE SÁNCHEZ MD 08/12/24 Aspirin (Aspirin Low Dose) 81 Mg Tab, 81 MG PO DAILY for 30 Days, #30 TAB Prov:HEIDE SÁNCHEZ MD 08/12/24 Reported Medications Digoxin (Digoxin) 125 Mcg Tab, 1 TAB PO DAILY for 30 Days, #30 10/18/24 Losartan Potassium (Losartan Potassium) 50 Mg Tab, 1 TAB PO DAILY for 90 Days, #90 10/18/24 Amlodipine Besylate (Amlodipine Besylate) 5 Mg Tab, 1 TAB PO DAILY for 90 Days, #90 10/18/24 Morphine Sulfate (Morphine Sulfate Er) 60 Mg Tab, 1 TAB PO Q4HPRN, #60 TAB 08/04/24 Atorvastatin Calcium (ATORVASTATIN CALCIUM) 40 Mg Tab, 1 TAB PO DAILY, #30 TAB 5 Refills 08/04/24 Furosemide (Furosemide) 20 Mg Tab, 1 TAB PO DAILYP, #90 TAB 1 Refill 08/04/24 Gabapentin (Gabapentin) 600 Mg Tab, 1 TAB PO TID, #90 TAB 3 Refills 08/04/24 Apixaban Base (ELIQUIS) 5 Mg Tab, 5 MG PO BID, TAB 08/04/24 Budesonide-Formoterol Fumarate (Budesonide/Formoterol Fum 160-4.5 Mcg/Act) 1 Aer Aer, 1 AER IN Q4HPRN, AER 08/04/24 Vital Signs Vital Signs Date Time Temp Pulse Resp B/P (MAP) Pulse Ox O2 Delivery O2 Flow Rate FiO2 11/02/24 18:26 132/74 11/02/24 17:40 79 16 11/02/24 17:00 97.4 98 97.4 11/02/24 08:00 Nasal Cannula* 2 28 Physical Exam General Appearance: Alert, Oriented X3, Cooperative, No acute distress HEENT: Atraumatic, PERRLA, EOMI, Mucous membrane moist/pink Respiratory: Clear to auscultation, Normal air movement Cardiovascular: Regular rate, Normal S1, Normal S2, No murmurs, no chest wall tenderness Abdominal: Normal bowel sounds, Soft, No tenderness, No hepatospenomegaly, No masses;obese Extremities: No clubbing, No cyanosis, No edema, Normal pulses, No tenderness/swelling Skin: No rashes, No breakdown, No significant lesion Neuro: Normal speech, Strength at 5/5 X4 ext, Normal tone, Sensation intact, Cranial nerves 3-12 NL, Reflexes 2+ Psych/Mental Status: Mental status NL, Mood NL Labs/Diagnostic Data Labs Test 11/01/24 19:22 10/31/24 06:26 10/30/24 14:02 10/30/24 06:32 Range/Units Sodium Level 137 136-145 mmol/L Potassium Level 4.4 3.5-5.1 mmol/L Chloride Level 104 98-107 mmol/L Carbon Dioxide Level 29 20-31 mmol/L Anion Gap 4 L 5-15 Blood Urea Nitrogen 13 9-23 mg/dL Creatinine 1.02 0.700-1.30 mg/dL Glomerular Filtration Rate Calc 77 >90 mL/min BUN/Creatinine Ratio 12.7 10.0-20.0 Serum Glucose 128 H 74-106 mg/dL Calcium Level 9.3 8.7-10.4 mg/dL Magnesium Level 2.3 1.6-2.6 mg/dL Troponin I High Sensitivity 9 </=54 ng/L Free Thyroxine (T4) Calculated 1.25 0.89-1.76 ng/dL Free Triiodothyronine (T3) pg/mL 2.17 L 2.3-4.2 pg/mL Urine Color Yellow Yellow Urine Clarity Clear Clear Urine pH 6.0 5.0-9.0 Urine Specific [place] 1.028 1.001-1.035 Urine Protein Trace H Negative Urine Ketones Negative Negative Urine Blood Negative Negative /uL Urine Nitrite Negative Negative Urine Bilirubin Negative Negative Urine Urobilinogen 4 H Negative mg/dL Urine Leukocyte Esterase Negative Negative /uL Urine RBC 1 0 - 3 /hpf Urine Microscopic WBC 2 0-3 /HPF Urine Squamous Epithelial Cells None seen <5 /hpf Urine Calcium Oxalate Crystals Few None Seen Urine Bacteria Few H None Seen /hpf Urine Hyaline Casts Few 0 - 2 /lpf Urine Mucus Few None Seen Urine Glucose Normal Normal mg/dL Urine Opiates Screen Pos NEGATIVE Urine Fentanyl Screen Neg NEGATIVE Urine Barbiturates Screen Neg NEGATIVE Urine Phencyclidine Screen Neg NEGATIVE Urine Amphetamines Screen Neg NEGATIVE Urine Benzodiazepines Screen Neg NEGATIVE Urine Cocaine Screen Neg NEGATIVE Urine Cannabinoids Screen Neg NEGATIVE White Blood Count 6.8 # 4.4-10.8 10^3/uL Red Blood Count 3.78 L 4.5-5.90 10^6/uL Hemoglobin 12.1 L 13.5-17.5 g/dL Hematocrit 35.0 #L 41.0-53.0 % Mean Corpuscular Volume 92.8 80.0-100.0 fL Mean Corpuscular Hemoglobin 32.1 H 28.0-32.0 pg Mean Corpuscular Hemoglobin Concent 34.6 32.0-36.0 g/dL Red Cell Distribution Width 15.7 H 11.8-14.3 % Platelet Count 187 140-450 10^3/uL Mean Platelet Volume 7.9 6.9-10.8 fL Neutrophils (%) (Auto) 66.8 37.0-80.0 % Lymphocytes (%) (Auto) 18.2 10.0-50.0 % Monocytes (%) (Auto) 11.1 0.0-12.0 % Eosinophils (%) (Auto) 2.0 0.0-7.0 % Basophils (%) (Auto) 1.9 0.0-2.0 % Neutrophils # (Auto) 4.6 1.6-8.6 10 ^3/uL Lymphocytes # (Auto) 1.2 0.4-5.4 10 ^3/uL Monocytes # (Auto) 0.8 0-1.3 10 ^3/uL Eosinophils # (Auto) 0.1 0-0.8 10 ^3/uL Basophils # (Auto) 0.1 0-0.2 10 ^3/uL Nucleated Red Blood Cells 0.0 % Test 10/29/24 16:40 10/29/24 15:13 10/29/24 13:04 Range/Units Thyroid Stimulating Hormone (TSH) 6.43 H 0.55-4.78 uIU/mL Lactic Acid Level 1.0 0.4-2.0 mmol/L Total Bilirubin 0.6 0.2-1.0 mg/dL Aspartate Amino Transferase (AST) 102 H 13-40 U/L Alanine Aminotransferase (ALT) 108 H 7-40 U/L Alkaline Phosphatase 57 46-116 U/L B-Type Natriuretic Peptide 111.90 0-100 pg/mL Total Protein 6.2 5.7-8.2 g/dL Albumin 4.4 3.2-4.8 g/dL Microbiology Date/Time Source Procedure Growth Status 10/30/24 13:30 Nose MRSA Screen - Final Complete CXR IMPRESSION: 1. No acute cardiopulmonary disease. 2. Port-A-Cath from right internal jugular vein in good position with the catheter tip at the cavoatrial junction. Problems(with codes): (1) Chest pain (2) Unspecified atrial fibrillation (3) CHF exacerbation Plan/Recommendation Assessment plan I was initially planning a possible upper endoscopy on 11/03/2024 However the patient has been receiving aspirin Eliquis up until today He is also currently on amiodarone and needs cardiac stabilization Therefore the endoscopy was put on hold and patient will resume the previous order of the barium upper GI x-ray Protonix 40 mg p.o. twice a day Carafate 1 g p.o. 4 times a day Hold anticoagulants if an endoscopy is required We will get a right upper quadrant ultrasound rule out any cholelithiasis Once again thank you for allowing me to participate in the care of this patient If symptoms persist consider CT chest abdomen pelvis Plan discussed with: Patient HERIBERTO ZIMMER MD Nov 02, 2024 21:45
--- NOTE | 2024-11-02 23:57 | DVH ---
INDICATION: abdominal and chest pain TECHNIQUE: Multiple real-time sonographic images of the abdomen were obtained. COMPARISON: None FINDINGS: Pancreas is not well seen. Aorta measures 2.4 cm AP Portal vein flow is hepatopetal. Liver is prominent but still within normal limits measuring 18.2 cm in span very heterogeneous possib ly hypoechoic. Right kidney has atrophied cortex measures 13.7 cm in length which is above normal barajas its for an adult male cortex is borderline 11 mm. Gallbladder wall measures 2.7 mm there are no stones involving the gallbladder. Common bile duct measures 4.65 mm which is normal for age Left kidney also demonstrates in cortex measures 12.8 cm in length which is is borderline for an adul t male. Left renal cortex measures 13.8 mm. Spleen is enlarged at 16 cm in span. IMPRESSION: 1. Possibly echogenic liver suggesting fatty infiltration.There is splenomegaly. Kidneys have low normal cortices. Right kidney is beyond normal limits in size for adult male. Large of the normal. I would check patient's BUN and creatinine as well as liver functions
[2024-11-03] VITALS (8 sets, daily range): BP systolic 109–139; BP diastolic 69–85; PULSE 78–104; RESP 19–22; TEMP 97.4–98.5; O2SAT 96–100
--- NOTE | 2024-11-03 09:46 | ECG ---
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
[2024-11-03] MEDS: GASTROGRAFIN 120 ML SOL ONE (12:36)
--- NOTE | 2024-11-03 13:22 | DVH ---
XY UGI WITH GASTROGRAFIN, HISTORY: CHEST PAIN COMPARISON: None PROCEDURE: A armored cable machine operator radiograph was obtained prior to the procedure. Gastrografin administered orally, and radiographs were obtained under intermittent fluoroscopic observation. Total fluoroscopic time w as 0.5 minutes. DAP 1349 FINDINGS: The armored cable machine operator image demonstrates no evidence for obstruction or free intraperitoneal gas. The esophagus was normal in caliber with no stricture, filling defect or wall irregularity demonstrat ed. Mildly abnormal esophageal peristalsis was observed. There was prompt passage of contrast through a normal appearing gastroesophageal junction. The stomac h distended normally with a normal mucosal pattern and no evidence for filling defect, mass or wall i rregularity. The duodenal bulb demonstrated no stricture or ulceration. Contrast flowed into more distal loops of small bowel, with no abnormality identified. IMPRESSION: Mild abnormal tertiary esophageal contraction; otherwise unremarkable UGI examination.
--- NOTE | 2024-11-03 14:22 | DVH ---
Procedure: CT CHEST WITHOUT CONTRAST Reason for study/Clinical History: RECURRENT CHEST PAIN Comparison Study: Compared to CT chest on 08/09/2024 Exam Date: 11/03/2024 12:32 PM TECHNIQUE: Multidetector CT of the chest was performed from the lung apices to the upper abdomen with out the use of intravenous contract. Axial, coronal and sagittal multiplanar reformats were performed . Radiation Dose Information: CT Dose: CTDI volume is 24.12 mGy. Dose-length product is 860.05 mGy*cm The dose indicators for CT are the volume Computed Tomography (CT) Dose Index (CTDIvol) and the Dose Length Product (DLP), and are measured in units of mGy and mGy-cm, respectively. These indicators are not patient dose, but values generated from the CT scanner acquisition factors. The report includes radiation exposure data for exposures received during this examination. FINDINGS: Lower neck: Normal thyroid. Right internal jugular catheter which terminates at the cavoatrial juncti on. Lungs: Mild ground-glass infiltrates in the upper mid lobes unchanged. Heart/Vascular Structures: Normal heart size. Stable coronary artery calcifications. No pneumothorax. No pleural effusions.. Lymph Nodes: No adenopathy Pleura: No pleural effusion or significant pneumothorax. Musculoskeletal: No acute osseous abnormality. Soft tissues: Normal. Upper abdomen: Limited portions of the upper abdomen are unremarkable. IMPRESSION: 1. Mild scattered ground-glass infiltrates in the upper mid lung nash. Mild interlobular septal thi ckening unchanged from August 06 2024. 2. Right internal jugular catheter which terminates at the cavoatrial junction. Radiation optimization: All CT scans at this facility use at least one of these dose optimization darek hniques: automated exposure control mA and/or kV adjustment per patient size (includes targeted exam s where dose is matched to clinical indication) or iterative reconstruction.
--- NOTE | 2024-11-03 16:56 | DVHPN2 ---
Progress Note - Dictate Date Seen: Nov 03, 2024 Medical Necessity Reason Pt with a Central, PICC or Fol: No Subjective No new complaints UGI XRay IMPRESSION: Mild abnormal tertiary esophageal contraction; otherwise unremarkable UGI examination. vital signs Vital Sign Date Time Temp Pulse Resp B/P (MAP) Pulse Ox O2 Delivery O2 Flow Rate FiO2 11/03/24 15:44 93 16 137/86 11/03/24 13:00 98.5 96 98.5 11/02/24 20:00 Nasal Cannula* 2 28 Total Intake and Output 11/02/24 11/02/24 11/03/24 15:00 23:00 07:00 Intake Total 700 ml 900 ml Balance 700 ml 900 ml medications Current Medications Medications Dose Ordered Sig/Aixa Route Start Time Stop Time Status Last Admin Dose Admin Nitroglycerin 0.4 mg Q5MINP PRN SL 10/29/24 15:45 11/02/24 17:26 0.4 MG Morphine Sulfate 2 mg Q30M PRN IV 10/29/24 15:45 11/03/24 15:44 2 MG Amiodarone HCl 200 mg BID PO 10/29/24 22:00 11/03/24 10:13 200 MG Apixaban 5 mg BID PO 10/29/24 22:00 11/03/24 10:13 5 MG Aspirin 81 mg DAILY PO 10/30/24 10:00 11/03/24 10:13 81 MG Digoxin 0.125 mg DAILY PO 10/30/24 10:00 11/03/24 10:13 0.125 MG Docusate Sodium 100 mg BIDPRN PRN PO 10/29/24 15:45 10/31/24 05:46 100 MG Furosemide 20 mg DAILYP PO 10/30/24 10:00 11/03/24 10:12 20 MG Metoprolol Succinate 50 mg DAILY PO 10/30/24 10:00 Hold 10/30/24 08:49 50 MG Ranolazine 500 mg BID PO 10/29/24 22:00 11/03/24 10:13 500 MG Atorvastatin Calcium 40 mg HS PO 10/29/24 22:00 11/02/24 21:30 40 MG Gabapentin 300 mg TID PO 10/29/24 16:16 11/03/24 15:27 300 MG Famotidine 20 mg DAILY PO 10/30/24 10:00 11/03/24 10:14 20 MG Baclofen 10 mg HS PO 10/30/24 22:00 11/02/24 21:31 10 MG Ibuprofen 600 mg HS PO 10/30/24 22:00 11/02/24 21:31 600 MG Acetaminophen/ Hydrocodone Bitart 1 tab Q4HPRN PRN PO 10/30/24 16:30 11/02/24 17:54 1 TAB Ondansetron HCl 4 mg Q6HPRN PRN IV 10/31/24 21:00 10/31/24 21:35 4 MG objective General Appearance: Alert, Oriented X3, Cooperative, No acute distress HEENT: Atraumatic, PERRLA, EOMI, Mucous membrane moist/pink Respiratory: Clear to auscultation, Normal air movement Cardiovascular: Regular rate, Normal S1, Normal S2, No murmurs, no chest wall tenderness Abdominal: Normal bowel sounds, Soft, No tenderness, No hepatospenomegaly, No masses;obese Extremities: No clubbing, No cyanosis, No edema, Normal pulses, No tenderness/swelling Skin: No rashes, No breakdown, No significant lesion Neuro: Normal speech, Strength at 5/5 X4 ext, Normal tone, Sensation intact, Cranial nerves 3-12 NL, Reflexes 2+ Psych/Mental Status: Mental status NL, Mood NL laboratory and microbiology Laboratory Tests 11/01/24 19:22 10/30/24 06:32 Test 11/01/24 19:22 Range/Units Serum Glucose 128 H 74-106 mg/dL Abd USG IMPRESSION: 1. Possibly echogenic liver suggesting fatty infiltration.There is splenomegaly. No stone CHEST CT IMPRESSION: 1. Mild scattered ground-glass infiltrates in the upper mid lung nash. Mild interlobular septal thickening unchanged from August 06 2024. 2. Right internal jugular catheter which terminates at the cavoatrial junction. Problems(with codes): (1) Unspecified atrial fibrillation (2) CHF exacerbation (3) Chest pain (4) Acute and chronic respiratory failure, unspecified whether with hypoxia or hypercapnia (5) Heart failure, unspecified (6) Thyroid disease Prognosis Plan I would recommend conservative management at this time Protonix 40 mg p.o. twice a day Carafate 1 g p.o. 4 times a day Soft mechanical diet If symptoms persist then patient may require an endoscopy For that patient will need cardiac clearance and also to hold his anticoagulants for at least three days Patient can also follow up with me as an outpatient for ongoing GI workup as required Dietary Evaluation Review Comments: 1. Continue Cardiac diet as tolerated 2. Encourage oral intake >75% of meals 3. Monitor wt trends to trend possible gains/losses Expected Outcomes/Goals: Maintain adequate nutritional intakes. Plan discussed with: Patient HERIBERTO ZIMMER MD Nov 03, 2024 16:56
--- NOTE | 2024-11-03 18:11 | DVHPNRES ---
Progress Note Date Seen: Nov 03, 2024 Resident Creating Document: MARINO GODFREY RESIDENT Medical Necessity Reason Pt with a Central, PICC or Fol: No Subjective Review of Systems Patient was seen and examined on the bedside. He is alert oriented x3. Barium swallow upper GI series showed Mild abnormal tertiary esophageal contraction; otherwise unremarkable UGI examination. CT chest without contrast demonstrated Mild scattered ground-glass infiltrates in the upper mid lung nash. Mild interlobular septal thickening unchanged from August 06 2024. DC tomorrow Objective vital signs Vital Sign Date Time Temp Pulse Resp B/P (MAP) Pulse Ox O2 Delivery O2 Flow Rate FiO2 11/03/24 17:00 98.0 86 21 109/82 (91) 98 98.0 11/02/24 20:00 Nasal Cannula* 2 28 Total Intake and Output 11/02/24 11/02/24 11/03/24 14:59 22:59 06:59 Intake Total 700 ml 900 ml Balance 700 ml 900 ml medications Current Medications Medications Dose Ordered Sig/Aixa Route Start Time Stop Time Status Last Admin Dose Admin Nitroglycerin 0.4 mg Q5MINP PRN SL 10/29/24 15:45 11/02/24 17:26 0.4 MG Morphine Sulfate 2 mg Q30M PRN IV 10/29/24 15:45 11/03/24 15:44 2 MG Amiodarone HCl 200 mg BID PO 10/29/24 22:00 11/03/24 10:13 200 MG Apixaban 5 mg BID PO 10/29/24 22:00 11/03/24 10:13 5 MG Aspirin 81 mg DAILY PO 10/30/24 10:00 11/03/24 10:13 81 MG Digoxin 0.125 mg DAILY PO 10/30/24 10:00 11/03/24 10:13 0.125 MG Docusate Sodium 100 mg BIDPRN PRN PO 10/29/24 15:45 10/31/24 05:46 100 MG Furosemide 20 mg DAILYP PO 10/30/24 10:00 11/03/24 10:12 20 MG Metoprolol Succinate 50 mg DAILY PO 10/30/24 10:00 Hold 10/30/24 08:49 50 MG Ranolazine 500 mg BID PO 10/29/24 22:00 11/03/24 10:13 500 MG Atorvastatin Calcium 40 mg HS PO 10/29/24 22:00 11/02/24 21:30 40 MG Gabapentin 300 mg TID PO 10/29/24 16:16 11/03/24 15:27 300 MG Famotidine 20 mg DAILY PO 10/30/24 10:00 11/03/24 10:14 20 MG Baclofen 10 mg HS PO 10/30/24 22:00 11/02/24 21:31 10 MG Ibuprofen 600 mg HS PO 10/30/24 22:00 11/02/24 21:31 600 MG Acetaminophen/ Hydrocodone Bitart 1 tab Q4HPRN PRN PO 10/30/24 16:30 11/02/24 17:54 1 TAB Ondansetron HCl 4 mg Q6HPRN PRN IV 10/31/24 21:00 10/31/24 21:35 4 MG Examination Physical examination: General Appearance: Alert, Oriented X3, Cooperative, No acute distress HEENT: Atraumatic, PERRLA, EOMI, Mucous membrane moist/pink Respiratory: Clear to auscultation, Normal air movement Cardiovascular: Regular rate, Normal S1, Normal S2, No murmurs, no chest wall tenderness Abdominal: Normal bowel sounds, Soft, No tenderness, No hepatospenomegaly, No masses Extremities: No clubbing, No cyanosis, No edema, Normal pulses, No tenderness/swelling Skin: No rashes, No breakdown, No significant lesion Neuro: Normal gait, Normal speech, Strength at 5/5 X4 ext, Normal tone, Sensation intact, Cranial nerves 3-12 NL, Reflexes 2+ Psych/Mental Status: Mental status NL, Mood NL laboratory and microbiology Laboratory Tests 11/01/24 19:22 10/30/24 06:32 Test 11/01/24 19:22 Range/Units Serum Glucose 128 H 74-106 mg/dL Microbiology Date/Time Source Procedure Growth Status 10/30/24 13:30 Nose MRSA Screen - Final Complete Labs and/or images reviewed: Labs reviewed by me, Image(s) reviewed by me Problem List/Assessment/Plan Problem List/Assessment/Plan Assessment and plan: # Recurrent chest pain rule out GI pathology - Gastrografin ( barium swallow) of the esophagus showed Mild abnormal tertiary esophageal contraction; otherwise unremarkable UGI examination - GI on board and recommended EGD if patient continues to having chest pain after cardiac clearance # Acute chest pain ruled out ACS # H/O of CAD , s/p PTCAX1 stent # Hypertensive heart disease with possible chronic diastolic heart failure # Acute hypotension # chronic hypoxic respiratory respiratory failure due to COPD - EKG showed Afib with controlled rate - Troponin trends are unremarkable - Orthostatic vital negative - CxR revealed no acute abnormality and Port-A-Cath from right internal jugular vein in good position with the catheter tip at the cavoatrial junction. - Echo on 08/18 demonstrated EF 60% - Patient was given aspirin 325 mg once - Aspirin 81 mg daily and atorvastatin 40 mg at HS - Given IV bolus followed by IV N/S @ 75 ml/hr - Hold antihypertensives due to low BP # Permanent atrial fibrillation and secondary hypercoagulable state [id number] score 4 - Continue amiodarone 200 mg bid and eloquis 5 mg bid # PUD prophylaxis - Pepcid 20 mg po daily # DVT prophylaxis - Patient is on eloquis Goal of care discussed with the patient for more than 20 minutes full code Plan discussed with Plan discussed with: Patient, Other My Orders My Orders Orders - MARINO GODFREY RESIDENT Procedure Category Date Status Time Ugi With Gastrografin XY 11/03/24 Resulted 12:23 Dietary Evaluation Review Comments: 1. Continue Cardiac diet as tolerated 2. Encourage oral intake >75% of meals 3. Monitor wt trends to trend possible gains/losses Expected Outcomes/Goals: Maintain adequate nutritional intakes. Date of Service: Nov 03, 2024 Billing Provider: DAMARIS CROUCH MD Common Visit Codes: [id number] INP/OBS CARE(HIGH) MARINO GODFREY Nov 03, 2024 18:11 DAMARIS CROUCH MD Nov 04, 2024 00:20
[2024-11-04] VITALS (7 sets, daily range): BP systolic 102–136; BP diastolic 68–80; PULSE 71–90; RESP 16–18; TEMP 97.3–97.5; O2SAT 96–100
--- NOTE | 2024-11-04 12:17 | DVHDSRES ---
Discharge Summary Date of Admission Resident Creating Document: MARINO GODFREY RESIDENT Oct 29, 2024 at 15:41 Date of Discharge: Nov 04, 2024 Admitting Diagnosis Acute chest pain rule out ACS Wounds: No wound was present Labs/Diagnostic Data: Laboratory Results Test 11/01/24 19:22 10/31/24 06:26 10/30/24 14:02 10/30/24 06:32 Sodium Level 137 mmol/L (136-145) Potassium Level 4.4 mmol/L (3.5-5.1) Chloride Level 104 mmol/L (98-107) Carbon Dioxide Level 29 mmol/L (20-31) Anion Gap 4 (5-15) Blood Urea Nitrogen 13 mg/dL (9-23) Creatinine 1.02 mg/dL (0.700-1.30) Glomerular Filtration Rate Calc 77 mL/min (>90) BUN/Creatinine Ratio 12.7 (10.0-20.0) Serum Glucose 128 mg/dL (74-106) Calcium Level 9.3 mg/dL (8.7-10.4) Magnesium Level 2.3 mg/dL (1.6-2.6) Troponin I High Sensitivity 9 ng/L (</=54) Free Thyroxine (T4) Calculated 1.25 ng/dL (0.89-1.76) Free Triiodothyronine (T3) pg/mL 2.17 pg/mL (2.3-4.2) Urine Color Yellow (Yellow) Urine Clarity Clear (Clear) Urine pH 6.0 (5.0-9.0) Urine Specific [place] 1.028 (1.001-1.035) Urine Protein Trace (Negative) Urine Ketones Negative (Negative) Urine Blood Negative /uL (Negative) Urine Nitrite Negative (Negative) Urine Bilirubin Negative (Negative) Urine Urobilinogen 4 mg/dL (Negative) Urine Leukocyte Esterase Negative /uL (Negative) Urine RBC 1 /hpf (0 - 3) Urine Microscopic WBC 2 /HPF (0-3) Urine Squamous Epithelial Cells None seen /hpf (<5) Urine Calcium Oxalate Crystals Few (None Seen) Urine Bacteria Few /hpf (None Seen) Urine Hyaline Casts Few /lpf (0 - 2) Urine Mucus Few (None Seen) Urine Glucose Normal mg/dL (Normal) Urine Opiates Screen Pos (NEGATIVE) Urine Fentanyl Screen Neg (NEGATIVE) Urine Barbiturates Screen Neg (NEGATIVE) Urine Phencyclidine Screen Neg (NEGATIVE) Urine Amphetamines Screen Neg (NEGATIVE) Urine Benzodiazepines Screen Neg (NEGATIVE) Urine Cocaine Screen Neg (NEGATIVE) Urine Cannabinoids Screen Neg (NEGATIVE) White Blood Count 6.8 10^3/uL (4.4-10.8) Red Blood Count 3.78 10^6/uL (4.5-5.90) Hemoglobin 12.1 g/dL (13.5-17.5) Hematocrit 35.0 % (41.0-53.0) Mean Corpuscular Volume 92.8 fL (80.0-100.0) Mean Corpuscular Hemoglobin 32.1 pg (28.0-32.0) Mean Corpuscular Hemoglobin Concent 34.6 g/dL (32.0-36.0) Red Cell Distribution Width 15.7 % (11.8-14.3) Platelet Count 187 10^3/uL (140-450) Mean Platelet Volume 7.9 fL (6.9-10.8) Neutrophils (%) (Auto) 66.8 % (37.0-80.0) Lymphocytes (%) (Auto) 18.2 % (10.0-50.0) Monocytes (%) (Auto) 11.1 % (0.0-12.0) Eosinophils (%) (Auto) 2.0 % (0.0-7.0) Basophils (%) (Auto) 1.9 % (0.0-2.0) Neutrophils # (Auto) 4.6 10 ^3/uL (1.6-8.6) Lymphocytes # (Auto) 1.2 10 ^3/uL (0.4-5.4) Monocytes # (Auto) 0.8 10 ^3/uL (0-1.3) Eosinophils # (Auto) 0.1 10 ^3/uL (0-0.8) Basophils # (Auto) 0.1 10 ^3/uL (0-0.2) Nucleated Red Blood Cells 0.0 % Test 10/29/24 16:40 10/29/24 15:13 10/29/24 13:04 Thyroid Stimulating Hormone (TSH) 6.43 uIU/mL (0.55-4.78) Lactic Acid Level 1.0 mmol/L (0.4-2.0) Total Bilirubin 0.6 mg/dL (0.2-1.0) Aspartate Amino Transferase (AST) 102 U/L (13-40) Alanine Aminotransferase (ALT) 108 U/L (7-40) Alkaline Phosphatase 57 U/L (46-116) B-Type Natriuretic Peptide 111.90 pg/mL (0-100) Total Protein 6.2 g/dL (5.7-8.2) Albumin 4.4 g/dL (3.2-4.8) Other Laboratory Tests 11/01/24 19:22 10/30/24 06:32 Brief Hx & Hospital Course: This is a 74-year-old male with past medical history of HTN, hyperlipidemia, Leukaemia, COPD on home O2 2L, Afib on eloquis, CAD with s/p PTCA, CHF brought in by EMS presented with a chief complaint of chest heaviness and lightheadedness. Patient was recently in the ER and was sent to a SNF where he developed A-Fib and was transferred to [facility] where he was inpatient for 5 days. Patient was given 325 of ASA by EMS, no NTG. Patients BP was low upon arrival at 100/69. He denied shortness of breath, nausea, vomiting, blurred vision, or any change in bowel and bladder habit. Hospital course: EKG showed Afib with controlled rate, Troponin trends are unremarkable. CxR revealed no acute abnormality and Port-A-Cath from right internal jugular vein in good position with the catheter tip at the cavoatrial junction.Echo on 08/18 demonstrated EF 20%. Patient was treated with aspirin 325 mg once, IV bolus followed by IV N/S @ 75 ml/hr and hold antihypertensives due to low BP, and resumed home meds. For musculoskeletal pain the patient was treated with nighttime baclofen and ibuprofen 400 mg q.6 hours PRN. To rule out GI cause of the chest pain ordered barium swallow and demonstrated mild abnormal tertiary esophageal contraction, otherwise unremarkable upper GI examination and CT chest showed mild scattered ground-glass infiltrates in the upper mid lung field, mild interlobular septal thickening unchanged from August 06, 2024. GI also on the board and recommended outpatient EGD if patient continues to have chest pain after cardiac clearance. Patient is being discharged to home and advised to stop all antihypertensive and monitor the blood pressure regularly. Advised to follow up with DC clinic in 1 week and also advised to follow up with PCP to adjust the medications. Physical examination: General Appearance: Alert, Oriented X3, Cooperative, No acute distress HEENT: Atraumatic, PERRLA, EOMI, Mucous membrane moist/pink Respiratory: Clear to auscultation, Normal air movement Cardiovascular: Regular rate, Normal S1, Normal S2, No murmurs, no chest wall tenderness Abdominal: Normal bowel sounds, Soft, No tenderness, No hepatospenomegaly, No masses Extremities: No clubbing, No cyanosis, No edema, Normal pulses, No tenderness/swelling Skin: No rashes, No breakdown, No significant lesion Neuro: Normal gait, Normal speech, Strength at 5/5 X4 ext, Normal tone, Sensation intact, grossly intact cranial nerves Psych/Mental Status: Mental status NL, Mood NL Discharge plan: Disposition: Home Medications: Resumed home medications and hold antihypertensive due to low blood pressure. Follow up: [place] clinic in 1 week Consults/Reason for consult GI was consulted Operations or Procedures CHEST RADIOGRAPH Indication: cp Technique: Single frontal view of the chest was obtained Comparison: XY CHEST PORTABLE on DOS: 10/15/24, XY CHEST PORTABLE on DOS: 10/06/24, XY CHEST PORTABLE on DOS: 08/13/24 FINDINGS: Lines and Tubes: MediPort in place in the from the right internal jugular vein with the in the distal superior vena cava. Lungs: No focal consolidation. Pleura: No effusion. No pneumothorax. Cardiomediastinal contours: Unremarkable Bones: No acute osseous abnormality. IMPRESSION: 1. No acute cardiopulmonary disease. 2. Port-A-Cath from right internal jugular vein in good position with the catheter tip at the cavoatrial junction. Procedure: CT CHEST WITHOUT CONTRAST Reason for study/Clinical History: RECURRENT CHEST PAIN FINDINGS: Lower neck: Normal thyroid. Right internal jugular catheter which terminates at the cavoatrial junction. Lungs: Mild ground-glass infiltrates in the upper mid lobes unchanged. Heart/Vascular Structures: Normal heart size. Stable coronary artery calcifications. No pneumothorax. No pleural effusions.. Lymph Nodes: No adenopathy Pleura: No pleural effusion or significant pneumothorax. Musculoskeletal: No acute osseous abnormality. Soft tissues: Normal. Upper abdomen: Limited portions of the upper abdomen are unremarkable. IMPRESSION: 1. Mild scattered ground-glass infiltrates in the upper mid lung nash. Mild interlobular septal thickening unchanged from August 06 2024. 2. Right internal jugular catheter which terminates at the cavoatrial junction. 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 The esophagus was normal in caliber with no stricture, filling defect or wall irregularity demonstrated. Mildly abnormal esophageal peristalsis was observed. There was prompt passage of contrast through a normal appearing gastroesophageal junction. The stomach distended normally with a normal mucosal pattern and no evidence for filling defect, mass or wall irregularity. The duodenal bulb demonstrated no stricture or ulceration. Contrast flowed into more distal loops of small bowel, with no abnormality identified. IMPRESSION: Mild abnormal tertiary esophageal contraction; otherwise unremarkable UGI examination. Condition at Discharge: Guarded Final Diagnosis/Problems List # Acute chest pain ruled out ACS # Possible illness anxiiety disorder # H/O of CAD , s/p PTCAX1 stent # Hypertensive heart disease with possible chronic diastolic heart failure # Acute hypotension resolved # Chronic hypoxic respiratory respiratory failure due to COPD # Permanent atrial fibrillation and secondary hypercoagulable state Discharge Disposition: Home Discharge Instruct/Medications Diet: Cardiac 2g Na,low cholest Activity: No Restrictions, As Tolerated Follow Up/Referral: Follow up with DC clinic in 1 week. Follow up with Cardiology in 1 to 2 week. Medications: As per EMR Hold antihypertensives for now because of the low BP. Follow up with PCP to adjust medication according to response of the BP. Discharge Statement: "Patient was advised to return to the ER or call 911 if any headaches, dizziness, shortness of breath, chest pain, abdominal pain, bleeding, fevers, or worsening of medical condition. Patient was counseled about treatment plan, medications, possible side effects, patientverbalized understanding. All questions were answered to the best of my ability. This discharge took greater then 30 minutes in planning, reviewing documentation, counseling the patient, and discussing with other team members." ASSESSMENT ASSESSMENT Assessment # Acute chest pain ruled out ACS# Possible illness anxiiety disorder# H/O of CAD , s/p PTCAX1 stent# Hypertensive heart disease with possible chronic diastolic heart failure# Acute hypotension resolved# Chronic hypoxic respiratory respiratory failure due to COPD# Permanent atrial fibrillation and secondary hypercoagulable state Date of Service: Nov 04, 2024 Billing Provider: DAMARIS CROUCH MD Common Visit Codes: [id number] DISCH DAY >30min MARINO GODFREY RESIDENT Nov 04, 2024 12:17 DAMARIS CROUCH MD Nov 07, 2024 23:02
[2024-11-04] MEDS ORDERED: PANT40TA2 PO (13:41)
--- NOTE | 2024-11-04 14:51 | ECG ---
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
--- NOTE | 2024-11-04 14:51 | ECG ---
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
--- NOTE | 2024-11-04 17:46 | DVHPN2 ---
Progress Note - Dictate Date Seen: Nov 04, 2024 Medical Necessity Reason Pt with a Central, PICC or Fol: No Subjective No new complaints UGI XRay IMPRESSION: Mild abnormal tertiary esophageal contraction; otherwise unremarkable UGI examination. vital signs Vital Sign Date Time Temp Pulse Resp B/P (MAP) Pulse Ox O2 Delivery O2 Flow Rate FiO2 11/04/24 17:00 97.3 90 17 130/80 (97) 97 97.3 11/04/24 08:00 Nasal Cannula* 2 28 Total Intake and Output 11/03/24 11/03/24 11/04/24 15:00 23:00 07:00 Intake Total 1700 ml 200 ml Output Total 2200 ml 951 ml Balance -500 ml -751 ml medications Current Medications Medications Dose Ordered Sig/Aixa Route Start Time Stop Time Status Last Admin Dose Admin Nitroglycerin 0.4 mg Q5MINP PRN SL 10/29/24 15:45 11/02/24 17:26 0.4 MG Morphine Sulfate 2 mg Q30M PRN IV 10/29/24 15:45 11/03/24 15:44 2 MG Amiodarone HCl 200 mg BID PO 10/29/24 22:00 11/04/24 10:27 200 MG Apixaban 5 mg BID PO 10/29/24 22:00 11/04/24 10:27 5 MG Aspirin 81 mg DAILY PO 10/30/24 10:00 11/04/24 10:26 81 MG Digoxin 0.125 mg DAILY PO 10/30/24 10:00 11/04/24 10:27 0.125 MG Docusate Sodium 100 mg BIDPRN PRN PO 10/29/24 15:45 11/03/24 21:19 100 MG Furosemide 20 mg DAILYP PO 10/30/24 10:00 11/04/24 10:27 20 MG Metoprolol Succinate 50 mg DAILY PO 10/30/24 10:00 Hold 10/30/24 08:49 50 MG Ranolazine 500 mg BID PO 10/29/24 22:00 11/04/24 10:27 500 MG Atorvastatin Calcium 40 mg HS PO 10/29/24 22:00 11/03/24 21:20 40 MG Gabapentin 300 mg TID PO 10/29/24 16:16 11/04/24 13:47 300 MG Famotidine 20 mg DAILY PO 10/30/24 10:00 11/04/24 10:26 20 MG Baclofen 10 mg HS PO 10/30/24 22:00 11/03/24 21:19 10 MG Ibuprofen 600 mg HS PO 10/30/24 22:00 11/03/24 21:21 600 MG Acetaminophen/ Hydrocodone Bitart 1 tab Q4HPRN PRN PO 10/30/24 16:30 11/04/24 13:49 1 TAB Ondansetron HCl 4 mg Q6HPRN PRN IV 10/31/24 21:00 10/31/24 21:35 4 MG objective General Appearance: Alert, Oriented X3, Cooperative, No acute distress HEENT: Atraumatic, PERRLA, EOMI, Mucous membrane moist/pink Respiratory: Clear to auscultation, Normal air movement Cardiovascular: Regular rate, Normal S1, Normal S2, No murmurs, no chest wall tenderness Abdominal: Normal bowel sounds, Soft, No tenderness, No hepatospenomegaly, No masses;obese Extremities: No clubbing, No cyanosis, No edema, Normal pulses, No tenderness/swelling Skin: No rashes, No breakdown, No significant lesion Neuro: Normal speech, Strength at 5/5 X4 ext, Normal tone, Sensation intact, Cranial nerves 3-12 NL, Reflexes 2+ Psych/Mental Status: Mental status NL, Mood NL laboratory and microbiology Laboratory Tests 11/01/24 19:22 10/30/24 06:32 Test 11/01/24 19:22 Range/Units Serum Glucose 128 H 74-106 mg/dL Problems(with codes): (1) CHF exacerbation (2) Unspecified atrial fibrillation (3) Chest pain (4) Generalized weakness Prognosis Plan I would recommend conservative management at this time Protonix 40 mg p.o. twice a day Carafate 1 g p.o. 4 times a day Soft mechanical diet If symptoms persist then patient may require an endoscopy For that patient will need cardiac clearance and also to hold his anticoagulants for at least three days Patient can also follow up with me as an outpatient for ongoing GI workup as required Discharge planning is in progress Dietary Evaluation Review Comments: 1. Continue Cardiac diet as tolerated 2. Encourage oral intake >75% of meals 3. Monitor wt trends to trend possible gains/losses Expected Outcomes/Goals: Maintain adequate nutritional intakes. Plan discussed with: Patient, Other HERIBERTO ZIMMER MD Nov 04, 2024 17:46
== END 2024-11-04 17:52 | disposition home or self-care (01) | DRG 312 ==
LOC: ER 12:29 → EDBD 12:29 → EDUNIT# 12:29 → OVERFLOW 15:41 → TELE-EAST 22:04
PROVIDERS: ADMIT Student in an Organized Health Care Education/Training Program; ATTEND Student in an Organized Health Care Education/Training Program
DX: I95.1 Orthostatic hypotension (principal); I48.21 Permanent atrial fibrillation; D68.69 Other thrombophilia; I50.32 Chronic diastolic (congestive) heart failure; J96.11 Chronic respiratory failure with hypoxia; J44.89 Other specified chronic obstructive pulmonary disease; E78.5 Hyperlipidemia, unspecified; I25.10 Atherosclerotic heart disease of native coronary artery without angina pectoris; I11.0 Hypertensive heart disease with heart failure; E07.9 Disorder of thyroid, unspecified; Z79.82 Long term (current) use of aspirin; Z79.899 Other long term (current) drug therapy; Z80.8 Family history of malignant neoplasm of other organs or systems; Z85.6 Personal history of leukemia; Z99.81 Dependence on supplemental oxygen; Z98.61 Coronary angioplasty status; Z88.8 Allergy status to other drugs, medicaments and biological substances; Z90.49 Acquired absence of other specified parts of digestive tract; J44.9 Chronic obstructive pulmonary disease, unspecified; F41.9 Anxiety disorder, unspecified
CPT/HCPCS: 36415; 71045; 71250; 74246; 76700; 80048; 80053; 80307; 81001; 83605; 83735; 83880; 84439; 84443; 84481; 84484; 85025; 87081; 93005; 96360; 96361; G0378; J1642; J2405

== ENCOUNTER 2024-12-13 15:45 | Inpatient (IN) | payer MEDICARE, MEDICAID ==
[~2024-12-13] VITALS: Ht 182.9 cm; Wt 127.2 kg
[~2024-12-13 15:45] MED LIST changes: -AMLO1TAB22 PO; -CEFD300C2 PO; +CYCL-837 PO; -LOSA-534 PO; -METO-289 PO; -MORP1TAB14 PO; -MUPI2OIN2 EACHNOSTRI; +PANT40TA2 PO; -PRED20TA2 PO
--- NOTE | 2024-12-13 15:59 | ECG ---
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
[2024-12-13 16:22] LABS: Basophils # (auto) 0.1 10 ^3/uL (0-0.2); Basophils % (auto) 1.8 % (0.0-2.0); Eosinophils # (auto) 0.2 10 ^3/uL (0-0.8); Hematocrit 36.9 % (41.0-53.0); Hemoglobin 12.4 g/dL (13.5-17.5); Lymphocytes # (auto) 0.9 10 ^3/uL (0.4-5.4); Lymphocytes % (auto) 12.3 % (10.0-50.0); Mean Corpuscular Hemoglobin 31.5 pg (28.0-32.0); Mean Corpuscular Hgb Conc. 33.4 g/dL (32.0-36.0); Mean Corpuscular Volume 94.3 fL (80.0-100.0); Monocytes # (auto) 0.8 10 ^3/uL (0-1.3); Monocytes % (auto) 9.8 % (0.0-12.0); Neutrophils # (auto) 5.6 10 ^3/uL (1.6-8.6); Neutrophils % (auto) 73.1 % (37.0-80.0); Nucleated Red Blood Cells % 0.1 %; Platelet Count (auto) 174 10^3/uL (140-450); Red Blood Cells 3.92 10^6/uL (4.5-5.90); White Blood Cell 7.7 10^3/uL (4.4-10.8)
[2024-12-13 16:41] LABS: Chloride 104 mmol/L (98-107); Potassium 4.3 mmol/L (3.5-5.1); Sodium 138 mmol/L (136-145)
[2024-12-13 16:42] LABS: Anion Gap 7 (5-15); Carbon Dioxide 27 mmol/L (20-31)
[2024-12-13 16:43] LABS: Calcium 9.3 mg/dL (8.7-10.4)
[2024-12-13 16:47] LABS: BUN/Creatinine Ratio 7.1 (10.0-20.0)
[2024-12-13 16:57] LABS: Blood Urea Nitrogen 7 mg/dL (9-23); Glucose 106 mg/dL (74-106)
--- NOTE | 2024-12-13 17:03 | DVH ---
EXAM: XR Chest, 2 Views CLINICAL INDICATION: CP TECHNIQUE: Frontal and lateral views of the chest. COMPARISON: None FINDINGS: LUNGS AND PLEURAL SPACES: Mild congestive heart failure. HEART: Unremarkable. No cardiomegaly. MEDIASTINUM: Unremarkable. Normal mediastinal contour. BONES/JOINTS: Unremarkable. No acute fracture. TUBES, LINES AND DEVICES: Right-sided Mediport with the distal tip in the SVC. No pneumothorax. OTHER FINDINGS: . IMPRESSION: Mild congestive heart failure.
--- NOTE | 2024-12-13 17:07 | ED.PDOC ---
HPI Comments 74-year-old male who comes in with chief complaint of left-sided chest pain. The patient states that the pain is stabbing in nature and goes around to the left side. The the patient denies any nausea, vomiting or diarrhea. The patient was there having physical therapy when the symptoms began. The patient was given nitroglycerin x3 and the pain went down from a 10/10 to a 6/10. Following the nitroglycerin, the patient's blood pressure was 170/90. The patient denies any nausea, vomiting or diarrhea. Upon arrival, the patient was able to give us his medical history. Chief Complaint: Chest Pain Time Seen by MD: 15:57 Primary Care Provider: IVORY Reviewed Notes: Nurses Notes, Fund Raiser Notes, Medications, Allergies (Allergies listed above) Allergies: Coded Allergies: Fentanyl (Verified Allergy, Severe, 08/04/24) Tetracycline (Verified Allergy, Severe, 08/04/24) Patient states anaphalatic shock reaction from tetracycline and was hospitalized for 2 weeks. Povidone Iodine (Verified Allergy, Intermediate, RASH, 08/04/24) Home Meds Active Scripts Pantoprazole Sodium Sesquihydr (Protonix) 40 Mg Tab, 40 MG PO DAILY for 30 Days, #30 TAB Prov:MARINO GODFREY RESIDENT 11/04/24 Cyclobenzaprine Hcl (Cyclobenzaprine Hcl) 5 Mg Tab, 1 TAB PO QPM for 7 Days, #7 TAB Prov:MARINO GODFREY RESIDENT 11/01/24 Budesonide (Inhalation) (Budesonide) 0.5 Mg/2 Ml Kim, 0.5 MG NEB BID, #120 ML Prov:OSWALD CHAPMAN MD 08/17/24 Ranolazine (Ranolazine ER) 500 Mg Tab, 500 MG PO BID, #60 TAB Prov:OSWALD CHAPMAN MD 08/17/24 Ipratropium-Albuterol (Ipratropium [place]/Albut) 1 Barbara Barbara, 1 BARBARA IN TID, #90 ML Prov:OSWALD CHAPMAN MD 08/17/24 Amiodarone Hcl (Amiodarone Hcl) 200 Mg Tab, 1 TAB PO BID, #90 TAB 1 Refill Prov:OSWALD CHAPMAN MD 08/17/24 Docusate Sodium (Docusate Sodium) 100 Mg Cap, 100 MG PO BIDPRN PRN for 30 Days, #30 CAP Prov:HEIDE SÁNCHEZ MD 08/12/24 Aspirin (Aspirin Low Dose) 81 Mg Tab, 81 MG PO DAILY for 30 Days, #30 TAB Prov:HEIDE SÁNCHEZ MD 08/12/24 Reported Medications Digoxin (Digoxin) 125 Mcg Tab, 1 TAB PO DAILY for 30 Days, #30 10/18/24 Atorvastatin Calcium (ATORVASTATIN CALCIUM) 40 Mg Tab, 1 TAB PO DAILY, #30 TAB 5 Refills 08/04/24 Furosemide (Furosemide) 20 Mg Tab, 1 TAB PO DAILYP, #90 TAB 1 Refill 08/04/24 Gabapentin (Gabapentin) 600 Mg Tab, 1 TAB PO TID, #90 TAB 3 Refills 08/04/24 Apixaban Base (ELIQUIS) 5 Mg Tab, 5 MG PO BID, TAB 08/04/24 Budesonide-Formoterol Fumarate (Budesonide/Formoterol Fum 160-4.5 Mcg/Act) 1 Aer Aer, 1 AER IN Q4HPRN, AER 08/04/24 Information Source: Patient, Emergency Med Personnel Mode of Arrival: EMS Severity: Moderate Timing: Hours Duration: Since onset 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, De Icer, NTG Location: Chest (L) Radiation: Shoulder (L), Arm (L) Quality: Stabbing Onset: At Rest Cardiac Risk Factors: Hyperlipidemia, HTN Associated Signs and Symptoms: None Past Medical History PAST MEDICAL HISTORY: AFIB, Asthma, CAD, Cancer (Leukemia), CHF, COPD, High Lipids, HTN Past Medical History (Other): Neuropathy Surgical History: Appendectomy, PTCA, Tonsillectomy Surgical History (Other): Back surgery Family History Family History: Reviewed,noncontributory to illness Social History Smoker: Non-Smoker Alcohol: Denies ETOH Use Drugs: Denies Drug Use Lives In: Home Constitutional: denies: chills, diaphoresis, fatigue, fever, malaise, sweats, weakness, others EENTM: denies: blurred vision, double vision, ear bleeding, ear discharge, ear drainage, ear pain, ear ringing, eye pain, eye redness, hearing loss, mouth pain, mouth swelling, nasal discharge, nose bleeding, nose congestion, nose pain, photophobia, tearing, throat pain, throat swelling, voice changes, others Respiratory: denies: cough, hemoptysis, orthopnea, SOB at rest, shortness of breath, SOB with excertion, stridor, wheezing, others Cardiovascular: reports: chest pain; denies: dizzy spells, diaphoresis, Dyspnea on exertion, edema, irregular heart beat, left arm pain, lightheadedness, palpitations, PND, syncope, others Gastrointestinal: denies: abdomen distended, abdominal pain, blood streaked bowels, constipated, diarrhea, dysphagia, difficulty swallowing, hematemesis, melena, nausea, poor appetite, poor fluid intake, rectal bleeding, rectal pain, vomiting, others Genitourinary: denies: burning, dysuria, flank pain, frequency, hematuria, incontinence, penile discharge, penile sore, pain, testicle pain, testicle swelling, urgency, others Neurological: denies: dizziness, fainting, headache, left sided numbness, left sided weakness, numbness, paresthesia, pre-existing deficit, right sided numbness, right sided weakness, seizure, speech problems, tingling, tremors, weakness, others Musculoskeletal: denies: back pain, gout, joint pain, joint swelling, muscle pain, muscle stiffness, neck pain, others Integumetry: denies: bruises, change in color, change in hair/nails, dryness, laceration, lesions, lumps, rash, wounds, others Allergic/Immunocompromised: denies: Difficulty Healing, Frequent Infections, Hives, Itching, others Hematologic/Lymphatic: denies: anemia, blood clots, easy bleeding, easy bruising, swollen glands, others Endocrine: denies: excessive hunger, excessive sweating, excessive thirst, excessive urination, flushing, intolerance to cold, intolerance to heat, unexplained weight gain, unexplained weight loss, others Psychiatric: denies: anxiety, bipolar disorder, depression, hopeless, panic disorder, schizophrenia, sleepless, suicidal, others Physical Exam General Appearance: Moderate Distress HEENT: Normal ENT Inspection, Pharynx Normal, TMs Normal Neck: Full Range of Motion, Non-Tender, Normal, Normal Inspection Respiratory: Chest Non-Tender, Lungs Clear, No Accessory Muscle Use, No Respiratory Distress, Normal Breath Sounds Cardiovascular: No Edema, No JVD, No Murmur, No Gallop, Normal Peripheral Pulses, Regular Rate/Rhythm Breast Exam: Deferred Gastrointestinal: No Organomegaly, Non Tender, No Pulsatile Mass, Normal Bowel Sounds, Soft Genitalia: Deferred Pelvic: Deferred Rectal: Deferred Extremities: No calf tenderness, Normal capillary refill, Normal inspection, Normal range of motion, Non-tender, No pedal edema Musculoskeletal : Apperance: Normal Neurologic: Alert, financial processing clerk II-XII nml as Tested, No Motor Deficits, Normal Affect, Normal Mood, No Sensory Deficits Cerebellar Function: Normal Reflexes: Normal Skin: Dry, Normal Color, Warm Lymphatic: No Adenopathy EKG EKG : Pulse Rate (adult): 87 [place]: Normal Cardiac Rhythm: NSR Block: None ST: Nonsp Was a procedure done? Was a procedure done?: No CP Differential Dx Differential Diagnosis: Angina, PA, Pulmonary Embolus Differential Diagnosis: CHF Differential Diagnosis: Pericarditis X-Ray, Labs, Meds, VS Vital Signs Date Time Temp Pulse Resp B/P (MAP) Pulse Ox O2 Delivery O2 Flow Rate FiO2 12/13/24 17:07 87 12/13/24 15:46 87 12/13/24 15:45 98.0 90 18 170/74 (106) 97 98.0 Lab Test 12/13/24 16:02 Range/Units White Blood Count 7.7 4.4-10.8 10^3/uL Red Blood Count 3.92 L 4.5-5.90 10^6/uL Hemoglobin 12.4 L 13.5-17.5 g/dL Hematocrit 36.9 L 41.0-53.0 % Mean Corpuscular Volume 94.3 80.0-100.0 fL Mean Corpuscular Hemoglobin 31.5 28.0-32.0 pg Mean Corpuscular Hemoglobin Concent 33.4 32.0-36.0 g/dL Red Cell Distribution Width 15.0 H 11.8-14.3 % Platelet Count 174 140-450 10^3/uL Mean Platelet Volume 7.8 6.9-10.8 fL Neutrophils (%) (Auto) 73.1 37.0-80.0 % Lymphocytes (%) (Auto) 12.3 10.0-50.0 % Monocytes (%) (Auto) 9.8 0.0-12.0 % Eosinophils (%) (Auto) 3.0 0.0-7.0 % Basophils (%) (Auto) 1.8 0.0-2.0 % Neutrophils # (Auto) 5.6 1.6-8.6 10 ^3/uL Lymphocytes # (Auto) 0.9 0.4-5.4 10 ^3/uL Monocytes # (Auto) 0.8 0-1.3 10 ^3/uL Eosinophils # (Auto) 0.2 0-0.8 10 ^3/uL Basophils # (Auto) 0.1 0-0.2 10 ^3/uL Nucleated Red Blood Cells 0.1 % Sodium Level 138 136-145 mmol/L Potassium Level 4.3 3.5-5.1 mmol/L Chloride Level 104 98-107 mmol/L Carbon Dioxide Level 27 20-31 mmol/L Anion Gap 7 5-15 Blood Urea Nitrogen 7 L 9-23 mg/dL Creatinine 0.98 0.700-1.30 mg/dL Glomerular Filtration Rate Calc 81 >90 mL/min BUN/Creatinine Ratio 7.1 L 10.0-20.0 Serum Glucose 106 74-106 mg/dL Calcium Level 9.3 8.7-10.4 mg/dL Troponin I High Sensitivity 68 *H </=54 ng/L B-Type Natriuretic Peptide 76.21 0-100 pg/mL IV Hep-Lock was established. The patient's CBC is within normal limits The chemistry panel is within normal limits The 1st troponin level came back at 68 The chest x-ray shows mild congestive heart failure The patient is also being given Lasix 40 mg IV push The patient is being admitted to the hospitalist The patient is bottom of the here in the emergency department's. A cardiology consult will be obtained. Images Reviewed?: Images reviewed and evaluated by me Time of 1ST Reevaluation: 17:12 Reevaluation 1ST: Unchanged Patient Education/Counseling: Diagnosis, Treatment, Prognosis Family Education/Counseling: No Family Present Departure 1 Departure Time of Disposition: 17:12 Impression: Primary Impression: Non-STEMI (non-ST elevated myocardial infarction) Additional Impression: Elevated troponin Disposition: 09 ADMITTED INPATIENT Admit to: [facility] Condition: Fair Critical Care Note Critical Care Time?: Yes (45 min-critical care time only) Stability Stability form required: Yes Unstable for transfer: Telemetry monitoring (Telemetry monitoring required), ED Physician Assesment (Clinical assesment) Heart Score Heart Score: Heart Score Response (Comments) Value History Moderate Suspicious 1 EKG Repolarization Disturb 1 Age >65 2 Risk Factors >3 or Hx ASHD 2 Troponin 1-2 x's Normal limit 1 Total 7 JULISSA LAO MD December 13, 2024 17:07
--- NOTE | 2024-12-13 17:25 | DVHHP2 ---
Admitting Diagnosis: Unstable Angina History of Present Illness This is a 74 year old male that was seen at [facility] by Kaushik Ward nurse practitioner. Patient was undergoing physical therapy when he had a sudden onset of left sided chest pain. Three doses of nitroglycerin was given with no relief. Patient now presents at this facility with unstable angina with a mildly elevated troponin level and a blood pressure of 170/90. Past Medical History Patient's past medical history is pertinent for persistent atrial fibrillation, hyperlipidemia, chronic anticoagulation on Eliquis, COPD, CAD, and morbid obesity. Patient Family History: FH: heart disease G8 MOTHER, Throat cancer G8 MOTHER, G8 BROTHER Allergies: Coded Allergies: Fentanyl (Verified Allergy, Severe, 08/04/24) Tetracycline (Verified Allergy, Severe, 08/04/24) Patient states anaphalatic shock reaction from tetracycline and was hospitalized for 2 weeks. Povidone Iodine (Verified Allergy, Intermediate, RASH, 08/04/24) Home Meds Active Scripts Pantoprazole Sodium Sesquihydr (Protonix) 40 Mg Tab, 40 MG PO DAILY for 30 Days, #30 TAB Prov:MARINO GODFREY RESIDENT 11/04/24 Cyclobenzaprine Hcl (Cyclobenzaprine Hcl) 5 Mg Tab, 1 TAB PO QPM for 7 Days, #7 TAB Prov:MARINO GODFREY RESIDENT 11/01/24 Budesonide (Inhalation) (Budesonide) 0.5 Mg/2 Ml Kim, 0.5 MG NEB BID, #120 ML Prov:OSWALD CHAPMAN MD 08/17/24 Ranolazine (Ranolazine ER) 500 Mg Tab, 500 MG PO BID, #60 TAB Prov:OSWALD CHAPMAN MD 08/17/24 Ipratropium-Albuterol (Ipratropium [place]/Albut) 1 Barbara Barbara, 1 BARBARA IN TID, #90 ML Prov:OSWALD CHAPMAN MD 08/17/24 Amiodarone Hcl (Amiodarone Hcl) 200 Mg Tab, 1 TAB PO BID, #90 TAB 1 Refill Prov:OSWALD CHAPMAN MD 08/17/24 Docusate Sodium (Docusate Sodium) 100 Mg Cap, 100 MG PO BIDPRN PRN for 30 Days, #30 CAP Prov:HEIDE SÁNCHEZ MD 08/12/24 Aspirin (Aspirin Low Dose) 81 Mg Tab, 81 MG PO DAILY for 30 Days, #30 TAB Prov:HEIDE SÁNCHEZ MD 08/12/24 Reported Medications Digoxin (Digoxin) 125 Mcg Tab, 1 TAB PO DAILY for 30 Days, #30 10/18/24 Atorvastatin Calcium (ATORVASTATIN CALCIUM) 40 Mg Tab, 1 TAB PO DAILY, #30 TAB 5 Refills 08/04/24 Furosemide (Furosemide) 20 Mg Tab, 1 TAB PO DAILYP, #90 TAB 1 Refill 08/04/24 Gabapentin (Gabapentin) 600 Mg Tab, 1 TAB PO TID, #90 TAB 3 Refills 08/04/24 Apixaban Base (ELIQUIS) 5 Mg Tab, 5 MG PO BID, TAB 08/04/24 Budesonide-Formoterol Fumarate (Budesonide/Formoterol Fum 160-4.5 Mcg/Act) 1 Aer Aer, 1 AER IN Q4HPRN, AER 08/04/24 Current Medications Current Medications Medications (Trade) Dose Ordered Sig/Aixa Route PRN Reason Start Time Stop Time Status Last Admin Acetaminophen/ Hydrocodone Bitart ([place] 5/325MG Tab) 1 tab Q4HP PRN PO MODERATE PAIN (4-6 PAIN SCALE) 12/13/24 17:30 12/13/24 18:21 Ondansetron HCl (Zofran) 4 mg Q4HP PRN IV NAUSEA / VOMITING 12/13/24 17:30 Acetaminophen (Tylenol Tablet) 650 mg Q6HP PRN PO PAIN SCALE 1-3 OR TEMP>100.4 12/13/24 17:30 Morphine Sulfate 2 mg Q4HPRN PRN IV SEVERE PAIN (7-10 PAIN SCALE) 12/13/24 17:30 12/13/24 21:24 Nitroglycerin (Ntrostat Sublingual) 0.4 mg Q5MINP PRN SL FOR CHEST PAIN 12/13/24 17:30 Morphine Sulfate 2 mg Q30M PRN IV FOR CHEST PAIN 12/13/24 17:30 Enoxaparin Sodium (Lovenox) 120 mg Q12HR SC 12/14/24 10:00 Atorvastatin Calcium (Lipitor) 40 mg HS PO 12/14/24 22:00 Metoprolol Succinate (Toprol Xl) 50 mg BID PO 12/13/24 22:00 12/13/24 21:47 Pantoprazole Sodium (Protonix) 40 mg DAILY IV 12/14/24 10:00 Amiodarone HCl (Cordarone Tablet) 200 mg BID PO 12/14/24 10:00 Digoxin (Lanoxin Tablet) 0.125 mg DAILY PO 12/14/24 10:00 UNV Furosemide (Lasix Tablet) 20 mg DAILYP PO 12/14/24 10:00 UNV Ranolazine (Ranexa ER) 500 mg BID PO 12/14/24 10:00 UNV Review of Systems Constitutional: denies: chills, diaphoresis, fatigue, fever, malaise, sweats, weakness, others EENTM: denies: blurred vision, double vision, ear bleeding, ear discharge, ear drainage, ear pain, ear ringing, eye pain, eye redness, hearing loss, mouth pain, mouth swelling, nasal discharge, nose bleeding, nose congestion, nose pain, photophobia, tearing, throat pain, throat swelling, voice changes, others Respiratory: denies: cough, hemoptysis, orthopnea, SOB at rest, shortness of b reath, SOB with excertion, stridor, wheezing, others Cardiovascular: reports: chest pain; denies: dizzy spells, diaphoresis, Dyspnea on exertion, edema, irregular heart beat, left arm pain, lightheadedness, palpit ations, PND, syncope, others Gastrointestinal: denies: abdomen distended, abdominal pain, blood streaked b owels, constipated, diarrhea, dysphagia, difficulty swallowing, hematemesis, melena, nausea, poor appetite, poor fluid intake, rectal bleeding, rectal pain, vomiting, others Genitourinary: denies: burning, dysuria, flank pain, frequency, hematuria, incontinence, penile discharge, penile sore, pain, testicle pain, testicle swelling, urgency, others Neurological: denies: dizziness, fainting, headache, left sided numbness, left sided weakness, numbness, paresthesia, pre-existing deficit, right sided numbness, right sided weakness, seizure, speech problems, tingling, tremors, weakness, others Musculoskeletal: denies: back pain, gout, joint pain, joint swelling, muscle pain, muscle stiffness, neck pain, others Integumetry: denies: bruises, change in color, change in hair/nails, dryness, laceration, lesions, lumps, rash, wounds, others Allergic/Immunocompromised: denies: Difficulty Healing, Frequent Infections, Hives, Itching, others Hematologic/Lymphatic: denies: anemia, blood clots, easy bleeding, easy bruisi ng, swollen glands, others Endocrine: denies: excessive hunger, excessive sweating, excessive thirst, exce ssive urination, flushing, intolerance to cold, intolerance to heat, unexplained weight gain, unexplained weight loss, others Psychiatric: denies: anxiety, bipolar disorder, depression, hopeless, panic disorder, schizophrenia, sleepless, suicidal, others Vital Signs Vital Signs Date Time Temp Pulse Resp B/P (MAP) Pulse Ox O2 Delivery O2 Flow Rate FiO2 12/13/24 22:01 97 20 154/73 12/13/24 22:00 99 12/13/24 19:45 Nasal Cannula* 5 40 12/13/24 19:45 97.7 97.7 Physical Exam General Appearance: Moderate Distress HEENT: Normal ENT Inspection, Pharynx Normal, TMs Normal Neck: Full Range of Motion, Non-Tender, Normal, Normal Inspection Respiratory: Lungs Clear, No Accessory Muscle Use, No Respiratory Distress, Normal Breath Sounds Cardiovascular: Chest pain No Edema, No JVD, No Murmur, No Gallop, Normal Peripheral Pulses, Regular Rate/Rhythm Breast Exam: Deferred Gastrointestinal: No Organomegaly, Non Tender, No Pulsatile Mass, Normal Bowel Sounds, Soft Genitalia: Deferred Pelvic: Deferred Rectal: Deferred Extremities: No calf tenderness, Normal capillary refill, Normal inspection, Normal range of motion, Non-tender, No pedal edema Musculoskeletal : Appearance: Normal Neurologic: Alert, financial wellness coach II-XII nml as Tested, No Motor Deficits, Normal Affect, Normal Mood, No Sensory Deficits Cerebellar Function: Normal Reflexes: Normal Skin: Dry, Normal Color, Warm Lymphatic: No Adenopathy Results Labs Test 12/13/24 22:30 12/13/24 16:02 Range/Units White Blood Count 7.7 4.4-10.8 10^3/uL Red Blood Count 3.92 L 4.5-5.90 10^6/uL Hemoglobin 12.4 L 13.5-17.5 g/dL Hematocrit 36.9 L 41.0-53.0 % Mean Corpuscular Volume 94.3 80.0-100.0 fL Mean Corpuscular Hemoglobin 31.5 28.0-32.0 pg Mean Corpuscular Hemoglobin Concent 33.4 32.0-36.0 g/dL Red Cell Distribution Width 15.0 H 11.8-14.3 % Platelet Count 174 140-450 10^3/uL Mean Platelet Volume 7.8 6.9-10.8 fL Neutrophils (%) (Auto) 73.1 37.0-80.0 % Lymphocytes (%) (Auto) 12.3 10.0-50.0 % Monocytes (%) (Auto) 9.8 0.0-12.0 % Eosinophils (%) (Auto) 3.0 0.0-7.0 % Basophils (%) (Auto) 1.8 0.0-2.0 % Neutrophils # (Auto) 5.6 1.6-8.6 10 ^3/uL Lymphocytes # (Auto) 0.9 0.4-5.4 10 ^3/uL Monocytes # (Auto) 0.8 0-1.3 10 ^3/uL Eosinophils # (Auto) 0.2 0-0.8 10 ^3/uL Basophils # (Auto) 0.1 0-0.2 10 ^3/uL Nucleated Red Blood Cells 0.1 % Sodium Level 138 136-145 mmol/L Potassium Level 4.3 3.5-5.1 mmol/L Chloride Level 104 98-107 mmol/L Carbon Dioxide Level 27 20-31 mmol/L Anion Gap 7 5-15 Blood Urea Nitrogen 7 L 9-23 mg/dL Creatinine 0.98 0.700-1.30 mg/dL Glomerular Filtration Rate Calc 81 >90 mL/min BUN/Creatinine Ratio 7.1 L 10.0-20.0 Serum Glucose 106 74-106 mg/dL Calcium Level 9.3 8.7-10.4 mg/dL B-Type Natriuretic Peptide 76.21 0-100 pg/mL Primary Diagnosis Unstable angina 2' Diagnosis/Comorbidities HTN HLD Persistent A Fib COPD Plan Hold Eliquis and preparation for heart Cath. Monitor on telemetry floor. Start med treatments as needed for a COPD. Restart home medications. Plan discussed with: Patient Problems List: (1) Unstable angina Status: Acute Assessment & Plan: Cardiology consult Plan for left heart Cath Plan for CT coronary arteries and CT angio to rule out pulmonary embolus and dissecting aortic aneurysm Trend troponin Monitor on telemetry floor Obtain echocardiogram (2) HLD (hyperlipidemia) Status: Chronic Assessment & Plan: Start cholesterol medication (3) CAD (coronary artery disease) Status: Chronic Assessment & Plan: Anticoagulation with Lovenox. Hold Eliquis in preparation for angiogram. (4) Morbid obesity Status: Chronic Assessment & Plan: Cardiac diet Code Visit Code Visit Total Time (mins): 45 LITO BARAJAS NP December 13, 2024 17:25
[2024-12-13] MEDS ORDERED: NITROGLYCERIN 0.4 MG SL TAB SL PRN (17:30)
[2024-12-13] MEDS ORDERED: ACETAMINOPHEN 325 MG TAB PO PRN (17:30)
[2024-12-13 18:17] VITALS: PULSE 88; RESP 18; O2SAT 97
[2024-12-13] MEDS: HYDROcodone-ACET 5/325MG TAB PO PRN (18:21)
[2024-12-13 19:45] VITALS: PULSE 103; RESP 12; O2SAT 100
[2024-12-13] MEDS: ENOXAPARIN SOD 120 MG/0.8 ML SYRINGE SC ONE (21:00)
[2024-12-13] MEDS: MORPHINE SULFATE INJ 2 MG/ml SYRG IV PRN (21:24)
[2024-12-13] MEDS: METOPROLOL SUCCINATE XL 50 MG TAB PO SCH (21:47)
[2024-12-14] VITALS (10 sets, daily range): BP systolic 128–157; BP diastolic 79–91; PULSE 85–106; RESP 12–18; TEMP 97.8–97.9; O2SAT 96–100
[2024-12-14] MEDS: MORPHINE SULFATE INJ 2 MG/ml SYRG IV PRN (05:10)
[2024-12-14 05:35] LABS: Basophils # (auto) 0.1 10 ^3/uL (0-0.2); Basophils % (auto) 1.1 % (0.0-2.0); Eosinophils # (auto) 0.3 10 ^3/uL (0-0.8); Hematocrit 38.4 % (41.0-53.0); Hemoglobin 12.8 g/dL (13.5-17.5); Lymphocytes # (auto) 0.8 10 ^3/uL (0.4-5.4); Lymphocytes % (auto) 9.3 % (10.0-50.0); Mean Corpuscular Hemoglobin 31.4 pg (28.0-32.0); Mean Corpuscular Hgb Conc. 33.4 g/dL (32.0-36.0); Mean Corpuscular Volume 93.9 fL (80.0-100.0); Monocytes # (auto) 0.6 10 ^3/uL (0-1.3); Monocytes % (auto) 7.4 % (0.0-12.0); Neutrophils # (auto) 6.9 10 ^3/uL (1.6-8.6); Neutrophils % (auto) 79.2 % (37.0-80.0); Platelet Count (auto) 184 10^3/uL (140-450); Red Blood Cells 4.08 10^6/uL (4.5-5.90); Red Cell Distribution Width 15.8 % (11.8-14.3); White Blood Cell 8.7 10^3/uL (4.4-10.8)
[2024-12-14 05:52] LABS: Alanine Aminotransferase 20 U/L (7-40); Albumin 4.5 g/dL (3.2-4.8); Alkaline Phosphatase 65 U/L (46-116); Anion Gap 7 (5-15); Bilirubin, Total 0.7 mg/dL (0.2-1.0); Blood Urea Nitrogen 11 mg/dL (9-23); Calcium 8.8 mg/dL (8.7-10.4); Carbon Dioxide 28 mmol/L (20-31); Chloride 102 mmol/L (98-107); Glucose 95 mg/dL (74-106); Potassium 4.3 mmol/L (3.5-5.1); Sodium 137 mmol/L (136-145); Total Protein 6.5 g/dL (5.7-8.2)
[2024-12-14 05:56] LABS: Aspartate Aminotransferase 11 U/L (13-40)
--- NOTE | 2024-12-14 07:22 | DVHINCON2 ---
Date of service: December 14, 2024 Referring Physician Edwina Zafar NP Reason for Consultation Abnormal HS Troponins History of Present Illness This is a 74-year old male who initially presented as outpatient referral from [facility] secondary to reported left-sided chest pain. Patient had reportedly been administered three doses of SL Nitroglycerin with no relief which patient was subsequently transferred to this facility for further medical evaluation/management. Upon ED arrival initial 12-lead electrocardiogram had revealed atrial fibrillation/flutter at 87bpm with no evidence for acute ischemic changes. Initial HS troponin was found minimally elevated at 68, with subsequent trend of 69, 64, 64, and 68. Initial BNP was found normal at 72.61 which subsequent chest imaging had revealed mild congestive heart failure with presence of a right-sided port. Of note, patient does have underlying history of coronary artery disease which previous cardiac catheterization ([facility] 08/11/2024) had revealed presence of a 40% mLAD lesion (treated medically), in addition to presence of a patent stent involving the mid non-dominant RCA. Echocardiogram ([facility] 08/05/2024) at that time had revealed a preserved LVEF of 60%. At present, it is of note upon ED arrival patient was found hypertensive with an initial blood pressure of 170/99 (later improved) which could have attributed to the clinical picture. Denies any shortness of breath, palpitations, dizziness, syncope, orthopnea, paroxysmal nocturnal, or any further cardiac related symptoms. As the patient presented with chest pain and found to have abnormal elevation of HS troponins, Cardiology services were involved by primary team request for cardiac aspects of care. Past Medical History Reported past medical history includes coronary artery disease status post previous PCI involving mRCA, permanent atrial fibrillation/flutter on chronic anticoagulation, chronic diastolic heart failure, hypertension, hyperlipidemia, promyelocytic leukemia status post radiation/chemotherapy, COPD on home oxygen, status post appendectomy, status post port implantation Cardiac Catheterization: (08/11/2024) revealed The left main coronary artery is a normal caliber short bifurcating vessel. It is free of any significant disease. The left anterior descending artery is normal caliber vessel that extends to the apex. Mid vessel has 40% stenosis. The diagonal branches are with no significant disease. The left circumflex artery is a large-caliber dominant vessel. No significant disease. The obtuse marginal branch and left posterolateral branch are with no significant disease. Left posterior descendin g artery is with no significant stenosis. The right coronary artery is a small caliber and non-dominant vessel. No significant disease. There is a patent stent in the mid vessel. Impressions: 1. Normal left ventricular end-diastolic pressure. 2. Moderate disease in the mid LAD. 3. Patent stent in the mid nondominant RCA. Echocardiogram: (08/05/2024) revealed The study is technically limited. Normal left ventricular size and systolic function. LVEF is 60%. Right ventricle is mildly dilated in size with preserved systolic function. Calcified aortic valve with no significant stenosis. No pericardial effusion. PA systolic pressure is not adequately estimated. Past Surgical History Reviewed Family History: FH: heart disease G8 MOTHER, Throat cancer G8 MOTHER, G8 BROTHER Allergies: Coded Allergies: Fentanyl (Verified Allergy, Severe, 08/04/24) Tetracycline (Verified Allergy, Severe, 08/04/24) Patient states anaphalatic shock reaction from tetracycline and was hospitalized for 2 weeks. Povidone Iodine (Verified Allergy, Intermediate, RASH, 08/04/24) Home Meds Active Scripts Pantoprazole Sodium Sesquihydr (Protonix) 40 Mg Tab, 40 MG PO DAILY for 30 Days, #30 TAB Prov:MARINO GODFREY RESIDENT 11/04/24 Cyclobenzaprine Hcl (Cyclobenzaprine Hcl) 5 Mg Tab, 1 TAB PO QPM for 7 Days, #7 TAB Prov:MARINO GODFREY RESIDENT 11/01/24 Budesonide (Inhalation) (Budesonide) 0.5 Mg/2 Ml Kim, 0.5 MG NEB BID, #120 ML Prov:OSWALD CHAPMAN MD 08/17/24 Ranolazine (Ranolazine ER) 500 Mg Tab, 500 MG PO BID, #60 TAB Prov:OSWALD CHAPMAN MD 08/17/24 Ipratropium-Albuterol (Ipratropium [place]/Albut) 1 Barbara Barbara, 1 BARBARA IN TID, #90 ML Prov:OSWALD CHAPMAN MD 08/17/24 Amiodarone Hcl (Amiodarone Hcl) 200 Mg Tab, 1 TAB PO BID, #90 TAB 1 Refill Prov:OSWALD CHAPMAN MD 08/17/24 Docusate Sodium (Docusate Sodium) 100 Mg Cap, 100 MG PO BIDPRN PRN for 30 Days, #30 CAP Prov:HEIDE SÁNCHEZ MD 08/12/24 Aspirin (Aspirin Low Dose) 81 Mg Tab, 81 MG PO DAILY for 30 Days, #30 TAB Prov:HEIDE SÁNCHEZ MD 08/12/24 Reported Medications Digoxin (Digoxin) 125 Mcg Tab, 1 TAB PO DAILY for 30 Days, #30 10/18/24 Atorvastatin Calcium (ATORVASTATIN CALCIUM) 40 Mg Tab, 1 TAB PO DAILY, #30 TAB 5 Refills 08/04/24 Furosemide (Furosemide) 20 Mg Tab, 1 TAB PO DAILYP, #90 TAB 1 Refill 08/04/24 Gabapentin (Gabapentin) 600 Mg Tab, 1 TAB PO TID, #90 TAB 3 Refills 08/04/24 Apixaban Base (ELIQUIS) 5 Mg Tab, 5 MG PO BID, TAB 08/04/24 Budesonide-Formoterol Fumarate (Budesonide/Formoterol Fum 160-4.5 Mcg/Act) 1 Aer Aer, 1 AER IN Q4HPRN, AER 08/04/24 Current Medications Current Medications Medications (Trade) Dose Ordered Sig/Aixa Route PRN Reason Start Time Stop Time Status Last Admin Acetaminophen/ Hydrocodone Bitart ([place] 5/325MG Tab) 1 tab Q4HP PRN PO MODERATE PAIN (4-6 PAIN SCALE) 12/13/24 17:30 12/13/24 18:21 Ondansetron HCl (Zofran) 4 mg Q4HP PRN IV NAUSEA / VOMITING 12/13/24 17:30 Acetaminophen (Tylenol Tablet) 650 mg Q6HP PRN PO PAIN SCALE 1-3 OR TEMP>100.4 12/13/24 17:30 Morphine Sulfate 2 mg Q4HPRN PRN IV SEVERE PAIN (7-10 PAIN SCALE) 12/13/24 17:30 12/14/24 01:53 Nitroglycerin (Ntrostat Sublingual) 0.4 mg Q5MINP PRN SL FOR CHEST PAIN 12/13/24 17:30 Morphine Sulfate 2 mg Q30M PRN IV FOR CHEST PAIN 12/13/24 17:30 12/14/24 05:10 Enoxaparin Sodium (Lovenox) 120 mg Q12HR SC 12/14/24 10:00 Atorvastatin Calcium (Lipitor) 40 mg HS PO 12/14/24 22:00 Metoprolol Succinate (Toprol Xl) 50 mg BID PO 12/13/24 22:00 12/13/24 21:47 Pantoprazole Sodium (Protonix) 40 mg DAILY IV 12/14/24 10:00 Amiodarone HCl (Cordarone Tablet) 200 mg BID PO 12/14/24 10:00 Digoxin (Lanoxin Tablet) 0.125 mg DAILY PO 12/14/24 10:00 Furosemide (Lasix Tablet) 20 mg DAILYP PO 12/14/24 10:00 Ranolazine (Ranexa ER) 500 mg BID PO 12/14/24 10:00 Review of Systems A 14-point review of systems is negative unless otherwise noted above Vital Signs Vital Signs Date Time Temp Pulse Resp B/P (MAP) Pulse Ox O2 Delivery O2 Flow Rate FiO2 12/14/24 06:00 87 137/81 (99) 99 12/14/24 05:49 10 12/14/24 00:45 Nasal Cannula* 5 40 12/13/24 19:45 97.7 97.7 Physical Exam Heart: S1 and S2 regular. The patient is in atrial fibrillation/flutter Lungs: Scattered rhonchi. Abdomen: Benign. Extremities: Distal pulses palpable, 2+. With evidence for peripheral edema Labs/Diagnostic Data Labs Test 12/14/24 05:04 12/14/24 02:05 12/13/24 16:02 Range/Units White Blood Count 8.7 4.4-10.8 10^3/uL Red Blood Count 4.08 L 4.5-5.90 10^6/uL Hemoglobin 12.8 L 13.5-17.5 g/dL Hematocrit 38.4 L 41.0-53.0 % Mean Corpuscular Volume 93.9 80.0-100.0 fL Mean Corpuscular Hemoglobin 31.4 28.0-32.0 pg Mean Corpuscular Hemoglobin Concent 33.4 32.0-36.0 g/dL Red Cell Distribution Width 15.8 H 11.8-14.3 % Platelet Count 184 140-450 10^3/uL Mean Platelet Volume 8.4 6.9-10.8 fL Neutrophils (%) (Auto) 79.2 37.0-80.0 % Lymphocytes (%) (Auto) 9.3 L 10.0-50.0 % Monocytes (%) (Auto) 7.4 0.0-12.0 % Eosinophils (%) (Auto) 3.0 0.0-7.0 % Basophils (%) (Auto) 1.1 0.0-2.0 % Neutrophils # (Auto) 6.9 1.6-8.6 10 ^3/uL Lymphocytes # (Auto) 0.8 0.4-5.4 10 ^3/uL Monocytes # (Auto) 0.6 0-1.3 10 ^3/uL Eosinophils # (Auto) 0.3 0-0.8 10 ^3/uL Basophils # (Auto) 0.1 0-0.2 10 ^3/uL Nucleated Red Blood Cells 0.0 % Sodium Level 137 136-145 mmol/L Potassium Level 4.3 3.5-5.1 mmol/L Chloride Level 102 98-107 mmol/L Carbon Dioxide Level 28 20-31 mmol/L Anion Gap 7 5-15 Blood Urea Nitrogen 11 9-23 mg/dL Creatinine 1.00 0.700-1.30 mg/dL Glomerular Filtration Rate Calc 79 >90 mL/min BUN/Creatinine Ratio 11.0 10.0-20.0 Serum Glucose 95 74-106 mg/dL Calcium Level 8.8 8.7-10.4 mg/dL Total Bilirubin 0.7 0.2-1.0 mg/dL Aspartate Amino Transferase (AST) 11 L 13-40 U/L Alanine Aminotransferase (ALT) 20 7-40 U/L Alkaline Phosphatase 65 46-116 U/L Total Protein 6.5 5.7-8.2 g/dL Albumin 4.5 3.2-4.8 g/dL Troponin I High Sensitivity 68 *H </=54 ng/L B-Type Natriuretic Peptide 76.21 0-100 pg/mL Plan/Recommendation ASSESSMENT: This is a 74-year old male who initially presented as outpatient referral from [facility] secondary to reported left-sided chest pain. Patient had reportedly been administered three doses of SL Nitroglycerin with no relief which patient was subsequently transferred to this facility for further medical evaluation/management. Upon ED arrival initial 12-lead electrocardiogram had revealed atrial fibrillation/flutter at 87bpm with no evidence for acute ischemic changes. Initial HS troponin was found minimally elevated at 68, with subsequent trend of 69, 64, 64, and 68. Initial BNP was found normal at 72.61 which subsequent chest imaging had revealed mild congestive heart failure with presence of a right-sided port. Of note, patient does have underlying history of coronary artery disease which previous cardiac catheterization ([facility] 08/11/2024) had revealed presence of a 40% mLAD lesion (treated medically), in addition to presence of a patent stent involving the mid non-dominant RCA. Echocardiogram ([facility] 08/05/2024) at that time had revealed a preserved LVEF of 60%. At present, it is of note upon ED arrival patient was found hypertensive with an initial blood pressure of 170/99 (later improved) which could have attributed to the clinical picture. Denies any shortness of breath, palpitations, dizziness, syncope, orthopnea, paroxysmal nocturnal, or any further cardiac related symptoms. As the patient presented with chest pain and found to have abnormal elevation of HS troponins, Cardiology services were involved by primary team request for cardiac aspects of care. Reported past medical history includes coronary artery disease status post previous PCI involving mRCA, permanent atrial fibrillation/flutter on chronic anticoagulation, chronic diastolic heart failure, hypertension, hyperlipidemia, promyelocytic leukemia status post radiation/chemotherapy, COPD on home oxygen, status post appendectomy, status post port implantation Cardiac Catheterization: (08/11/2024) revealed The left main coronary artery is a normal caliber short bifurcating vessel. It is free of any significant disease. The left anterior descending artery is normal caliber vessel that extends to the apex. Mid vessel has 40% stenosis. The diagonal branches are with no significant disease. The left circumflex artery is a large-caliber dominant vessel. No significant disease. The obtuse marginal branch and left posterolateral branch are with no significant disease. Left posterior descending artery is with no significant stenosis. The right coronary artery is a small caliber and non-dominant vessel. No significant disease. There is a patent stent in the mid vessel. Impressions: 1. Normal left ventricular end- diastolic pressure. 2. Moderate disease in the mid LAD. 3. Patent stent in the mid nondominant RCA. Echocardiogram: (08/05/2024) revealed The study is technically limited. Normal left ventricular size and systolic function. LVEF is 60%. Right ventricle is mildly dilated in size with preserved systolic function. Calcified aortic valve with no significant stenosis. No pericardial effusion. PA systolic pressure is not adequately estimated. Chest pain Hypertensive urgency, improved Abnormal HS Troponins (68, 69, 64, 64, 68), rule out obstructive CAD Coronary artery disease, status post previous PCI involving mRCA Permanent atrial fibrillation/flutter, on chronic anticoagulation Acute on chronic diastolic heart failure Promyelocytic leukemia, history of COPD, on home oxygen Morbid obesity Hyperlipidemia CARDIAC SUGGESTIONS FOR MANAGEMENT: Request for 2D Echocardiogram Plan for tentative cardiac catheterization to assess for flow-limiting coronary lesions Patient to remains NPO status and to be consented for the aforementioned procedure To proceed with optimized medical therapy and risk factor modification during the interim Recognizing co-morbidities, CHADSVASc score is elevated and full, mcc AC is advised for permanent AF Proceed with therapeutic Lovenox as for now, transition to DOAC plus single anti-platelet therapy given previous PCI upon discharge Recommend proceeding with rate control strategy as patient has baseline history of permanent atrial fibrillation Discontinue current Amiodarone 200mg twice daily secondary to the aforementioned above Proceed with diuresis (currently on Lasix 20mg po daily), titrate as warranted Proceed with supplemental oxygen therapy as warranted Metoprolol Succinate 50mg twice daily (as for now) Digoxin 0.125mg once daily (as for now) Start Isosorbide 30mg once daily Start Losartan 25mg once daily Ranexa 500mg twice daily Atorvastatin 40mg daily Proceed with close observation for overt signs of fluid overload Proceed with strict intakes, outputs, and daily weights Proceed with close rate and rhythm surveillance Proceed with close hemodynamic surveillance Proceed with optimized blood pressure control Transfuse to sustain HGB level above 7.0 Sustain Magnesium level greater than 2.0 Sustain Potassium level greater than 4.0 Follow up renal function and electrolytes Management in telemetry Follow up consult recommendations Will proceed to follow from a cardiac perspective Further recommendations per clinical progression All available diagnostic labs, EKG's, and images were personally reviewed Patient's status, findings, and plan of care was reviewed and discussed with supervising physician Dr. Ledesma, who is in agreement with current plan of care. Plan of care discussed with and agreed upon by patient / family / primary RN Prognosis: Guarded / Poor Thank you for allowing me to participate in the care of this patient. Further recommendations based on patients clinical course and progression, primary attending, and other consultants. Will continue to follow with primary attending. If you have any questions or concerns, please do not hesitate to contact me. A total of 75 minutes was spent reviewing the patient record, examining the patient, making a diagnostic and therapeutic plan, discussing this plan with medical personnel, following up on diagnostic studies and following the patient for clinical stability excluding any and all procedures. At least 50% of this time was spent in direct, drxo-on-mela contact. Plan discussed with: Patient (Patient and Primary RN ) RINA CUEVAS December 14, 2024 07:22
[2024-12-14] MEDS: ENOXAPARIN SOD 120 MG/0.8 ML SYRINGE SC SCH (08:34)
--- NOTE | 2024-12-14 08:52 | DVHPN2 ---
Progress Note - Dictate Date Seen: December 14, 2024 Medical Necessity Reason Pt with a Central, PICC or Fol: No Subjective Patient is awake and alert. Patient complaining of intermittent chest pain. vital signs Vital Sign Date Time Temp Pulse Resp B/P (MAP) Pulse Ox O2 Delivery O2 Flow Rate FiO2 12/14/24 08:00 90 12/14/24 08:00 98.2 18 136/86 (103) 98 98.2 12/14/24 07:39 Nasal Cannula* 3 32 Total Intake and Output 12/13/24 12/13/24 12/14/24 15:00 23:00 07:00 Output Total 1100 ml Balance -1100 ml medications Current Medications Medications Dose Ordered Sig/Aixa Route Start Time Stop Time Status Last Admin Dose Admin Acetaminophen/ Hydrocodone Bitart 1 tab Q4HP PRN PO 12/13/24 17:30 12/13/24 18:21 1 TAB Ondansetron HCl 4 mg Q4HP PRN IV 12/13/24 17:30 Acetaminophen 650 mg Q6HP PRN PO 12/13/24 17:30 Morphine Sulfate 2 mg Q4HPRN PRN IV 12/13/24 17:30 12/14/24 01:53 2 MG Nitroglycerin 0.4 mg Q5MINP PRN SL 12/13/24 17:30 Morphine Sulfate 2 mg Q30M PRN IV 12/13/24 17:30 12/14/24 05:10 2 MG Enoxaparin Sodium 120 mg Q12HR SC 12/14/24 10:00 Atorvastatin Calcium 40 mg HS PO 12/14/24 22:00 Metoprolol Succinate 50 mg BID PO 12/13/24 22:00 12/13/24 21:47 50 MG Pantoprazole Sodium 40 mg DAILY IV 12/14/24 10:00 Amiodarone HCl 200 mg BID PO 12/14/24 10:00 Digoxin 0.125 mg DAILY PO 12/14/24 10:00 Furosemide 20 mg DAILYP PO 12/14/24 10:00 Ranolazine 500 mg BID PO 12/14/24 10:00 objective This is a 74-year-old gentleman that was recently seen at [facility]. He states that while he was undergoing physical therapy, he developed sharp stabbing pain to the left side of his chest. He states he was given three doses of nitroglycerin to no effect. Patient was found to have mildly elevated troponin levels. Patient had a recent heart Cath in August which showed a 40% lesion to his mid LAD. Dr. Ledesma discussed the case with Dr. Valdes who agreed to schedule patient for repeat angiogram. Patient was scheduled and consents were signed. However, IV was unable to be placed prior to procedure and procedure was cancelled. laboratory and microbiology Laboratory Tests 12/14/24 05:04 Test 12/14/24 05:04 Range/Units Serum Glucose 95 74-106 mg/dL Problem List Unstable angina. Coronary artery disease Elevated troponin. HTN Assessment/Plan Patient will be made NPO at midnight and Cath procedure will be rescheduled for a.m. Continue to monitor EKG and continue to give pain medication and nitroglycerin for PRN chest alyx Problems(with codes): (1) Morbid obesity (2) CAD (coronary artery disease) (3) HLD (hyperlipidemia) (4) Unstable angina (5) Elevated troponin Plan discussed with: Patient Total Time (mins): 45 LITO BARAJAS NP December 14, 2024 08:52
[2024-12-14] MEDS: DIGOXIN 0.125 MG TAB PO SCH (09:14)
[2024-12-14] MEDS: PANTOPRAZOLE 40 MG/10 ML VIAL INJ IV SCH (09:14)
[2024-12-14] MEDS: FUROSEMIDE 20 MG TAB PO SCH (09:14)
[2024-12-14] MEDS: AMIODARONE HCL 200 MG TAB PO SCH (09:14)
[2024-12-14] MEDS: RANOLAZINE ER 500 MG TAB PO SCH (09:15)
[2024-12-14 09:17] LABS: INR 1.03 (0.9-1.15); Partial Thromboplastin Time 31.6 SEC (24.5-34.5); Prothrombin Time 10.9 sec (9.3-11.8)
--- NOTE | 2024-12-14 16:56 | DVHINCON2 ---
Family History: FH: heart disease G8 MOTHER, Throat cancer G8 MOTHER, G8 BROTHER Allergies: Coded Allergies: Fentanyl (Verified Allergy, Severe, 08/04/24) Tetracycline (Verified Allergy, Severe, 08/04/24) Patient states anaphalatic shock reaction from tetracycline and was hospitalized for 2 weeks. Povidone Iodine (Verified Allergy, Intermediate, RASH, 08/04/24) Home Meds Active Scripts Pantoprazole Sodium Sesquihydr (Protonix) 40 Mg Tab, 40 MG PO DAILY for 30 Days, #30 TAB Prov:MARINO GODFREY RESIDENT 11/04/24 Cyclobenzaprine Hcl (Cyclobenzaprine Hcl) 5 Mg Tab, 1 TAB PO QPM for 7 Days, #7 TAB Prov:MARINO GODFREY RESIDENT 11/01/24 Budesonide (Inhalation) (Budesonide) 0.5 Mg/2 Ml Kim, 0.5 MG NEB BID, #120 ML Prov:OSWALD CHAPMAN MD 08/17/24 Ranolazine (Ranolazine ER) 500 Mg Tab, 500 MG PO BID, #60 TAB Prov:OSWALD CHAPMAN MD 08/17/24 Ipratropium-Albuterol (Ipratropium [place]/Albut) 1 [place]le [place], 1 NICOLLE IN TID, #90 ML Prov:OSWALD CHAPMAN MD 08/17/24 Amiodarone Hcl (Amiodarone Hcl) 200 Mg Tab, 1 TAB PO BID, #90 TAB 1 Refill Prov:OSWALD CHAPMAN MD 08/17/24 Docusate Sodium (Docusate Sodium) 100 Mg Cap, 100 MG PO BIDPRN PRN for 30 Days, #30 CAP Prov:HEIDE SÁNCHEZ MD 08/12/24 Aspirin (Aspirin Low Dose) 81 Mg Tab, 81 MG PO DAILY for 30 Days, #30 TAB Prov:HEIDE SÁNCHEZ MD 08/12/24 Reported Medications Digoxin (Digoxin) 125 Mcg Tab, 1 TAB PO DAILY for 30 Days, #30 10/18/24 Atorvastatin Calcium (ATORVASTATIN CALCIUM) 40 Mg Tab, 1 TAB PO DAILY, #30 TAB 5 Refills 08/04/24 Furosemide (Furosemide) 20 Mg Tab, 1 TAB PO DAILYP, #90 TAB 1 Refill 08/04/24 Gabapentin (Gabapentin) 600 Mg Tab, 1 TAB PO TID, #90 TAB 3 Refills 08/04/24 Apixaban Base (ELIQUIS) 5 Mg Tab, 5 MG PO BID, TAB 08/04/24 Budesonide-Formoterol Fumarate (Budesonide/Formoterol Fum 160-4.5 Mcg/Act) 1 Aer Aer, 1 AER IN Q4HPRN, AER 08/04/24 Current Medications Current Medications Medications (Trade) Dose Ordered Sig/Aixa Route PRN Reason Start Time Stop Time Status Last Admin Acetaminophen/ Hydrocodone Bitart ([place] 5/325MG Tab) 1 tab Q4HP PRN PO MODERATE PAIN (4-6 PAIN SCALE) 12/13/24 17:30 12/13/24 18:21 Ondansetron HCl (Zofran) 4 mg Q4HP PRN IV NAUSEA / VOMITING 12/13/24 17:30 Acetaminophen (Tylenol Tablet) 650 mg Q6HP PRN PO PAIN SCALE 1-3 OR TEMP>100.4 12/13/24 17:30 Morphine Sulfate 2 mg Q4HPRN PRN IV SEVERE PAIN (7-10 PAIN SCALE) 12/13/24 17:30 12/14/24 01:53 Nitroglycerin (Ntrostat Sublingual) 0.4 mg Q5MINP PRN SL FOR CHEST PAIN 12/13/24 17:30 Morphine Sulfate 2 mg Q30M PRN IV FOR CHEST PAIN 12/13/24 17:30 12/14/24 05:10 Enoxaparin Sodium (Lovenox) 120 mg Q12HR SC 12/14/24 10:00 Atorvastatin Calcium (Lipitor) 40 mg HS PO 12/14/24 22:00 Metoprolol Succinate (Toprol Xl) 50 mg BID PO 12/13/24 22:00 12/14/24 09:15 Pantoprazole Sodium (Protonix) 40 mg DAILY IV 12/14/24 10:00 12/14/24 09:14 Amiodarone HCl (Cordarone Tablet) 200 mg BID PO 12/14/24 10:00 12/14/24 16:51 DC 12/14/24 09:14 Digoxin (Lanoxin Tablet) 0.125 mg DAILY PO 12/14/24 10:00 12/14/24 09:14 Furosemide (Lasix Tablet) 20 mg DAILYP PO 12/14/24 10:00 12/14/24 09:14 Ranolazine (Ranexa ER) 500 mg BID PO 12/14/24 10:00 12/14/24 09:15 Losartan Potassium (Cozaar Tablet) 25 mg DAILY PO 12/15/24 10:00 UNV Isosorbide Mononitrate (Imdur Er Tablet) 30 mg DAILY PO 12/15/24 10:00 UNV Vital Signs Vital Signs Date Time Temp Pulse Resp B/P (MAP) Pulse Ox O2 Delivery O2 Flow Rate FiO2 12/14/24 14:00 87 19 99 12/14/24 12:00 98.7 98.7 12/14/24 07:39 Nasal Cannula* 3 32 Labs/Diagnostic Data Labs Test 12/14/24 05:04 12/14/24 02:05 12/13/24 16:02 Range/Units White Blood Count 8.7 4.4-10.8 10^3/uL Red Blood Count 4.08 L 4.5-5.90 10^6/uL Hemoglobin 12.8 L 13.5-17.5 g/dL Hematocrit 38.4 L 41.0-53.0 % Mean Corpuscular Volume 93.9 80.0-100.0 fL Mean Corpuscular Hemoglobin 31.4 28.0-32.0 pg Mean Corpuscular Hemoglobin Concent 33.4 32.0-36.0 g/dL Red Cell Distribution Width 15.8 H 11.8-14.3 % Platelet Count 184 140-450 10^3/uL Mean Platelet Volume 8.4 6.9-10.8 fL Neutrophils (%) (Auto) 79.2 37.0-80.0 % Lymphocytes (%) (Auto) 9.3 L 10.0-50.0 % Monocytes (%) (Auto) 7.4 0.0-12.0 % Eosinophils (%) (Auto) 3.0 0.0-7.0 % Basophils (%) (Auto) 1.1 0.0-2.0 % Neutrophils # (Auto) 6.9 1.6-8.6 10 ^3/uL Lymphocytes # (Auto) 0.8 0.4-5.4 10 ^3/uL Monocytes # (Auto) 0.6 0-1.3 10 ^3/uL Eosinophils # (Auto) 0.3 0-0.8 10 ^3/uL Basophils # (Auto) 0.1 0-0.2 10 ^3/uL Nucleated Red Blood Cells 0.0 % Prothrombin Time 10.9 9.3-11.8 sec Prothrombin Time INR 1.03 0.9-1.15 Activated Partial Thromboplast Time 31.6 24.5-34.5 SEC Sodium Level 137 136-145 mmol/L Potassium Level 4.3 3.5-5.1 mmol/L Chloride Level 102 98-107 mmol/L Carbon Dioxide Level 28 20-31 mmol/L Anion Gap 7 5-15 Blood Urea Nitrogen 11 9-23 mg/dL Creatinine 1.00 0.700-1.30 mg/dL Glomerular Filtration Rate Calc 79 >90 mL/min BUN/Creatinine Ratio 11.0 10.0-20.0 Serum Glucose 95 74-106 mg/dL Calcium Level 8.8 8.7-10.4 mg/dL Total Bilirubin 0.7 0.2-1.0 mg/dL Aspartate Amino Transferase (AST) 11 L 13-40 U/L Alanine Aminotransferase (ALT) 20 7-40 U/L Alkaline Phosphatase 65 46-116 U/L Total Protein 6.5 5.7-8.2 g/dL Albumin 4.5 3.2-4.8 g/dL Troponin I High Sensitivity 68 *H </=54 ng/L B-Type Natriuretic Peptide 76.21 0-100 pg/mL ALAN FERGUSON MD December 14, 2024 16:56
[2024-12-14 17:09] LABS: LDL Cholesterol 68 mg/dL (< 100); Triglycerides 127 mg/dL (< 150)
[2024-12-14 17:10] LABS: HDL Cholesterol 54 mg/dL (40-59)
[2024-12-14 17:11] LABS: Cholesterol 135 mg/dL (< 200)
[2024-12-14] MEDS: ONDANSETRON HCL 4 MG/2 ML VIAL IV PRN (22:00)
[2024-12-14] MEDS: ATORVASTATIN 20 MG TAB PO SCH (22:02)
[2024-12-15] VITALS (12 sets, daily range): BP systolic 98–188; BP diastolic 64–84; PULSE 61–91; RESP 14–20; TEMP 97.5–98.4; O2SAT 92–100
--- NOTE | 2024-12-15 07:12 | DVHPN2 ---
Progress Note - Dictate Date Seen: December 15, 2024 Medical Necessity Reason Pt with a Central, PICC or Fol: No Subjective Seen and examined at the bedside within telemetry. Patient had originally been scheduled for cardiac catheterization 12/14/[address] Valdes however it is of note the patient did not have peripheral IV access throughout the course of the day leading into the scheduled time of procedure which procedure itself was subsequently postponed. At present, IV access has now been obtain. Patient is consented and remains NPO status for tentative cardiac catheterization today. vital signs Vital Sign Date Time Temp Pulse Resp B/P (MAP) Pulse Ox O2 Delivery O2 Flow Rate FiO2 12/15/24 05:00 97.5 61 20 101/64 (76) 96 97.5 12/14/24 20:00 Nasal Cannula* 2 28 Total Intake and Output 12/14/24 12/14/24 12/15/24 15:00 23:00 07:00 Intake Total 200 ml Output Total 1100 ml Balance -900 ml medications Current Medications Medications Dose Ordered Sig/Aixa Route Start Time Stop Time Status Last Admin Dose Admin Acetaminophen/ Hydrocodone Bitart 1 tab Q4HP PRN PO 12/13/24 17:30 12/15/24 02:29 1 TAB Ondansetron HCl 4 mg Q4HP PRN IV 12/13/24 17:30 12/14/24 22:00 4 MG Acetaminophen 650 mg Q6HP PRN PO 12/13/24 17:30 Morphine Sulfate 2 mg Q4HPRN PRN IV 12/13/24 17:30 12/14/24 01:53 2 MG Nitroglycerin 0.4 mg Q5MINP PRN SL 12/13/24 17:30 Morphine Sulfate 2 mg Q30M PRN IV 12/13/24 17:30 12/14/24 05:10 2 MG Enoxaparin Sodium 120 mg Q12HR SC 12/14/24 10:00 Atorvastatin Calcium 40 mg HS PO 12/14/24 22:00 12/14/24 22:02 40 MG Metoprolol Succinate 50 mg BID PO 12/13/24 22:00 12/14/24 22:01 50 MG Pantoprazole Sodium 40 mg DAILY IV 12/14/24 10:00 12/14/24 09:14 40 MG Digoxin 0.125 mg DAILY PO 12/14/24 10:00 12/14/24 09:14 0.125 MG Furosemide 20 mg DAILYP PO 12/14/24 10:00 12/14/24 09:14 20 MG Ranolazine 500 mg BID PO 12/14/24 10:00 12/14/24 22:03 500 MG Losartan Potassium 25 mg DAILY PO 12/15/24 10:00 Isosorbide Mononitrate 30 mg DAILY PO 12/15/24 10:00 laboratory and microbiology Laboratory Tests 12/14/24 05:04 Test 12/14/24 05:04 Range/Units Serum Glucose 95 74-106 mg/dL Assessment/Plan ASSESSMENT: This is a 74-year old male who initially presented as outpatient referral from [facility] secondary to reported left-sided chest pain. Patient had reportedly been administered three doses of SL Nitroglycerin with no relief which patient was subsequently transferred to this facility for further medical evaluation/management. Upon ED arrival initial 12-lead electrocardiogram had revealed atrial fibrillation/flutter at 87bpm with no evidence for acute ischemic changes. Initial HS troponin was found minimally elevated at 68, with subsequent trend of 69, 64, 64, and 68. Initial BNP was found normal at 72.61 which subsequent chest imaging had revealed mild congestive heart failure with presence of a right-sided port. Of note, patient does have underlying history of coronary artery disease which previous cardiac catheterization ([facility] 08/11/2024) had revealed presence of a 40% mLAD lesion (treated medically), in addition to presence of a patent stent involving the mid non-dominant RCA. Echocardiogram ([facility] 08/05/2024) at that time had revealed a preserved LVEF of 60%. At present, it is of note upon ED arrival patient was found hypertensive with an initial blood pressure of 170/99 (later improved) which could have attributed to the clinical picture. Denies any shortness of breath, palpitations, dizziness, syncope, orthopnea, paroxysmal nocturnal, or any further cardiac related symptoms. As the patient presented with chest pain and found to have abnormal elevation of HS troponins, Cardiology services were involved by primary team request for cardiac aspects of care. Reported past medical history includes coronary artery disease status post previous PCI involving mRCA, permanent atrial fibrillation/flutter on chronic anticoagulation, chronic diastolic heart failure, hypertension, hyperlipidemia, promyelocytic leukemia status post radiation/chemotherapy, COPD on home oxygen, status post appendectomy, status post port implantation Cardiac Catheterization: (08/11/2024) revealed The left main coronary artery is a normal caliber short bifurcating vessel. It is free of any significant disease. The left anterior descending artery is normal caliber vessel that extends to the apex. Mid vessel has 40% stenosis. The diagonal branches are with no significant disease. The left circumflex artery is a large-caliber dominant vessel. No significant disease. The obtuse marginal branch and left posterolateral branch are with no significant disease. Left posterior descending artery is with no significant stenosis. The right coronary artery is a small caliber and non-dominant vessel. No significant disease. There is a patent stent in the mid vessel. Impressions: 1. Normal left ventricular end- diastolic pressure. 2. Moderate disease in the mid LAD. 3. Patent stent in the mid nondominant RCA. Echocardiogram: (08/05/2024) revealed The study is technically limited. Normal left ventricular size and systolic function. LVEF is 60%. Right ventricle is mildly dilated in size with preserved systolic function. Calcified aortic valve with no significant stenosis. No pericardial effusion. PA systolic pressure is not adequately estimated. Chest pain Hypertensive urgency, improved Abnormal HS Troponins (68, 69, 64, 64, 68), rule out obstructive CAD Coronary artery disease, status post previous PCI involving mRCA Permanent atrial fibrillation/flutter, on chronic anticoagulation Acute on chronic diastolic heart failure Promyelocytic leukemia, history of COPD, on home oxygen Morbid obesity Hyperlipidemia CARDIAC SUGGESTIONS FOR MANAGEMENT: Awaiting requested 2D Echocardiogram Planned for tentative cardiac catheterization to assess for flow-limiting coronary lesions Patient to remains NPO status and is consented for the aforementioned procedure above To proceed with optimized medical therapy and risk factor modification during the interim Recognizing co-morbidities, CHADSVASc score is elevated and full, prison AC is advised for permanent AF Proceed with therapeutic Lovenox as for now, transition to DOAC plus single anti-platelet therapy given previous PCI upon discharge Recommend proceeding with rate control strategy as patient has baseline history of permanent atrial fibrillation Previous Amiodarone 200mg twice daily discontinued secondary to the aforementioned above Proceed with diuresis (currently on Lasix 20mg po daily), titrate as warranted Proceed with supplemental oxygen therapy as warranted Metoprolol Succinate 50mg twice daily (as for now) Digoxin 0.125mg once daily (as for now) Tolerating Isosorbide 30mg once daily Tolerating Losartan 12.5mg once daily Ranexa 500mg twice daily Atorvastatin 40mg daily Proceed with close observation for overt signs of fluid overload Proceed with strict intakes, outputs, and daily weights Proceed with close rate and rhythm surveillance Proceed with close hemodynamic surveillance Proceed with optimized blood pressure control Transfuse to sustain HGB level above 7.0 Sustain Magnesium level greater than 2.0 Sustain Potassium level greater than 4.0 Follow up renal function and electrolytes Management in telemetry Follow up consult recommendations Will proceed to follow from a cardiac perspective Further recommendations per clinical progression All available diagnostic labs, EKG's, and images were personally reviewed Patient's status, findings, and plan of care was reviewed and discussed with supervising physician Dr. Ledesma, who is in agreement with current plan of care. Plan of care discussed with and agreed upon by patient / family / primary RN Prognosis: Guarded / Poor Thank you for allowing me to participate in the care of this patient. Further recommendations based on patients clinical course and progression, primary attending, and other consultants. Will continue to follow with primary attending. If you have any questions or concerns, please do not hesitate to contact me. A total of 75 minutes was spent reviewing the patient record, examining the patient, making a diagnostic and therapeutic plan, discussing this plan with medical personnel, following up on diagnostic studies and following the patient for clinical stability excluding any and all procedures. At least 50% of this time was spent in direct, [id number] contact. Plan discussed with: Patient (Patient and Primary RN ) RINA CUEVAS December 15, 2024 07:12
--- NOTE | 2024-12-15 09:45 | DVHPN2 ---
Progress Note - Dictate Date Seen: December 15, 2024 Medical Necessity Reason Pt with a Central, PICC or Fol: No Subjective Patient awake and alert. Currently NPO awaiting angiogram. Still complaining of intermittent chest pain stabbing in nature radiating to the left side of his chest. vital signs Vital Sign Date Time Temp Pulse Resp B/P (MAP) Pulse Ox O2 Delivery O2 Flow Rate FiO2 12/15/24 08:50 98.2 83 18 122/71 (88) 98 98.2 12/14/24 20:00 Nasal Cannula* 2 28 Total Intake and Output 12/14/24 12/14/24 12/15/24 15:00 23:00 07:00 Intake Total 200 ml Output Total 1100 ml Balance -900 ml medications Current Medications Medications Dose Ordered Sig/Aixa Route Start Time Stop Time Status Last Admin Dose Admin Acetaminophen/ Hydrocodone Bitart 1 tab Q4HP PRN PO 12/13/24 17:30 12/15/24 02:29 1 TAB Ondansetron HCl 4 mg Q4HP PRN IV 12/13/24 17:30 12/14/24 22:00 4 MG Acetaminophen 650 mg Q6HP PRN PO 12/13/24 17:30 Morphine Sulfate 2 mg Q4HPRN PRN IV 12/13/24 17:30 12/14/24 01:53 2 MG Nitroglycerin 0.4 mg Q5MINP PRN SL 12/13/24 17:30 Morphine Sulfate 2 mg Q30M PRN IV 12/13/24 17:30 12/14/24 05:10 2 MG Enoxaparin Sodium 120 mg Q12HR SC 12/14/24 10:00 Atorvastatin Calcium 40 mg HS PO 12/14/24 22:00 12/14/24 22:02 40 MG Metoprolol Succinate 50 mg BID PO 12/13/24 22:00 12/14/24 22:01 50 MG Pantoprazole Sodium 40 mg DAILY IV 12/14/24 10:00 12/14/24 09:14 40 MG Digoxin 0.125 mg DAILY PO 12/14/24 10:00 12/14/24 09:14 0.125 MG Furosemide 20 mg DAILYP PO 12/14/24 10:00 12/14/24 09:14 20 MG Ranolazine 500 mg BID PO 5/13/25 10:00 12/14/24 22:03 500 MG Isosorbide Mononitrate 30 mg DAILY PO 12/15/24 10:00 Losartan Potassium 12.5 mg DAILY PO 12/15/24 10:00 objective This is a 74-year-old male [facility] complaints of chest pain unrelieved by nitroglycerin. Patient has a past medical history, pertinent for hypertension, hyperlipidemia, history of CVA, coronary artery disease with previous stent placement. Patient was known to have an an is still complaining of intermittent chest pain. Patient was seen any evaluated by cardiology. Patient last angiogram was August of this year. laboratory and microbiology Laboratory Tests 12/14/24 05:04 Test 12/14/24 05:04 Range/Units Serum Glucose 95 74-106 mg/dL Problem List Unstable Angina Coronary artery disease HTN Assessment/Plan Patient scheduled for angiogram today by Dr. Valdes. Discharge planning. Plan discussed with: Patient OCJOSEFALITO NP December 15, 2024 09:45
[2024-12-15] MEDS ORDERED: LOSARTAN POTASSIUM 25 MG TAB PO SCH (10:00)
[2024-12-15] MEDS: ISOSORBIDE MONONITRATE ER 60 MG TAB PO SCH (10:01)
[2024-12-15] MEDS: LOSARTAN POTASSIUM 25 MG TAB PO SCH (10:03)
[2024-12-15 10:09] LABS: Hepatitis B Surface Antigen Negative (Negative)
[2024-12-15 10:21] LABS: Hepatitis C Antibody Negative (Negative)
[2024-12-15] MEDS: IODIXANOL 320MG/ML 100ML BTL IV ONE ×3 (13:15→16:21)
[2024-12-15] MEDS: ANGIOMAX 250 MG VIAL IV ONE (15:36)
[2024-12-15] MEDS: LIDOCAINE 2%HCL (LOCAL ANESTH.) INJ 20ML MDV ONE (15:37)
[2024-12-15] MEDS: fentaNYL CITRATE 100 MCG/2 ML VL ONE (15:37)
[2024-12-15] MEDS: VERAPAMIL 2.5MG/ML INJ 2ML VIAL IV ONE (15:37)
[2024-12-15] MEDS: SODIUM CHL 0.9% 0 ML ONE (15:37)
--- NOTE | 2024-12-15 15:50 | DVHINCON2 ---
Date of service: December 15, 2024 History of Present Illness This is a 74 year old male that was seen at [facility] by Kaushik Ward nurse practitioner. Patient was undergoing physical therapy when he had a sudden onset of left sided chest pain. Three doses of nitroglycerin was given with no relief. Patient now presents at this facility with unstable angina with a mildly elevated troponin level and a blood pressure of 170/90. Past Medical History Past Medical History Patient's past medical history is pertinent for persistent atrial fibrillation, hyperlipidemia, chronic anticoagulation on Eliquis, COPD, CAD, and morbid obesity. Patient Family History: FH: heart disease G8 MOTHER, Throat cancer G8 MOTHER, G8 BROTHER Past Medical History reviewed Family History: FH: heart disease G8 MOTHER, Throat cancer G8 MOTHER, G8 BROTHER Allergies: Coded Allergies: Fentanyl (Verified Allergy, Severe, 08/04/24) Tetracycline (Verified Allergy, Severe, 08/04/24) Patient states anaphalatic shock reaction from tetracycline and was hospitalized for 2 weeks. Povidone Iodine (Verified Allergy, Intermediate, RASH, 08/04/24) Home Meds Active Scripts Pantoprazole Sodium Sesquihydr (Protonix) 40 Mg Tab, 40 MG PO DAILY for 30 Days, #30 TAB Prov:MARINO GODFREY RESIDENT 11/04/24 Cyclobenzaprine Hcl (Cyclobenzaprine Hcl) 5 Mg Tab, 1 TAB PO QPM for 7 Days, #7 TAB Prov:MARINO GODFREY RESIDENT 11/01/24 Budesonide (Inhalation) (Budesonide) 0.5 Mg/2 Ml Kim, 0.5 MG NEB BID, #120 ML Prov:OSWALD CHAPMAN MD 08/17/24 Ranolazine (Ranolazine ER) 500 Mg Tab, 500 MG PO BID, #60 TAB Prov:OSWALD CHAPMAN MD 08/17/24 Ipratropium-Albuterol (Ipratropium Whately/Albut) 1 Barbara Barbara, 1 BARBARA IN TID, #90 ML Prov:OSWALD CHAPMAN MD 08/17/24 Amiodarone Hcl (Amiodarone Hcl) 200 Mg Tab, 1 TAB PO BID, #90 TAB 1 Refill Prov:OSWALD CHAPMAN MD 08/17/24 Docusate Sodium (Docusate Sodium) 100 Mg Cap, 100 MG PO BIDPRN PRN for 30 Days, #30 CAP Prov:HEIDE SÁNCHEZ MD 08/12/24 Aspirin (Aspirin Low Dose) 81 Mg Tab, 81 MG PO DAILY for 30 Days, #30 TAB Prov:HEIDE SÁNCHEZ MD 08/12/24 Reported Medications Digoxin (Digoxin) 125 Mcg Tab, 1 TAB PO DAILY for 30 Days, #30 10/18/24 Atorvastatin Calcium (ATORVASTATIN CALCIUM) 40 Mg Tab, 1 TAB PO DAILY, #30 TAB 5 Refills 08/04/24 Furosemide (Furosemide) 20 Mg Tab, 1 TAB PO DAILYP, #90 TAB 1 Refill 08/04/24 Gabapentin (Gabapentin) 600 Mg Tab, 1 TAB PO TID, #90 TAB 3 Refills 08/04/24 Apixaban Base (ELIQUIS) 5 Mg Tab, 5 MG PO BID, TAB 08/04/24 Budesonide-Formoterol Fumarate (Budesonide/Formoterol Fum 160-4.5 Mcg/Act) 1 Aer Aer, 1 AER IN Q4HPRN, AER 08/04/24 Current Medications Current Medications Medications (Trade) Dose Ordered Sig/Aixa Route PRN Reason Start Time Stop Time Status Last Admin Atorvastatin Calcium (Lipitor) 40 mg HS PO 12/14/24 22:00 12/14/24 22:02 Losartan Potassium (Cozaar Tablet) 25 mg DAILY PO 12/15/24 10:00 12/15/24 07:16 DC Isosorbide Mononitrate (Imdur Er Tablet) 30 mg DAILY PO 12/15/24 10:00 12/15/24 10:01 Losartan Potassium (Cozaar Tablet) 12.5 mg DAILY PO 12/15/24 10:00 12/15/24 10:03 Review of Systems 10 pt ros otherwise negative Vital Signs Vital Signs Date Time Temp Pulse Resp B/P (MAP) Pulse Ox O2 Delivery O2 Flow Rate FiO2 12/15/24 13:00 97.9 82 20 117/75 (89) 96 97.9 12/15/24 07:30 Nasal Cannula* 2 28 Physical Exam nad s1 s2 rrr ctab soft nt/nd RLE edeam Labs/Diagnostic Data Labs Test 12/14/24 05:04 12/14/24 02:05 12/13/24 16:02 Range/Units White Blood Count 8.7 4.4-10.8 10^3/uL Red Blood Count 4.08 L 4.5-5.90 10^6/uL Hemoglobin 12.8 L 13.5-17.5 g/dL Hematocrit 38.4 L 41.0-53.0 % Mean Corpuscular Volume 93.9 80.0-100.0 fL Mean Corpuscular Hemoglobin 31.4 28.0-32.0 pg Mean Corpuscular Hemoglobin Concent 33.4 32.0-36.0 g/dL Red Cell Distribution Width 15.8 H 11.8-14.3 % Platelet Count 184 140-450 10^3/uL Mean Platelet Volume 8.4 6.9-10.8 fL Neutrophils (%) (Auto) 79.2 37.0-80.0 % Lymphocytes (%) (Auto) 9.3 L 10.0-50.0 % Monocytes (%) (Auto) 7.4 0.0-12.0 % Eosinophils (%) (Auto) 3.0 0.0-7.0 % Basophils (%) (Auto) 1.1 0.0-2.0 % Neutrophils # (Auto) 6.9 1.6-8.6 10 ^3/uL Lymphocytes # (Auto) 0.8 0.4-5.4 10 ^3/uL Monocytes # (Auto) 0.6 0-1.3 10 ^3/uL Eosinophils # (Auto) 0.3 0-0.8 10 ^3/uL Basophils # (Auto) 0.1 0-0.2 10 ^3/uL Nucleated Red Blood Cells 0.0 % Prothrombin Time 10.9 9.3-11.8 sec Prothrombin Time INR 1.03 0.9-1.15 Activated Partial Thromboplast Time 31.6 24.5-34.5 SEC Sodium Level 137 136-145 mmol/L Potassium Level 4.3 3.5-5.1 mmol/L Chloride Level 102 98-107 mmol/L Carbon Dioxide Level 28 20-31 mmol/L Anion Gap 7 5-15 Blood Urea Nitrogen 11 9-23 mg/dL Creatinine 1.00 0.700-1.30 mg/dL Glomerular Filtration Rate Calc 79 >90 mL/min BUN/Creatinine Ratio 11.0 10.0-20.0 Serum Glucose 95 74-106 mg/dL Calcium Level 8.8 8.7-10.4 mg/dL Total Bilirubin 0.7 0.2-1.0 mg/dL Aspartate Amino Transferase (AST) 11 L 13-40 U/L Alanine Aminotransferase (ALT) 20 7-40 U/L Alkaline Phosphatase 65 46-116 U/L Total Protein 6.5 5.7-8.2 g/dL Albumin 4.5 3.2-4.8 g/dL Triglycerides Level 127 < 150 mg/dL Cholesterol Level 135 < 200 mg/dL LDL Cholesterol 68 < 100 mg/dL HDL Cholesterol 54 40-59 mg/dL Hepatitis B Surface Antigen Negative Negative Hepatitis C Antibody Negative Negative Troponin I High Sensitivity 68 *H </=54 ng/L B-Type Natriuretic Peptide 76.21 0-100 pg/mL Assessment ACS hx of cad morbid obesity CKD htn HL DM Plan/Recommendation LHC recommened by primary cards pt had cath 5 months ago images reviewed elevated troponin high risk pt will proceed with cath but pt doesnt have IV yet Plan discussed with: Patient ALAN FERGUSON MD December 15, 2024 15:50
--- NOTE | 2024-12-15 16:06 | DVHSR ---
APPROVED REPORT EXAM: Two-dimensional and M-mode echocardiogram with Doppler and color Doppler. Blood Pressure: 137/81 mmHg INDICATION Eval RISK FACTORS Obesity: Height: 6'0", Weight: 264 DIMENSIONS LVDd4.3 (3.8-5.7cm)LA (2D)4.1 (1.9-4.0cm)Aortic Root4.0 (2.0-3.7cm) LVDs3.2 (2.5-4.0cm)LA (MM) (1.9-4.0cm)Aortic Cusp Exc1.2 (1.5-2.0cm) EF (%) 55.0 (55-70%)Rt. Atrium3.8 (1.9-4.0cm)Asc. Aorta cm IVSd1.1 (0.7-1.1cm)RV (D) (1.8-2.4cm) PWd1.3 (0.7-1.1cm) Mitral Valve MitralMitral Stenosis E wave1.17m/sMV Mean GR.mmHg E/A ratio0.02D MVAcm2 Aortic Valve Aortic ValveAortic Stenosis V11.01m/Radha Mean GR.5mmHg V21.56m/Radha Peak GR.10mmHg LVOT Diameter2.0 (1.8-2.4cm)Doppler AVA2.03cm2 Pulmonic Valve V20.50m/s Tricuspid Valve TR Velocity3.30m/s [id number] Other Information Quality : Technically LimitedRhythm : Technically limited study due to body habitus. Conclusion Technically difficult study. Difficult acoustic windows. Atrial fibrillation. Biatrial enlargement. Aortic root enlargement. RV enlargement. Mild mitral annular calcification. Mild aortic sclerosis. Tricuspid and pulmonic valves appear to be structurally normal. Left ventricular systolic function appears preserved. EF is about 50% with normal RV function. [id number] mitral insufficiency. Moderate tricuspid regurgitation. No pericardial effusion masses or vegetations. Pericardial fat pad noted.
[2024-12-15] MEDS: MIDAZOLAM HCL 2MG/2ML 2ml VIAL (1mg/ml) ONE (16:11)
--- NOTE | 2024-12-15 16:13 | DVHOP2 ---
Operative Report Operative Report CARDIAC FIREPROOF DOOR MAKER PROCEDURE REPORT [place], [place] Date of Service: 12/15/24 Business Consultant: Alan Ferguson MD PROCEDURES PERFORMED: Coronary angiogram, left heart catheterization, conscious sedation administration and supervision, less than 15 minutes; fluoroscopy use and interpretation. PREOPERATIVE DIAGNOSES: NSTEMI POSTOP DIAGNOSIS: CAD DESCRIPTION OF PROCEDURE: The patient or appropriate family signed informed consent understanding the risks, benefits and alternatives of the procedure, they wished to proceed. The patient was brought to the cardiac cardiac cath lab technologist in n.p.o. state. The patient was prepped in a sterile fashion. Sedation was used per cardiac cath protocol. I administered 2 mL of 2% lidocaine to the right wrist. With an antegrade front wall puncture. I cannulated the right radial artery and placed a 6-Hebrew Glidesheath slender. Next, an intra-arterial spasmolytic was administered. Next, a - 6French [place] catheter and and were used for coronary angiogram and LVEDP measurement and pressure pullback. At the completion of procedure, all guides and wires were removed, and there were no immediate complications. 5000 U of IV heparin given FINDINGS: RCA: Moderate vessel off the right sinus of Valsalva, there is no severe flow limiting stenosis. patent stent LEFT MAIN: Moderate size left main, it bifurcates into LAD and circumflex. mild plaque. CIRCUMFLEX: Moderate caliber vessel coming off the left main with no flow limiting stenosis. distal CX in av groove has hazy 50% stenosis. LAD: LAD is a moderate caliber vessel coming of the left main. mid LAD has a 60% stenosis, distal LAD has moderate 20 % plaque several small OM branches with mild plaque LVEDP of 12 mmhg CONCLUSIONS: 1. moderate non critical CAD PLAN: Aggressive risk factor modification and medical management for the patient. ALAN FERGUSON MD December 15, 2024 16:13
[2024-12-15] MEDS: FAMOTIDINE (10MG/ML) 2ML VL IV ONE (16:14)
[2024-12-15] MEDS: methylPREDNISolone SOD SUCC 125 MG/2 ML VL ONE (16:15)
[2024-12-15] MEDS: diphenhdrAMINE HCL 50 MG/1 ML VL ONE (16:19)
[2024-12-15] MEDS: HEPARIN SODIUM (PORCINE) 5000 UNITS/ML 1ML VIAL ONE (16:22)
[2024-12-15] MEDS: HYDROmorphone HCL 2 MG/ML VL/or syr ONE (16:23)
[2024-12-16 05:00] VITALS: BP 135/82; PULSE 82; RESP 19; TEMP 98; O2SAT 97
--- NOTE | 2024-12-16 05:26 | DVHPN2 ---
Progress Note - Dictate Date Seen: December 16, 2024 Medical Necessity Reason Pt with a Central, PICC or Fol: No vital signs Vital Sign Date Time Temp Pulse Resp B/P (MAP) Pulse Ox O2 Delivery O2 Flow Rate FiO2 12/15/24 22:04 85 122/78 12/15/24 21:57 19 12/15/24 21:00 98.4 97 98.4 12/15/24 20:00 Nasal Cannula* 2 28 Total Intake and Output 12/15/24 12/15/24 12/16/24 15:00 23:00 07:00 Intake Total 0 ml Output Total 1475 ml Balance -1475 ml medications Current Medications Medications Dose Ordered Sig/Aixa Route Start Time Stop Time Status Last Admin Dose Admin Acetaminophen/ Hydrocodone Bitart 1 tab Q4HP PRN PO 12/13/24 17:30 12/15/24 02:29 1 TAB Ondansetron HCl 4 mg Q4HP PRN IV 12/13/24 17:30 12/14/24 22:00 4 MG Acetaminophen 650 mg Q6HP PRN PO 12/13/24 17:30 Morphine Sulfate 2 mg Q4HPRN PRN IV 12/13/24 17:30 12/15/24 21:57 2 MG Nitroglycerin 0.4 mg Q5MINP PRN SL 12/13/24 17:30 Morphine Sulfate 2 mg Q30M PRN IV 12/13/24 17:30 12/14/24 05:10 2 MG Enoxaparin Sodium 120 mg Q12HR SC 12/14/24 10:00 12/15/24 21:58 120 MG Atorvastatin Calcium 40 mg HS PO 12/14/24 22:00 12/15/24 22:00 40 MG Metoprolol Succinate 50 mg BID PO 12/13/24 22:00 12/15/24 22:04 50 MG Pantoprazole Sodium 40 mg DAILY IV 12/14/24 10:00 12/15/24 10:00 40 MG Digoxin 0.125 mg DAILY PO 12/14/24 10:00 12/15/24 10:03 0.125 MG Furosemide 20 mg DAILYP PO 12/14/24 10:00 12/14/24 09:14 20 MG Ranolazine 500 mg BID PO 12/14/24 10:00 12/15/24 21:58 500 MG Isosorbide Mononitrate 30 mg DAILY PO 12/15/24 10:00 12/15/24 10:01 30 MG Losartan Potassium 12.5 mg DAILY PO 12/15/24 10:00 12/15/24 10:03 12.5 MG laboratory and microbiology Laboratory Tests 12/14/24 05:04 Test 12/14/24 05:04 Range/Units Serum Glucose 95 74-106 mg/dL Assessment/Plan ASSESSMENT: This is a 74-year old male who initially presented as outpatient referral from [facility] secondary to reported left-sided chest pain. Patient had reportedly been administered three doses of SL Nitroglycerin with no relief which patient was subsequently transferred to this facility for further medical evaluation/management. Upon ED arrival initial 12-lead electrocardiogram had revealed atrial fibrillation/flutter at 87bpm with no evidence for acute ischemic changes. Initial HS troponin was found minimally elevated at 68, with subsequent trend of 69, 64, 64, and 68. Initial BNP was found normal at 72.61 which subsequent chest imaging had revealed mild congestive heart failure with presence of a right-sided port. Of note, patient does have underlying history of coronary artery disease which previous cardiac catheterization ([facility] 08/11/2024) had revealed presence of a 40% mLAD lesion (treated medically), in addition to presence of a patent stent involving the mid non-dominant RCA. Echocardiogram ([facility] 08/05/2024) at that time had revealed a preserved LVEF of 60%. At present, it is of note upon ED arrival patient was found hypertensive with an initial blood pressure of 170/99 (later improved) which could have attributed to the clinical picture. Denies any shortness of breath, palpitations, dizziness, syncope, orthopnea, paroxysmal nocturnal, or any further cardiac related symptoms. As the patient presented with chest pain and found to have abnormal elevation of HS troponins, Cardiology services were involved by primary team request for cardiac aspects of care. Reported past medical history includes coronary artery disease status post previous PCI involving mRCA, permanent atrial fibrillation/flutter on chronic anticoagulation, chronic diastolic heart failure, hypertension, hyperlipidemia, promyelocytic leukemia status post radiation/chemotherapy, COPD on home oxygen, status post appendectomy, status post port implantation Echocardiogram: (08/05/2024) revealed The study is technically limited. Normal left ventricular size and systolic function. LVEF is 60%. Right ventricle is mildly dilated in size with preserved systolic function. Calcified aortic valve with no significant stenosis. No pericardial effusion. PA systolic pressure is not adequately estimated. Cardiac Catheterization: (08/11/2024) revealed The left main coronary artery is a normal caliber short bifurcating vessel. It is free of any significant disease. The left anterior descending artery is normal caliber vessel that extends to the apex. Mid vessel has 40% stenosis. The diagonal branches are with no significant disease. The left circumflex artery is a large-caliber dominant vessel. No significant disease. The obtuse marginal branch and left posterolateral branch are with no significant disease. Left posterior descending artery is with no significant stenosis. The right coronary artery is a small caliber and non-dominant vessel. No significant disease. There is a patent stent in the mid vessel. Impressions: 1. Normal left ventricular end- diastolic pressure. 2. Moderate disease in the mid LAD. 3. Patent stent in the mid nondominant RCA. Echocardiogram: (12/14/2024) revealed Technically difficult study. Difficult acoustic windows. Atrial fibrillation. Biatrial enlargement. Aortic root enlargement. RV enlargement. Mild mitral annular calcification. Mild aortic sclerosis. Tricuspid and pulmonic valves appear to be structurally normal. Left ventricular systolic function appears preserved. EF is about 50% with normal RV function. [id number] mitral insufficiency. Moderate tricuspid regurgitation. No pericardial effusion masses or vegetations. Pericardial fat pad noted. Cardiac Catheterization: (12/15/2024) revealed RCA: Moderate vessel off the right sinus of Valsalva, there is no severe flow limiting stenosis. patent stent. LEFT MAIN: Moderate size left main, it bifurcates into LAD and circumflex. mild plaque. CIRCUMFLEX: Moderate caliber vessel coming off the left main with no flow limiting stenosis. distal CX in av groove has hazy 50% stenosis. LAD: LAD is a moderate caliber vessel coming of the left main. mid LAD has a 60% stenosis, distal LAD has moderate 20 % plaque several small OM branches with mild plaque. LVEDP of 12 mmhg. CONCLUSIONS: 1. moderate non critical CAD. PLAN: Aggressive risk factor modification and medical management for the patient. Chest pain, resolved Hypertensive urgency, improved Abnormal HS Troponins (68, 69, 64, 64, 68), obstructive CAD ruled out Coronary artery disease, status post previous PCI involving mRCA Permanent atrial fibrillation/flutter, on chronic anticoagulation Acute on chronic diastolic heart failure, LVEF of 50% Mild-moderate mitral insufficiency, moderate TR Promyelocytic leukemia, history of COPD, on home oxygen Morbid obesity Hyperlipidemia CARDIAC SUGGESTIONS FOR MANAGEMENT: No obstructive CAD as per [facility] (12/16/2023) requiring coronary revascularization To proceed with optimized medical therapy and aggressive risk factor modification Recognizing co-morbidities, CHADSVASc score is elevated and full, usp AC is advised for permanent AF Proceed with therapeutic Lovenox as for now, transition to DOAC plus single anti-platelet therapy given previous PCI upon discharge Recommend proceeding with rate control strategy as patient has baseline history of permanent atrial fibrillation Previous Amiodarone 200mg twice daily discontinued secondary to the aforementioned above Proceed with diuresis (currently on Lasix 20mg po daily), titrate as warranted Proceed with supplemental oxygen therapy as warranted Metoprolol Succinate 50mg twice daily (as for now) Digoxin 0.125mg once daily (as for now) Tolerating Isosorbide 30mg once daily Tolerating Losartan 12.5mg once daily Ranexa 500mg twice daily Atorvastatin 40mg daily Eliquis 5mg twice daily Plavix 75mg daily Proceed with close observation for overt signs of fluid overload Proceed with strict intakes, outputs, and daily weights Proceed with close rate and rhythm surveillance Proceed with close hemodynamic surveillance Proceed with optimized blood pressure control Transfuse to sustain HGB level above 7.0 Sustain Magnesium level greater than 2.0 Sustain Potassium level greater than 4.0 Follow up renal function and electrolytes Management in telemetry Follow up consult recommendations Will proceed to follow from a cardiac perspective Further recommendations per clinical progression All available diagnostic labs, EKG's, and images were personally reviewed Patient's status, findings, and plan of care was reviewed and discussed with supervising physician Dr. Ledesma, who is in agreement with current plan of care. Plan of care discussed with and agreed upon by patient / family / primary RN Prognosis: Guarded / Poor Thank you for allowing me to participate in the care of this patient. Further recommendations based on patients clinical course and progression, primary attending, and other consultants. Will continue to follow with primary attending. If you have any questions or concerns, please do not hesitate to contact me. A total of 75 minutes was spent reviewing the patient record, examining the patient, making a diagnostic and therapeutic plan, discussing this plan with medical personnel, following up on diagnostic studies and following the patient for clinical stability excluding any and all procedures. At least 50% of this time was spent in direct, [id number] contact. Plan discussed with: Patient (Patient and Primary RN ) RINA CUEVAS December 16, 2024 05:25
[2024-12-16 08:00] VITALS: PULSE 82
[2024-12-16 08:08] VITALS: O2SAT 97
[2024-12-16 08:48] VITALS: BP 142/76; PULSE 78; RESP 19; TEMP 98.4; O2SAT 97
--- NOTE | 2024-12-16 11:25 | DVHDS2 ---
Discharge Summary Date of Admission December 13, 2024 at 17:17 Date of Discharge: December 16, 2024 Admitting Diagnosis Unstable angina CAD Labs/Diagnostic Data: Laboratory Results Test 12/14/24 05:04 12/14/24 02:05 12/13/24 16:02 White Blood Count 8.7 10^3/uL (4.4-10.8) Red Blood Count 4.08 10^6/uL (4.5-5.90) Hemoglobin 12.8 g/dL (13.5-17.5) Hematocrit 38.4 % (41.0-53.0) Mean Corpuscular Volume 93.9 fL (80.0-100.0) Mean Corpuscular Hemoglobin 31.4 pg (28.0-32.0) Mean Corpuscular Hemoglobin Concent 33.4 g/dL (32.0-36.0) Red Cell Distribution Width 15.8 % (11.8-14.3) Platelet Count 184 10^3/uL (140-450) Mean Platelet Volume 8.4 fL (6.9-10.8) Neutrophils (%) (Auto) 79.2 % (37.0-80.0) Lymphocytes (%) (Auto) 9.3 % (10.0-50.0) Monocytes (%) (Auto) 7.4 % (0.0-12.0) Eosinophils (%) (Auto) 3.0 % (0.0-7.0) Basophils (%) (Auto) 1.1 % (0.0-2.0) Neutrophils # (Auto) 6.9 10 ^3/uL (1.6-8.6) Lymphocytes # (Auto) 0.8 10 ^3/uL (0.4-5.4) Monocytes # (Auto) 0.6 10 ^3/uL (0-1.3) Eosinophils # (Auto) 0.3 10 ^3/uL (0-0.8) Basophils # (Auto) 0.1 10 ^3/uL (0-0.2) Nucleated Red Blood Cells 0.0 % Prothrombin Time 10.9 sec (9.3-11.8) Prothrombin Time INR 1.03 (0.9-1.15) Activated Partial Thromboplast Time 31.6 SEC (24.5-34.5) Sodium Level 137 mmol/L (136-145) Potassium Level 4.3 mmol/L (3.5-5.1) Chloride Level 102 mmol/L (98-107) Carbon Dioxide Level 28 mmol/L (20-31) Anion Gap 7 (5-15) Blood Urea Nitrogen 11 mg/dL (9-23) Creatinine 1.00 mg/dL (0.700-1.30) Glomerular Filtration Rate Calc 79 mL/min (>90) BUN/Creatinine Ratio 11.0 (10.0-20.0) Serum Glucose 95 mg/dL (74-106) Calcium Level 8.8 mg/dL (8.7-10.4) Total Bilirubin 0.7 mg/dL (0.2-1.0) Aspartate Amino Transferase (AST) 11 U/L (13-40) Alanine Aminotransferase (ALT) 20 U/L (7-40) Alkaline Phosphatase 65 U/L (46-116) Total Protein 6.5 g/dL (5.7-8.2) Albumin 4.5 g/dL (3.2-4.8) Triglycerides Level 127 mg/dL (< 150) Cholesterol Level 135 mg/dL (< 200) LDL Cholesterol 68 mg/dL (< 100) HDL Cholesterol 54 mg/dL (40-59) Hepatitis B Surface Antigen Negative (Negative) Hepatitis C Antibody Negative (Negative) Troponin I High Sensitivity 68 ng/L (</=54) B-Type Natriuretic Peptide 76.21 pg/mL (0-100) Other Laboratory Tests 12/14/24 05:04 Brief Hx & Hospital Course: This is a 74-year-old male that was seen at the [facility] and sent to the emergency room for unstable angina. Patient had received three doses of nitroglycerin with no relief.Patient had a previous angiogram in August of this year, which showed a 40% lesion to the LAD. Patient's director of retention is Dr. Ledesma. Dr. Ledesma spoke with Dr. Valdes and patient was consented for repeat left heart cath. Patient was found to have 60% stenosis of LAD. Patient will continue medical management. Patient was clear for discharge by cardiology. Patient was transported by [facility] and patient will follow up with Kaushik Ward DNP at [facility]. Operations or Procedures Left heart Cath by Dr. Valdes. Patient has a 60% stenosis to mid LAD Moderate non obstructive, coronary artery disease Plan for Risk modification and medication management Condition at Discharge: Good Final Diagnosis/Problems List CAD UNSTABLE ANGINA Secondary Diagnosis: Morbid obesity COPD HLD Discharge Disposition: Home SNF Discharge Physician in charge at time of: Dr. Menendez Will this Physician continue t: Yes Discharge Instruct/Medications Diet: Cardiac 2g Na,low cholest Activity: No Restrictions, As Tolerated Follow Up/Referral: [facility] in 1 week Medications: Continue home meds 45 Discharge Statement: "Patient was advised to return to the ER or call 911 if any headaches, dizziness, shortness of breath, chest pain, abdominal pain, bleeding, fevers, or worsening of medical condition. Patient was counseled about treatment plan, medications, possible side effects, patientverbalized understanding. All questions were answered to the best of my ability. This discharge took greater then 30 minutes in planning, reviewing documentation, counseling the patient, and discussing with other team members." ASSESSMENT ASSESSMENT Assessment CAD UNSTABLE ANGINA LITO BARAJAS NP December 16, 2024 11:25
[2024-12-16 13:00] VITALS: BP 130/85; PULSE 79; RESP 18; TEMP 98.2; O2SAT 97
== END 2024-12-16 16:30 | disposition home or self-care (01) | DRG 286 ==
LOC: EDBD 15:45 → EDUNIT# 15:45 → ER 15:46 → OVERFLOW 17:17 → TELE-CENTR 12-14 18:50
PROVIDERS: ADMIT Nurse Practitioner; ATTEND Nurse Practitioner
PROC: 4A023N7 Measurement of Cardiac Sampling and Pressure, Left Heart, Percutaneous Approach (ICD-10-PCS; principal; 2024-12-15)
PROC: B211YZZ Fluoroscopy of Multiple Coronary Arteries using Other Contrast (ICD-10-PCS; 2024-12-15)
DX: I25.110 Atherosclerotic heart disease of native coronary artery with unstable angina pectoris (principal); J96.00 Acute respiratory failure, unspecified whether with hypoxia or hypercapnia; I13.0 Hypertensive heart and chronic kidney disease with heart failure and stage 1 through stage 4 chronic kidney disease, or unspecified chronic kidney disease; I48.21 Permanent atrial fibrillation; I48.92 Unspecified atrial flutter; I50.32 Chronic diastolic (congestive) heart failure; E78.5 Hyperlipidemia, unspecified; J44.89 Other specified chronic obstructive pulmonary disease; E66.01 Morbid (severe) obesity due to excess calories; N18.9 Chronic kidney disease, unspecified; I34.81 Nonrheumatic mitral (valve) annulus calcification; I34.0 Nonrheumatic mitral (valve) insufficiency; Z68.35 Body mass index [BMI] 35.0-35.9, adult; I16.0 Hypertensive urgency; J45.909 Unspecified asthma, uncomplicated; G62.9 Polyneuropathy, unspecified; Z79.02 Long term (current) use of antithrombotics/antiplatelets; Z99.81 Dependence on supplemental oxygen; Z95.5 Presence of coronary angioplasty implant and graft; Z92.3 Personal history of irradiation; Z90.49 Acquired absence of other specified parts of digestive tract; Z88.1 Allergy status to other antibiotic agents; Z85.819 Personal history of malignant neoplasm of unspecified site of lip, oral cavity, and pharynx; Z80.8 Family history of malignant neoplasm of other organs or systems; Z79.899 Other long term (current) drug therapy; Z79.01 Long term (current) use of anticoagulants; Z79.82 Long term (current) use of aspirin
CPT/HCPCS: 36415; 71046; 80048; 80053; 80061; 83880; 84484; 85025; 85610; 85730; 86803; 87340; 93005; 93306; 93458; 96372; 96374; 99152; 99291; G0378; J2250; J2405; J2470; J3490; Q9967

== ENCOUNTER 2025-01-08 15:40 | Emergency (ER) | payer MEDICARE, MEDICAID ==
[~2025-01-08] VITALS: Ht 172.7 cm; Wt 113.6 kg
[2025-01-08] MEDS: NITROGLYCERIN 0.4 MG SL TAB SL ONE (16:00)
[2025-01-08 16:08] LABS: Basophils # (auto) 0.1 10 ^3/uL (0-0.2); Basophils % (auto) 1.2 % (0.0-2.0); Eosinophils # (auto) 0.3 10 ^3/uL (0-0.8); Eosinophils % (auto) 5.3 % (0.0-7.0); Hematocrit 32.6 % (41.0-53.0); Lymphocytes % (auto) 20.2 % (10.0-50.0); Mean Corpuscular Hemoglobin 30.7 pg (28.0-32.0); Mean Corpuscular Hgb Conc. 33.8 g/dL (32.0-36.0); Mean Corpuscular Volume 90.8 fL (80.0-100.0); Monocytes # (auto) 0.5 10 ^3/uL (0-1.3); Monocytes % (auto) 10.4 % (0.0-12.0); Neutrophils # (auto) 3.1 10 ^3/uL (1.6-8.6); Neutrophils % (auto) 62.9 % (37.0-80.0); Platelet Count (auto) 158 10^3/uL (140-450); Red Blood Cells 3.59 10^6/uL (4.5-5.90); Red Cell Distribution Width 14.4 % (11.8-14.3); White Blood Cell 4.9 10^3/uL (4.4-10.8)
--- NOTE | 2025-01-08 16:21 | ED.PDOC ---
HPI Comments 74 y/o M, BIBA, with PMHx of asthma, cancer, AFib, CAD, CHF, COPD, HLD, and HTN presents to the ED for CC of chest discomfort. EMS reports, patient is coming from home where he complains of chest discomfort with associated shortness of breath onset, this morning (01/08/25). Patient relays, that he has been experiencing associated symptoms of headache and dizziness. No other symptoms or modifying factors present at this time. Vital signs were stable at arrival. Chief Complaint: Shortness of Breath Time Seen by MD: 16:13 Primary Care Provider: DODSON Reviewed Notes: Nurses Notes, Electrical Sign Servicer Notes, Medications, Allergies Allergies: Coded Allergies: Fentanyl (Verified Allergy, Severe, 08/04/24) Tetracycline (Verified Allergy, Severe, 08/04/24) Patient states anaphalatic shock reaction from tetracycline and was hospitalized for 2 weeks. Povidone Iodine (Verified Allergy, Intermediate, RASH, 08/04/24) Home Meds Active Scripts Pantoprazole Sodium Sesquihydr (Protonix) 40 Mg Tab, 40 MG PO DAILY for 30 Days, #30 TAB Prov:MARINO GODFREY RESIDENT 11/04/24 Cyclobenzaprine Hcl (Cyclobenzaprine Hcl) 5 Mg Tab, 1 TAB PO QPM for 7 Days, #7 TAB Prov:MARINO GODFREY RESIDENT 11/01/24 Budesonide (Inhalation) (Budesonide) 0.5 Mg/2 Ml Kim, 0.5 MG NEB BID, #120 ML Prov:OSWALD CHAPMAN MD 08/17/24 Ranolazine (Ranolazine ER) 500 Mg Tab, 500 MG PO BID, #60 TAB Prov:OSWALD CHAPMAN MD 08/17/24 Ipratropium-Albuterol (Ipratropium Lovely/Albut) 1 Nicolle Nicolle, 1 NICOLLE IN TID, #90 ML Prov:OSWALD CHAPMAN MD 08/17/24 Amiodarone Hcl (Amiodarone Hcl) 200 Mg Tab, 1 TAB PO BID, #90 TAB 1 Refill Prov:OSWALD CHAPMAN MD 08/17/24 Docusate Sodium (Docusate Sodium) 100 Mg Cap, 100 MG PO BIDPRN PRN for 30 Days, #30 CAP Prov:HEIDE SÁNCHEZ MD 08/12/24 Aspirin (Aspirin Low Dose) 81 Mg Tab, 81 MG PO DAILY for 30 Days, #30 TAB Prov:HEIDE SÁNCHEZ MD 08/12/24 Reported Medications Digoxin (Digoxin) 125 Mcg Tab, 1 TAB PO DAILY for 30 Days, #30 10/18/24 Atorvastatin Calcium (ATORVASTATIN CALCIUM) 40 Mg Tab, 1 TAB PO DAILY, #30 TAB 5 Refills 08/04/24 Furosemide (Furosemide) 20 Mg Tab, 1 TAB PO DAILYP, #90 TAB 1 Refill 08/04/24 Gabapentin (Gabapentin) 600 Mg Tab, 1 TAB PO TID, #90 TAB 3 Refills 08/04/24 Apixaban Base (ELIQUIS) 5 Mg Tab, 5 MG PO BID, TAB 08/04/24 Budesonide-Formoterol Fumarate (Budesonide/Formoterol Fum 160-4.5 Mcg/Act) 1 Aer Aer, 1 AER IN Q4HPRN, AER 08/04/24 Information Source: Patient, Emergency Med Personnel Mode of Arrival: EMS Severity: Moderate Timing: Days Duration: Since onset Prehospital treatment: None Onset: At Rest Cardiac Risk Factors: Hyperlipidemia, HTN PE Risk Factors: None History of: None Modifying Factors: Nothing Associated Signs and Symptoms: SOB Past Medical History PAST MEDICAL HISTORY: AFIB, Asthma, CAD, Cancer, CHF, COPD, High Lipids, HTN Surgical History: Appendectomy, PTCA, Tonsillectomy Family History Family History: Reviewed,noncontributory to illness Social History Smoker: Non-Smoker Alcohol: Denies ETOH Use Drugs: Denies Drug Use Lives In: Home Constitutional: denies: chills, diaphoresis, fatigue, fever, malaise, sweats, weakness, others EENTM: denies: blurred vision, double vision, ear bleeding, ear discharge, ear drainage, ear pain, ear ringing, eye pain, eye redness, hearing loss, mouth pain, mouth swelling, nasal discharge, nose bleeding, nose congestion, nose pain, photophobia, tearing, throat pain, throat swelling, voice changes, others Respiratory: reports: shortness of breath; denies: cough, hemoptysis, o rthopnea, SOB at rest, SOB with excertion, stridor, wheezing, others Cardiovascular: reports: chest pain; denies: dizzy spells, diaphoresis, Dyspnea on exertion, edema, irregular heart beat, left arm pain, lightheadedness, palpitations, PND, syncope, others Gastrointestinal: denies: abdomen distended, abdominal pain, blood streaked bowels, constipated, diarrhea, dysphagia, difficulty swallowing, hematemesis, melena, nausea, poor appetite, poor fluid intake, rectal bleeding, rectal pain, vomiting, others Genitourinary: denies: burning, dysuria, flank pain, frequency, hematuria, incontinence, penile discharge, penile sore, pain, testicle pain, testicle swelling, urgency, others Neurological: denies: dizziness, fainting, headache, left sided numbness, left sided weakness, numbness, paresthesia, pre-existing deficit, right sided numbness, right sided weakness, seizure, speech problems, tingling, tremors, w eakness, others Musculoskeletal: denies: back pain, gout, joint pain, joint swelling, muscle pain, muscle stiffness, neck pain, others Integumetry: denies: bruises, change in color, change in hair/nails, dryness, laceration, lesions, lumps, rash, wounds, others Allergic/Immunocompromised: denies: Difficulty Healing, Frequent Infections, Hives, Itching, others Hematologic/Lymphatic: denies: anemia, blood clots, easy bleeding, easy bruising, swollen glands, others Endocrine: denies: excessive hunger, excessive sweating, excessive thirst, excessive urination, flushing, intolerance to cold, intolerance to heat, unexplained weight gain, unexplained weight loss, others Psychiatric: denies: anxiety, bipolar disorder, depression, hopeless, panic disorder, schizophrenia, sleepless, suicidal, others All Other Systems: Reviewed and Negative ( PER HPI) Physical Exam General Appearance: Moderate Distress (Due to chest pain concerns. Patient appears to be in poor overall health.), Obese HEENT: Normal ENT Inspection, Pharynx Normal, TMs Normal Neck: Full Range of Motion, Non-Tender, Normal, Normal Inspection Respiratory: Chest Non-Tender, Lungs Clear, No Accessory Muscle Use, No Respiratory Distress, Normal Breath Sounds Cardiovascular: No Edema, No JVD, No Murmur, No Gallop, Normal Peripheral Pulses, Other (Irregular rate and rhythm) Breast Exam: Deferred Gastrointestinal: No Organomegaly, Non Tender, No Pulsatile Mass, Normal Bowel Sounds, Soft Genitalia: Deferred Pelvic: Deferred Rectal: Deferred Extremities: No calf tenderness, Normal capillary refill, Normal inspection, Normal range of motion, Non-tender, No pedal edema Neurologic: Alert, No Motor Deficits, Normal Affect, Normal Mood, No Sensory Deficits Cerebellar Function: Normal Reflexes: Normal Skin: Dry, Normal Color, Warm Lymphatic: No Adenopathy Was a procedure done? Was a procedure done?: No CP Differential Dx Differential Diagnosis: A-fib, A-Flutter, Angina, Anxiety / Panic Attack, MO Differential Diagnosis: HTN Essential, HTN Accelerated Differential Diagnosis: Chest Wall Pain, Costochondritis X-Ray, Labs, Meds, VS Vital Signs Date Time Temp Pulse Resp B/P (MAP) Pulse Ox O2 Delivery O2 Flow Rate FiO2 01/08/25 21:37 74 19 127/63 94 21 01/08/25 16:00 127/63 01/08/25 15:50 98.2 74 18 117/70 (86) 94 98.2 01/08/25 15:42 70 Lab Test 01/08/25 18:51 01/08/25 16:33 01/08/25 15:47 Range/Units Troponin I High Sensitivity 21 14 13 </=54 ng/L Lactic Acid Level 1.0 0.4-2.0 mmol/L White Blood Count 4.9 4.4-10.8 10^3/uL Red Blood Count 3.59 L 4.5-5.90 10^6/uL Hemoglobin 11.0 L 13.5-17.5 g/dL Hematocrit 32.6 L 41.0-53.0 % Mean Corpuscular Volume 90.8 80.0-100.0 fL Mean Corpuscular Hemoglobin 30.7 28.0-32.0 pg Mean Corpuscular Hemoglobin Concent 33.8 32.0-36.0 g/dL Red Cell Distribution Width 14.4 H 11.8-14.3 % Platelet Count 158 140-450 10^3/uL Mean Platelet Volume 8.1 6.9-10.8 fL Neutrophils (%) (Auto) 62.9 37.0-80.0 % Lymphocytes (%) (Auto) 20.2 10.0-50.0 % Monocytes (%) (Auto) 10.4 0.0-12.0 % Eosinophils (%) (Auto) 5.3 0.0-7.0 % Basophils (%) (Auto) 1.2 0.0-2.0 % Neutrophils # (Auto) 3.1 1.6-8.6 10 ^3/uL Lymphocytes # (Auto) 1.0 0.4-5.4 10 ^3/uL Monocytes # (Auto) 0.5 0-1.3 10 ^3/uL Eosinophils # (Auto) 0.3 0-0.8 10 ^3/uL Basophils # (Auto) 0.1 0-0.2 10 ^3/uL Nucleated Red Blood Cells 0.0 % Sodium Level 141 136-145 mmol/L Potassium Level 4.2 3.5-5.1 mmol/L Chloride Level 102 98-107 mmol/L Carbon Dioxide Level 34 H 20-31 mmol/L Anion Gap 5 5-15 Blood Urea Nitrogen 13 9-23 mg/dL Creatinine 1.06 0.700-1.30 mg/dL Glomerular Filtration Rate Calc 74 >90 mL/min BUN/Creatinine Ratio 12.3 10.0-20.0 Serum Glucose 143 H 74-106 mg/dL Calcium Level 8.7 8.7-10.4 mg/dL Total Bilirubin 0.5 0.2-1.0 mg/dL Aspartate Amino Transferase (AST) < 8 L 13-40 U/L Alanine Aminotransferase (ALT) 10 7-40 U/L Alkaline Phosphatase 52 46-116 U/L B-Type Natriuretic Peptide 255.51 0-100 pg/mL Total Protein 6.2 5.7-8.2 g/dL Albumin 4.3 3.2-4.8 g/dL Lipase 30 12-53 U/L [address] [address] Ph: [phone] DIAGNOSTIC IMAGING Diagnostic Imaging Report : [id number] Signed PATIENT: ANA LAURA BELLE MACCT: [id number] UNIT: [id number] : 1950 LOC: ER ROOM / BED: / AGE / SEX: 74 / M ADM STATUS: REG ER SERVICE [id number] ORDERING PHYSICIAN: ROGELIO DAVILA PAC PROCEDURE(s): CXRP - CHEST PORTABLE REASON: Chest pain ORDER NUMBER(s): [id number], ACCESSION NUMBER(s): [id number] CHEST RADIOGRAPH Indication: Chest pain Technique: Single frontal view of the chest was obtained Comparison: XY CHEST PORTABLE on DOS: 10/29/24, XY CHEST PORTABLE on DOS: 10/15/24, XY CHEST PORTABLE on DOS: 10/06/24 FINDINGS: Lines and Tubes: Port-A-Cath in place right internal jugular vein with the tip in the superior vena cava. Lungs: Mildly prominent interstitial disease throughout both lung nash. Pleura: No effusion. No pneumothorax. Cardiomediastinal contours: Unremarkable Bones: No acute osseous abnormality. IMPRESSION: 1. Port-A-Cath in good position 2. Mildly prominent interstitial markings throughout both lung nash. ATED BY: JIGNA BROWN Jr., DO DICTATED DATE/TIME: 01/08/251643 SIGNED BY: JIGNA BROWN Jr., SIGNED DATE/TIME: 01/08/251643 CC: X-Ray, Labs, Meds, VS Comment All studies performed the ED were evaluated by me personally. Serum laboratories revealed an anemic state as well as an elevated BNP. EKG revealed an rate controlled atrial fibrillation with a rate of 70. Low voltage in extremity and precordial leads as well as anterior septal age indeterminate infarct. QT interval of 373. Chest x-ray revealed a well-positioned Port-A-Cath as well as a mildly prominent interstitial markings throughout both lung nash. Due to the patient's cardiac history as well as CHF concerns, patient will be admitted for cardiac evaluation. As this patient has insurance through [employer], spoke with Dr. Menendez. We discussed the patient's presentation as well as study results. I felt the patient was safe for discharge as Dr. Menendez confirmed Friday follow up with Cardiology. Time of 1ST Reevaluation: 19:26 Reevaluation 1ST: Improved Consultation: PCP, Cardiology Patient Education/Counseling: Diagnosis, Treatment Family Education/Counseling: Diagnosis, Treatment, No Family Present Sepsis Sepsis Reasesment Focused Exam Orders: Laboratory Tests 01/08/25 16:33: Lactic Acid Level 1.0 Departure 1 Departure Time of Disposition: 19:27 Impression: Primary Impression: Acute coronary syndrome without high troponin Disposition: HOME / SELF CARE / HOMELESS Condition: Stable Additional Instructions: Advised patient that he will follow up through his outpatient services on Friday with Cardiology. Advise utilizing medication as needed for symptomatic chest pain relief. e-Prescriptions Nitroglycerin (Nitrostat) 0.4 Mg Sub 0.4 MG SL Q4HP PRN, #10 INJ Prov: ROGELIO DAVILA PAC 01/08/25 Discharged With: Self, Friend Critical Care Note Critical Care Time?: No Stability Stability form required: No Heart Score Heart Score: Heart Score Response (Comments) Value History Slightly Suspicious 0 EKG Repolarization Disturb 1 Age >65 2 Risk Factors >3 or Hx ASHD 2 Troponin Normal limit 0 Total 5 I personally scribed for ROGELIO DAVILA B PAC ([email or web address]) on 01/08/25 at 16:21. Electronically submitted by Mindy Barros ([email or web address]). I personally scribed for ROGELIO DAVILA B PAC ([email or web address]) on 01/08/25 at 16:24. Electronically submitted by Mindy Barros ([email or web address]). I personally scribed for LOLAROGELIO B PAC ([email or web address]) on 01/08/25 at 16:30. Electronically submitted by Mindy Barros ([email or web address]). I personally scribed for LOLAROGELIO B PAC ([email or web address]) on 01/08/25 at 17:13. Electronically submitted by Mindy Barros ([email or web address]). ROGELIO DAVILA B PAC Jan 08, 2025 16:21
[2025-01-08 16:23] LABS: Alanine Aminotransferase 10 U/L (7-40); Albumin 4.3 g/dL (3.2-4.8); Alkaline Phosphatase 52 U/L (46-116); Anion Gap 5 (5-15); BUN/Creatinine Ratio 12.3 (10.0-20.0); Bilirubin, Total 0.5 mg/dL (0.2-1.0); Blood Urea Nitrogen 13 mg/dL (9-23); Calcium 8.7 mg/dL (8.7-10.4); Chloride 102 mmol/L (98-107); Lipase 30 U/L (12-53); Potassium 4.2 mmol/L (3.5-5.1); Sodium 141 mmol/L (136-145); Total Protein 6.2 g/dL (5.7-8.2)
[2025-01-08 16:26] LABS: Aspartate Aminotransferase < 8 U/L (13-40); Carbon Dioxide 34 mmol/L (20-31); Glucose 143 mg/dL (74-106)
--- NOTE | 2025-01-08 16:46 | DVH ---
CHEST RADIOGRAPH Indication: Chest pain Technique: Single frontal view of the chest was obtained Comparison: XY CHEST PORTABLE on DOS: 10/29/24, XY CHEST PORTABLE on DOS: 10/15/24, XY CHEST PORTABLE o n DOS: 10/06/24 FINDINGS: Lines and Tubes: Port-A-Cath in place right internal jugular vein with the tip in the superior vena c iftikhar. Lungs: Mildly prominent interstitial disease throughout both lung nash. Pleura: No effusion. No pneumothorax. Cardiomediastinal contours: Unremarkable Bones: No acute osseous abnormality. IMPRESSION: 1. Port-A-Cath in good position 2. Mildly prominent interstitial markings throughout both lung nash.
--- NOTE | 2025-01-08 18:47 | ECG ---
[facility] Test Date: 2025-01-08 Test Time: 15:42:30 Pat Name: ANA LAURA BELLE Department: ED Room: Gender: M Threader: dr BOWEN: 1950 Requested By: ROGELIO DAVILA Order Number: [id number] Reading MD: Ellis Garner Measurements Intervals [place] Rate: 70 P: 0 NM: 0 QRS: 61 QRSD: 78 T: 0 QT: 373 QTc: 403 Interpretive Statements Atrial fibrillation Low voltage, extremity and precordial leads Anteroseptal infarct, age indeterminate Electronically Signed On 01-12-2025 20:49:24 PDT by Ellis Garner Please click the below link to view image of tracing.
[2025-01-08] MEDS ORDERED: ALBUTEROL SULF 2.5 MG/0.5ML(0.5%) NEB SOLN NEB PRN (21:30)
[2025-01-08] MEDS ORDERED: DOCUSATE SOD 100 MG CAP PO PRN (21:30)
[2025-01-08] MEDS ORDERED: IPRATROPIUM BROM 0.5 MG/2.5ML INH SOL NEB PRN (21:30)
[2025-01-08] MEDS ORDERED: ONDANSETRON HCL 4 MG/2 ML VIAL IV PRN (21:30)
[2025-01-08] MEDS ORDERED: ACETAMINOPHEN 325 MG TAB PO PRN (21:30)
[2025-01-08] MEDS ORDERED: HYDROcodone-ACET 5/325MG TAB PO PRN (21:30)
[2025-01-08 21:37] VITALS: BP 127/63; PULSE 74; RESP 19; O2SAT 94
[2025-01-08] MEDS ORDERED: NITR0.4S29 SL (21:44)
[2025-01-08] MEDS: FAMOTIDINE (10MG/ML) 2ML VL IV SCH (22:00)
[2025-01-08] MEDS: SODIUM CHLOR 0.9% PF (SALINE LOCK) 10ML VIAL/SYR IV SCH (22:00)
[2025-01-08] MEDS: APIXABAN 5 MG TAB PO SCH (22:00)
[2025-01-08] MEDS: CARVEDILOL 3.125 MG TAB PO SCH (22:00)
[2025-01-08] MEDS: ATORVASTATIN 20 MG TAB PO SCH (22:00)
[2025-01-08] MEDS: GABAPENTIN 300 MG CAP PO SCH (22:00)
[2025-01-08] MEDS: HYDROcodone-ACET 10/325MG TAB PO ONE (22:57)
[2025-01-08 23:00] VITALS: PULSE 64; RESP 13; TEMP 98.1; O2SAT 94
[2025-01-09 04:37] LABS: Basophils # (auto) 0.1 10 ^3/uL (0-0.2); Basophils % (auto) 1.2 % (0.0-2.0); Eosinophils # (auto) 0.3 10 ^3/uL (0-0.8); Eosinophils % (auto) 5.7 % (0.0-7.0); Hematocrit 33.1 % (41.0-53.0); Hemoglobin 11.1 g/dL (13.5-17.5); Lymphocytes % (auto) 20.7 % (10.0-50.0); Mean Corpuscular Hemoglobin 30.4 pg (28.0-32.0); Mean Corpuscular Hgb Conc. 33.5 g/dL (32.0-36.0); Mean Corpuscular Volume 90.6 fL (80.0-100.0); Monocytes # (auto) 0.5 10 ^3/uL (0-1.3); Neutrophils # (auto) 3.2 10 ^3/uL (1.6-8.6); Neutrophils % (auto) 62.4 % (37.0-80.0); Platelet Count (auto) 152 10^3/uL (140-450); Red Blood Cells 3.65 10^6/uL (4.5-5.90); White Blood Cell 5.1 10^3/uL (4.4-10.8)
[2025-01-09 04:52] LABS: Alanine Aminotransferase 11 U/L (7-40); Albumin 4.1 g/dL (3.2-4.8); Alkaline Phosphatase 49 U/L (46-116); Anion Gap 6 (5-15); Blood Urea Nitrogen 14 mg/dL (9-23); Calcium 9.4 mg/dL (8.7-10.4); Chloride 104 mmol/L (98-107); Glucose 106 mg/dL (74-106); Potassium 3.9 mmol/L (3.5-5.1); Sodium 144 mmol/L (136-145); Total Protein 5.9 g/dL (5.7-8.2)
[2025-01-09 04:53] LABS: Aspartate Aminotransferase < 8 U/L (13-40); Bilirubin, Total 0.4 mg/dL (0.2-1.0); Carbon Dioxide 34 mmol/L (20-31)
[2025-01-09 05:05] VITALS: BP 158/84; PULSE 74; RESP 18; O2SAT 95
[2025-01-09] MEDS ORDERED: FUROSEMIDE 20 MG/2 ML VIAL IV SCH (10:00)
== END 2025-01-09 05:10 | disposition home or self-care (01) ==
LOC: EDBD 15:40 → ER 15:44
DX: I24.9 Acute ischemic heart disease, unspecified (principal); I11.0 Hypertensive heart disease with heart failure; I50.9 Heart failure, unspecified; E78.5 Hyperlipidemia, unspecified; I25.10 Atherosclerotic heart disease of native coronary artery without angina pectoris; I48.91 Unspecified atrial fibrillation; J44.89 Other specified chronic obstructive pulmonary disease; Z79.82 Long term (current) use of aspirin; Z79.899 Other long term (current) drug therapy; Z90.49 Acquired absence of other specified parts of digestive tract; Z90.89 Acquired absence of other organs; Z88.1 Allergy status to other antibiotic agents; Z88.5 Allergy status to narcotic agent
CPT/HCPCS: 36415; 71045; 80053; 83605; 83690; 83880; 84484; 85025; 93005

== ENCOUNTER 2025-01-20 10:16 | Emergency (ER) | payer MEDICARE, MEDICAID ==
[~2025-01-20] VITALS: Ht 182.9 cm; Wt 129.5 kg
[~2025-01-20 10:16] MED LIST changes: +NITR0.4S29 SL
[2025-01-20 11:00] LABS: Basophils # (auto) 0.1 10 ^3/uL (0-0.2); Basophils % (auto) 1.2 % (0.0-2.0); Eosinophils # (auto) 0.2 10 ^3/uL (0-0.8); Eosinophils % (auto) 2.8 % (0.0-7.0); Hematocrit 34.2 % (41.0-53.0); Hemoglobin 11.4 g/dL (13.5-17.5); Lymphocytes % (auto) 15.5 % (10.0-50.0); Mean Corpuscular Hemoglobin 30.1 pg (28.0-32.0); Mean Corpuscular Hgb Conc. 33.4 g/dL (32.0-36.0); Mean Corpuscular Volume 90.2 fL (80.0-100.0); Monocytes # (auto) 0.6 10 ^3/uL (0-1.3); Monocytes % (auto) 9.7 % (0.0-12.0); Neutrophils # (auto) 4.6 10 ^3/uL (1.6-8.6); Neutrophils % (auto) 70.8 % (37.0-80.0); Platelet Count (auto) 161 10^3/uL (140-450); Red Cell Distribution Width 14.9 % (11.8-14.3); White Blood Cell 6.6 10^3/uL (4.4-10.8)
[2025-01-20 11:09] LABS: Chloride 101 mmol/L (98-107); Potassium 4.1 mmol/L (3.5-5.1); Sodium 141 mmol/L (136-145)
[2025-01-20 11:10] LABS: Anion Gap 5 (5-15)
--- NOTE | 2025-01-20 11:10 | ED.PDOC ---
SOB-HPI HPI Comments 74 year old male presents to the ED via EMS with a chief complaint of shortness of breath onset 12 hours. Per EMS, patient has been experiencing shortness of breath for the past 12 hours, used 2L O2 at home, was also experiencing bilateral leg swelling, chest pressure. Upon EMS arrival, patient O2 sat was 98% on 2L, was hypertensive BP 175/100, Nitro was given in route. PMHx asthma, COPD, CHF, a-fib, cancer, CAD, HTN, HLD. Denies dizziness, nausea, vomiting, diarrhea, headache, fevers, chills. No other symptoms or modifying factors present at this time. Chief Complaint: Shortness of Breath Time Seen by MD: 10:17 Primary Care Provider: DODSON Reviewed notes: Medications, Allergies Information Source: Patient, Emergency Med Personnel Mode of Arrival: EMS Severity: Moderate Timing: Hours Duration: Since onset Context: At Rest PE Risk Factors: None History of: Asthma, COPD, CHF Prehospital treatment: Breathing Tx, Oxygen, Other (Nitro) Modifying Factors: Nothing Associated Signs and Symptoms: Chest Pain (pressure) Quality: Pressure Radiation: No Radiation Past Medical History PAST MEDICAL HISTORY: AFIB, Asthma, CAD, Cancer, CHF, COPD, High Lipids, HTN Surgical History: Appendectomy, PTCA, Tonsillectomy Family History Family History: Reviewed,noncontributory to illness Social History Smoker: Non-Smoker Alcohol: Denies ETOH Use Drugs: Denies Drug Use Lives In: Home Constitutional: denies: chills, diaphoresis, fatigue, fever, malaise, sweats, weakness, others EENTM: denies: blurred vision, double vision, ear bleeding, ear discharge, ear drainage, ear pain, ear ringing, eye pain, eye redness, hearing loss, mouth pain, mouth swelling, nasal discharge, nose bleeding, nose congestion, nose pain, photophobia, tearing, throat pain, throat swelling, voice changes, others Respiratory: reports: shortness of breath; denies: cough, hemoptysis, orthopnea, SOB at rest, SOB with excertion, stridor, wheezing, others Cardiovascular: reports: chest pain (pressure), others (hypertension); denies: dizzy spells, diaphoresis, Dyspnea on exertion, edema, irregular heart beat, left arm pain, lightheadedness, palpitations, PND, syncope Gastrointestinal: denies: abdomen distended, abdominal pain, blood streaked bowels, constipated, diarrhea, dysphagia, difficulty swallowing, hematemesis, me amelia, nausea, poor appetite, poor fluid intake, rectal bleeding, rectal pain, vomiting, others Genitourinary: denies: burning, dysuria, flank pain, frequency, hematuria, incontinence, penile discharge, penile sore, pain, testicle pain, testicle swelling, urgency, others Neurological: denies: dizziness, fainting, headache, left sided numbness, left sided weakness, numbness, paresthesia, pre-existing deficit, right sided numbness, right sided weakness, seizure, speech problems, tingling, tremors, weakness, others Musculoskeletal: reports: others (bilateral leg swelling); denies: back pain, gout, joint pain, joint swelling, muscle pain, muscle stiffness, neck pain Integumetry: denies: bruises, change in color, change in hair/nails, dryness, laceration, lesions, lumps, rash, wounds, others Allergic/Immunocompromised: denies: Difficulty Healing, Frequent Infections, Hives, Itching, others Hematologic/Lymphatic: denies: anemia, blood clots, easy bleeding, easy bruising, swollen glands, others Endocrine: denies: excessive hunger, excessive sweating, excessive thirst, excessive urination, flushing, intolerance to cold, intolerance to heat, unexplained weight gain, unexplained weight loss, others Psychiatric: denies: anxiety, bipolar disorder, depression, hopeless, panic disorder, schizophrenia, sleepless, suicidal, others All Other Systems: Reviewed and Negative Physical Exam General Appearance: Normal HEENT: Normal ENT Inspection, Pharynx Normal, TMs Normal Neck: Full Range of Motion, Non-Tender, Normal, Normal Inspection Respiratory: Chest Non-Tender, Lungs Clear, No Accessory Muscle Use, No Respiratory Distress, Normal Breath Sounds Cardiovascular: No Edema, No JVD, No Murmur, No Gallop, Normal Peripheral Pulses, Regular Rate/Rhythm Breast Exam: Deferred Gastrointestinal: No Organomegaly, Non Tender, No Pulsatile Mass, Normal Bowel Sounds, Soft Genitalia: Deferred Pelvic: Deferred Rectal: Deferred Extremities: No calf tenderness, Normal capillary refill, Normal inspection, Normal range of motion, Non-tender, No pedal edema Musculoskeletal : Apperance: Normal Neurologic: Alert, milk hauler II-XII nml as Tested, No Motor Deficits, Normal Affect, Normal Mood, No Sensory Deficits Cerebellar Function: Normal Reflexes: Normal Skin: Dry, Normal Color, Warm Lymphatic: No Adenopathy Was a procedure done? Was a procedure done?: No Differential Dx Differential Diagnosis: CHF, COPD, Myocardial infarction, Panic Attack, Pneumonia X-Ray, Labs, Meds, VS Vital Signs Date Time Temp Pulse Resp B/P (MAP) Pulse Ox O2 Delivery O2 Flow Rate FiO2 01/20/25 13:50 97.7 64 16 143/80 (101) 98 97.7 01/20/25 10:47 97.6 74 20 153/90 (111) 97 97.6 01/20/25 10:45 20 97 Nasal Cannula* 4 36 01/20/25 10:17 67 Lab Test 01/20/25 14:18 01/20/25 12:44 01/20/25 10:45 Range/Units Troponin I High Sensitivity 16 19 17 </=54 ng/L White Blood Count 6.6 4.4-10.8 10^3/uL Red Blood Count 3.80 L 4.5-5.90 10^6/uL Hemoglobin 11.4 L 13.5-17.5 g/dL Hematocrit 34.2 L 41.0-53.0 % Mean Corpuscular Volume 90.2 80.0-100.0 fL Mean Corpuscular Hemoglobin 30.1 28.0-32.0 pg Mean Corpuscular Hemoglobin Concent 33.4 32.0-36.0 g/dL Red Cell Distribution Width 14.9 H 11.8-14.3 % Platelet Count 161 140-450 10^3/uL Mean Platelet Volume 7.9 6.9-10.8 fL Neutrophils (%) (Auto) 70.8 37.0-80.0 % Lymphocytes (%) (Auto) 15.5 10.0-50.0 % Monocytes (%) (Auto) 9.7 0.0-12.0 % Eosinophils (%) (Auto) 2.8 0.0-7.0 % Basophils (%) (Auto) 1.2 0.0-2.0 % Neutrophils # (Auto) 4.6 1.6-8.6 10 ^3/uL Lymphocytes # (Auto) 1.0 0.4-5.4 10 ^3/uL Monocytes # (Auto) 0.6 0-1.3 10 ^3/uL Eosinophils # (Auto) 0.2 0-0.8 10 ^3/uL Basophils # (Auto) 0.1 0-0.2 10 ^3/uL Nucleated Red Blood Cells 0.0 % Sodium Level 141 136-145 mmol/L Potassium Level 4.1 3.5-5.1 mmol/L Chloride Level 101 98-107 mmol/L Carbon Dioxide Level 35 H 20-31 mmol/L Anion Gap 5 5-15 Blood Urea Nitrogen 20 9-23 mg/dL Creatinine 1.20 0.700-1.30 mg/dL Glomerular Filtration Rate Calc 63 >90 mL/min BUN/Creatinine Ratio 16.7 10.0-20.0 Serum Glucose 176 H 74-106 mg/dL Calcium Level 10.0 8.7-10.4 mg/dL B-Type Natriuretic Peptide 147.60 0-100 pg/mL Time of 1ST Reevaluation: 10:47 Reevaluation 1ST: Unchanged Patient Education/Counseling: Diagnosis, Treatment, Prognosis Family Education/Counseling: No Family Present SEPSIS Sepsis Screen Date sepsis recognized/suspect: Jan 20, 2025 Time Sepsis recognized/suspect: 1022 Recent Procedure: No On Antibiotic Therapy: No Respiratory Rate >20: No Heart Rate >90: No Temp<36 C (96.8 F) or >38.3 C: No SBP <90 or MAP <65 mmHG: No New Acute Mental Status Change: No Is the patient on CPAP, BIPAP,: No Physician Orders Chest Portable (01/20/25 10:30) Electrocardigram (01/20/25 10:21) Electrocardigram (01/20/25 11:21) Electrocardigram (01/20/25 13:21) Vital Signs Date Time Temp Pulse Resp B/P (MAP) Pulse Ox O2 Delivery O2 Flow Rate FiO2 01/20/25 13:50 97.7 64 16 143/80 (101) 98 97.7 01/20/25 10:47 97.6 74 20 153/90 (111) 97 97.6 01/20/25 10:45 20 97 Nasal Cannula* 4 36 01/20/25 10:17 67 Laboratory Tests Test 01/20/25 10:45 White Blood Count 6.6 10^3/uL (4.4-10.8) Departure 1 Departure Time of Disposition: 15:50 (Patient is a pace patient. His workup is benign. Discussed with pace and they recommend discharge from the follow up with the patient.) Impression: Primary Impression: Acute dyspnea Disposition: 01 HOME / SELF CARE / HOMELESS Condition: Stable Additional Instructions: Your workup today was benign. It is important to follow up with the regular doctors this week. If her symptoms worsen or if any other concerns please return to the emergency room Discharged With: Self Critical Care Note Critical Care Time?: No Stability Stability form required: No Heart Score Heart Score: Heart Score Response (Comments) Value History Slightly Suspicious 0 EKG Repolarization Disturb 1 Age >65 2 Risk Factors >3 or Hx ASHD 2 Troponin Normal limit 0 Total 5 I personally scribed for ALEJANDRO RICHMOND MD ([email or web address]) on 01/20/25 at 11:10. Electronically submitted by Lorene Fuentes ([email or web address]). ALEJANDRO RICHMOND MD Jan 20, 2025 11:10
[2025-01-20 11:11] LABS: Carbon Dioxide 35 mmol/L (20-31)
[2025-01-20 11:15] LABS: BUN/Creatinine Ratio 16.7 (10.0-20.0); Blood Urea Nitrogen 20 mg/dL (9-23)
[2025-01-20 11:16] LABS: Glucose 176 mg/dL (74-106)
--- NOTE | 2025-01-20 11:25 | DVH ---
CHEST RADIOGRAPH Indication: chest pain Technique: Single frontal view of the chest was obtained COMPARISON: XY CHEST PORTABLE on DOS: 01/08/25, XY CHEST PORTABLE on DOS: 10/29/24, XY CHEST PORTABLE on DOS: 10/15/24, XY CHEST PORTABLE on DOS: 10/06/24, XY CHEST PORTABLE on DOS: 08/13/24 FINDINGS: Lines and Tubes: Right chest port in satisfactory position. Lungs: Congestion Pleura: No effusion. No pneumothorax. Cardiomediastinal contours: Cardiomegaly Bones: Unremarkable IMPRESSION: Pulmonary vascular congestion or viral pneumonia. Findings are similar to 01/08/2025.
[2025-01-20 17:54] VITALS: BP 174/86; PULSE 69; RESP 16; TEMP 98.4; O2SAT 98
--- NOTE | 2025-01-24 12:10 | ECG ---
[facility] Test Date: 2025-01-20 Test Time: 10:17:36 Pat Name: ANA LAURA BELLE Department: ED Room: Gender: M Thread Clipper: HAILE : 1950 Requested By: ALEJANDRO RICHMOND Order Number: [id number] Reading MD: Ellis Garner Measurements Intervals [place] Rate: 67 P: 0 PA: 0 QRS: -3 QRSD: 84 T: -4 QT: 412 QTc: 435 Interpretive Statements Atrial fibrillation Low voltage, precordial leads Consider anterior infarct Borderline T abnormalities, inferior leads Electronically Signed On 01-25-2025 22:28:53 PDT by Ellis Garner Please click the below link to view image of tracing.
== END 2025-01-20 17:55 | disposition home or self-care (01) ==
LOC: ER 10:16 → EDUNIT# 10:16 → EDBD 10:16 → ER 17:55
DX: R06.02 Shortness of breath (principal); R06.00 Dyspnea, unspecified; E78.5 Hyperlipidemia, unspecified; I11.0 Hypertensive heart disease with heart failure; I25.10 Atherosclerotic heart disease of native coronary artery without angina pectoris; I48.91 Unspecified atrial fibrillation; I50.9 Heart failure, unspecified; J44.89 Other specified chronic obstructive pulmonary disease; Z90.49 Acquired absence of other specified parts of digestive tract; Z90.89 Acquired absence of other organs
CPT/HCPCS: 36415; 71045; 80048; 83880; 84484; 85025; 93005

== ENCOUNTER 2025-07-12 13:08 | Emergency (ER) | payer MEDICARE, MEDICAID ==
[~2025-07-12] VITALS: Ht 182.9 cm; Wt 130.0 kg
--- NOTE | 2025-07-12 13:18 | ECG ---
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
[2025-07-12 13:45] VITALS: PULSE 80; RESP 16; TEMP 98.3; O2SAT 96
--- NOTE | 2025-07-12 13:58 | ED.PDOC ---
Altered Mental Status HPI Comments 74-year-old male who presents to the ED via EMS for a chief complaint of syncopal episode. Per EMS patient had witnessed syncopal episode at home earlier this morning. Patient states that he felt dizzy earlier this morning next the side of the bed states he laid down and passed out. EMS arrived on scene and noted the patient was hypotensive with a BP of 91/50 and patient was given 300 mL of IV fluids by EMS and patient blood pressure stabilized. Patient in the ED otherwise stated that he has been having cough congestion and flu- like symptoms for the past one month. patient otherwise states that he increased his home O2 from 3 L to 4 L due to his symptoms with the past week. Patient otherwise currently on antibiotics. Patient in the ED otherwise has stable vitals. Patient otherwise denies any other symptoms. Chief Complaint: Syncope Time Seen by MD: 14:04 Primary Care Provider: [facility] Reviewed Notes: Medications, Allergies Allergies: Coded Allergies: Fentanyl (Verified Allergy, Severe, 08/04/24) Tetracycline (Verified Allergy, Severe, 08/04/24) Patient states anaphalatic shock reaction from tetracycline and was hospitalized for 2 weeks. Povidone Iodine (Verified Allergy, Intermediate, RASH, 08/04/24) Home Meds Active Scripts Nitroglycerin (Nitrostat) 0.4 Mg Sub, 0.4 MG SL Q4HP PRN, #10 INJ Prov:ROGELIO DAVILA PAC 01/08/25 Pantoprazole Sodium Sesquihydr (Protonix) 40 Mg Tab, 40 MG PO DAILY for 30 Days, #30 TAB Prov:MARINO GODFREY RESIDENT 11/04/24 Cyclobenzaprine Hcl (Cyclobenzaprine Hcl) 5 Mg Tab, 1 TAB PO QPM for 7 Days, #7 TAB Prov:MARINO GODFREY RESIDENT 11/01/24 Budesonide (Inhalation) (Budesonide) 0.5 Mg/2 Ml Kim, 0.5 MG NEB BID, #120 ML Prov:OSWALD CHAPMAN MD 08/17/24 Ranolazine (Ranolazine ER) 500 Mg Tab, 500 MG PO BID, #60 TAB Prov:OSWALD CHAPMAN MD 08/17/24 Ipratropium-Albuterol (Ipratropium [place]/Albut) 1 Barbara Barbara, 1 BARBARA IN TID, #90 ML Prov:OSWALD CHAPMAN MD 08/17/24 Amiodarone Hcl (Amiodarone Hcl) 200 Mg Tab, 1 TAB PO BID, #90 TAB 1 Refill Prov:OSWALD CHAPMAN MD 08/17/24 Docusate Sodium (Docusate Sodium) 100 Mg Cap, 100 MG PO BIDPRN PRN for 30 Days, #30 CAP Prov:HEIDE SÁNCEHZ MD 08/12/24 Aspirin (Aspirin Low Dose) 81 Mg Tab, 81 MG PO DAILY for 30 Days, #30 TAB Prov:HEIDE SÁNCHEZ MD 08/12/24 Reported Medications Digoxin (Digoxin) 125 Mcg Tab, 1 TAB PO DAILY for 30 Days, #30 10/18/24 Atorvastatin Calcium (ATORVASTATIN CALCIUM) 40 Mg Tab, 1 TAB PO DAILY, #30 TAB 5 Refills 08/04/24 Furosemide (Furosemide) 20 Mg Tab, 1 TAB PO DAILYP, #90 TAB 1 Refill 08/04/24 Gabapentin (Gabapentin) 600 Mg Tab, 1 TAB PO TID, #90 TAB 3 Refills 08/04/24 Apixaban Base (ELIQUIS) 5 Mg Tab, 5 MG PO BID, TAB 08/04/24 Budesonide-Formoterol Fumarate (Budesonide/Formoterol Fum 160-4.5 Mcg/Act) 1 Aer Aer, 1 AER IN Q4HPRN, AER 08/04/24 Information Source: Patient, Emergency Med Personnel Mode of Arrival: EMS Brought in by: EMS Severity: Moderate Timing: Hours Past Medical History PAST MEDICAL HISTORY: AFIB, Asthma, CAD, Cancer, CHF, COPD, High Lipids, HTN Surgical History: Appendectomy, PTCA, Tonsillectomy Family History Family History: Reviewed,noncontributory to illness Social History Smoker: Non-Smoker Alcohol: Denies ETOH Use Drugs: Denies Drug Use Lives In: Home Constitutional: reports: malaise, weakness; denies: chills, diaphoresis, fatigue, fever, sweats, others EENTM: denies: blurred vision, double vision, ear bleeding, ear discharge, ear drainage, ear pain, ear ringing, eye pain, eye redness, hearing loss, mouth pain, mouth swelling, nasal discharge, nose bleeding, nose congestion, nose pain, photophobia, tearing, throat pain, throat swelling, voice changes, others Respiratory: reports: cough; denies: hemoptysis, orthopnea, SOB at rest, shortness of breath, SOB with excertion, stridor, wheezing, others Cardiovascular: denies: chest pain, dizzy spells, diaphoresis, Dyspnea on exertion, edema, irregular heart beat, left arm pain, lightheadedness, palpitations, PND, syncope, others Gastrointestinal: denies: abdomen distended, abdominal pain, blood streaked bowels, constipated, diarrhea, dysphagia, difficulty swallowing, hematemesis, melena, nausea, poor appetite, poor fluid intake, rectal bleeding, rectal pain, vomiting, others Genitourinary: denies: burning, dysuria, flank pain, frequency, hematuria, incontinence, penile discharge, penile sore, pain, testicle pain, testicle swelling, urgency, others Neurological: reports: fainting; denies: dizziness, headache, left sided numbness, left sided weakness, numbness, paresthesia, pre-existing deficit, right sided numbness, right sided weakness, seizure, speech problems, tingling, tremors, weakness, others Musculoskeletal: denies: back pain, gout, joint pain, joint swelling, muscle pain, muscle stiffness, neck pain, others Integumetry: denies: bruises, change in color, change in hair/nails, dryness, laceration, lesions, lumps, rash, wounds, others Allergic/Immunocompromised: denies: Difficulty Healing, Frequent Infections, Hives, Itching, others Hematologic/Lymphatic: denies: anemia, blood clots, easy bleeding, easy bruising, swollen glands, others Endocrine: denies: excessive hunger, excessive sweating, excessive thirst, excessive urination, flushing, intolerance to cold, intolerance to heat, unexplained weight gain, unexplained weight loss, others Psychiatric: denies: anxiety, bipolar disorder, depression, hopeless, panic disorder, schizophrenia, sleepless, suicidal, others All Other Systems: Reviewed and Negative Physical Exam General Appearance: No Apparent Distress, Normal HEENT: Normal ENT Inspection, Pharynx Normal, TMs Normal Neck: Full Range of Motion, Non-Tender, Normal, Normal Inspection Respiratory: Chest Non-Tender, Lungs Clear, No Accessory Muscle Use, No Respiratory Distress, Normal Breath Sounds Cardiovascular: No Edema, No JVD, No Murmur, No Gallop, Normal Peripheral Pulses, Regular Rate/Rhythm Breast Exam: Deferred Gastrointestinal: No Organomegaly, Non Tender, No Pulsatile Mass, Normal Bowel Sounds, Soft Genitalia: Deferred Pelvic: Deferred Rectal: Deferred Extremities: No calf tenderness, Normal capillary refill, Normal inspection, Normal range of motion, Non-tender, No pedal edema Musculoskeletal : Apperance: Normal Neurologic: Alert, tanyard worker II-XII nml as Tested, No Motor Deficits, Normal Affect, Normal Mood, No Sensory Deficits Cerebellar Function: Normal Reflexes: Normal Skin: Dry, Normal Color, Warm Lymphatic: No Adenopathy EKG EKG : Pulse Rate (adult): 70 Cardiac Rhythm: Afib Comments No STEMI Was a procedure done? Was a procedure done?: No Differential Diagnosis (ALOC) Differential Diagnosis: Dehydration, Hypoglycemia, Encephalopathy, Sepsis, Hypoxemia Other Differential Diagnosis Metabolic encephalopathy X-Ray, Labs, Meds, VS Vital Signs Date Time Temp Pulse Resp B/P (MAP) Pulse Ox O2 Delivery O2 Flow Rate FiO2 07/12/25 15:45 85 15 128/85 (99) 98 07/12/25 15:00 69 20 117/60 (79) 99 07/12/25 13:45 98.3 80 130/75 (93) 96 98.3 07/12/25 13:45 80 16 96 Nasal Cannula* 3 32 07/12/25 13:11 70 07/12/25 13:10 98.0 73 16 124/71 96 98.0 Lab Test 07/12/25 17:11 07/12/25 15:36 07/12/25 15:30 07/12/25 13:36 Range/Units Troponin I High Sensitivity 26 26 </=54 ng/L Urine Color Yellow Yellow Urine Clarity Clear Clear Urine pH 6.5 5.0-9.0 Urine Specific [place] 1.024 1.001-1.035 Urine Protein Negative Negative Urine Ketones Negative Negative Urine Blood Negative Negative /uL Urine Nitrite Negative Negative Urine Bilirubin Negative Negative Urine Urobilinogen 2 H Negative mg/dL Urine Leukocyte Esterase Negative Negative /uL Urine RBC <1 0 - 3 /hpf Urine Microscopic WBC < 1 0-3 /HPF Urine Squamous Epithelial Cells None seen <5 /hpf Urine Amorphous Crystals Few None Seen /hpf Urine Bacteria None seen None Seen /hpf Urine Glucose Normal Normal mg/dL White Blood Count 9.6 4.4-10.8 10^3/uL Red Blood Count 3.80 L 4.5-5.90 10^6/uL Hemoglobin 11.1 L 13.5-17.5 g/dL Hematocrit 33.5 L 41.0-53.0 % Mean Corpuscular Volume 88.0 80.0-100.0 fL Mean Corpuscular Hemoglobin 29.1 28.0-32.0 pg Mean Corpuscular Hemoglobin Concent 33.1 32.0-36.0 g/dL Red Cell Distribution Width 16.9 H 11.8-14.3 % Platelet Count 202 140-450 10^3/uL Mean Platelet Volume 7.4 6.9-10.8 fL Neutrophils (%) (Auto) 74.1 37.0-80.0 % Lymphocytes (%) (Auto) 14.2 10.0-50.0 % Monocytes (%) (Auto) 7.9 0.0-12.0 % Eosinophils (%) (Auto) 2.9 0.0-7.0 % Basophils (%) (Auto) 0.9 0.0-2.0 % Neutrophils # (Auto) 7.1 1.6-8.6 10 ^3/uL Lymphocytes # (Auto) 1.4 0.4-5.4 10 ^3/uL Monocytes # (Auto) 0.8 0-1.3 10 ^3/uL Eosinophils # (Auto) 0.3 0-0.8 10 ^3/uL Basophils # (Auto) 0.1 0-0.2 10 ^3/uL Nucleated Red Blood Cells 0.0 % Sodium Level 141 136-145 mmol/L Potassium Level 3.7 3.5-5.1 mmol/L Chloride Level 99 98-107 mmol/L Carbon Dioxide Level 35 H 20-31 mmol/L Anion Gap 7 5-15 Blood Urea Nitrogen 18 9-23 mg/dL Creatinine 0.90 0.700-1.30 mg/dL Glomerular Filtration Rate Calc 90 >90 mL/min BUN/Creatinine Ratio 20.0 10.0-20.0 Serum Glucose 156 H 74-106 mg/dL Lactic Acid Level 1.3 0.4-2.0 mmol/L Calcium Level 8.8 8.7-10.4 mg/dL Total Bilirubin 0.6 0.2-1.0 mg/dL Aspartate Amino Transferase (AST) 16 13-40 U/L Alanine Aminotransferase (ALT) 34 7-40 U/L Alkaline Phosphatase 53 46-116 U/L B-Type Natriuretic Peptide 144.65 0-100 pg/mL Total Protein 6.2 5.7-8.2 g/dL Albumin 3.9 3.2-4.8 g/dL Thyroid Stimulating Hormone (TSH) 2.55 0.55-4.78 uIU/mL Test 07/12/25 13:35 Range/Units Troponin I High Sensitivity 25 </=54 ng/L Current Medications Medications (Trade) Dose Ordered Sig/Aixa Route Start Time Stop Time Status Last Admin Sodium Chloride 500 ml @ 500 mls/hr Q1H ONCE IV 07/12/25 14:30 07/12/25 15:29 DC 07/12/25 15:15 [place] [id number] Ph: [phone] DIAGNOSTIC IMAGING Diagnostic Imaging Report : [id number] Signed PATIENT: ANA LAURA BELLE MACCT: [id number] UNIT: [id number] : 1950 LOC: ER ROOM / BED: / AGE / SEX: 74 / M ADM STATUS: REG ER SERVICE 1416 ORDERING PHYSICIAN: STEFANIE LAWS MD PROCEDURE(s): CXRP - CHEST PORTABLE REASON: r/o pna ORDER NUMBER(s): [id number], ACCESSION NUMBER(s): [id number] INDICATION: r/o pna TECHNIQUE: Single frontal view of the chest was obtained COMPARISON: XY CHEST PORTABLE on DOS: 01/20/25, XY CHEST PORTABLE on DOS: 01/08/25, XY CHEST TWO VIEWS ROUTINE on DOS: 12/13/24, CT CHEST WITHOUT CONTRAST on DOS: , XY CHEST PORTABLE on DOS: 10/29/24, XY CHEST PORTABLE on DOS: 01/20/25 FINDINGS: Lines and Tubes: Right chest port in satisfactory position. Lungs: Congestion Pleura: No effusion. No pneumothorax. Cardiomediastinal contours: Cardiomegaly Bones: Unremarkable IMPRESSION: Pulmonary vascular congestion or viral pneumonia. ATED BY: FARHAT MATHIAS MD DICTATED DATE/TIME: 07/12/251510 SIGNED BY: FARHAT MATHIAS MD SIGNED DATE/TIME: 07/12/251510 CC: X-Ray, Labs, Meds, VS Comment 74-year-old male here today for syncopal episode and viral URI symptoms. Plan made to admit the patient for further management and care. Admitting team ev aluated the patient as per their no and determined that the patient was stable for discharge from their perspective. Patient was subsequently discharged from the ER with a close outpatient follow up. See admitting team note for further details. Time of 1ST Reevaluation: 14:35 Reevaluation 1ST: Unchanged Patient Education/Counseling: Diagnosis, Treatment Family Education/Counseling: No Family Present SEPSIS Sepsis Screen Date sepsis recognized/suspect: Jul 12, 2025 Time Sepsis recognized/suspect: 1310 Recent Procedure: No On Antibiotic Therapy: No Respiratory Rate >20: No Heart Rate >90: No Temp<36 C (96.8 F) or >38.3 C: No SBP <90 or MAP <65 mmHG: No New Acute Mental Status Change: No Is the patient on CPAP, BIPAP,: No Physician Orders Blood Culture (07/12/25 13:20) Urine Bacterial Culture (07/12/25 14:16) Chest Portable (07/12/25 14:16) Discharge (07/12/25 16:14) Vital Signs Date Time Temp Pulse Resp B/P (MAP) Pulse Ox O2 Delivery O2 Flow Rate FiO2 07/12/25 15:45 85 15 128/85 (99) 98 07/12/25 15:00 69 20 117/60 (79) 99 07/12/25 13:45 98.3 80 130/75 (93) 96 98.3 07/12/25 13:45 80 16 96 Nasal Cannula* 3 32 07/12/25 13:11 70 07/12/25 13:10 98.0 73 16 124/71 96 98.0 Laboratory Tests Test 07/12/25 13:36 Lactic Acid Level 1.3 mmol/L (0.4-2.0) White Blood Count 9.6 10^3/uL (4.4-10.8) Medications Medications Dose Ordered Sig/Aixa Route Start Time Stop Time Status Last Admin Dose Admin Sodium Chloride 500 ml @ 500 mls/hr Q1H ONCE IV 07/12/25 14:30 07/12/25 15:29 DC 07/12/25 15:15 Departure 1 Departure Time of Disposition: 15:46 Impression: Primary Impression: Syncope Additional Impressions: History of CHF (congestive heart failure) History of COPD Viral URI Disposition: HOME / SELF CARE / HOMELESS Condition: Stable Critical Care Note Critical Care Time?: Yes (30 min-critical care time only) Stability Stability form required: No Heart Score Heart Score: Heart Score Response (Comments) Value History N/A 0 EKG N/A 0 Age N/A 0 Risk Factors N/A 0 Troponin N/A 0 Total 0 I personally scribed for STEFANIE LAWS MD ([facility]) on 07/12/25 at 13:58. Electronically submitted by Carlo Gilbert ([facility] [employer] I personally scribed for STEFANIE LAWS MD ([facility]) on 07/12/25 at 14:08. Electronically submitted by Carlo Gilbert ([facility] I personally scribed for STEFANIE LAWS MD ([facility] on 07/12/25 at 15:48. Electronically submitted by Carlo Gilbert ([facility] STEFANIE LAWS MD Jul 12, 2025 13:58
[2025-07-12 13:59] LABS: Hematocrit 33.5 % (41.0-53.0); Hemoglobin 11.1 g/dL (13.5-17.5); Mean Corpuscular Hemoglobin 29.1 pg (28.0-32.0); Mean Corpuscular Volume 88.0 fL (80.0-100.0); Nucleated Red Blood Cells % 0.0 %
[2025-07-12 14:18] LABS: Alanine Aminotransferase 34 U/L (7-40); Albumin 3.9 g/dL (3.2-4.8); Alkaline Phosphatase 53 U/L (46-116); Anion Gap 7 (5-15); BUN/Creatinine Ratio 20.0 (10.0-20.0); Bilirubin, Total 0.6 mg/dL (0.2-1.0); Blood Urea Nitrogen 18 mg/dL (9-23); Calcium 8.8 mg/dL (8.7-10.4); Chloride 99 mmol/L (98-107); Potassium 3.7 mmol/L (3.5-5.1); Sodium 141 mmol/L (136-145); Total Protein 6.2 g/dL (5.7-8.2)
[2025-07-12 14:21] LABS: Carbon Dioxide 35 mmol/L (20-31); Glucose 156 mg/dL (74-106)
--- NOTE | 2025-07-12 15:13 | DVH ---
INDICATION: r/o pna TECHNIQUE: Single frontal view of the chest was obtained COMPARISON: XY CHEST PORTABLE on DOS: 01/20/25, XY CHEST PORTABLE on DOS: 01/08/25, XY CHEST TWO VIEWS ROUTINE on DOS: 12/13/24, CT CHEST WITHOUT CONTRAST on DOS: 11/03/24, XY CHEST PORTABLE on DOS: 10/29/24, XY CHEST PORTABLE on DOS: 01/20/25 FINDINGS: Lines and Tubes: Right chest port in satisfactory position. Lungs: Congestion Pleura: No effusion. No pneumothorax. Cardiomediastinal contours: Cardiomegaly Bones: Unremarkable IMPRESSION: Pulmonary vascular congestion or viral pneumonia.
[2025-07-12] MEDS: SODIUM CHLORIDE 0.9% 500 ML IV ONE (15:15)
--- NOTE | 2025-07-12 16:18 | DVHDS2 ---
Discharge Summary Date of Admission Patient was not admitted Date of Discharge: Jul 12, 2025 Admitting Diagnosis Patient was seen in emergency room due to hypotension and syncopal episode Wounds: none Labs/Diagnostic Data: Laboratory Results Test 07/12/25 15:36 07/12/25 15:30 07/12/25 13:36 White Blood Count 9.6 10^3/uL (4.4-10.8) Red Blood Count 3.80 10^6/uL (4.5-5.90) Hemoglobin 11.1 g/dL (13.5-17.5) Hematocrit 33.5 % (41.0-53.0) Mean Corpuscular Volume 88.0 fL (80.0-100.0) Mean Corpuscular Hemoglobin 29.1 pg (28.0-32.0) Mean Corpuscular Hemoglobin Concent 33.1 g/dL (32.0-36.0) Red Cell Distribution Width 16.9 % (11.8-14.3) Platelet Count 202 10^3/uL (140-450) Mean Platelet Volume 7.4 fL (6.9-10.8) Neutrophils (%) (Auto) 74.1 % (37.0-80.0) Lymphocytes (%) (Auto) 14.2 % (10.0-50.0) Monocytes (%) (Auto) 7.9 % (0.0-12.0) Eosinophils (%) (Auto) 2.9 % (0.0-7.0) Basophils (%) (Auto) 0.9 % (0.0-2.0) Neutrophils # (Auto) 7.1 10 ^3/uL (1.6-8.6) Lymphocytes # (Auto) 1.4 10 ^3/uL (0.4-5.4) Monocytes # (Auto) 0.8 10 ^3/uL (0-1.3) Eosinophils # (Auto) 0.3 10 ^3/uL (0-0.8) Basophils # (Auto) 0.1 10 ^3/uL (0-0.2) Nucleated Red Blood Cells 0.0 % Sodium Level 141 mmol/L (136-145) Potassium Level 3.7 mmol/L (3.5-5.1) Chloride Level 99 mmol/L (98-107) Carbon Dioxide Level 35 mmol/L (20-31) Anion Gap 7 (5-15) Blood Urea Nitrogen 18 mg/dL (9-23) Creatinine 0.90 mg/dL (0.700-1.30) Glomerular Filtration Rate Calc 90 mL/min (>90) BUN/Creatinine Ratio 20.0 (10.0-20.0) Serum Glucose 156 mg/dL (74-106) Lactic Acid Level 1.3 mmol/L (0.4-2.0) Calcium Level 8.8 mg/dL (8.7-10.4) Total Bilirubin 0.6 mg/dL (0.2-1.0) Aspartate Amino Transferase (AST) 16 U/L (13-40) Alanine Aminotransferase (ALT) 34 U/L (7-40) Alkaline Phosphatase 53 U/L (46-116) B-Type Natriuretic Peptide 144.65 pg/mL (0-100) Total Protein 6.2 g/dL (5.7-8.2) Albumin 3.9 g/dL (3.2-4.8) Thyroid Stimulating Hormone (TSH) 2.55 uIU/mL (0.55-4.78) Other Laboratory Tests 07/12/25 13:36 Brief Hx & Hospital Course: Ayan Dukes is a 74-year-old male whose caregiver called EMS services due to patient having a syncopal episode. Patient noted to be hypotensive. He was given 300 ML fluid bolus. Patient's blood pressure in emergency room was low 90s and improve to 120s. Patient was not complaining of any dizziness.EKG showed atrial fibrillation, rate controlled in the 70s. Patient has a past medical history for chronic atrial fibrillation, controlled with digoxin and metoprolol COPD with oxygen dependance normally on 3L NC. 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 Patient had recently started buprenorphine for pain managment. Upon my assessment of the patient In the emergency room, patient was on 3 L nasal cannula. SPO2 was 98%. Lungs were clear to auscultation. Atrial fibrillation in the 70s. Systolic blood pressure was in 120s. Labs were stable. Chest x-ray showed viral pneumonia. Patient currently on treatment with oral antibiotics with Levaquin from [facility] facility. Patient has no white blood cell count and reports sporadic green phlegm. No fever. Upon further questioning, patient admitted that he did take some leftover MS Contin at home. I spoke with [facility] provider who stated patient should only be on weekly buprenorphine patches and [place]. Patient most likely had syncopal episode related to hypotension from over medication with MS [place]. Patient stated he took his normal blood pressure medication this morning. Blood pressure now stabilized. Per [facility] facility patient recently had cardiology evaluation with MELBA Hernandez and patient's atrial fibrillation has been well controlled on Digoxin and Metoprolol. Denies chest pain. [facility] will educate patient and have him bring all his medication to his follow up appointment tomorrow. Consults/Reason for consult Evaluated in the emergency room and deemed stable for discharge with f/u tomorrow at [facility] facility. Operations or Procedures none Condition at Discharge: Stable Final Diagnosis/Problems List Hypotension-resolved Discharge Disposition: Home SNF Discharge Name of Physician to Continue: [place] providers Discharge Instruct/Medications Diet: Cardiac 2g Na,low cholest Activity: No Restrictions, As Tolerated Follow Up/Referral: pcp at [facility] tomorrow Medications: Continue home meds Scheduled Amiodarone Hcl (Amiodarone Hcl), 1 TAB PO BID Apixaban Base (Eliquis), 5 MG PO BID, (Reported) Aspirin (Aspirin Low Dose), 81 MG PO DAILY Atorvastatin Calcium (Atorvastatin Calcium), 1 TAB PO DAILY, (Reported) Budesonide (Inhalation) (Budesonide), 0.5 MG NEB BID Budesonide-Formoterol Fumarate (Budesonide/Formoterol Fum 160-4.5 Mcg/Act), 1 AER IN Q4HPRN, (Reported) Cyclobenzaprine Hcl (Cyclobenzaprine Hcl), 1 TAB PO QPM Digoxin (Digoxin), 1 TAB PO DAILY, (Reported) Furosemide (Furosemide), 1 TAB PO DAILYP, (Reported) Gabapentin (Gabapentin), 1 TAB PO TID, (Reported) Ipratropium-Albuterol (Ipratropium [place]/Albut), 1 NICOLLE IN TID Pantoprazole Sodium Sesquihydr (Protonix), 40 MG PO DAILY Ranolazine (Ranolazine ER), 500 MG PO BID Scheduled PRN Docusate Sodium (Docusate Sodium), 100 MG PO BIDPRN PRN Nitroglycerin (Nitrostat), 0.4 MG SL Q4HP PRN 30 Discharge Statement: "Patient was advised to return to the ER or call 911 if any headaches, dizziness, shortness of breath, chest pain, abdominal pain, bleeding, fevers, or worsening of medical condition. Patient was counseled about treatment plan, medications, possible side effects, patientverbalized understanding. All questions were answered to the best of my ability. This discharge took greater then 30 minutes in planning, reviewing documentation, counseling the patient, and discussing with other team members." ASSESSMENT ASSESSMENT Assessment Hypotension-resolved LITO BARAJAS [employer] Jul 12, 2025 16:18
[2025-07-12 16:37] LABS: Urine Amorphous Crystal FEW /hpf (None Seen); Urine Protein, UAD Negative (Negative)
[2025-07-12 17:45] VITALS: BP 130/75; RESP 17; O2SAT 98
[2025-07-12 20:14] VITALS: PULSE 70
== END 2025-07-12 18:30 | disposition home or self-care (01) ==
LOC: EDBD 13:08 → ER 13:08
DX: J06.9 Acute upper respiratory infection, unspecified (principal); R55 Syncope and collapse; I11.0 Hypertensive heart disease with heart failure; I50.9 Heart failure, unspecified; I48.91 Unspecified atrial fibrillation; J44.89 Other specified chronic obstructive pulmonary disease; E78.5 Hyperlipidemia, unspecified; Z79.82 Long term (current) use of aspirin; Z79.899 Other long term (current) drug therapy; Z90.49 Acquired absence of other specified parts of digestive tract; Z90.89 Acquired absence of other organs; Z88.1 Allergy status to other antibiotic agents; Z88.5 Allergy status to narcotic agent
CPT/HCPCS: 36415; 71045; 80053; 81001; 83605; 83880; 84443; 84484; 85025; 87040; 87086; 93005; 99285; J7040; 96360